=== PATIENT | male | born 1950 | race Caucasian/White ===

== ENCOUNTER 2017-05-05 08:38 | Observation (INO) | payer MEDICARE, MEDICAID, SELFPAY ==
[2017-05-05] VITALS (17 sets, daily range): BP systolic 113–134; BP diastolic 69–94; PULSE 62–98; RESP 15–18; TEMP 36.4–36.6; O2SAT 92–97; BMI 30.2; BMI 29.5
--- NOTE | 2017-05-05 08:49 | EKG12_ITS ---
Test Reason : CP Blood Pressure : / mmHG Vent. Rate : 075 BPM Atrial Rate : 075 BPM P-R Int : 232 ms QRS Dur : 090 ms QT Int : 374 ms P-R-T Axes : 061 -24 043 degrees QTc Int : 417 ms Sinus rhythm with 1st degree A-V block Inferior infarct , age undetermined Abnormal ECG Confirmed by YENIFER BUCK, YESI ([id number]), senior editor EVGENY ALEX ([id number]) on 05/08/2017 2:06:38 PM Referred By: MISTY Confirmed By:YESI STREET MD
--- NOTE | 2017-05-05 08:54 | ED.DCSUM_ITS ---
- ER Visit Summary Date of Service: 05/05/17 Chief Complaint: Chest pain History of Present Illness: The patient is a [address] Rao, Dr. Peterson, and Dr. Jorge Hudson. Patient had a colonoscopy yesterday. He states that since 4:00 this morning he is passed a small amount of blood and clear/white tissue. He has diffuse abdominal pain that was 10 out of 10 at worst is 7 out of 10 currently. Is worsened by nothing relieved by nothing. Patient reports that approximately 1 hour ago he had the onset of a substernal chest pain while at rest. He describes his pain as sharp. It was 10 out of 10 at worst and 410 currently. Is worsened by exertion relieved by rest. Ports she has been nauseated, but he was nauseated prior to the onset of the chest pain. However, it has made him sweaty and short of breath. Physical Examination: Vitals: Stable. Afebrile. General: Well-nourished and well-developed. Head: Normocephalic atraumatic. Neck: Supple, no lymphadenopathy. No JVD. Nontender. Cardiovascular: Regular rate and rhythm. No murmurs. Respiratory: No respiratory distress. Clear to auscultation bilaterally. Abdominal: Soft, mild diffuse tenderness to palpation that is worst in the epigastric region, nondistended, normal bowel sounds. No guarding, rebound, or peritoneal signs. Back: Nontender. Extremities: Nontender, no edema. Skin: Normal color, no rash. Neurologic: Alert and oriented ?3. Cranial nerves II through XII are intact. Normal strength and sensation. Psych: Normal affect. Test Results: EKG is sinus with a first-degree AV block rate of 75 and nonspecific changes. He does have inferior Q waves. However, this is unchanged from December 2016. Repeat EKG is unchanged. CBC is marked for white count of 11.97 neutrophils 73. Hemoglobin is 14.5. Chem-7 is more for chloride 108, glucose 109. INR is 1.1. Troponin is less than 0.02. Three- view of the abdomen shows no free air. Moderate fecal material and nonspecific bowel gas pattern. Emergency Department Course and Treatment: The place. He was given morphine and Zofran IV. Initially aspirin was held due to the colonoscopy and concern for potential bleeding from this. Patient is resting comfortably. He denies any chest pain at this time. Treatment Plan: After discussion with Dr. Peterson the patient is given a dose of aspirin. He requires admission for further evaluation for his chest pain. Disposition: Admitted in improved condition. Impression: 1. Chest pain. 2. 1 day status post colonoscopy. 3. DEMETRIO score of 3. This note was generated with [employer]ango [employer] dictation software. It may contain incorrect words, spelling, and punctuation that were not noted in review of the chart prior to signing ED Disposition - Plan for ED Patient: Chief Complaint: Chest Pain Referrals: Momo High MD [Primary Care Provider] -
[2017-05-05 08:57] LABS: Absolute Lymphocyte Count 2.25 X10^3/ul (0.83-4.51); Absolute Neutrophil Count 8.6 X10^3/uL (2.0-7.7); Basophil# 0.01 X10^3/uL; Basophil% 0.1 % (0-1); Eosinophil# 0.03 X10^3/uL; Eosinophils% 0.3 % (0-5); Hematocrit 43.6 % (40-54); Hemoglobin 14.5 g/dl (13.0-16.5); Lymphocyte # 2.25 X10^3/ul (4.0); Mean Corp Hgb Conc 33.3 g/gl (32-36); Mean Corpuscular Hgb 28.8 pg (27.0-32.0); Mean Corpuscular Volume 86.7 fL (80-94); Mean Platelet Vol. 9.3 fl (6.2-12.0); Monocyte# 0.91 X10^3/uL; Monocyte% 7.7 % (0-10); Neutrophil # 8.64 X10^3/uL (2.7-7.7); Neutrophil % 72.7 % (47-70); POSITIVE COUNT NO; POSITIVE DIFFERENTIAL NO; POSITIVE MORPHOLOGY NO; Platelet Count 219 K/mm3 (150-450); RBC Distribution Width CV 13.3 % (11.6-14.6); RBC Distribution Width SD 42.3 fl (35.1-43.9); Red Blood Count 5.03 M/mm3 (4.6-6.2); White Blood Count 11.9 K/mm3 (4.4-11.0)
[2017-05-05] MEDS: 0.9% Normal Saline 1,000 ML 1000 ML IV (08:57)
[2017-05-05] MEDS: Ondansetron 4 MG/2 ML Vial IV (08:57)
[2017-05-05 09:04] LABS: International Normalized Ratio 1.1
[2017-05-05 09:15] LABS: Anion Gap 7 (5-15); BUN 13 mg/dL (7-18); BUN/Creat Ratio 12.3 RATIO (10-20); Calcium,Total 8.5 mg/dL (8.5-10.1); Chloride 108 mmol/L (98-107); Creatinine, Serum 1.06 mg/dL (0.70-1.30); EST Glomerular Filtration Rate 74 mL/min (>60); Est Glom Filt Rate - Afr Amer 90 mL/min (>60); Estimated Creatinine Clearance 71.74 ml/min; Glucose 109 mg/dL (74-106); Potassium 3.7 mmol/L (3.5-5.1); Sodium Level 140 mmol/L (136-145)
--- NOTE | 2017-05-05 09:15 | RAD_ITS ---
STUDY: X-RAY - ABDOMEN/PELVIS REASON FOR EXAM: Male, 66 years old. Abdominal pain. Recent colonoscopy. TECHNIQUE: AP supine and upright views of the abdomen and pelvis. COMPARISON: None. FINDINGS: Normal visualized lung bases. A left-sided dual chamber pacemaker is seen. Moderate amount of fecal material is seen in the colon. There is no demonstrated free abdominal air. The visualized liver, spleen and kidneys are grossly normal in size and morphology. There are calcified phleboliths in the pelvis. Normal visualized osseous structures. RAD/Acute Abdomen Inc Chest IMPRESSION: Moderate amount of fecal material is seen in the colon. Electronically Signed: Raffaele Quiros MD at 10:04 EDT Tel [phone], Service support ,
--- NOTE | 2017-05-05 10:24 | EKG12_ITS ---
Test Reason : REPEAT CP Blood Pressure : / mmHG Vent. Rate : 068 BPM Atrial Rate : 068 BPM P-R Int : 240 ms QRS Dur : 094 ms QT Int : 416 ms P-R-T Axes : 052 -23 032 degrees QTc Int : 442 ms Sinus rhythm with 1st degree A-V block Inferior infarct , age undetermined Abnormal ECG Confirmed by YENIFER BUCK, YESI ([id number]), editor at large EVGENY ALEX ([id number]) on 05/08/2017 2:07:08 PM Referred By: MISTY Confirmed By:YESI STREET MD
[2017-05-05] MEDS: Aspirin 81 MG TAB.CHEW 324 MG PO (10:56)
[2017-05-05 12:26] LABS: Bedside Glucose 109 mg/dL (70-110)
[2017-05-05] MEDS: Bisacodyl 5 MG Tablet PO (13:59)
[2017-05-05] MEDS: Magnesium Hydroxide 30 ML UDC PO (13:59)
--- NOTE | 2017-05-05 14:01 | EKG12_ITS ---
Test Reason : ARM PAIN Blood Pressure : / mmHG Vent. Rate : 069 BPM Atrial Rate : 069 BPM P-R Int : 252 ms QRS Dur : 090 ms QT Int : 394 ms P-R-T Axes : 052 -22 032 degrees QTc Int : 422 ms Sinus rhythm with 1st degree A-V block Low voltage QRS Inferior infarct , age undetermined Abnormal ECG When compared with ECG of 05-MAY-2017 10:28, MANUAL COMPARISON REQUIRED, DATA IS UNCONFIRMED Confirmed by YENIFER BUCK, YESI ([id number]), copy editor EVGENY ALEX ([id number]) on 05/08/2017 2:50:23 PM Referred By: GARRICK Confirmed By:YESI STREET MD
--- NOTE | 2017-05-05 14:02 | NURSING ---
RN CALLED TO ROOM, STATES LOWER ABDOMEN PAIN AND LEFT ARM HURTS. BP 120/58, HR 68. CALLED FOR EKG. PATIENT STATES, GAS PAIN,
--- NOTE | 2017-05-05 14:59 | PCM.HP.STD ---
Problem List (1) Chest pain Status: Acute Qualifiers: Ischemic chest pain type: unspecified angina pectoris type (2) Status post pacemaker Status: Chronic (3) Obstructive sleep apnea Status: Chronic (4) Hyperlipidemia Status: Chronic (5) Atrial fibrillation Status: Chronic (6) Anxiety Status: Chronic History of Present Illness Date of Admission: 05/05/17 Chief Complaint: Chest pain, ongoing for a while, worse today The patient is a 66 year old M with PMHx of CAF, s/p pacemaker who has been having recrrent chest pain. He woke up today and was sitting in his recliner when he suddenly felt a sharp chest pain, that radiated to his left arm and was associated with nausea and light-headedness. He has occasional palpitations. Has not seen a counselor education professor in a while. Chest pain is not worse with exertion. Vitals in the ED were stable. Initial trop was negative. EKG shows NSR, no acute ST-Tchanges Past Medical History Past Medical History (Chronic Problems): Chronic Problems Status post pacemaker (Chronic) Obstructive sleep apnea (Chronic) Hyperlipidemia (Chronic) Atrial fibrillation (Chronic) Anxiety (Chronic) Allergies metformin Allergy (Verified 05/05/17 08:53) Unknown Penicillins Allergy (Verified 05/05/17 08:53) Swelling Androgenic Anabolic Steroid Adverse Reaction (Verified 05/05/17 12:43) Rash STATES, HAD SOME TYPE OF Z-ABBIE TAMPER AND GOT A RASH FROM IT. Home Medications: Ambulatory Orders Medication Instructions Recorded Flecainide [Tambocor] 50 mg PO BID 05/11/14 Gemfibrozil [Lopid] 600 mg PO BID 05/11/14 Metoprolol Tartrate [Lopressor 12.5 mg PO BID 05/11/14 (beta sae)] Nitroglycerin [Nitrostat] 0.4 mg SUBLINGUAL Q5M PRN 05/11/14 Pravastatin [Pravachol] 40 mg PO QHS 05/11/14 Warfarin [Coumadin] 4 mg PO DAILY 05/11/14 Venlafaxine XR [Effexor Xr] 150 mg PO DAILY 12/22/16 Albuterol Aerosols [Ventolin 2.5 mg INHALATION Q4H PRN PRN 05/05/17 Aerosols] Glimepiride [Amaryl] 2 mg PO DAILY 05/05/17 Omeprazole [Prilosec] 20 mg PO DAILY 05/05/17 Sitagliptin Phosphate [Januvia] 100 mg PO DAILY 05/05/17 Tamsulosin HCl [Flomax] 0.4 mg PO QHS 05/05/17 Surgical History: - - Knee surgery, hernia repair Psychiatric History: No pertinent psych hx Lives: Alone Smoking Status: Former smoker - *Family History Maternal History Items: No pertinent history Review of Systems Constitutional: Denies: Anorexia, Chills, Fever, Weight Change Eyes: Denies: Blurred vision, Cataracts, Drainage, Eyelid Inflammation HEENT: Denies: Difficulty Hearing, Difficulty Swallowing, Head Aches, Hearing Changes, Sinus Congestion, Sinus Drainage, Sore Throat Cardiovascular: Reports: Chest Pain, Chest Pressure, Light Headedness, Palpitations - occasional. Denies: Orthopnea, Paroxysmal Noc. Dyspnea Respiratory: Denies: Cough, Shortness of breath at rest, Sputum production Gastrointestinal: Denies: Abdominal Pain, Nausea, Vomiting Genitourinary: Denies: Dysuria Musculoskeletal: Denies: Joint Pain, Joint Tenderness Skin: Denies: Rash, Wounds Neurological: Denies: Numbness, Tingling, Focal weakness Psychiatric: Denies: Anxiety, Depression, Homicidal Ideations, Suicidal Ideations Hematologic/ Lymphatic: Denies: Easy Bruising, Easy Bleeding VTE Information - Inpt Only VTE Present on Admission: No VTE Pharm Prophylaxis ordered?: Yes Patient Problems: Active and Suspected Problems Chest pain (Acute) - Physical Exam General: Alert, Oriented x3, Cooperative HEENT: Atraumatic, PERRLA, EOMI, Normocephalic Neck: Supple, No JVD, Negative Carotid Bruits Lungs: Clear to auscultation, Normal air movement Cardiovascular: Regular rate, No murmurs Abdomen: Bowel Sounds Present, Soft, Non Tender Extremities: No edema, Capillary Refill Less than 3 Seconds Skin: No rashes, No breakdown Musculoskeletal: No Tenderness to Palpation of Joints or Extremities Neurological: Cranial nerves II-XII grossly intact Psych/Mental Status: Normal Affect, Appropriate Vital Signs Temp Pulse Resp BP Pulse Ox 97.9 F 67 16 123/73 H 96 05/05/17 12:20 05/05/17 12:31 05/05/17 12:20 05/05/17 12:20 05/05/17 12:20 Oxygen Flow Rate (L/min) 2 Oxygen Delivery Method Nasal Cannula Weight: 93.3 kg Body Mass Index (BMI) 29.5 Laboratory Tests Past 24 Hrs 05/05/17 12:25 Troponin I < 0.02 POC Glucose 05/05/17 12:21 POC Glucose 109 Assessment/Plan Active and Suspected Problems Chest pain (Acute) 66 y/o male with PMhx with PMHx of chronic atrial fibrillation, status post pacemaker comes in with complaints of chest pain ongoing for several weeks, was on the day of admission. 1. Chest pain, atypical, no acute ST-T changes on EKG, troponins negative, will admit patient to PCU, monitor vitals on telemetry, cycle troponins, aspirin 81 mg p.o. daily, nitro as needed, stress test in am 2.Chronic A. fib, now in NSR, on home warfarin, flecainide, beta-sae INR subtherapeutic, follow-up INR in a.m. 3. s/p pacemaker 4. DM, type 2, on the. Right, Marilee ISS, accucheks 5. Hyperlipidemia, on statin 6. Recent colonoscopy for polyps by Dr. Don, adina 7. DVT PPx - Lovenox SC Code Visit OBSV E&M: 70822 Initial observation care L3
[2017-05-05] MEDS: Acetaminophen 325 MG Tablet 650 MG PO (16:05)
[2017-05-05 16:11] LABS: Bedside Glucose 117 mg/dL (70-110)
[2017-05-05] MEDS: Glucerna Shake 120 ML LIQUID PO (17:38)
[2017-05-05] MEDS: Flecainide 100 MG Tablet 50 MG PO (17:39)
[2017-05-05] MEDS: LINAGLIPTIN 5 MG TABLET PO (17:39)
[2017-05-05] MEDS: Venlafaxine XR 150 MG Capsule PO (17:40)
[2017-05-05] MEDS: Pantoprazole Sodium 20 MG Tablet PO (17:40)
[2017-05-05] MEDS: Senna/Docusate Sodium 1 Tablet 2 TABLET PO (20:48)
[2017-05-05] MEDS: Pravastatin 40 MG Tablet PO (20:49)
[2017-05-05] MEDS: Metoprolol Tartrate 25 MG Tablet 12.5 MG PO (20:49)
[2017-05-05] MEDS: Docusate Sodium 100 MG Capsule 200 MG PO (20:50)
[2017-05-05] MEDS: Tamsulosin HCl 0.4 MG Capsule PO (20:50)
[2017-05-05] MEDS: Gemfibrozil 600 MG Tablet PO (20:51)
[2017-05-05 22:21] LABS: Bedside Glucose 148 mg/dL (70-110)
[2017-05-06 02:40] VITALS: BP 123/75; PULSE 60; RESP 18; TEMP 36.3; O2SAT 95
[2017-05-06 03:00] VITALS: PULSE 71
[2017-05-06 05:42] LABS: Absolute Lymphocyte Count 1.85 X10^3/ul (0.83-4.51); Absolute Neutrophil Count 3.9 X10^3/uL (2.0-7.7); Basophil# 0.02 X10^3/uL; Basophil% 0.3 % (0-1); Eosinophil# 0.06 X10^3/uL; Eosinophils% 0.9 % (0-5); Hematocrit 41.3 % (40-54); Hemoglobin 13.8 g/dl (13.0-16.5); Lymphocyte # 1.85 X10^3/ul (4.0); Lymphocyte % 28.2 % (19-41); Mean Corp Hgb Conc 33.4 g/gl (32-36); Mean Corpuscular Hgb 29.7 pg (27.0-32.0); Mean Corpuscular Volume 88.8 fL (80-94); Mean Platelet Vol. 9.2 fl (6.2-12.0); Monocyte# 0.74 X10^3/uL; Monocyte% 11.3 % (0-10); Neutrophil # 3.89 X10^3/uL (2.7-7.7); Neutrophil % 59.1 % (47-70); Platelet Count 188 K/mm3 (150-450); RBC Distribution Width CV 13.5 % (11.6-14.6); RBC Distribution Width SD 43.3 fl (35.1-43.9); Red Blood Count 4.65 M/mm3 (4.6-6.2); White Blood Count 6.6 K/mm3 (4.4-11.0)
[2017-05-06 05:48] LABS: POSITIVE COUNT NO; POSITIVE DIFFERENTIAL NO; POSITIVE MORPHOLOGY NO
--- NOTE | 2017-05-06 05:55 | EKG12_ITS ---
Test Reason : MORNING EKG Blood Pressure : / mmHG Vent. Rate : 067 BPM Atrial Rate : 067 BPM P-R Int : 264 ms QRS Dur : 094 ms QT Int : 426 ms P-R-T Axes : 053 -26 042 degrees QTc Int : 450 ms Sinus rhythm with 1st degree A-V block Inferior infarct , age undetermined Abnormal ECG When compared with ECG of 05-MAY-2017 14:06, MANUAL COMPARISON REQUIRED, DATA IS UNCONFIRMED Confirmed by YENIFER BUCK, YESI ([id number]), scientific publications editor EVGENY ALEX ([id number]) on 05/08/2017 3:08:35 PM Referred By: GARRICK Confirmed By:YESI STREET MD
[2017-05-06 06:00] LABS: International Normalized Ratio 1.1; Prothrombin Time (Protime)PT. 14.6 SECONDS (11.7-14.9)
[2017-05-06 06:01] LABS: Partial Thromboplast Time 31.9 Seconds (24.1-36.2)
[2017-05-06 06:07] LABS: Anion Gap 7 (5-15); BUN 13 mg/dL (7-18); BUN/Creat Ratio 12.6 RATIO (10-20); Calcium,Total 8.6 mg/dL (8.5-10.1); Chloride 108 mmol/L (98-107); Creatinine, Serum 1.03 mg/dL (0.70-1.30); EST Glomerular Filtration Rate 77 mL/min (>60); Est Glom Filt Rate - Afr Amer 93 mL/min (>60); Estimated Creatinine Clearance 73.83 ml/min; Glucose 121 mg/dL (74-106); Potassium 3.9 mmol/L (3.5-5.1); Sodium Level 142 mmol/L (136-145)
[2017-05-06 06:13] VITALS: BP 119/70; PULSE 67; RESP 18; TEMP 36.3; O2SAT 93
[2017-05-06] MEDS: Aspirin 81 MG TAB.CHEW PO (06:17)
[2017-05-06 06:23] VITALS: PULSE 61
[2017-05-06 06:56] LABS: Bedside Glucose 131 mg/dL (70-110)
--- NOTE | 2017-05-06 09:07 | STRESSREP ---
Stress Test Report Pharmacologic myocardial perfusion stress test. 66-year-old man with a history of chest pain. Stress protocol: Resting EKG demonstrates sinus rhythm with rate of 64 bpm normal intervals and noted resting blood pressure is 120/80 mmHg. 0.4 mg of regadenoson was infused per usual protocol followed by rapid intravenous saline flush injection. Continuous EKG monitoring was performed. The patient maintained sinus rhythm throughout the recording. At rest there were no ST or T-wave changes noted suggest abnormal flow reserve at peak infusion no ST or T-wave changes were noted suggest abnormal flow reserve. The maximum heart rate attained was 95 bpm which was 61% maximum predicted heart rate the maximum workload attained was 1 metabolic equivalent. The resting blood pressure was 120/80 with a final blood pressure 140/74. Myocardial perfusion protocol. 11.8 mCi of technetium 99m sestamibi was injected at rest. 0.4 mg regadenoson was infused per usual protocol. At peak infusion 34.2 mCi of technetium 99m sestamibi was injected. Stress images were obtained. Stress and rest images were reconstructed and compared in the short axis vertical long and horizontal long axis. Gated images were also obtained. Perfusion SPECT analysis: Review of the stress images demonstrate normal uptake of tracer noted in all areas of the myocardium. The resting images similarly demonstrate normal uptake of tracer noted in all areas of the myocardium. No areas of reversibility noted suggest ischemia. Gated SPECT analysis: The gated ejection fraction is noted to be 77%. Conclusion: Normal pharmacologic myocardial perfusion stress test. Preserved left ventricular ejection fraction.
[2017-05-06] MEDS: Glimepiride 2 MG Tablet PO (09:25)
[2017-05-06] MEDS: Bisacodyl 5 MG Tablet PO (09:25)
[2017-05-06 09:26] VITALS: BP 127/69; PULSE 67; RESP 16; TEMP 36.5; O2SAT 96
[2017-05-06] MEDS: Magnesium Hydroxide 30 ML UDC PO (09:26)
[2017-05-06] MEDS: Pantoprazole Sodium 20 MG Tablet PO (09:26)
[2017-05-06] MEDS: Gemfibrozil 600 MG Tablet PO (09:26)
[2017-05-06] MEDS: Docusate Sodium 100 MG Capsule 200 MG PO (09:26)
[2017-05-06] MEDS: Metoprolol Tartrate 25 MG Tablet 12.5 MG PO (09:26)
[2017-05-06] MEDS: LINAGLIPTIN 5 MG TABLET PO (09:26)
[2017-05-06] MEDS: Flecainide 100 MG Tablet 50 MG PO (09:26)
[2017-05-06] MEDS: Senna/Docusate Sodium 1 Tablet 2 TABLET PO (09:27)
[2017-05-06] MEDS: Venlafaxine XR 150 MG Capsule PO (09:46)
--- NOTE | 2017-05-06 09:58 | DCINST_ITS ---
- Discharge Diagnoses Current Active Problems: Current Active and Chronic Problems Chest pain (Acute) Reason(s) for Visit for Discharge Instructions: Chest pain You will use the following diet at home:: Calorie/Carbohydrate Controlled ( specify 1200, 1400, etc), Cardiac Your food should be the consistency of: Regular Your liquids should be the consistency of: Regular/Thin Discharge Activity: Return to Normal Activity Allergies/Adverse Reactions: Allergies metformin Allergy (Verified 05/05/17 08:53) Unknown Penicillins Allergy (Verified 05/05/17 08:53) Swelling Androgenic Anabolic Steroid Adverse Reaction (Verified 05/05/17 12:43) Rash STATES, HAD SOME TYPE OF Z-ABBIE TAMPER AND GOT A RASH FROM IT. Medications to take at Discharge Flecainide [Tambocor] 50 mg PO BID 05/11/14 Gemfibrozil [Lopid] 600 mg PO BID 05/11/14 Metoprolol Tartrate [Lopressor (beta sae)] 12.5 mg PO BID 05/11/14 Nitroglycerin [Nitrostat] 0.4 mg SUBLINGUAL Q5M PRN 05/11/14 Pravastatin [Pravachol] 40 mg PO QHS 05/11/14 Warfarin [Coumadin] 4 mg PO DAILY 05/11/14 Venlafaxine XR [Effexor Xr] 150 mg PO DAILY 12/22/16 Albuterol Aerosols [Ventolin Aerosols] 2.5 mg INHALATION Q4H PRN PRN 05/05/17 Glimepiride [Amaryl] 2 mg PO DAILY 05/05/17 Omeprazole [Prilosec] 20 mg PO DAILY 05/05/17 Sitagliptin Phosphate [Januvia] 100 mg PO DAILY 05/05/17 Tamsulosin HCl [Flomax] 0.4 mg PO QHS 05/05/17 Aspirin [Aspirin, Baby] 81 mg PO DAILY@0800 tab.chew 05/06/17 Primary Care Physician: Momo High MD [Primary Care Provider] - Please follow up with your Primary Care Physician in: within 2 weeks When: Follow-up with your radiology transporter in 2-4 weeks Proposed Discharge Date: 05/06/17
--- NOTE | 2017-05-06 09:59 | PCM.DC.SUM ---
Discharge Date and Diagnosis Date of Admission: 05/05/17 Date of Discharge: 05/06/17 - Primary Discharge Diagnosis Active and Suspected Problems Chest pain (Acute) - Secondary Discharge Diagnosis Chronic Problems Status post pacemaker (Chronic) Obstructive sleep apnea (Chronic) Hyperlipidemia (Chronic) Atrial fibrillation (Chronic) Anxiety (Chronic) Hospital Course and Treatment Imaging Results: 05/06/17 05:55 Nuclear Stress Test - Chemical [NM] AM (NON MEDS) Operations: None Procedures: None Summary of Care Provided: 66 y/o male with PMHx with of chronic atrial fibrillation, status post pacemaker comes in with complaints of chest pain ongoing for several weeks, was worse on the day of admission. 1. Chest pain, atypical, no acute ST-T changes on EKG, troponins negative, admitted to PCU monitored overnight with no acute events, he had a stress test in the morning which was negative. 2.Chronic A. fib, now in NSR, on home warfarin, flecainide, beta-sae INR subtherapeutic, will up with INR in the outpatient 3. s/p pacemaker 4. DM, type 2, stable blood sugar, continued on Januvia with Accu-Cheks and insulin sliding scale. 5. Hyperlipidemia, on statin 6. Recent colonoscopy for polyps by Dr. Don, stable Discharge Diet: Low fat/ Low Cholesterol, 2000 mg Sodium Diet Discharge Activity: Return to Normal Activity Home Medications: Medications to take at Discharge Flecainide [Tambocor] 50 mg PO BID 05/11/14 Gemfibrozil [Lopid] 600 mg PO BID 05/11/14 Metoprolol Tartrate [Lopressor (beta sae)] 12.5 mg PO BID 05/11/14 Nitroglycerin [Nitrostat] 0.4 mg SUBLINGUAL Q5M PRN 05/11/14 Pravastatin [Pravachol] 40 mg PO QHS 05/11/14 Warfarin [Coumadin] 4 mg PO DAILY 05/11/14 Venlafaxine XR [Effexor Xr] 150 mg PO DAILY 12/22/16 Albuterol Aerosols [Ventolin Aerosols] 2.5 mg INHALATION Q4H PRN PRN 05/05/17 Glimepiride [Amaryl] 2 mg PO DAILY 05/05/17 Omeprazole [Prilosec] 20 mg PO DAILY 05/05/17 Sitagliptin Phosphate [Januvia] 100 mg PO DAILY 05/05/17 Tamsulosin HCl [Flomax] 0.4 mg PO QHS 05/05/17 Aspirin [Aspirin, Baby] 81 mg PO DAILY@0800 tab.chew 05/06/17 Primary Care Physician: Momo High MD [Primary Care Provider] - Please follow up with your Primary Care Physician in: within 2 weeks When: Follow-up with your customer advocate in 2-4 weeks Disposition: Home Minutes spent on discharge:: 25 Patient Condition:: Stable Medical Necessity - Tobacco Use Smoking Status: Former smoker Meaningful Use Info Meaningful Use Diagnoses (Choose all that apply): None applicable Code Visit OBSV E&M: 85729 Observation care discharge
== END 2017-05-06 09:58 | disposition home or self-care (01) ==
LOC: ED 09:22 → PCU 11:03
PROVIDERS: Admitting Provider Internal Medicine; Emergency Provider Emergency Medicine; Family Provider Family Medicine; PCP Family Medicine; Visit Provider Internal Medicine
DX: R07.89 Other chest pain (principal); R06.02 Shortness of breath; I44.0 Atrioventricular block, first degree; G47.33 Obstructive sleep apnea (adult) (pediatric); E78.5 Hyperlipidemia, unspecified; I48.2 Chronic atrial fibrillation; F41.9 Anxiety disorder, unspecified; E11.9 Type 2 diabetes mellitus without complications; Z95.0 Presence of cardiac pacemaker; Z79.899 Other long term (current) drug therapy; Z79.01 Long term (current) use of anticoagulants; Z87.891 Personal history of nicotine dependence
CPT/HCPCS: 36415; 74022; 78452; 80048; 82962; 83735; 84484; 85025; 85610; 85730; 93005; 93017; 96361; 96374; 96375; 97802; 99218; 99285; A9500; J7030; A4216; G0378; J2405; J2785

== ENCOUNTER → 2017-12-10 10:14 | Outpatient (CLI) | payer MEDICARE, SELFPAY ==
[2017-12-10 11:11] LABS: AST(SGOT) 22 U/L (15-37); Alanine Aminotransfer ALT/SGPT 49 U/L (16-61); Albumin, Serum 3.8 g/dL (3.2-5.0); Alkaline Phosphatase 116 U/L (45-117); Bilirubin, Direct 0.07 mg/dL (0.00-0.30); Cholesterol 173 mg/dL (200); Globulin 3.9 g/dL (2.2-4.2); High Density Lipoprotein 29 mg/dL; Protein, Total 7.7 g/dL (6.4-8.2); Triglycerides 313 mg/dL; Very Low Density Lipoprotein 63 mg/dL (5-40)
== END ==
PROVIDERS: Family Provider Family Medicine; PCP Family Medicine; Referring Provider Internal Medicine Cardiovascular Disease; Visit Provider Internal Medicine Cardiovascular Disease
DX: I25.10 Atherosclerotic heart disease of native coronary artery without angina pectoris (principal); I25.2 Old myocardial infarction
CPT/HCPCS: 36415; 80061; 80076

== ENCOUNTER → 2017-12-15 09:57 | Outpatient (CLI) | payer MEDICARE, MEDICAID, SELFPAY ==
--- NOTE | 2017-12-15 10:01 | STEWCON_ITS ---
Reason For Study: Chest Pain Stress Results Protocol: Modified Saeid Stress Echo Maximum Predicted HR: 154 bpm Target HR: 131 bpm % Maximum Predicted HR: 105 % DurationHeart Rate Stage (mm:ss) (bpm) BP Comment BASELINE 83 102/70DILUTED DEFINITY USED- 4 ML, PO AT REST 93-95% MODBRUCE PROTOCOL- STAGE 1 3:00 150 118/72SOB, KNEE PAIN MODBRUCE PROTOCOL- STAGE 2 0:30 162 / SOB, LEG FATIGUE; PO DID NOT BIOANALYST, NO CP RECOVERY 100 124/80PO 97% Stress Duration: 3:30 mm:ss Maximum Stress HR: 162 bpm Baseline Echocardiogram Findings The estimated ejection fraction is 65 %. Stress Echo Wall motion Data Resting WM Intermediate WM Stress WM Resting Wall Motion Wall Motion Stress No regional wall motion No regional wall motion abnormalities noted. abnormalities noted. EKG Data The baseline ECG displays normal sinus rhythm. The stress ECG displays normal sinus rhythm. The stress ECG displays normal ST segments. Interpretation Summary The study was technically difficult. Contrast injection was performed. The estimated ejection fraction is 65 %. Normal, adequate, modified Saeid treadmill echocardiogram. Negative for ischemia by EKG and echocardiographic criteria. No anginal symptoms noted. No arrhythmias noted. Test terminated due to dyspnea and leg/knee pain. Final LVEF of 75%. Decreased sensitivity due to poor echo windows requiring Definity agent enhancement. No complications. Ordering Physician: Thang^Magan^^^ Referring Physician: Magan Desir Performed By: Lauren Marrero RDCS
[2017-12-15 10:16] LABS: Prothrombin Time Fingerstick 24.3 SEC (11.9-14.4)
== END ==
PROVIDERS: Family Provider Family Medicine; PCP Family Medicine; Referring Provider Internal Medicine Cardiovascular Disease; Visit Provider Internal Medicine Cardiovascular Disease
DX: I48.0 Paroxysmal atrial fibrillation (principal); R07.9 Chest pain, unspecified; Z79.01 Long term (current) use of anticoagulants
CPT/HCPCS: 36416; 85610; 93017; 93350; Q9957; A4216; C8928

== ENCOUNTER → 2017-12-30 07:41 | Outpatient (CLI) | payer MEDICARE, MEDICAID, SELFPAY ==
--- NOTE | 2017-12-30 08:39 | ECHOCS_ITS ---
Reason For Study: chest pain Procedure This was a 2D Doppler, Color Flow transthoracic echocardiogram. The study was technically difficult. Contrast injection was performed. Exam performed in department. Left Ventricle Normal size and thickness. The estimated ejection fraction is 65 %. No regional wall motion abnormalities noted. Right Ventricle Normal size and thickness. ICD or pacer leads identified within the right ventricle. Normal systolic function. Atria The left atrium is mildly enlarged. Normal right atrium. Normal atrial septum. Mitral Valve The mitral valve is structurally normal. No prolapse or stenosis seen. Trivial mitral valve insufficiency. Tricuspid Valve Normal tricuspid valve. Mild (1+) tricuspid valve insufficiency. Right ventricular systolic pressure estimated to be 27 mmHg. Aortic Valve Trisinus/trileaflet aortic valve. Pulmonic Valve Normal pulmonic valve. Great Vessels Normal aortic root. Normal arch. Normal inferior vena cava. Inferior vena cava collapse with sniff. Pericardium/Pleural No pericardial effusion. Medication 22 gauge I.V. with prn adaptor inserted into right arm. Diluted definity 5.0ml given slow IV push to enhance endocardial definition. MMode/2D Measurements & Calculations LVIDd: 4.4 cm IVSd: 1.2 cm Ao root diam: 3.4 cm LVIDs: 2.9 cm LVPWd: 1.2 cm RVDd: 3.3 cm FS: 34.3 % LAV(MOD-bp): 66.2 ml LA A4 area: 21.9 cm2 LA dimension(2D): 4.0 cm LAV(MOD-bp) Indexed: 30.1 ml/m2 LAV(MOD-sp2): 63.3 ml LAV(MOD-sp4): 67.7 ml RA A4 area: 15.9 cm2 Doppler Measurements & Calculations MV E max lj: 79.7 cm/sec Lat Peak E' Lj: 10.5 cm/sec Med Peak E' Lj: 7.5 cm/sec MV A max lj: 55.9 cm/sec E/E' lat: 7.6 E/E' med: 10.6 MV E/A: 1.4 Ao V2 max: 99.2 cm/sec LV V1 max: 93.2 cm/sec PA V2 max: 63.0 cm/sec Ao max P.9 mmHg LV V1 max P.5 mmHg TR max lj: 239.5 cm/sec TR max P.0 mmHg Interpretation Summary The estimated ejection fraction is 65 %. The left atrium is mildly enlarged. Trivial mitral valve insufficiency. Mild (1+) tricuspid valve insufficiency. Right ventricular systolic pressure estimated to be 27 mmHg. The study was technically difficult. There is no comparison study available. Contrast injection was performed. Ordering Physician: Magan Desir Referring Physician: Magan Desir Performed By: Franchesca Ansari, DOMITILA, RVT
--- NOTE | 2017-12-31 06:46 | PFTCOMP ---
COMPLETE PULMONARY FUNCTION TEST INTERPRETATION Brief HPI: Patient is a 67 year old male, currently under the care of Dr. Desir, who presents to [facility] for complete pulmonary function tests secondary to diagnosis of MANNY. Respiratory therapist reports good effort and reproducible results. Interpretation: Forced expiration spirometry shows a mild large airways obstructive ventilatory defect with an FEV1 of 75% predicted. There is no significant bronchodilator response by strict ATS criteria. Spirograms are of good quality and plateau slowly, indicating slowly emptying areas of the lungs. The respiratory flow volume loop shows decreased expiratory flow rates at all lung volumes consistent with airway obstruction. Lung volumes by body plethysmography show a normal total lung capacity at 6.88 L, 98% predicted. All other lung volumes are within normal limits. Diffusion capacity by carbon monoxide is normal at 81% predicted. The airway resistance is normal. No previous pulmonary function tests were available for review. Impression: Irreversible mild large airways obstructive ventilatory defect with preserved diffusion capacity, consistent with a diagnosis of chronic bronchitis.
== END ==
PROVIDERS: Family Provider Family Medicine; PCP Family Medicine; Referring Provider Internal Medicine Cardiovascular Disease; Visit Provider Internal Medicine Cardiovascular Disease
DX: I25.10 Atherosclerotic heart disease of native coronary artery without angina pectoris (principal); R07.9 Chest pain, unspecified; G47.33 Obstructive sleep apnea (adult) (pediatric); I10 Essential (primary) hypertension; I48.0 Paroxysmal atrial fibrillation
CPT/HCPCS: 93306; 94060; 94726; 94729; Q9957; A4216; C8929

== ENCOUNTER → 2018-01-13 13:19 | Outpatient (CLI) | payer MEDICARE, MEDICAID, SELFPAY ==
[2018-01-13 13:49] LABS: International Normalized Ratio 1.7; Prothrombin Time (Protime)PT. 20.3 SECONDS (11.7-14.9)
--- OUTSIDE RECORDS SUMMARY | 2018-03-10 22:46 | XMS RPT_ITS ---
:1950 Author Organization [facility] Support Name Relationship Address Phone BIA DELCID Unavailable [address] + [place] [address] RHETT, AWILDA Unavailable [address] + [place] [address] R Unavailable Unavailable Unavailable BIA DELCID Unavailable [address] + [place] [address] RHETT, AWILDA Unavailable [address] + [address] [place] [address] R Unavailable Unavailable Unavailable BIA DELCID Unavailable [address] + [place] [address] RHETT, AWILDA Unavailable [address] + [address] [place] [address] R Unavailable Unavailable Unavailable BIA DELCID Unavailable [address] + [place] [address] RHETT, AWILDA Unavailable [address] + [address] [place] [address] R Unavailable Unavailable Unavailable BIA DELCID Unavailable [address] + [place] [address] RHETT, AWILDA Unavailable [address] + [address] [place] [address] R Unavailable Unavailable Unavailable BIA DELCID Unavailable [address] + [place] [address] RHETT, AWILDA Unavailable [address] + [address] [place] [address] R Unavailable Unavailable Unavailable BIA DELCID Unavailable [address] + [place] [address] RHETT, AWILDA Unavailable [address] + [address] [place] [address] R Unavailable Unavailable Unavailable BIA DELCID Unavailable [address] + [place] [address] RHETT, AWILDA Unavailable [address] + [address] [place] [address] R Unavailable Unavailable Unavailable BIA DELCID Unavailable [address] + [place] [address] RHETT, AWILDA Unavailable [address] + [place] [address] R Unavailable Unavailable Unavailable BIA DELCID Unavailable [address] + [place] [address] RHETT, AWILDA Unavailable [address] + [place] [address] R Unavailable Unavailable Unavailable BIA DELCID Unavailable [address] + [place] [address] RHETT, AWILDA Unavailable [address] + [place] [address] R Unavailable Unavailable Unavailable BIA DELCID Unavailable [address] + [place] [address] RHETT, AWILDA Unavailable [address] + [place] [address] R Unavailable Unavailable Unavailable BIA HUDSON Unavailable Unavailable + BIA HUDSON Unavailable Unavailable + BIA HUDSON Unavailable Unavailable + BIA DELCID Unavailable [address] + [place] [address] RHETT, AWILDA Unavailable [address] + [place] [address] R Unavailable Unavailable Unavailable RY DELCIDY Unavailable [address] + [place] [address] RHETT, AWILDA Unavailable [address] + [place] [address] R Unavailable Unavailable Unavailable FINNLEY, BIA Unavailable [address] + [place] [address] RHETT, AWILDA Unavailable [address] + [place] [address] R Unavailable Unavailable Unavailable FINNLEY, BIA Unavailable [address] + [place] [address] RHETT, AWILDA Unavailable [address] + [place] [address] R Unavailable Unavailable Unavailable FINNLEY, BIA Unavailable [address] + [place] [address] RHETT, AWILDA Unavailable [address] + [place] [address] R Unavailable Unavailable Unavailable Care Team Providers Name Role Phone [facility], Marika Primary Care Unavailable Paintsil, Warrington Admitting Unavailable Paintsil, Warrington Attending Unavailable Paintsil, Warrington Admitting Unavailable Paintsil, Warrington Attending Unavailable [facility], Marika Primary Care Unavailable Paintsil, Warrington Consulting Unavailable [facility] Primary [facility] Unavailable Magan Desir Attending Unavailable Magan Desir Referring Unavailable Paintsil, Warrington Admitting Unavailable Paintsil, Warrington Attending Unavailable [facility] Primary [facility] Unavailable Paintsil, Warrington Consulting Unavailable Nadege, Hammond Attending Unavailable Paintsil, Warrington Referring Unavailable Nadege, Meng Attending Unavailable Paintsil, Warrington Referring Unavailable Niko Prasad Attending Unavailable Magan Desir Attending Unavailable Elder[place]ck, Marika Referring Unavailable Magan Desir Attending Unavailable Magan Desir Referring Unavailable [facility], Marika Primary Care Unavailable Mayra Medina Attending Unavailable Magan Desir Attending Unavailable Magan Desir Referring Unavailable [facility], Marika Primary Care Unavailable Sharlene Ayala Attending Unavailable [facility], Marika Referring Unavailable Magan Desir Attending Unavailable Magan Desir Referring Unavailable [facility], Marika Primary Care Unavailable Magan Desir Attending Unavailable Magna Desir Referring Unavailable Saeid Rose Attending Unavailable Magan Desir Referring Unavailable Magan Desir Attending Unavailable Magan Desir Referring Unavailable [facility], Marika Primary Care Unavailable Magan Desir Attending Unavailable Magan Desir Referring Unavailable ANILA JALLOH, DR. HAIRSTON Primary Care Unavailable JOANNA JALLOH MD. SINDY Bailey Consulting Unavailable JOANNA JALLOH MD. SINDY Bailey Admitting Unavailable JOANNA JALLOH MD. SINDY Bailey Attending Unavailable ELDERBROCK, MARIKA D Referring Unavailable ELDERBROCK, MARIKA D Referring Unavailable ELDERBROCK, MARIKA D Referring Unavailable ELDERBROCK, MARIKA D Referring Unavailable ELDERBROCK, MARIKA D Referring Unavailable ELDERBROCK, MARIKA D Attending Unavailable ELDERBROCK, MARIKA D Referring Unavailable DO LANDERS (CREDENTIALING ASSISTANT) Attending Unavailable ELDERBROCK, MARIKA D Referring Unavailable MANE, ROSE MARIE T Referring Unavailable CONCHITA KRAUSE (PA) Attending Unavailable ELDERBROCK, MARIKA Johnson Referring Unavailable JODY BARONE (CAMPAIGN SPECIALIST) Referring Unavailable SAIDAVALENTIN (CAMPAIGN SPECIALIST) Attending Unavailable ELDERBROCK, MARIKA D Referring Unavailable FUNES, SOPHIA Referring Unavailable FUNES, SOPHIA Referring Unavailable ELDERBROCK, MARIKA D Attending Unavailable ELDERBROCK, MARIKA D Referring Unavailable FUNES, SOPHIA Referring Unavailable ELDERBROCK, MARIKA D Referring Unavailable ELDERBROCK, MARIKA D Attending Unavailable ELDERBROCK, MARIKA D Referring Unavailable ELDERBROCK, MARIKA D Referring Unavailable ELDERBROCK, MARIKA D Referring Unavailable ELDERBROCK, MARIKA D Attending Unavailable ELDERBROCK, MARIKA D Referring Unavailable ELDERBROCK, MARIKA D Referring Unavailable ELDERBROCK, MARIKA D Referring Unavailable ELDERBROCK, MARIKA D Referring Unavailable ELDERBROCK, MARIKA D Referring Unavailable CARRIE, JORGE E Referring Unavailable SAIDAVALENTIN (CAMPAIGN SPECIALIST) Attending Unavailable ELDERBROCK, MARIKA D Referring Unavailable CARRIE, JORGE Attending Unavailable CARRIE, JORGE Referring Unavailable Elder[facility], Marika D Primary Care Unavailable CARRIE, JORGE Attending Unavailable Elder[place], Marika D Primary Care Unavailable CARRIE, JORGE Referring Unavailable CARRIE, JORGE Attending Unavailable CARRIE, JORGE Referring Unavailable Elder[place]ck, Marika D Primary Care Unavailable MANE, ROSE MARIE T Admitting Unavailable MANE, ROSE MARIE T Attending Unavailable CARRIE, JORGE E Attending Unavailable CARRIE, JORGE E Referring Unavailable PROBLEMS PROBLEMS DATE TYPE CONDITION / CODE ATTENDING STATUS SOURCE Unknown G47.33 - Obstructive Saeid Rose Active [facility] sleep apnea (adult) Community (pediatric) / Hospital G47.33(ICD-10) Repository Unknown I48.0 - Paroxysmal Magan Desir Active [facility] [facility] atrial fibrillation / Community I48.0(ICD-10) Hospital Repository Unknown 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 Active [facility] Atherosclerotic heart [facility] coronary artery Repository without angina pectoris / I25.10(ICD-10) Unknown I10 - Essential Magan Desir Active [place] [facility] (primary) hypertension Community / I10(ICD-10) Hospital Repository Unknown R07.9 - Chest pain, Magan Desir Active [facility] unspecified / Community R07.9(ICD-10) Hospital Repository Active Encounter for NA Active [facility] therapeutic drug level Clinic Main monitoring / [place] Z51.81(ICD-10) Repository Active detention (current) NA Active [facility] use of anticoagulants Clinic Main / Z79.01(ICD-10) [place] Repository Unknown 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 Active [facility] infarction / Community I25.2(ICD-10) Hospital Repository Unknown E78.5 - Magan Desir Active [facility] Hyperlipidemia, Community unspecified / Hospital E78.5(ICD-10) Repository Unknown I49.5 - Sick sinus Magan Desir Active [facility] syndrome / Community I49.5(ICD-10) Hospital Repository Active Hyperlipidemia, NA Active [facility] unspecified / Clinic Main E78.5(ICD-10) [place] Repository Active Atherosclerotic heart NA Active [facility] disease of [facility] Main coronary artery [place] without angina Repository pectoris / I25.10(ICD-10) Active Unknown / UNK(Unknown) NA Active [facility] Clinic Main [place] Repository Active Unspecified injury of NA Active [facility] left ankle, initial Clinic Main encounter / [place] S99.912A(ICD-10) Repository Active Persistent atrial CARRIE, Active [facility] fibrillation / JORGE E Clinic Other I48.1(ICD-10) [place] Repository Admitting Unknown / UNK(Unknown) CARRIE, Active [facility] diagnosis [facility] Repository Unknown R07.89 - Other chest NadegePiyush huntril Active [facility] [facility] pain / R07.89(ICD-10) [facility] Repository Unknown R06.02 - Shortness of Nadege, Meng Active [facility] [facility] breath / Community R06.02(ICD-10) Hospital Repository Unknown R94.31 - Abnormal Nadege, Hammond Active [facility] 8 electrocardiogram Community [ECG] [EKG] / Hospital R94.31(ICD-10) Repository Active Encounter for MANE, Active [facility] screening for ROSE MARIE T Clinic Other malignant neoplasm of [place] colon / Z12.11(ICD-10) Repository Active Type 2 diabetes NA Active [facility] mellitus without Clinic Main complications / [place] E11.9(ICD-10) Repository Active Other buttermilk drier operator NA Active [facility] (current) drug therapy Clinic Main / Z79.899(ICD-10) [place] Repository PROCEDURES PROCEDURES No Procedure Records FoundRESULTS RESULTS PROTHROMBIN TIME W/INR Collected: 01/27/2018 Status: F Source: [facility] 1:12 PM [facility] REPOSITORY TYPE CODE TESTS RESULT OUT OF RANGE REFERENCE UNITS LAB L300.4150 11.7-14.9 SECONDS High PROTIME 20.5 LAB L300.4200 Normal INR 1.8 Performed By: #### L300.3900 #### [facility] [address] [place], [place], [id number] PROTHROMBIN TIME W/INR Collected: 01/13/2018 Status: F Source: [facility] 1:23 PM [facility] REPOSITORY Order Comment: Comments: STANDING ORDER Comments: STANDING ORDER TYPE CODE TESTS RESULT OUT OF RANGE REFERENCE UNITS LAB L300.4150 11.7-14.9 SECONDS High PROTIME 20.3 LAB L300.4200 Normal INR 1.7 Performed By: #### L300.3900 #### [facility] [address] [place], [place], [address] PULMONARY FUNCTION Observed: 01/01/2018 Status: F Source: [facility] REPORT COMP 5:46 AM [facility] REPOSITORY [facility] Pulmonary Services/Neurology [address] [place] [address] MR#: [id number] Acct: [id number] Name: VINEET DELANEY Sr. Rep #: [id number] : 1950 67 From: Saeid Rose MD Referring Dr: Magan Desir MD Status: REG CLI Ordering Dr: Date: Location: [facility] Sex: M C COMPLETE PULMONARY FUNCTION TEST INTERPRETATION Brief HPI: Patient is a 67 year old male, currently under the care of Dr. Desir, who presents to [facility] for complete pulmonary function tests secondary to diagnosis of MANNY. Respiratory therapist reports good effort and reproducible results. Interpretation: Forced expiration spirometry shows a mild large airways obstructive ventilatory defect with an FEV1 of 75% predicted. There is no significant bronchodilator response by strict ATS criteria. Spirograms are of good quality and plateau slowly, indicating slowly emptying areas of the lungs. The respiratory flow volume loop shows decreased expiratory flow rates at all lung volumes consistent with airway obstruction. Lung volumes by body plethysmography show a normal total lung capacity at 6.88 L, 98% predicted. All other lung volumes are within normal limits. Diffusion capacity by carbon monoxide is normal at 81% predicted. The airway resistance is normal. No previous pulmonary function tests were available for review. Impression: Irreversible mild large airways obstructive ventilatory defect with preserved diffusion capacity, consistent with a diagnosis of chronic bronchitis. 01/01/18 0546 <Electronically signed by Saeid Rose MD> Date Saeid Rose MD CC: Saeid Rose MD; Magan Desir MD; Marika High MD Date Dictated: 12/31/17645 Date Transcribed: 12/31/17645 Machine Bander And Cellophaner: MINESH Signed ECHO, COMPLETE W/ Observed: 12/30/2017 Status: F Source: [place] CONTRAST 4:13 PM [facility] REPOSITORY [facility] Cardiovascular Services [address] [place] [address] Echo Complete W/ Contrast 12/30/17 0847 MR#: [id number] Acct: [id number] Name: VINEET DELANEY Sr. Rep #: [id number] : 1950 67 From: Magan Desir MD Attending Dr: Magan Desir MD Status: REG CLI Ordering Dr: Magan Desir MD Date: 12/30/17 Location: [facility] Sex: M C Admitted: Reason For Study: chest pain Procedure This was a 2D Doppler, Color Flow transthoracic echocardiogram. The study was technically difficult. Contrast injection was performed. Exam performed in department. Left Ventricle Normal size and thickness. The estimated ejection fraction is 65 %. No regional wall motion abnormalities noted. Right Ventricle Normal size and thickness. ICD or pacer leads identified within the right ventricle. Normal systolic function. Atria The left atrium is mildly enlarged. Normal right atrium. Normal atrial septum. Mitral Valve The mitral valve is structurally normal. No prolapse or stenosis seen. Trivial mitral valve insufficiency. Tricuspid Valve Normal tricuspid valve. Mild (1+) tricuspid valve insufficiency. Right ventricular systolic pressure estimated to be 27 mmHg. Aortic Valve Trisinus/trileaflet aortic valve. Pulmonic Valve Normal pulmonic valve. Great Vessels Normal aortic root. Normal arch. Normal inferior vena cava. Inferior vena cava collapse with sniff. Pericardium/Pleural No pericardial effusion. Medication 22 gauge I.V. with prn adaptor inserted into right arm. Diluted definity 5.0ml given slow IV push to enhance endocardial definition. MMode/2D Measurements AND Calculations LVIDd: 4.4 cm IVSd: 1.2 cm Ao root diam: 3.4 cm LVIDs: 2.9 cm LVPWd: 1.2 cm RVDd: 3.3 cm FS: 34.3 % LAV(MOD-bp): 66.2 ml LA A4 area: 21.9 cm2 LA dimension(2D): 4.0 cm LAV(MOD-bp) Indexed: 30.1 ml/m2 LAV(MOD-sp2): 63.3 ml LAV(MOD-sp4): 67.7 ml RA A4 area: 15.9 cm2 Doppler Measurements AND Calculations MV E max vinay: 79.7 cm/sec Lat Peak E' Vinay: 10.5 cm/sec Med Peak E' Vinay: 7.5 cm/sec MV A max vinay: 55.9 cm/sec E/E' lat: 7.6 E/E' med: 10.6 MV E/A: 1.4 Ao V2 max: 99.2 cm/sec LV V1 max: 93.2 cm/sec PA V2 max: 63.0 cm/sec Ao max P.9 mmHg LV V1 max P.5 mmHg TR max vinay: 239.5 cm/sec TR max P.0 mmHg Interpretation Summary The estimated ejection fraction is 65 %. The left atrium is mildly enlarged. Trivial mitral valve insufficiency. Mild (1+) tricuspid valve insufficiency. Right ventricular systolic pressure estimated to be 27 mmHg. The study was technically difficult. There is no comparison study available. Contrast injection was performed. Ordering Physician: Magan Desir Referring Physician: Magan Desir Performed By: Franchesca Ansari, RDCS, RVT 12/30/171612 Date Magan Desir MD CC: Magan Desir MD; Marika High MD Date Dictated: 12/30/17 0847 Date Transcribed: 12/30/171612 Machine Bander And Cellophaner: Signed PROGRESS Observed: 12/30/2017 Status: COMPLETED Source: [place] 12:52 PM [facility] REPOSITORY HNO ID: [id number] Author: Valentin (Container Washer Machine) Saida Service: (none) Author Type: Nurse Practitioner Type: Progress Notes Filed: 12/30/2017 1:20 PM Note Text: Chief Complaint Patient presents with: F/U 3 Month: cough, head congestion x 1 week - question about Gabapentin , not helping with pain in feet HPI Vineet Delaney is a 67 year old male who presents here today for Above Complaints. DM: Reports overall feeling well. Glimepiride was decreased in the past due to trembling symptoms. States that since decreasing to 1/2 tablet of 2 mg glimepiride, he continues to have this sensation. Medication side effects: No. Home sugar checks: Yes, more recently having readings around 240-270. Hypoglycemic spells: No. Watching diet: Yes. Unexpected weight loss: No. Polyuria, polydipsia: No. Vision Changes: No. Foot lesions or numbness or pain: Yes. Started in July with gabapentin. States that since he started this medication, has been having sweating, agitation, nightmares, trembling, jerking at night, itching. Has not improved foot pain. HYPERLIPIDEMIA: Patient is taking medications: Yes. Patient is watching diet: Yes. Patient denies myalgias: Yes. Patient denies gi upset: Yes Tremor: States that he has had a tremor for the past 2-3 years. Effecting his ability to eat, drink coffee. Past medical history, appointments, medications, allergies reviewed. Previous Medical History PAST MEDICAL HISTORY Diagnosis Date - Allergic rhinitis, cause unspecified Allergic rhinitis - Arrhythmia - Benign neoplasm of colon - CAD (coronary artery disease) 2000 Myocardial Infarction - Dupuytren contracture - Hyperlipidemia 07/20/2017 - Mental disorder - Myocardial infarct, old - Rash and other nonspecific skin eruption Nonspec Skin Erup Nec - Seizures ([facility]) - TIA (transient ischemic attack) 2004 - Type 2 diabetes mellitus without complication, without long- term current use of insulin ([facility]) 12/25/2015 Previous Surgical History PAST SURGICAL HISTORY Procedure Laterality Date - COLONOSCOP W/ OR W/O [facility] SPEC 04/17/2011 Colonoscopy - COLONOSCOP W/ OR W/O [facility] SPEC 04/10/2014 Colonoscopy - COLONOSCOP W/ OR W/O [facility] SPEC 05/04/2017 Colonoscopy - EGD W/O OR W/BRUSH/WASH 02/24/05 EGD - H. Pylori gastritis - EGD W/O OR W/BRUSH/WASH 04/17/2011 EGD - HEART SURGERY HX 09/2012 pacemaker - PAST SURGICAL HISTORY OF 3 heart caths - normal - PAST SURGICAL HISTORY OF 2008 right knee meniscus repair - PAST SURGICAL HISTORY OF 2006 left hand - REPAIR ING HERNIA,5+Y/O,REDUCIBL 2005 Hernia repair, inguinal Family History FAMILY HISTORY Problem Relation Age of Onset - Cancer Mother skin - Diabetes Mother - Diabetes Maternal Grandfather - Cancer Brother - Diabetes Brother - Diabetes Maternal Uncle - Diabetes Maternal Uncle - Heart Sister - Heart Brother Patient Allergies ALLERGIES Allergen Reactions - Metformin Other: See Comments Sweating - Black Pepper Hives - Dust Mites Hives - Mold Spores Shortness of Breath - Aly Cheese [Other] Shortness of Breath - Penicillins Hives Current Medications Current Outpatient Prescriptions on File Prior to Visit: warfarin (COUMADIN) 4 mg tablet 2 mg Mon/Fri and 4 mg all other days or as directed metoprolol tartrate, short acting, (LOPRESSOR) 25 mg tablet Take 1 tablet by mouth twice daily. sitaGLIPtin (JANUVIA) 100 mg tablet Take 1 tablet by mouth once daily. gabapentin (NEURONTIN) 300 mg capsule Take 1 capsule by mouth daily at bedtime for 180 days. venlafaxine ER (EFFEXOR XR) 150 mg 24 hr capsule Take 1 capsule by mouth once daily. gemfibrozil (LOPID) 600 mg tablet Take 1 tablet by mouth twice daily. omeprazole (PRILOSEC) 20 mg capsule TAKE 1 CAPSULE BY MOUTH ONCE DAILY 1/2 HOUR BEFORE BREAKFAST glimepiride (AMARYL) 2 mg tablet Take 0.5 tablets by mouth daily with breakfast. flecainide (TAMBOCOR) 50 mg tablet Take 1 tablet by mouth twice daily. albuterol HFA (VENTOLIN HFA) 90 mcg/actuation inhaler Inhale 2 Puffs as instructed every 4 hours as needed for Wheezing/Shortness of Breath. tamsulosin ER (FLOMAX) 0.4 mg cp24 Take 1 capsule by mouth daily at bedtime. blood sugar diagnostic (BLOOD GLUCOSE TEST) test strip Test blood sugar(s) 1 times daily. Dx: Type 2 DM - Controlled E11.9 Insulin: No pravastatin (PRAVACHOL) 40 mg tablet Take 1 tablet by mouth daily at bedtime. Lancets lancets Test blood sugar(s) 1 times daily. Dx: Type 2 DM - Controlled E11.9 Insulin: No nitroglycerin sublingual (NITROSTAT) 0.4 mg SL tablet dissolve 1 tablet under the tongue if needed for chest pain (IF NO RELIEF CALL 911) Blood-Glucose Meter monitoring kit Glucose Meter of Choice - Kit - Dx: Type 2 DM - Controlled E11.9. Check blood sugar once daily as needed. No current facility-administered medications on file prior to visit. Social History Social History Marital status: Spouse name: Awilda Years of education: Number of children: 4 Occupational History Occupation Employer Comment Retired [employer]* short distance Social History Main Topics Smoking status: Former Smoker Packs/day: 0.80 Years: 45.00 Types: Cigarettes Quit date: 06/16/2012 Smokeless tobacco: Never Used Alcohol use: No Drug use: No Sexual activity: Yes Partners with: Female control/protection: Surgical Comment: -bps REVIEW OF SYSTEMS: as above ? Reviewed relevant PMHx, PSHx, Social Hx, current medications and allergies. EXAM: BP 118/70 Pulse 74 Temp 36.4 ?C (97.5 ?F) (Tympanic) Wt 95.7 kg (211 lb) SpO2 97% BMI 30.28 kg/m? General Appearance: Well appearing, alert, in no acute distress, well-hydrated, well nourished.. Skin: Positives: Mole(s) - abnormal: head, neck and arms.also has many closed comedones on the back of his bilateral ears. Head: Normocephalic, no masses, lesions, tenderness or abnormalities. Eyes: Anicteric sclera. Pupils are equally round and reactive to light. Extraocular movements are intact. . Ears: External ears normal, canals clear. Nose/Sinuses: Nares normal, septum midline, mucosa normal, no drainage or sinus tenderness. Oropharynx: Lips, mucosa, and tongue normal, teeth and gums normal, oropharynx normal. Neck: Supple, no adenopathy; thyroid symmetric, normal size, no bruits. Lungs: lungs clear to auscultation. No wheezing, rhonchi, rales. Heart: RRR without murmur, gallop, or rubs. No ectopy. Extremities: No deformities, edema Neuro: Awake, alert and oriented x 3, Cranial nerves II-XII grossly intact, Reflexes symmetrical, Normal gait and positive findings: intention tremor Health Maintenance List BP CONTROLLED (<130/80) due on 12/06/1969 LUNG CANCER SCREENING due on 12/06/2006 DILATED RETINAL EXAM due on 01/20/2018 STATIN MED ADHERENCE due on 01/16/2018 DIABETES MED ADHERENCE due on 01/16/2018 PNEUMOVAX AGE 65 AND OVER WITH 5YR LOOKBACK(1) due on 04/02/2018 URINE ALBUMIN:CREATININE RATIO due on 04/09/2018 DIABETIC FOOT EXAM due on 05/08/2018 HBA1C due on 06/22/2018 ANNUAL PCP TEAM CHRONIC DISEASE VISIT due on 09/22/2018 LDL CHOLESTEROL due on 12/23/2018 COLORECTAL CANCER SCREENING,SEE MODIFIER due on 05/04/2020 DTAP,TDAP,TD(2 - Td) due on 03/11/2022 PROSTATE CANCER SCREENING DISCUSSION Completed ADULT PREVNAR-13 Completed INFLUENZA Completed HEPATITIS C SCREENING Completed Data reviewed Component Latest Ref Rng AND Units 12/23/2017 Protein, Total 6.3 - 8.0 g/dL 7.1 Albumin 3.9 - 4.9 g/dL 4.6 Calcium 8.5 - 10.2 mg/dL 9.5 Bilirubin, Total 0.2 - 1.3 mg/dL 0.4 Alkaline Phosphatase 38 - 113 U/L 96 AST 14 - 40 U/L 29 Glucose 74 - 99 mg/dL 165 (H) BUN 9 - 24 mg/dL 17 Creatinine 0.73 - 1.22 mg/dL 1.22 Sodium 136 - 144 mmol/L 139 Potassium 3.7 - 5.1 mmol/L 4.6 Chloride 97 - 105 mmol/L 103 CO2 22 - 30 mmol/L 23 Anion Gap 9 - 18 mmol/L 13 ALT 10 - 54 U/L 37 eGFR- >60 eGFR-All Other Races . 59 Cholesterol, Total <200 mg/dL 178 Triglyceride <150 mg/dL 286 (H) HDL Cholesterol >39 mg/dL 29 (L) LDL Cholesterol <100 mg/dL 92 Non HDL Cholesterol <130 mg/dL 149 (H) Fasting Time hrs 12 VLDL Cholesterol <30 mg/dL 57 (H) TC:HDL Ratio <5.10 6.14 (H) LDL:HDL Ratio <2.54 3.17 (H) PT Sec 9.7 - 13.0 sec 18.2 (H) PT INR 0.9 - 1.3 1.8 (H) Hemoglobin A1C 4.3 - 5.6 % 7.7 (H) Estimated Average Glucose mg/dL 174 CK 51 - 298 U/L 86 ASSESSMENT/PLAN: 1. Type 2 diabetes mellitus with diabetic neuropathy, without long-term current use of insulin (HCC) - ICD9: 250.60, 357.2, ICD10: E11.40 (primary diagnosis) Controlled. worsening control - Increase glimepiride (Amaryl) - Blood glucose monitoring on a once a day schedule - PREGABALIN 75 MG CAPSULE PDMP website checked and validated. All prescriptions have been APPROPRIATELY filled. No suspicious activity was identified. 12/30/2017 by Valentin Cintron APRN.CAMPAIGN SPECIALIST - HGB A1C - COMP METABOLIC PANEL - ALBUMIN/CREAT RATIO RND UR 2. Tremor - ICD9: 781.0, ICD10: R25.1 - Has benign tremor - CONSULT TO NEUROLOGY 3. Hyperlipidemia, unspecified hyperlipidemia type - ICD9: 272.4, ICD10: E78.5 - good control - Continue current medication. - Encouraged following a low fat, low cholesterol diet. - Discussed the benefits of regular aerobic exercise and weight loss. 4. Multiple nevi - ICD9: 216.9, ICD10: D22.9 - Has multiple nevi, mainly on his upper back. - CONSULT TO DERMATOLOGY 5. Viral URI - ICD9: 465.9, ICD10: J06.9 - Discussed viral etiology and rationale for treatment. - Symptomatic treatment with prn analgesia - Supportive care with fluids and rest follow-up in 3 months with labs prior. Valentin Cintron APRN.CNP CNOV Observed: 12/30/2017 Status: COMPLETED Source: [place] 12:40 PM [facility] REPOSITORY Office Visit ([facility]) VINEET DELANEY ([id number]) 1950 M Date Time Provider Department 12/30/17 12:40 PM VALENTIN CINTRON (GERRI) [facility] During your visit today, we recorded the following information about you: Temperature Pulse Blood pressure Weight 97.5 degrees 74/minute 118/70 95.7 kg Valentin Cintron APRN.CNP 12/30/2017 1:20 PM Signed Chief Complaint Patient presents with: F/U 3 Month: cough, head congestion x 1 week - question about Gabapentin , not helping with pain in feet HPI Vineet Delaney is a 67 year old male who presents here today for Above Complaints. DM: Reports overall feeling well. Glimepiride was decreased in the past due to trembling symptoms. States that since decreasing to 1/2 tablet of 2 mg glimepiride, he continues to have this sensation. Medication side effects: No. Home sugar checks: Yes, more recently having readings around 240-270. Hypoglycemic spells: No. Watching diet: Yes. Unexpected weight loss: No. Polyuria, polydipsia: No. Vision Changes: No. Foot lesions or numbness or pain: Yes. Started in July with gabapentin. States that since he started this medication, has been having sweating, agitation, nightmares, trembling, jerking at night, itching. Has not improved foot pain. HYPERLIPIDEMIA: Patient is taking medications: Yes. Patient is watching diet: Yes. Patient denies myalgias: Yes. Patient denies gi upset: Yes Tremor: States that he has had a tremor for the past 2-3 years. Effecting his ability to eat, drink coffee. Past medical history, appointments, medications, allergies reviewed. Previous Medical History PAST MEDICAL HISTORY Diagnosis Date - Allergic rhinitis, cause unspecified Allergic rhinitis - Arrhythmia - Benign neoplasm of colon - CAD (coronary artery disease) 2000 Myocardial Infarction - Dupuytren contracture - Hyperlipidemia 07/20/2017 - Mental disorder - Myocardial infarct, old - Rash and other nonspecific skin eruption Nonspec Skin Erup Nec - Seizures ([facility]) - TIA (transient ischemic attack) 2004 - Type 2 diabetes mellitus without complication, without long- term current use of insulin ([facility]) 12/25/2015 Previous Surgical History PAST SURGICAL HISTORY Procedure Laterality Date - COLONOSCOP W/ OR W/O [facility] SPEC 04/17/2011 Colonoscopy - COLONOSCOP W/ OR W/O [facility] SPEC 04/10/2014 Colonoscopy - COLONOSCOP W/ OR W/O [facility] SPEC 05/04/2017 Colonoscopy - EGD W/O OR W/BRUSH/WASH 02/24/05 EGD - H. Pylori gastritis - EGD W/O OR W/BRUSH/WASH 04/17/2011 EGD - HEART SURGERY HX 09/2012 pacemaker - PAST SURGICAL HISTORY OF 3 heart caths - normal - PAST SURGICAL HISTORY OF 2008 right knee meniscus repair - PAST SURGICAL HISTORY OF 2006 left hand - REPAIR ING HERNIA,5+Y/O,REDUCIBL 2005 Hernia repair, inguinal Family History FAMILY HISTORY Problem Relation Age of Onset - Cancer Mother skin - Diabetes Mother - Diabetes Maternal Grandfather - Cancer Brother - Diabetes Brother - Diabetes Maternal Uncle - Diabetes Maternal Uncle - Heart Sister - Heart Brother Patient Allergies ALLERGIES Allergen Reactions - Metformin Other: See Comments Sweating - Black Pepper Hives - Dust Mites Hives - Mold Spores Shortness of Breath - Aly Cheese [Other] Shortness of Breath - Penicillins Hives Current Medications Current Outpatient Prescriptions on File Prior to Visit: warfarin (COUMADIN) 4 mg tablet 2 mg Mon/Fri and 4 mg all other days or as directed metoprolol tartrate, short acting, (LOPRESSOR) 25 mg tablet Take 1 tablet by mouth twice daily. sitaGLIPtin (JANUVIA) 100 mg tablet Take 1 tablet by mouth once daily. gabapentin (NEURONTIN) 300 mg capsule Take 1 capsule by mouth daily at bedtime for 180 days. venlafaxine ER (EFFEXOR XR) 150 mg 24 hr capsule Take 1 capsule by mouth once daily. gemfibrozil (LOPID) 600 mg tablet Take 1 tablet by mouth twice daily. omeprazole (PRILOSEC) 20 mg capsule TAKE 1 CAPSULE BY MOUTH ONCE DAILY 1/2 HOUR BEFORE BREAKFAST glimepiride (AMARYL) 2 mg tablet Take 0.5 tablets by mouth daily with breakfast. flecainide (TAMBOCOR) 50 mg tablet Take 1 tablet by mouth twice daily. albuterol HFA (VENTOLIN HFA) 90 mcg/actuation inhaler Inhale 2 Puffs as instructed every 4 hours as needed for Wheezing/Shortness of Breath. tamsulosin ER (FLOMAX) 0.4 mg cp24 Take 1 capsule by mouth daily at bedtime. blood sugar diagnostic (BLOOD GLUCOSE TEST) test strip Test blood sugar(s) 1 times daily. Dx: Type 2 DM - Controlled E11.9 Insulin: No pravastatin (PRAVACHOL) 40 mg tablet Take 1 tablet by mouth daily at bedtime. Lancets lancets Test blood sugar(s) 1 times daily. Dx: Type 2 DM - Controlled E11.9 Insulin: No nitroglycerin sublingual (NITROSTAT) 0.4 mg SL tablet dissolve 1 tablet under the tongue if needed for chest pain (IF NO RELIEF CALL 911) Blood-Glucose Meter monitoring kit Glucose Meter of Choice - Kit - Dx: Type 2 DM - Controlled E11.9. Check blood sugar once daily as needed. No current facility-administered medications on file prior to visit. Social History Social History Marital status: Spouse name: Awilda Years of education: Number of children: 4 Occupational History Occupation Employer Comment Retired [employer]* short distance Social History Main Topics Smoking status: Former Smoker Packs/day: 0.80 Years: 45.00 Types: Cigarettes Quit date: 06/16/2012 Smokeless tobacco: Never Used Alcohol use: No Drug use: No Sexual activity: Yes Partners with: Female control/protection: Surgical Comment: -bps REVIEW OF SYSTEMS: as above ? Reviewed relevant PMHx, PSHx, Social Hx, current medications and allergies. EXAM: BP 118/70 Pulse 74 Temp 36.4 ?C (97.5 ?F) (Tympanic) Wt 95.7 kg (211 lb) SpO2 97% BMI 30.28 kg/m? General Appearance: Well appearing, alert, in no acute distress, well-hydrated, well nourished.. Skin: Positives: Mole(s) - abnormal: head, neck and arms.also has many closed comedones on the back of his bilateral ears. Head: Normocephalic, no masses, lesions, tenderness or abnormalities. Eyes: Anicteric sclera. Pupils are equally round and reactive to light. Extraocular movements are intact. . Ears: External ears normal, canals clear. Nose/Sinuses: Nares normal, septum midline, mucosa normal, no drainage or sinus tenderness. Oropharynx: Lips, mucosa, and tongue normal, teeth and gums normal, oropharynx normal. Neck: Supple, no adenopathy; thyroid symmetric, normal size, no bruits. Lungs: lungs clear to auscultation. No wheezing, rhonchi, rales. Heart: RRR without murmur, gallop, or rubs. No ectopy. Extremities: No deformities, edema Neuro: Awake, alert and oriented x 3, Cranial nerves II-XII grossly intact, Reflexes symmetrical, Normal gait and positive findings: intention tremor Health Maintenance List BP CONTROLLED (<130/80) due on 12/06/1969 LUNG CANCER SCREENING due on 12/06/2006 DILATED RETINAL EXAM due on 01/20/2018 STATIN MED ADHERENCE due on 01/16/2018 DIABETES MED ADHERENCE due on 01/16/2018 PNEUMOVAX AGE 65 AND OVER WITH 5YR LOOKBACK(1) due on 04/02/2018 URINE ALBUMIN:CREATININE RATIO due on 04/09/2018 DIABETIC FOOT EXAM due on 05/08/2018 HBA1C due on 06/22/2018 ANNUAL PCP TEAM CHRONIC DISEASE VISIT due on 09/22/2018 LDL CHOLESTEROL due on 12/23/2018 COLORECTAL CANCER SCREENING,SEE MODIFIER due on 05/04/2020 DTAP,TDAP,TD(2 - Td) due on 03/11/2022 PROSTATE CANCER SCREENING DISCUSSION Completed ADULT PREVNAR-13 Completed INFLUENZA Completed HEPATITIS C SCREENING Completed Data reviewed Component Latest Ref Rng AND Units 12/23/2017 Protein, Total 6.3 - 8.0 g/dL 7.1 Albumin 3.9 - 4.9 g/dL 4.6 Calcium 8.5 - 10.2 mg/dL 9.5 Bilirubin, Total 0.2 - 1.3 mg/dL 0.4 Alkaline Phosphatase 38 - 113 U/L 96 AST 14 - 40 U/L 29 Glucose 74 - 99 mg/dL 165 (H) BUN 9 - 24 mg/dL 17 Creatinine 0.73 - 1.22 mg/dL 1.22 Sodium 136 - 144 mmol/L 139 Potassium 3.7 - 5.1 mmol/L 4.6 Chloride 97 - 105 mmol/L 103 CO2 22 - 30 mmol/L 23 Anion Gap 9 - 18 mmol/L 13 ALT 10 - 54 U/L 37 eGFR- >60 eGFR-All Other Races . 59 Cholesterol, Total <200 mg/dL 178 Triglyceride <150 mg/dL 286 (H) HDL Cholesterol >39 mg/dL 29 (L) LDL Cholesterol <100 mg/dL 92 Non HDL Cholesterol <130 mg/dL 149 (H) Fasting Time hrs 12 VLDL Cholesterol <30 mg/dL 57 (H) TC:HDL Ratio <5.10 6.14 (H) LDL:HDL Ratio <2.54 3.17 (H) PT Sec 9.7 - 13.0 sec 18.2 (H) PT INR 0.9 - 1.3 1.8 (H) Hemoglobin A1C 4.3 - 5.6 % 7.7 (H) Estimated Average Glucose mg/dL 174 CK 51 - 298 U/L 86 ASSESSMENT/PLAN: 1. Type 2 diabetes mellitus with diabetic neuropathy, without long-term current use of insulin (HCC) - ICD9: 250.60, 357.2, ICD10: E11.40 (primary diagnosis) Controlled. worsening control - Increase glimepiride (Amaryl) - Blood glucose monitoring on a once a day schedule - PREGABALIN 75 MG CAPSULE PDMP website checked and validated. All prescriptions have been APPROPRIATELY filled. No suspicious activity was identified. 12/30/2017 by Valentin Cintron APRN.CAMPAIGN SPECIALIST - HGB A1C - COMP METABOLIC PANEL - ALBUMIN/CREAT RATIO RND UR 2. Tremor - ICD9: 781.0, ICD10: R25.1 - Has benign tremor - CONSULT TO NEUROLOGY 3. Hyperlipidemia, unspecified hyperlipidemia type - ICD9: 272.4, ICD10: E78.5 - good control - Continue current medication. - Encouraged following a low fat, low cholesterol diet. - Discussed the benefits of regular aerobic exercise and weight loss. 4. Multiple nevi - ICD9: 216.9, ICD10: D22.9 - Has multiple nevi, mainly on his upper back. - CONSULT TO DERMATOLOGY 5. Viral URI - ICD9: 465.9, ICD10: J06.9 - Discussed viral etiology and rationale for treatment. - Symptomatic treatment with prn analgesia - Supportive care with fluids and rest follow-up in 3 months with labs prior. Valentin Cintron APRN.CAMPAIGN SPECIALIST Referring Provider: MARIKA HIGH [[id number]] Allergies As of Date: 12/30/2017 Noted Allergy Reaction METFORMIN 12/25/2015 14 - Other: See Comments Comments: Sweating BLACK PEPPER 11/17/2005 4 - Hives DUST MITES 11/17/2005 4 - Hives MOLD SPORES 11/17/2005 12 - Shortness of Breath aly cheese [Other] 11/17/2005 12 - Shortness of Breath PENICILLINS 11/17/2005 4 - Hives Date Reviewed: 12/30/2017 Reviewed by: Umu Finn Front Maker - Fully Assessed Reason for Visit: F/U 3 Month [443] Cmt: cough, head congestion x 1 week - question about Gabapentin , not helping with pain in feet Reason For Visit History Recorded Primary Visit Diagnosis:Type 2 diabetes mellitus with diabetic neuropathy, without long-term current use of insulin (HCC) [E11.40] Other Visit Diagnoses:Tremor [R25.1] Hyperlipidemia, unspecified hyperlipidemia type [E78.5] Multiple nevi [D22.9] Viral URI [J06.9] Order(s):LDL CHOLESTEROL DIR [SQLDLDCT] Order #: [id number] glimepiride (AMARYL) 2 mg tabletTake 1 tablet by mouth daily with breakfast.Disp: 30 tabletRfl: 11 CONSULT TO NEUROLOGY [7921] Order #: [id number]: 1 pregabalin (LYRICA) 75 mg capsuleTake 1 capsule by mouth twice daily for 30 days.Disp: 60 capsuleRfl: 0 HGB A1C [OJOYO2T] Order #: [id number] FUTURE COMP METABOLIC PANEL [SQCMP] Order #: [id number] FUTURE ALBUMIN/CREAT RATIO RND UR [SQUACR] Order #: [id number] FUTURE CONSULT TO DERMATOLOGY [7543] Order #: [id number]: 1 Prescriptions as of 12/30/2017 Sig: GLIMEPIRIDE 2 MG TABLET Take 1 tablet by mouth daily * WARFARIN 4 MG TABLET 2 mg Mon/Fri and 4 mg all oth* METOPROLOL TARTRATE 25 MG TAB* Take 1 tablet by mouth twice * SITAGLIPTIN 100 MG TABLET Take 1 tablet by mouth once d* VENLAFAXINE ER 150 MG CAPSULE* Take 1 capsule by mouth once * GEMFIBROZIL 600 MG TABLET Take 1 tablet by mouth twice * OMEPRAZOLE 20 MG CAPSULE,YANNA* TAKE 1 CAPSULE BY MOUTH ONCE* FLECAINIDE 50 MG TABLET Take 1 tablet by mouth twice * ALBUTEROL SULFATE HFA 90 MCG/* Inhale 2 Puffs as instructed * TAMSULOSIN 0.4 MG CAPSULE Take 1 capsule by mouth daily* BLOOD SUGAR DIAGNOSTIC STRIPS Test blood sugar(s) 1 times d* PRAVASTATIN 40 MG TABLET Take 1 tablet by mouth daily * LANCETS Test blood sugar(s) 1 times d* NITROGLYCERIN 0.4 MG SUBLINGU* dissolve 1 tablet under the t* BLOOD-GLUCOSE METER KIT Glucose Meter of Choice - Kit* PREGABALIN 75 MG CAPSULE Take 1 capsule by mouth twice* Problem List As Of Date 12/30/2017 Noted Resolved Inguinal hernia without mention of obstruction *INVALID FOR*03/27/2016 First degree AV block [I44.0] INVALID FOR* Priority: D More... More... History of PR (myocardial infarction) [I25.2] INVALID FOR* Tobacco use disorder [F17.200] INVALID FOR*03/27/2016 Priority: E More... SUMMARY [V999.95] INVALID FOR*05/01/2017 Priority: A More... Chest pain [R07.9] INVALID FOR* Priority: B More... Claudication [I73.9] INVALID FOR* Priority: D More... Dupuytren's contracture of right hand [M72.0] INVALID FOR*05/01/2017 MANNY (obstructive sleep apnea) [G47.33] INVALID FOR* Rhinitis [J31.0] INVALID FOR*05/01/2017 Cardiac pacemaker in situ [Z95.0] INVALID FOR* More... Atrial fibrillation [I48.91] INVALID FOR* Anxiety [F41.9] INVALID FOR* Personal history of colonic polyps [Z86.010] INVALID FOR*04/10/2014 Diverticulosis of colon (without mention of hem*INVALID FOR*04/10/2014 Gastroesophageal reflux disease without esophag*INVALID FOR* Type 2 diabetes mellitus without complication, *INVALID FOR* Chronic left shoulder pain [M25.512, G89.29] INVALID FOR* Screening for colon cancer [Z12.11] INVALID FOR* More... CAD (coronary artery disease) [I25.10] INVALID FOR* More... Hyperlipidemia [E78.5] INVALID FOR* Prescriptions ordered this encounter Disp Refills Start End GLIMEPIRIDE 2 MG TABLET 30 t* 11 12/30/2017 Class: Med Update Route: ORAL Sig: Take 1 tablet by mouth daily with breakfast. PREGABALIN 75 MG CAPSULE 60 c* 0 12/30/2017 01/29/2018 Class: Print RX Route: ORAL Sig: Take 1 capsule by mouth twice daily for 30 days. Medications Discontinued During This Encounter glimepiride (AMARYL) 2 mg tablet 30 t* 11 07/20/2017 12/30/2017 Class: Med Update Route: ORAL Sig: Take 0.5 tablets by mouth daily with breakfast. Disc: Adjust Sig - Block E-Cancel gabapentin (NEURONTIN) 300 mg capsule 30 c* 3 11/28/2017 12/30/2017 Route: ORAL Sig: Take 1 capsule by mouth daily at bedtime for 180 days. Disc: Reason for discontinue is not on file. Encounter Status:Closed by VALENTIN CINTRON CNP on 12/30/17 QUINTEN Observed: 12/30/2017 Status: COMPLETED Source: [place] 12:00 AM [facility] VINE[facility] ([id number]) 1950 M Date Time Provider Department 12/30/17 MARIKA HIGH [facility] During your visit today, we recorded the following information about you: Vesna Garcia LPN 12/30/2017 2:33 PM Signed PRIOR AUTHORIZATION Medication for Prior Authorization: Lyrica Other formulary meds available : NO Insurance Company: [employer] Medicare Part D Insurance Company phone number: [phone] Patient insurance ID number: [id number] Vesna High MD 12/31/2017 4:15 PM Signed OK for PA. MD Yashira Trotter LPN 01/01/2018 1:26 PM Signed PA from completed and enroute to PCP desk. EJ Guo LPN 01/04/2018 1:32 PM Signed PA faxed, will await response. Please keep encounter open until final decision has been received and documented from insurance company. EJ Guo LPN 01/04/2018 5:26 PM Signed PA form completed was for [employer] ([employer] is no longer using [employer] for their rx coverage per Covermymeds). However the fax to [employer] will not go through. The back of the insurance card was not scanned in, so I do not have a number to contact pt's insurance customer service. Will call pt tomorrow to get the phone number off the back of the insurance card. EJ Guo LPN 01/05/2018 12:25 PM Signed Pt.s calls back and gives this number from back of card: Member services: [phone]. Corrina eLvine LPN 01/05/2018 2:04 PM Signed Spoke with the precert dept and was advised to fax to a different number ([phone]). Form faxed. Will await response. EJ Guo APRN.CNP 01/06/2018 9:36 AM Signed Noted. BELA Katz LPN 01/13/2018 1:07 PM Signed x Allergies As of Date: 12/30/2017 Noted Allergy Reaction METFORMIN 12/25/2015 14 - Other: See Comments Comments: Sweating BLACK PEPPER 11/17/2005 4 - Hives DUST MITES 11/17/2005 4 - Hives MOLD SPORES 11/17/2005 12 - Shortness of Breath aly cheese [Other] 11/17/2005 12 - Shortness of Breath PENICILLINS 11/17/2005 4 - Hives Date Reviewed: 12/30/2017 Reviewed by: Umu Finn Front Maker - Fully Assessed Reason for Visit: Insurance Authorization [[id number]] Prescriptions as of 12/30/2017 Sig: GLIMEPIRIDE 2 MG TABLET Take 1 tablet by mouth daily * PREGABALIN 75 MG CAPSULE Take 1 capsule by mouth twice* WARFARIN 4 MG TABLET 2 mg Mon/Fri and 4 mg all oth* METOPROLOL TARTRATE 25 MG TAB* Take 1 tablet by mouth twice * SITAGLIPTIN 100 MG TABLET Take 1 tablet by mouth once d* VENLAFAXINE ER 150 MG CAPSULE* Take 1 capsule by mouth once * GEMFIBROZIL 600 MG TABLET Take 1 tablet by mouth twice * OMEPRAZOLE 20 MG CAPSULE,YANNA* TAKE 1 CAPSULE BY MOUTH ONCE* FLECAINIDE 50 MG TABLET Take 1 tablet by mouth twice * ALBUTEROL SULFATE HFA 90 MCG/* Inhale 2 Puffs as instructed * TAMSULOSIN 0.4 MG CAPSULE Take 1 capsule by mouth daily* BLOOD SUGAR DIAGNOSTIC STRIPS Test blood sugar(s) 1 times d* LANCETS Test blood sugar(s) 1 times d* X PRAVASTATIN 40 MG TABLET Take 1 tablet by mouth daily * NITROGLYCERIN 0.4 MG SUBLINGU* dissolve 1 tablet under the t* BLOOD-GLUCOSE METER KIT Glucose Meter of Choice - Kit* Problem List As Of Date 12/30/2017 Noted Resolved Inguinal hernia without mention of obstruction *INVALID FOR*03/27/2016 First degree AV block [I44.0] INVALID FOR* Priority: D More... More... History of PR (myocardial infarction) [I25.2] INVALID FOR* Tobacco use disorder [F17.200] INVALID FOR*03/27/2016 Priority: E More... SUMMARY [V999.95] INVALID FOR*05/01/2017 Priority: A More... Chest pain [R07.9] INVALID FOR* Priority: B More... Claudication [I73.9] INVALID FOR* Priority: D More... Dupuytren's contracture of right hand [M72.0] INVALID FOR*05/01/2017 MANNY (obstructive sleep apnea) [G47.33] INVALID FOR* Rhinitis [J31.0] INVALID FOR*05/01/2017 Cardiac pacemaker in situ [Z95.0] INVALID FOR* More... Atrial fibrillation [I48.91] INVALID FOR* Anxiety [F41.9] INVALID FOR* Personal history of colonic polyps [Z86.010] INVALID FOR*04/10/2014 Diverticulosis of colon (without mention of hem*INVALID FOR*04/10/2014 Gastroesophageal reflux disease without esophag*INVALID FOR* Type 2 diabetes mellitus without complication, *INVALID FOR* Chronic left shoulder pain [M25.512, G89.29] INVALID FOR* Screening for colon cancer [Z12.11] INVALID FOR* More... CAD (coronary artery disease) [I25.10] INVALID FOR* More... Hyperlipidemia [E78.5] INVALID FOR* Encounter Status:Closed by JELENA RICH CNP on 01/06/18 COMP METABOLIC PANEL Collected: 12/23/2017 Status: F Source: [place] 10:10 AM [facility] RE[facility] TYPE CODE TESTS RESULT OUT OF REFERENCE UNITS RANGE LAB TP 6.3-8.0 g/dL Protein, Total 7.1 LAB ALB 3.9-4.9 g/dL Albumin 4.6 LAB CA 8.5-10.2 mg/dL Calcium, Total 9.5 LAB TBIL 0.2-1.3 mg/dL Bilirubin, Total 0.4 LAB ALKP 38-113 U/L Alkaline Phosphatase 96 LAB AST 14-40 U/L AST 29 LAB GLU 74-99 mg/dL Glucose High 165 Result Comment: The [place] Diabetes Association (ADA) provides guidance for cutoff values for fasting glucose and random glucose. The ADA defines fasting as no caloric intake for at least 8 hours. Fas ting plasma glucose results between 100 to 125 mg/dL indicate increased risk for diabetes (prediabetes). Fasting plasma glucose results greater than or equal to 126 mg/dL meet the criteria for diagnosis of diabetes. In the absence of unequivocal hyperglycemia, results should be confirmed by repeat testing. In a patient with classic symptoms of hyperglycemia or hyperglycemic crisis, random plasma glucose results greater than or equal to 200 mg/dL meet the criteria for diagnosis of diabetes. Reference: Standards of Medical Care in Diabetes 2016, [place] [employer] Association. Diabetes Care. 2016.39(Suppl 1). LAB BUN 9-24 mg/dL BUN 17 LAB CRET 0.73-1.22 mg/dL Creatinine 1.22 LAB NA 136-144 mmol/L Sodium 139 LAB K 3.7-5.1 mmol/L Potassium 4.6 LAB CL 97-105 mmol/L Chloride 103 LAB CO2 22-30 mmol/L CO2 23 LAB AGAP 9-18 mmol/L Anion Gap 13 LAB ALT 10-54 U/L ALT 37 LAB GFRAA eGFR- Amer. >60 LAB GFRNAA . eGFR-All Other Races 59 Result Comment: eGFR (Estimated GFR) Units of measure: mL/min/1.73 meters squared eGFR is derived from the reexpressed MDRD Study equation using the following parameters: serum creatinine, age, gender and race. The creatinine assay has been calibrated to be traceable to IDMS. An eGFR <60 mL/min/1.73m2 for >3 months is consistent with chronic kidney disease. Refer to KDOQI guidelines for clinical interpretation. In patients with unstable renal function, e.g. those with acute kidney injury, the eGFR may not accurately reflect actual GFR. Performed By: #### CMP, LIPB, PT, HBA1C #### [facility] [address] [place], [place] [address] LIPID PANEL, BASIC Collected: 12/23/2017 Status: F Source: [place] 10:10 AM [facility] REPOSITORY TYPE CODE TESTS RESULT OUT OF REFERENCE UNITS RANGE LAB CHOL <200 mg/dL Cholesterol 178 Result Comment: <200 mg/dL, Desirable 200-239 mg/dL, Borderline high >239 mg/dL, High LAB TRIGLY <150 mg/dL Triglyceride High 286 Result Comment: <150 mg/dL, Normal 150-199 mg/dL, Borderline high 200-499 mg/dL, High >499 mg/dL, Very high LAB HDL >39 mg/dL HDL-Cholesterol Low 29 Result Comment: 40-59 mg/dL, Acceptable >59 mg/dL, High: Negative risk factor for coronary heart disease <40 mg/dL, Low: Positive risk factor for coronary heart disease LAB LDL <100 mg/dL LDL-Cholesterol 92 Result Comment: <100 mg/dL, Optimal 100-129 mg/dL, Near optimal/above optimal 130-159 mg/dL, Borderline high 160-189 mg/dL, High >189 mg/dL, Very high Secondary prevention optimal LDL Cholesterol levels are recommended to be < 70 mg/dL LAB NONHDL <130 mg/dL Non HDL High Cholesterol 149 Result Comment: <130 mg/dL, Optimal 130-159 mg/dL, Near optimal/above optimal 160-189 mg/dL, Borderline high 190-219 mg/dL, High >219 mg/dL, Very high Secondary prevention optimal non HDL Cholesterol levels are recommended to be < 100 mg/dL LAB FT hrs Fasting Time 12 LAB VLDL <30 mg/dL High VLDL Cholesterol 57 LAB TCHDL <5.10 High TC:HDL Ratio 6.14 LAB LDLHDL <2.54 High LDL:HDL Ratio 3.17 Result Comment: Reference: 1. National Cholesterol Education Program ATP III Guideline At-A-Glance Quick Desk Reference: National Heart, Lung, and Blood Reading. National Institutes of Health. 2001: NIH Publication No. 01-3305. 2. An International Atherosclerosis Society position paper: global recommendations for the management of dyslipidemia: executive summary, Atherosclerosis. 2014: 232(2):410-413. Performed By: #### CMP, LIPB, PT, HBA1C #### [facility] [address] [place], [place] [id number] PROTIME Collected: 12/23/2017 Status: F Source: [place] 10:10 AM [facility] REPOSITORY TYPE CODE TESTS RESULT OUT OF RANGE REFERENCE UNITS LAB PSEC 9.7-13.0 sec High PT Sec 18.2 LAB INR 0.9-1.3 High PT INR 1.8 Result Comment: Vitamin K Antagonist (VKA) Therapeutic Range: INR 2 to 3 (Target INR of 2.5) Note: For patients treated with VKA drugs, such as warfarin, the [place] [employer] 2012 Guideline recommends a therapeutic INR range of 2 to 3 (target INR of 2.5). This recommendation includes high-risk patients with antiphospholipid syndrome with previous arterial or venous thromboembolism, current-generation mechanical or bioprosthetic aortic heart valve replacement. Note: Patients with mechanical aortic valve replacement and additional risk factors for thromboembolic events (atrial fibrillation, previous thromboembolism, LV dysfunction, hypercoagulable conditions) or an older generation mechanical AVR (i.e., ball in-Cage) or any mechanical MVR should have a INR therapeutic range of 2.5 to 3.5 (target INR of 3). Jane GH, et al. Chest 2012, 141:7S-47S Ray RA, et al. [facility] 2017, 70: 252-289 Performed By: #### CMP, LIPB, PT, HBA1C #### [facility] [address] [place], [place] [address] HEMOGLOBIN A1C Collected: 12/23/2017 Status: F Source: [place] 10:10 AM [facility] REPOSITORY TYPE CODE TESTS RESULT OUT OF REFERENCE UNITS RANGE LAB HGBA1C 4.3-5.6 % High Hemoglobin A1c 7.7 LAB HBA0 mg/dL Est. Average Glucose 174 Result Comment: eAG: (Estimated average glucose) is a calculated value from HgbA1c and is labor representative of the average blood glucose level in the last 2-3 month period. Performed By: #### CMP, LIPB, PT, HBA1C #### [facility] [address] [place], [place] [address] CK Collected: 12/23/2017 Status: F Source: [facility] 10:[address] [facility] REPOSITORY TYPE CODE TESTS RESULT OUT OF RANGE REFERENCE UNITS LAB CK 51-298 U/L CK 86 Performed By: #### CK #### [facility] [address] [place], [place] [address] PACEMAKER CHECK Observed: 12/21/2017 Status: F Source: [place] 8:23 AM [facility] REPOSITORY [facility] [address] [place] [address] Pacemaker Check Date of Service: 12/18/17 1456 MR#: [id number] Acct: [id number] Name: VINEET DELANEY Sr. Rep #: [id number] : 1950 From: Sharlene Ayala Age/Sex: 67/M [place] [facility] [place] Signed Billing Codes PM Device Codes: PM Dev Prog Eval, Dual 12/18/17 1457 <Electronically signed by Sharlene Ayala > Date Sharlene Ayala 12/21/17 0823<Electronically signed by Magan Desir MD> Cosigner Signature: Date (if applicable) Magan Desir MD CC: STRESS TEST ECHO W/ Observed: 12/16/2017 Status: F Source: [place] CONTR[place] 4:09 PM [facility] REPOSITORY [facility] Cardiovascular Services [facility] [place] [address] Stress Test Echo W/Contrast MR#: [id number] Acct: [id number] Name: VINEET DELANEY Sr. Rep #: [id number] : 1950 67 From: Magan Desir MD Primary Care: Anila BUCK,Marika Status: REG CLI Ordering Dr: Magan Desir MD Sex: M C Reason For Study: Chest Pain Stress Results Protocol: Modified Saeid Stress Echo Maximum Predicted HR: 154 bpm Target HR: 131 bpm % Maximum Predicted HR: 105 % DurationHeart Rate Stage (mm:ss) (bpm) BP Comment BASELINE 83 102/70DILUTED DEFINITY USED- 4 ML, PO AT REST 93-95% MODBRUCE PROTOCOL- STAGE 1 3:00 150 118/72SOB, KNEE PAIN MODBRUCE PROTOCOL- STAGE 2 0:30 162 / SOB, LEG FATIGUE; PO DID NOT [facility], NO CP RECOVERY 100 124/80PO 97% Stress Duration: 3:30 mm:ss Maximum Stress HR: 162 bpm Baseline Echocardiogram Findings The estimated ejection fraction is 65 %. Stress Echo Wall motion Data Resting WM Intermediate WM Stress WM Resting Wall Motion Wall Motion Stress No regional wall motion No regional wall motion abnormalities noted. abnormalities noted. EKG Data The baseline ECG displays normal sinus rhythm. The stress ECG displays normal sinus rhythm. The stress ECG displays normal ST segments. Interpretation Summary The study was technically difficult. Contrast injection was performed. The estimated ejection fraction is 65 %. Normal, adequate, modified Saeid treadmill echocardiogram. Negative for ischemia by EKG and echocardiographic criteria. No anginal symptoms noted. No arrhythmias noted. Test terminated due to dyspnea and leg/knee pain. Final LVEF of 75%. Decreased sensitivity due to poor echo windows requiring Definity agent enhancement. No complications. Ordering Physician: Thang Referring Physician: Magan Desir Performed By: Lauren Marrero RDCS 12/16/17 1557 Date Magan Desir MD CC: Magan Desir MD; Marika High MD Date Dictated: 12/15/17 1059 Date Transcribed: 12/16/17 5058 Machine Bander And Cellophaner: Signed PROTIME W/INR Collected: 12/15/2017 Status: F Source: [place] 10:08 AM [facility] REPOSITORY TYPE CODE TESTS RESULT OUT OF REFERENCE UNITS RANGE LAB L9200.1001 11.9-14.4 SEC High PROTIME ISTAT 24.3 Result Comment: Reference Range 11.9 - 14.4 LAB L9200.2000 Normal INR ISTAT 2.10 Result Comment: Critical Value > 3.5 Performed By: #### L9200.0000 #### [facility] Point of Care [address] [place], [place] [address] LIVER PROFILE Collected: 12/10/2017 Status: F Source: [place] 10:24 AM [facility] REPOSITORY TYPE CODE TESTS RESULT OUT OF RANGE REFERENCE UNITS LAB L501.1500 6.4-8.2 g/dL Normal T PROT 7.7 LAB L501.1800 3.2-5.0 g/dL Normal ALB 3.8 LAB L501.1950 2.2-4.2 g/dL Normal GLOB 3.9 LAB L501.4100 15-37 U/L Normal AST 22 LAB L501.4305 45-117 U/L Normal ALK P 116 LAB L501.4405 16-61 U/L Normal ALT 49 LAB L501.4600 0.20-1.00 mg/dL Normal T BILI 0.40 LAB L501.4700 0.00-0.30 mg/dL Normal D BILI 0.07 Performed By: #### L500.3400, L500.4100 #### [facility] [address] [place], [place], [id number] LIPID PROFILE Collected: 12/10/2017 Status: F Source: [place] 10:24 AM [facility] REPOSITORY TYPE CODE TESTS RESULT OUT OF RANGE REFERENCE UNITS LAB L501.4900 200 mg/dL Normal CHOL 173 Result Comment: <200 mg/dL Desirable 200-240 mg/dL Borderline >240 mg/dL High Risk LAB L501.5000 mg/dL High TRIG 313 Result Comment: The drugs N-Acetylcysteine and Metamizole may falsely depress this assay. Serum Triglycerides Reference Interval Normal <150 mg/dL Borderline high 150 - 199 mg/dL High 200 - 499 mg/dL Very High > or = 500 mg/dL LAB L501.6400 mg/dL Low HDL 29 Result Comment: The drugs N-Acetylcysteine and Metamizole may falsely depress this assay. Reference Range HDL <40 mg/dL Low HDL Cholesterol HDL >or= 60 mg/dL High HDL Cholesterol LAB L501.6500 0-130 mg/dL Normal LDL 81 LAB L501.6600 5-40 mg/dL High VLDL 63 Performed By: #### L500.3400, L500.4100 #### [facility] [address] [place], [place], [address] CARDIOLOGY VISIT Observed: 12/08/2017 Status: F Source: [place] REPORT 2:59 PM [facility] REPOSITORY [facility] [address] [place] [address] OFFICE VISIT Date of Service: 12/08/17 MR#: [id number] Acct: [id number] Name: VINEET DELANEY . Rep #: [id number] : 1950 Provider: Magan Desir MD Age/Sex: 67/M [place] [facility] [place] Status: Signed HPI HPI Chief Complaint: CP THIS AM/Switching from [place] Details: VINEET DELANEY, is a 67 M with a history of diabetes, hypertension, sick sinus syndrome status post pacemaker, hyperlipidemia, obstructive sleep apnea currently on CPAP, coronary artery disease with history of myocardial infarction in 2000. Patient had a repeat catheterization at the [facility] on 04/08/2011 which reportedly showed normal coronary arteries as confirmed by the report in his chart. There is some question as to whether he really had a previous myocardial infarction in 2000. In addition the patient has a greater than [id number] smoking history and quit about 5 years ago. His is with him who has COPD. He is a former patient of Dr. Cronin, and is here for self- referral. Patient has had stable chest pain which has been intermittently responsive to nitrates and has had multiple stress test in the past. His most recent one was a non-walking pharmacologic nuclear stress test on 05/06/17 which was negative for inducible ischemia with an EF of 77%. His most recent echo was 02/19/16 showed an EF of 55%. The patient's main complaint today is atypical and typical exertional chest pain with associated dyspnea on exertion and shortness of breath. He reports that he is taking and tolerating his medicines well. He also complains of increasing fatigue. In our office today's blood pressure is 150/76, pulse is 60 and regular. His physical exam demonstrates distant breath sounds bilaterally, regular rate and rhythm, normal S1/S2, no S3 or S4. He has no murmurs. He has no edema. His lipids are pending. His most recent EKG dated 12/08/17 showed paced atrial rhythm with old inferior and possibly posterior wall myocardial infarction. Intake Vital Signs12/08/17 Height 6 ft 1 in 12/08/17 Weight: 210 lb 12/08/17 Body Mass Index (BMI) 27.7 12/08/17 Blood Pressure 150/76 H Intake Visit Reasons: SWITCHING FROM CARRIE Allergies metformin Allergy (Verified 12/08/17 14:24) Unknown Penicillins Allergy (Verified 12/08/17 14:24) Swelling Androgenic Anabolic Steroid Adverse Reaction (Verified 12/08/17 14:24) Rash Medications Gemfibrozil [Lopid] 600 mg PO BID 05/11/14 [History Confirmed 12/08/17] Nitroglycerin [Nitrostat] 0.4 mg SUBLINGUAL Q5M PRN 05/11/14 [History Confirmed 12/08/17] Pravastatin [Pravachol] 40 mg PO QHS 05/11/14 [History Confirmed 12/08/17] Warfarin [Coumadin] 4 mg PO DAILY 05/11/14 [History Confirmed 12/08/17] Omeprazole [Prilosec] 20 mg PO DAILY 05/05/17 [History Confirmed 12/08/17] Sitagliptin Phosphate [Januvia] 100 mg PO DAILY 05/05/17 [History Confirmed 12/08/17] Tamsulosin HCl [Flomax] 0.4 mg PO QHS 05/05/17 [History Confirmed 12/08/17] albuterol sulfate HFA 90 mcg/actuation aerosol inhaler 2 puff INHALATION Q4H PRN g 12/07/17 [History Confirmed 12/08/17] flecainide 50 mg tablet 50 mg PO Q12H 12/07/17 [History Confirmed 12/08/17] gabapentin 300 mg capsule 300 mg PO QHS cap 12/07/17 [History Confirmed 12/08/17] glimepiride 2 mg tablet 1 mg PO DAILY tab 12/07/17 [History Confirmed 12/08/17] metoprolol tartrate 25 mg tablet 25 mg PO BID tab 12/07/17 [History Confirmed 12/08/17] duloxetine 30 mg capsule,delayed release 60 mg PO DAILY cap 12/08/17 [History Confirmed 12/08/17] [facility] Medical History Atherosclerotic heart disease of jackson coronary artery without angina pectoris (Chronic) Type 2 diabetes mellitus (Chronic) History of myocardial infarction (Acute 2000) Sick sinus syndrome (Acute) Essential hypertension (Chronic) Paroxysmal atrial fibrillation (Acute) Hyperlipemia (Chronic) MANNY (obstructive sleep apnea) (Chronic) Presence of cardiac pacemaker (Chronic) Chest pain (Acute) Anxiety (Acute) Seizures (Acute) TIA (transient ischemic attack) (Acute) Anxiety (Inactive) Atrial fibrillation (Inactive) Hyperlipidemia (Inactive) Obstructive sleep apnea (Inactive) Status post pacemaker (Inactive) Surgical History History of cardiac catheterization (Resolved 04/08/11) History of hand surgery (Resolved) History of inguinal hernia repair (Resolved) History of lateral meniscus repair of right knee (Resolved) Family History Mother Cancer Diabetes Brother Cancer Diabetes Sister Heart disease Brother Heart disease Social History Smoking Status: Former smoker alcohol intake: never substance use type: does not use ROS Const Const: Positive for fatigue (increased); negative for weight gain, weight loss, excessive sweating, weakness or frequent falls Eyes Eyes: Negative for change in vision, transient loss of vision or blurry vision ENT ENT: Positive for balance problems (occasional unsteadiness with ambulation); negative for dizziness Cardio Chest Pain: Yes Character: sharp Onset: at rest, exercise Location: mid sternal Duration: minutes Relieving: rest, other (takes nitro) Palpitations: Yes (occasional) feels like its: fast Edema: Bilateral (pedals and ankles) Muscle aches with walking: None Resp Respiratory: Positive for SOB with activity (increased ), SOB at rest (increased) and wheezing GI GI: Negative vomiting or vomiting blood/hematemesis : Negative for hematuria Musc Musc: Positive for balance problems (occasional unsteadiness with ambulation); negative for muscle aches/ myalgia, muscle weakness or joint pain Skin Skin: Negative non-healing lesions or rash Neuro Neuro: Positive for seizures (HX); negative for weakness, blurry vision, lightheadedness, frequent falls, orthostatic symptoms or dizziness Rashad Hematologic/Lymphatic: Negative for easy bleeding Endo Endo: Positive for fatigue (increased); negative for excessive sweating Psych Psych: Negative for anxiety or depression Allergy Allergy/Immunology: Negative for hives, Negative for rash Cardiology Exam Const Appearance: cooperative, healthy appearing and no acute distress Nutritional Appearance: well nourished Orientation: alert, oriented x3 and oriented to person Head Head: normal to inspection, atraumatic and normocephalic Nose: external nose normal Face and Sinus: face symmetric Mouth: oral mucosae normal Eyes General: appearance normal, both eyes and all related structures Eyelids: eyelids normal Conjunctivae: conjunctivae normal Pupils: PERRL and normal by confrontation EOM: EOM intact bilaterally Neck Neck: normal visual inspection and full ROM Carotids: normal carotid upstroke Chest Chest inspection: normal inspection of the chest Auscultation: Bilateral: Clear to Auscultation Cardio Palpation: normal PMI Rate: regular rate Rhythm: regular rhythm Heart sounds: S1 normal and S2 normal GI GI: normal to inspection, no hepatosplenomegaly and bowel sounds present Neuro General: alert, oriented x3, awake, CN's II-XI intact bilaterally and moves all extremities Skin Skin: no rashes or lesions noted Extremities Pulses: Normal: Right Femoral Pulse, Left Femoral Pulse, Right Dorsalis Pedis Pulse, Left Dorsalis Pedis Pulse, Right Posterior Tibial Pulse, Left Posterior Tibial Pulse, Right Radial Pulse, Left Radial Pulse Lower Extremity Edema: None: Bilateral Psych Psychological: normal affect Assessment AND Plan 1. Chest pain R07.9 Plan 1. Chest pain: Patient has a history of chest pain which appears to be both typical and atypical in nature, but does have associated dyspnea on exertion and shortness of breath which may be an anginal equivalent. It is been more than 6 years since his last catheterization. Although his non-walking nuclear stress test in April 2017 was negative for inducible ischemia, the patient continues to have progressively worsening symptoms. Recommend the patient undergo a modified Saeid treadmill echocardiogram to determine if he has hypertensive blood pressure response to exercise, poor exercise capacity for age, or any evidence of exercise-induced ischemia. If this is grossly abnormal patient may require diagnostic coronary angiogram. In addition I recommend he undergo a repeat 2D echo with Doppler it is been 1 year since his last one specifically looking at his LV function as well as his pulmonary pressures. Orders Orders: 2. Hyperlipemia E78.5 Plan 2. Hyperlipidemia: Given the patient's diabetes and risk factors he requires aggressive LDL reduction. He is currently on Pravachol. Recommend obtaining a fasting lipid profile. His LDL should be less than 70. Orders Orders: 3. Atherosclerotic heart disease of jackson coronary artery without angina pectoris I25.10 Plan 3. Coronary artery disease: There is some confusion as to whether the patient actually had a myocardial infarction in 2000 as his coronary arteries in 2011 were normal per the report from the [facility]. It is possible the patient may have had progressive coronary disease since 2011. If his stress test is abnormal he will require diagnostic coronary angiogram. Orders Orders: 4. Sick sinus syndrome I49.5 Plan 4. Sick sinus syndrome: The patient is status post pacemaker implant in 2012. He will have an interrogation today and to his office. Patient also has a history of paroxysmal atrial fibrillation but appears to be in paced atrial rhythm at this time. Recommend he continue his flecainide and warfarin therapy. 5. Return office in 6 months. This note was generated using a voice recognition system and there may be incorrect words, spelling or punctuation that were not noted when reviewing the office note prior to saving. Plan Detail Other Orders Orders: Follow Up +6M (Thang) Coding Level of Care Code Off vis,new,level 4 Diagnoses Chest pain R07.9 Ischemic chest pain type: unspecified angina pectoris type Hyperlipemia E78.5 Atherosclerotic heart disease of jackson coronary artery without angina pectoris I25.10 Sick sinus syndrome I49.5 Coding Level of Care Code Off vis,new,level 4 Diagnoses Chest pain R07.9 Ischemic chest pain type: unspecified angina pectoris type Hyperlipemia E78.5 Atherosclerotic heart disease of jackson coronary artery without angina pectoris I25.10 Sick sinus syndrome I49.5 12/08/17 1459 <Electronically signed by Magan Desir MD> Date Magan Desir MD Cosigner Signature: Date (if applicable) CC: 12 LEAD EKG PERFORMED Observed: 12/08/2017 Status: F Source: [place] [facility] [place] 2:21 PM [facility] REPOSITORY [place] [id number] [place] [address] 12 Lead EKG performed by LEO 12/08/17 1420 MR#: [id number] Acct: [id number] Name: VINEET DELANEY Sr. Rep #: [id number] : 1950 67 From: Magan Desir MD Attending Dr: Magan Desir MD Status: DEP AMB Ordering Dr: Magan Desir MD Date: 12/08/17 Location: [facility] Sex: M C Admitted: BMS/12 Lead EKG performed by [facility] [place] ECG Report Interpretation Sinus Rhythm -First degree A-V block [place] = 306-Old inferior infarct. -Anterolateral ST-elevation -repolarization variant. ABNORMAL Electronically signed on 01/29/2018 at 15:41 by Magan Desir Software Version [id number] 01/29/18 1546 Date Magan Desir MD CC: Marika High MD Date Dictated: 12/08/17 1420 Date Transcribed: 12/08/171419 Machine Bander And Cellophaner: Signed PROGRESS Observed: 12/01/2017 Status: COMPLETED Source: [place] 2:27 PM [facility] REPOSITORY HNO ID: [id number] Author: Analisa Garcia Ma Service: (none) Author Type: (none) Type: Progress Notes Filed: 12/01/2017 2:28 PM Note Text: Detailed message left on pt machine. Tracker and med list updated. Analisa Garcia Ma PROGRESS Observed: 12/01/2017 Status: COMPLETED Source: [place] 11:12 AM [facility] REPOSITORY HNO ID: [id number] Author: Marika High Service: (none) Author Type: Physician Type: Progress Notes Filed: 12/01/2017 2:28 PM Note Text: Go to 2 mg on Mon-Wed-Thu, 4 mg all other days Recheck in 2 weeks as planned Marika High MD PROGRESS Observed: 12/01/2017 Status: COMPLETED Source: [place] 10:56 AM [facility] REPOSITORY HNO ID: [id number] Author: Niko Latham RN Service: (none) Author Type: (none) Type: Progress Notes Filed: 12/01/2017 10:58 AM Note Text: patient had inr completed at [facility] patients inr is 1.5 (patients inr range is 2.0-3.0) patient is currently taking 2mg alternating with 4mg patients last dose change was on 06/11/17 due to a high level of 4.0 (dose at that time was 4mg daily) patient has had no changes in medication and no missed doses and has had a change in diet as patient ate mustard greens that past 3 days which he usually does not do Advised patient that they would be contacted regarding medication dose and when to follow up after information is reviewed by provider. After provider review please contact the patient with information and schedule follow up appointment with coumadin clinic. FYI - patient has been scheduled for a 2 week follow up inr on 12/15/17 CNCO Observed: 11/04/2017 Status: COMPLETED Source: [place] 12:00 AM [facility] REPOSITORY Letter Text Vineet Delaney [address] [place] [id number] 11/04/2017 [facility] #: [id number] Dear , Due to a change in the provider's schedule it has been necessary to reschedule your Appointment. Your original appointment was scheduled for 12/29 at 10:40 AM with Marika High MD. Your new appointment is now scheduled on 12/30 at 12:40 PM with Maia Cintron CNP. If this new appointment is not convenient for you, please contact our office at [phone]. Thank you for choosing the [facility] as your Healthcare Provider . Sincerely, Family Medicine Appointment Office PROGRESS Observed: 11/03/2017 Status: COMPLETED Source: [place] 12:40 PM [facility] REPOSITORY HNO ID: [id number] Author: Chandler Kim Service: (none) Author Type: Physician Type: Progress Notes Filed: 11/03/2017 12:40 PM Note Text: This note was created using NoteWriter. Subjective Vineet Delaney is a 66 year old male. Review of Systems Objective There were no vitals taken for this visit. Physical Exam Assessment and Plan agree PROGRESS Observed: 11/03/2017 Status: COMPLETED Source: [place] 11:56 AM [facility] REPOSITORY HNO ID: [id number] Author: Niko Latham RN Service: (none) Author Type: (none) Type: Progress Notes Filed: 11/03/2017 11:57 AM Note Text: patient had inr completed at [facility] patients inr is 2.0 (patients inr range is 2.0-3.0) patient is currently taking 2mg alternating with 4mg patients last dose change was on 06/11/17 due to a high level of 4.0 (dose at that time was 4mg daily) patient has had no change in medication and no missed doses and no change in diet Advised patient to continue on the same dose(s) and that they would only be contacted regarding dosage and follow up instructions after review with provider, if a change is needed. Written instructions given and patient verbalized understanding. Presently scheduled in 4 weeks (12/01/17) for follow up INR. CNCO Observed: 10/22/2017 Status: COMPLETED Source: [place] 12:00 AM [facility] [place] REPOSITORY Letter Text Marika High MD [address] [place], [place] [address] 10/22/2017 Vineet Delaney [facility]# [id number] [address] [place] [address] TO WHOM IT MAY CONCERN: This is to certify that MrJordan Delaney is not able to use an automobile seatbelt due to his medical condition. Sincerely yours, Marika High MD PROGRESS Observed: 10/06/2017 Status: COMPLETED Source: [place] 3:17 PM [facility] REPOSITORY HNO ID: [id number] Author: Marika High Service: (none) Author Type: Physician Type: Progress Notes Filed: 10/06/2017 5:16 PM Note Text: I agree with the advice given; stay same and recheck in 4 weeks Marika High MD PROGRESS Observed: 10/06/2017 Status: COMPLETED Source: [place] 2:56 PM [facility] REPOSITORY HNO ID: [id number] Author: Niko Latham RN Service: (none) Author Type: (none) Type: Progress Notes Filed: 10/06/2017 2:57 PM Note Text: patient had inr completed at [facility] patients inr is 2.7 (patients inr range is 2.0-3.0) patient is currently taking 2mg alternating with 4mg patients last dose change was on 06/11/17 due to a high level of 4.0 (dose at that time was 4mg daily) patient has had no changes in medication and no missed doses and no change in diet Advised patient to continue on the same dose(s) and that they would only be contacted regarding dosage and follow up instructions after review with provider, if a change is needed. Written instructions given and patient verbalized understanding. Presently scheduled in 4 weeks (11/03/17) for follow up INR. PROGRESS Observed: 09/22/2017 Status: COMPLETED Source: [place] 4:31 PM [facility] REPOSITORY HNO ID: [id number] Author: Marika High Service: (none) Author Type: Physician Type: Progress Notes Filed: 09/22/2017 4:43 PM Note Text: Discussed at appt; stay on same dose an recheck in 2 weeks Marika High MD CNOV Observed: 09/22/2017 Status: COMPLETED Source: [place] 4:20 PM [facility] REPOSITORY Office Visit (FAMPWS) VINEET DELANEY ([id number]) 1950 M Date Time Provider Department 09/22/17 4:20 PM MARIKA HIGH [facility] During your visit today, we recorded the following information about you: Temperature Pulse Respiration Blood pressure 97.9 degrees 68/minute 10/minute 112/80 Weight 94.3 kg Marika High MD 09/22/2017 4:31 PM Signed Chief Complaint Patient presents with: F/U 1 month HPI Vineet Rabia Delaney is a 66 year old male who presents here today for 1 month follow up. Anxiety: pt states he is unsure if cymbalta is helping, he is taking 30 mg daily. He was changed from effexor last time. He has been feeling nervous/anxious and irritable. [place] while out fishing; became irritable at home. Chest: pt state he has been having pain on his left upper chest, states he can only feel the pain when he raises his arm. Pacemaker: pt has been having issues with transmitting his pacemaker activity to main campus. He will continue to contact Cardiology for this. Lump: pt's has noticed pt has a lump under his left arm, pt is unsure of how long this has been there; denies any pain or issues with it. DM: check sugars daily; denies hypoglycemia. On januvia and amaryl. INR: 3.1 earlier today, has been alternating between 2 mg and 4 mg. Past medical history, appointments, medications, allergies reviewed. Previous Medical History PAST MEDICAL HISTORY Diagnosis Date - Allergic rhinitis, cause unspecified Allergic rhinitis - Arrhythmia - Benign neoplasm of colon - CAD (coronary artery disease) 2000 Myocardial Infarction - Dupuytren contracture - Hyperlipidemia 07/20/2017 - Mental disorder - Myocardial infarct, old - Rash and other nonspecific skin eruption Nonspec Skin Erup Nec - Seizures (HCC) - TIA (transient ischemic attack) 2004 - Type 2 diabetes mellitus without complication, without long- term current use of insulin ([facility]) 12/25/2015 Previous Surgical History PAST SURGICAL HISTORY Procedure Laterality Date - COLONOSCOP W/ OR W/O [facility] SPEC 04/17/2011 Colonoscopy - COLONOSCOP W/ OR W/O [facility] SPEC 04/10/2014 Colonoscopy - COLONOSCOP W/ OR W/O [facility] SPEC 05/04/2017 Colonoscopy - EGD W/O OR W/BRUSH/WASH 02/24/05 EGD - H. Pylori gastritis - EGD W/O OR W/BRUSH/WASH 04/17/2011 EGD - HEART SURGERY HX 09/2012 pacemaker - PAST SURGICAL HISTORY OF 3 heart caths - normal - PAST SURGICAL HISTORY OF 2008 right knee meniscus repair - PAST SURGICAL HISTORY OF 2006 left hand - REPAIR ING HERNIA,5+Y/O,REDUCIBL 2005 Hernia repair, inguinal Family History FAMILY HISTORY Problem Relation Age of Onset - Cancer Mother skin - Diabetes Mother - Diabetes Maternal Grandfather - Cancer Brother - Diabetes Brother - Diabetes Maternal Uncle - Diabetes Maternal Uncle - Heart Sister - Heart Brother Patient Allergies ALLERGIES Allergen Reactions - Metformin Other: See Comments Sweating - Black Pepper Hives - Dust Mites Hives - Mold Spores Shortness of Breath - Aly Cheese [Other] Shortness of Breath - Penicillins Hives Current Medications Current Outpatient Prescriptions on File Prior to Visit: DULoxetine (CYMBALTA) 30 mg capsule Take 1 capsule by mouth once daily. gemfibrozil (LOPID) 600 mg tablet Take 1 tablet by mouth twice daily. warfarin (COUMADIN) 4 mg tablet Alternate 2 mg and 4 mg daily or as directed omeprazole (PRILOSEC) 20 mg capsule TAKE 1 CAPSULE BY MOUTH ONCE DAILY 1/2 HOUR BEFORE BREAKFAST glimepiride (AMARYL) 2 mg tablet Take 0.5 tablets by mouth daily with breakfast. metoprolol tartrate, short acting, (LOPRESSOR) 25 mg tablet Take 1 tablet by mouth twice daily. flecainide (TAMBOCOR) 50 mg tablet Take 1 tablet by mouth twice daily. gabapentin (NEURONTIN) 300 mg capsule Take 1 capsule by mouth daily at bedtime for 180 days. albuterol HFA (VENTOLIN HFA) 90 mcg/actuation inhaler Inhale 2 Puffs as instructed every 4 hours as needed for Wheezing/Shortness of Breath. tamsulosin ER (FLOMAX) 0.4 mg cp24 Take 1 capsule by mouth daily at bedtime. blood sugar diagnostic (BLOOD GLUCOSE TEST) test strip Test blood sugar(s) 1 times daily. Dx: Type 2 DM - Controlled E11.9 Insulin: No sitaGLIPtin (JANUVIA) 100 mg tablet Take 1 tablet by mouth once daily. pravastatin (PRAVACHOL) 40 mg tablet Take 1 tablet by mouth daily at bedtime. nitroglycerin sublingual (NITROSTAT) 0.4 mg SL tablet dissolve 1 tablet under the tongue if needed for chest pain (IF NO RELIEF CALL 911) Lancets lancets Test blood sugar(s) 1 times daily. Dx: Type 2 DM - Controlled E11.9 Insulin: No Blood-Glucose Meter monitoring kit Glucose Meter of Choice - Kit - Dx: Type 2 DM - Controlled E11.9. Check blood sugar once daily as needed. No current facility-administered medications on file prior to visit. Social History Social History Marital status: Spouse name: Awilda Years of education: Number of children: 4 Occupational History Occupation Employer Comment Retired [employer]* short distance Social History Main Topics Smoking status: Former Smoker Packs/day: 0.80 Years: 45.00 Types: Cigarettes Quit date: 06/16/2012 Smokeless tobacco: Never Used Alcohol use: No Drug use: No Sexual activity: Yes Partners with: Female control/protection: Surgical Comment: -bps EXAM: BP 112/80 Pulse 68 Temp 36.6 ?C (97.9 ?F) (Left Tympanic) Resp 10 Wt 94.3 kg (208 lb) BMI 29.84 kg/m? General Appearance: Well appearing, alert, in no acute distress, well-hydrated, well nourished.. Lungs: Lungs clear to auscultation. No wheezing, rhonchi, rales. Heart: RRR without murmur, gallop, or rubs. No ectopy. Health Maintenance List BLOOD PRESSURE CONTROLLED due on 12/06/1969 INFLUENZA(1) due on 10/17/2017 STATIN MED ADHERENCE due on 10/17/2017 DIABETES MED ADHERENCE due on 10/17/2017 DILATED RETINAL EXAM due on 01/20/2018 HBA1C due on 03/18/2018 PNEUMOVAX AGE 65 AND OVER WITH 5YR LOOKBACK(1) due on 04/02/2018 URINE ALBUMIN:CREATININE RATIO due on 04/09/2018 DIABETIC FOOT EXAM due on 05/08/2018 ANNUAL PCP TEAM CHRONIC DISEASE VISIT due on 08/18/2018 LDL CHOLESTEROL due on 09/15/2018 COLORECTAL CANCER SCREENING,SEE MODIFIER due on 05/04/2020 DTAP,TDAP,TD(2 - Td) due on 03/11/2022 PROSTATE CANCER SCREENING DISCUSSION Completed ADULT PREVNAR-13 Completed HEPATITIS C SCREENING Completed Data reviewed INR results: 3.1 Anticoagulation Visit on 09/22/2017 Component Date Value - INR (POCT) 09/22/2017 3.1* - Internal Quality Check 09/22/2017 Acceptable Appointment on 09/15/2017 Component Date Value - Cholesterol, Total 09/15/2017 162 - Triglyceride 09/15/2017 268* - HDL Cholesterol 09/15/2017 29* - LDL Cholesterol 09/15/2017 79 - Non HDL Cholesterol 09/15/2017 133* - Fasting Time 09/15/2017 12 - VLDL Cholesterol 09/15/2017 54* - TC:HDL Ratio 09/15/2017 5.59* - LDL:HDL Ratio 09/15/2017 2.72* - Protein, Total 09/15/2017 6.7 - Albumin 09/15/2017 4.3 - Calcium 09/15/2017 9.1 - Bilirubin, Total 09/15/2017 0.2 - Alkaline Phosphatase 09/15/2017 109* - AST 09/15/2017 23 - Glucose 09/15/2017 129* - BUN 09/15/2017 16 - Creatinine 09/15/2017 1.12 - Sodium 09/15/2017 143 - Potassium 09/15/2017 4.3 - Chloride 09/15/2017 106* - CO2 09/15/2017 23 - Anion Gap 09/15/2017 14 - ALT 09/15/2017 26 - eGFR- 09/15/2017 >60 - eGFR-All Other Races 09/15/2017 >60 - Hemoglobin A1C 09/15/2017 6.8* - Estimated Average Glucose 09/15/2017 148 ASSESSMENT/PLAN: 1. Type 2 diabetes mellitus without complication, without long-term current use of insulin (HCC) - ICD9: 250.00, ICD10: E11.9 (primary diagnosis) Controlled. - Continue current medications - HGB A1C - COMP METABOLIC PANEL - LIPID PANEL BASIC 2. Anxiety - ICD9: 300.00, ICD10: F41.9 Increase cymbalta to 60 mg daily - DULOXETINE 60 MG CAPSULE,DELAYED RELEASE 3. Atrial fibrillation, unspecified type (HCC) - ICD9: 427.31, ICD10: I48.91 Continue current medications. 4. Coronary artery disease involving jackson heart, angina presence unspecified, unspecified vessel or lesion type - ICD9: 414.01, ICD10: I25.10 Continue current medications. Follow with Cardiology Follow up in 3 months Marika High MD The documentation for this note was completed by Anabela Kramer Ma acting as scribe for Marika High MD. September 22, 2017 4:14 PM. Referring Provider: MARIKA HIGH [[id number]] Allergies As of Date: 09/22/2017 Noted Allergy Reaction METFORMIN 12/25/2015 14 - Other: See Comments Comments: Sweating BLACK PEPPER 11/17/2005 4 - Hives DUST MITES 11/17/2005 4 - Hives MOLD SPORES 11/17/2005 12 - Shortness of Breath aly cheese [Other] 11/17/2005 12 - Shortness of Breath PENICILLINS 11/17/2005 4 - Hives Date Reviewed: 09/22/2017 Reviewed by: Aanbela Kramer Ma - Fully Assessed Reason for Visit: F/U 1 month [1175] Primary Visit Diagnosis:Type 2 diabetes mellitus without complication, without long-term current use of insulin (HCC) [E11.9] Other Visit Diagnoses:Anxiety [F41.9] Atrial fibrillation, unspecified type (HCC) [I48.91] Coronary artery disease involving jackson heart, angina presence unspecified, unspecified vessel or lesion type [I25.10] Order(s):DULoxetine (CYMBALTA) 60 mg capsuleTake 1 capsule by mouth once daily.Disp: 30 capsuleRfl: 5 HGB A1C [ODKAO8S] Order #: [id number] FUTURE COMP METABOLIC PANEL [SQCMP] Order #: [id number] FUTURE LIPID PANEL BASIC [SQLIPB] Order #: [id number] FUTURE Prescriptions as of 09/22/2017 Sig: GEMFIBROZIL 600 MG TABLET Take 1 tablet by mouth twice * WARFARIN 4 MG TABLET Alternate 2 mg and 4 mg daily* OMEPRAZOLE 20 MG CAPSULE,YANNA* TAKE 1 CAPSULE BY MOUTH ONCE* GLIMEPIRIDE 2 MG TABLET Take 0.5 tablets by mouth yahaira* METOPROLOL TARTRATE 25 MG TAB* Take 1 tablet by mouth twice * FLECAINIDE 50 MG TABLET Take 1 tablet by mouth twice * GABAPENTIN 300 MG CAPSULE Take 1 capsule by mouth daily* ALBUTEROL SULFATE HFA 90 MCG/* Inhale 2 Puffs as instructed * TAMSULOSIN 0.4 MG CAPSULE Take 1 capsule by mouth daily* BLOOD SUGAR DIAGNOSTIC STRIPS Test blood sugar(s) 1 times d* SITAGLIPTIN 100 MG TABLET Take 1 tablet by mouth once d* PRAVASTATIN 40 MG TABLET Take 1 tablet by mouth daily * NITROGLYCERIN 0.4 MG SUBLINGU* dissolve 1 tablet under the t* DULOXETINE 60 MG CAPSULE,YANNA* Take 1 capsule by mouth once * LANCETS Test blood sugar(s) 1 times d* BLOOD-GLUCOSE METER KIT Glucose Meter of Choice - Kit* Problem List As Of Date 09/22/2017 Noted Resolved Inguinal hernia without mention of obstruction *INVALID FOR*03/27/2016 First degree AV block [I44.0] INVALID FOR* Priority: D More... More... History of PR (myocardial infarction) [I25.2] INVALID FOR* Tobacco use disorder [F17.200] INVALID FOR*03/27/2016 Priority: E More... SUMMARY [V999.95] INVALID FOR*05/01/2017 Priority: A More... Chest pain [R07.9] INVALID FOR* Priority: B More... Claudication [I73.9] INVALID FOR* Priority: D More... Dupuytren's contracture of right hand [M72.0] INVALID FOR*05/01/2017 MANNY (obstructive sleep apnea) [G47.33] INVALID FOR* Rhinitis [J31.0] INVALID FOR*05/01/2017 Cardiac pacemaker in situ [Z95.0] INVALID FOR* More... Atrial fibrillation [I48.91] INVALID FOR* Anxiety [F41.9] INVALID FOR* Personal history of colonic polyps [Z86.010] INVALID FOR*04/10/2014 Diverticulosis of colon (without mention of hem*INVALID FOR*04/10/2014 Gastroesophageal reflux disease without esophag*INVALID FOR* Type 2 diabetes mellitus without complication, *INVALID FOR* Chronic left shoulder pain [M25.512, G89.29] INVALID FOR* Screening for colon cancer [Z12.11] INVALID FOR* More... CAD (coronary artery disease) [I25.10] INVALID FOR* More... Hyperlipidemia [E78.5] INVALID FOR* Prescriptions ordered this encounter Disp Refills Start End DULOXETINE 60 MG CAPSULE,DELAYED REL* 30 c* 5 09/22/2017 Route: ORAL Sig: Take 1 capsule by mouth once daily. Medications Discontinued During This Encounter DULoxetine (CYMBALTA) 30 mg capsule 90 c* 3 08/18/2017 09/22/2017 Route: ORAL Sig: Take 1 capsule by mouth once daily. Disc: Reason for discontinue is not on file. Disposition: Return in about 3 months (around 12/23/2017). Follow-up and Disposition History Recorded Encounter Status:Closed by MARIKA HIGH MD on 09/22/17 PROGRESS Observed: 09/22/2017 Status: COMPLETED Source: [place] 4:14 PM [facility] REPOSITORY HNO ID: [id number] Author: Marika High Service: (none) Author Type: Physician Type: Progress Notes Filed: 09/22/2017 4:31 PM Note Text: Chief Complaint Patient presents with: F/U 1 month HPI Vineet Delaney is a 66 year old male who presents here today for 1 month follow up. Anxiety: pt states he is unsure if cymbalta is helping, he is taking 30 mg daily. He was changed from effexor last time. He has been feeling nervous/anxious and irritable. [place] while out fishing; became irritable at home. Chest: pt state he has been having pain on his left upper chest, states he can only feel the pain when he raises his arm. Pacemaker: pt has been having issues with transmitting his pacemaker activity to main campus. He will continue to contact Cardiology for this. Lump: pt's has noticed pt has a lump under his left arm, pt is unsure of how long this has been there; denies any pain or issues with it. DM: check sugars daily; denies hypoglycemia. On januvia and amaryl. INR: 3.1 earlier today, has been alternating between 2 mg and 4 mg. Past medical history, appointments, medications, allergies reviewed. Previous Medical History PAST MEDICAL HISTORY Diagnosis Date - Allergic rhinitis, cause unspecified Allergic rhinitis - Arrhythmia - Benign neoplasm of colon - CAD (coronary artery disease) 2000 Myocardial Infarction - Dupuytren contracture - Hyperlipidemia 07/20/2017 - Mental disorder - Myocardial infarct, old - Rash and other nonspecific skin eruption Nonspec Skin Erup Nec - Seizures ([facility]) - TIA (transient ischemic attack) 2004 - Type 2 diabetes mellitus without complication, without long- term current use of insulin ([facility]) 12/25/2015 Previous Surgical History PAST SURGICAL HISTORY Procedure Laterality Date - COLONOSCOP W/ OR W/O [facility] SPEC 04/17/2011 Colonoscopy - COLONOSCOP W/ OR W/O [facility] SPEC 04/10/2014 Colonoscopy - COLONOSCOP W/ OR W/O [facility] SPEC 05/04/2017 Colonoscopy - EGD W/O OR W/BRUSH/WASH 02/24/05 EGD - H. Pylori gastritis - EGD W/O OR W/BRUSH/WASH 04/17/2011 EGD - HEART SURGERY HX 09/2012 pacemaker - PAST SURGICAL HISTORY OF 3 heart caths - normal - PAST SURGICAL HISTORY OF 2008 right knee meniscus repair - PAST SURGICAL HISTORY OF 2006 left hand - REPAIR ING HERNIA,5+Y/O,REDUCIBL 2005 Hernia repair, inguinal Family History FAMILY HISTORY Problem Relation Age of Onset - Cancer Mother skin - Diabetes Mother - Diabetes Maternal Grandfather - Cancer Brother - Diabetes Brother - Diabetes Maternal Uncle - Diabetes Maternal Uncle - Heart Sister - Heart Brother Patient Allergies ALLERGIES Allergen Reactions - Metformin Other: See Comments Sweating - Black Pepper Hives - Dust Mites Hives - Mold Spores Shortness of Breath - Aly Cheese [Other] Shortness of Breath - Penicillins Hives Current Medications Current Outpatient Prescriptions on File Prior to Visit: DULoxetine (CYMBALTA) 30 mg capsule Take 1 capsule by mouth once daily. gemfibrozil (LOPID) 600 mg tablet Take 1 tablet by mouth twice daily. warfarin (COUMADIN) 4 mg tablet Alternate 2 mg and 4 mg daily or as directed omeprazole (PRILOSEC) 20 mg capsule TAKE 1 CAPSULE BY MOUTH ONCE DAILY 1/2 HOUR BEFORE BREAKFAST glimepiride (AMARYL) 2 mg tablet Take 0.5 tablets by mouth daily with breakfast. metoprolol tartrate, short acting, (LOPRESSOR) 25 mg tablet Take 1 tablet by mouth twice daily. flecainide (TAMBOCOR) 50 mg tablet Take 1 tablet by mouth twice daily. gabapentin (NEURONTIN) 300 mg capsule Take 1 capsule by mouth daily at bedtime for 180 days. albuterol HFA (VENTOLIN HFA) 90 mcg/actuation inhaler Inhale 2 Puffs as instructed every 4 hours as needed for Wheezing/Shortness of Breath. tamsulosin ER (FLOMAX) 0.4 mg cp24 Take 1 capsule by mouth daily at bedtime. blood sugar diagnostic (BLOOD GLUCOSE TEST) test strip Test blood sugar(s) 1 times daily. Dx: Type 2 DM - Controlled E11.9 Insulin: No sitaGLIPtin (JANUVIA) 100 mg tablet Take 1 tablet by mouth once daily. pravastatin (PRAVACHOL) 40 mg tablet Take 1 tablet by mouth daily at bedtime. nitroglycerin sublingual (NITROSTAT) 0.4 mg SL tablet dissolve 1 tablet under the tongue if needed for chest pain (IF NO RELIEF CALL 911) Lancets lancets Test blood sugar(s) 1 times daily. Dx: Type 2 DM - Controlled E11.9 Insulin: No Blood-Glucose Meter monitoring kit Glucose Meter of Choice - Kit - Dx: Type 2 DM - Controlled E11.9. Check blood sugar once daily as needed. No current facility-administered medications on file prior to visit. Social History Social History Marital status: Spouse name: Awilda Years of education: Number of children: 4 Occupational History Occupation Employer Comment Retired [employer]* short distance Social History Main Topics Smoking status: Former Smoker Packs/day: 0.80 Years: 45.00 Types: Cigarettes Quit date: 06/16/2012 Smokeless tobacco: Never Used Alcohol use: No Drug use: No Sexual activity: Yes Partners with: Female control/protection: Surgical Comment: -bps EXAM: BP 112/80 Pulse 68 Temp 36.6 ?C (97.9 ?F) (Left Tympanic) Resp 10 Wt 94.3 kg (208 lb) BMI 29.84 kg/m? General Appearance: Well appearing, alert, in no acute distress, well-hydrated, well nourished.. Lungs: Lungs clear to auscultation. No wheezing, rhonchi, rales. Heart: RRR without murmur, gallop, or rubs. No ectopy. Health Maintenance List BLOOD PRESSURE CONTROLLED due on 12/06/1969 INFLUENZA(1) due on 10/17/2017 STATIN MED ADHERENCE due on 10/17/2017 DIABETES MED ADHERENCE due on 10/17/2017 DILATED RETINAL EXAM due on 01/20/2018 HBA1C due on 03/18/2018 PNEUMOVAX AGE 65 AND OVER WITH 5YR LOOKBACK(1) due on 04/02/2018 URINE ALBUMIN:CREATININE RATIO due on 04/09/2018 DIABETIC FOOT EXAM due on 05/08/2018 ANNUAL PCP TEAM CHRONIC DISEASE VISIT due on 08/18/2018 LDL CHOLESTEROL due on 09/15/2018 COLORECTAL CANCER SCREENING,SEE MODIFIER due on 05/04/2020 DTAP,TDAP,TD(2 - Td) due on 03/11/2022 PROSTATE CANCER SCREENING DISCUSSION Completed ADULT PREVNAR-13 Completed HEPATITIS C SCREENING Completed Data reviewed INR results: 3.1 Anticoagulation Visit on 09/22/2017 Component Date Value - INR (POCT) 09/22/2017 3.1* - Internal Quality Check 09/22/2017 Acceptable Appointment on 09/15/2017 Component Date Value - Cholesterol, Total 09/15/2017 162 - Triglyceride 09/15/2017 268* - HDL Cholesterol 09/15/2017 29* - LDL Cholesterol 09/15/2017 79 - Non HDL Cholesterol 09/15/2017 133* - Fasting Time 09/15/2017 12 - VLDL Cholesterol 09/15/2017 54* - TC:HDL Ratio 09/15/2017 5.59* - LDL:HDL Ratio 09/15/2017 2.72* - Protein, Total 09/15/2017 6.7 - Albumin 09/15/2017 4.3 - Calcium 09/15/2017 9.1 - Bilirubin, Total 09/15/2017 0.2 - Alkaline Phosphatase 09/15/2017 109* - AST 09/15/2017 23 - Glucose 09/15/2017 129* - BUN 09/15/2017 16 - Creatinine 09/15/2017 1.12 - Sodium 09/15/2017 143 - Potassium 09/15/2017 4.3 - Chloride 09/15/2017 106* - CO2 09/15/2017 23 - Anion Gap 09/15/2017 14 - ALT 09/15/2017 26 - eGFR- 09/15/2017 >60 - eGFR-All Other Races 09/15/2017 >60 - Hemoglobin A1C 09/15/2017 6.8* - Estimated Average Glucose 09/15/2017 148 ASSESSMENT/PLAN: 1. Type 2 diabetes mellitus without complication, without long-term current use of insulin ([facility]) - ICD9: 250.00, ICD10: E11.9 (primary diagnosis) Controlled. - Continue current medications - HGB A1C - COMP METABOLIC PANEL - LIPID PANEL BASIC 2. Anxiety - ICD9: 300.00, ICD10: F41.9 Increase cymbalta to 60 mg daily - DULOXETINE 60 MG CAPSULE,DELAYED RELEASE 3. Atrial fibrillation, unspecified type (HCC) - ICD9: 427.31, ICD10: I48.91 Continue current medications. 4. Coronary artery disease involving jackson heart, angina presence unspecified, unspecified vessel or lesion type - ICD9: 414.01, ICD10: I25.10 Continue current medications. Follow with Cardiology Follow up in 3 months Marika High MD The documentation for this note was completed by Anabela Kramer Ma acting as scribe for Marika High MD. September 22, 2017 4:14 PM. PROGRESS Observed: 09/22/2017 Status: COMPLETED Source: [place] 9:36 AM [facility] REPOSITORY [facility] [employer] [facility] [employer] ID: [id number] Author: Niko Latham RN Service: (none) Author Type: (none) Type: Progress Notes Filed: 09/22/2017 9:38 AM Note Text: patient had inr completed at [facility] patients inr is 3.1 (patients inr range is 2.0-3.0) patient is currently taking 2mg alternating with 4mg patients last dose change was on 06/11/17 due to a high level of 4.0 (dose a that time was 4mg daily) patient has had no change in medication and no missed doses and no change in diet Patient has appt today with pcp at 420pm. Patient was advised to discuss result at appt. Patient has been scheduled for a 1 week follow up inr on 09/29/17 HEMOGLOBIN A1C Collected: 09/15/2017 Status: F Source: [place] 7:43 AM [facility] REPOSITORY TYPE CODE TESTS RESULT OUT OF REFERENCE UNITS RANGE LAB HGBA1C 4.3-5.6 % High Hemoglobin A1c 6.8 LAB HBA0 mg/dL Est. Average Glucose 148 Result Comment: eAG: (Estimated average glucose) is a calculated value from HgbA1c and is labor representative of the average blood glucose level in the last 2-3 month period. Performed By: #### HBA1C, CMP, LIPB #### [facility] [address] [place] [address] COMP METABOLIC PANEL Collected: 09/15/2017 Status: F Source: [place] 7:43 AM [facility] REPOSITORY TYPE CODE TESTS RESULT OUT OF REFERENCE UNITS RANGE LAB TP 6.3-8.0 g/dL Protein, Total 6.7 LAB ALB 3.9-4.9 g/dL Albumin 4.3 LAB CA 8.5-10.2 mg/dL Calcium, Total 9.1 LAB TBIL 0.2-1.3 mg/dL Bilirubin, Total 0.2 LAB ALKP 36-108 U/L Alkaline High Phosphatase 109 LAB AST 14-40 U/L AST 23 LAB GLU 74-99 mg/dL Glucose High 129 Result Comment: The [place] [employer] (ADA) provides guidance for cutoff values for fasting glucose and random glucose. The ADA defines fasting as no caloric intake for at least 8 hours. Fas ting plasma glucose results between 100 to 125 mg/dL indicate increased risk for diabetes (prediabetes). Fasting plasma glucose results greater than or equal to 126 mg/dL meet the criteria for diagnosis of diabetes. In the absence of unequivocal hyperglycemia, results should be confirmed by repeat testing. In a patient with classic symptoms of hyperglycemia or hyperglycemic crisis, random plasma glucose results greater than or equal to 200 mg/dL meet the criteria for diagnosis of diabetes. Reference: Standards of Medical Care in Diabetes 2016, [place] [employer]. Diabetes Care. 2016.39(Suppl 1). LAB BUN 9-24 mg/dL BUN 16 LAB CRET 0.73-1.22 mg/dL Creatinine 1.12 LAB NA 136-144 mmol/L Sodium 143 LAB K 3.7-5.1 mmol/L Potassium 4.3 LAB CL 97-105 mmol/L Chloride High 106 LAB CO2 22-30 mmol/L CO2 23 LAB AGAP 9-18 mmol/L Anion Gap 14 LAB ALT 10-54 U/L ALT 26 LAB GFRAA eGFR- Amer. >60 LAB GFRNAA . eGFR-All Other Races >60 Result Comment: eGFR (Estimated GFR) Units of measure: mL/min/1.73 meters squared eGFR is derived from the reexpressed MDRD Study equation using the following parameters: serum creatinine, age, gender and race. The creatinine assay has been calibrated to be traceable to IDMS. An eGFR <60 mL/min/1.73m2 for >3 months is consistent with chronic kidney disease. Refer to KDOQI guidelines for clinical interpretation. In patients with unstable renal function, e.g. those with acute kidney injury, the eGFR may not accurately reflect actual GFR. Performed By: #### HBA1C, CMP, LIPB #### [facility] [address] [place], [place] [address] LIPID PANEL, BASIC Collected: 09/15/2017 Status: F Source: [place] 7:43 AM [facility] REPOSITORY TYPE CODE TESTS RESULT OUT OF REFERENCE UNITS RANGE LAB CHOL <200 mg/dL Cholesterol 162 Result Comment: <200 mg/dL, Desirable 200-239 mg/dL, Borderline high >239 mg/dL, High LAB TRIGLY <150 mg/dL Triglyceride High 268 Result Comment: <150 mg/dL, Normal 150-199 mg/dL, Borderline high 200-499 mg/dL, High >499 mg/dL, Very high LAB HDL >39 mg/dL HDL-Cholesterol Low 29 Result Comment: 40-59 mg/dL, Acceptable >59 mg/dL, High: Negative risk factor for coronary heart disease <40 mg/dL, Low: Positive risk factor for coronary heart disease LAB LDL <100 mg/dL LDL-Cholesterol 79 Result Comment: <100 mg/dL, Optimal 100-129 mg/dL, Near optimal/above optimal 130-159 mg/dL, Borderline high 160-189 mg/dL, High >189 mg/dL, Very high Secondary prevention optimal LDL Cholesterol levels are recommended to be < 70 mg/dL LAB NONHDL <130 mg/dL Non HDL High Cholesterol 133 Result Comment: <130 mg/dL, Optimal 130-159 mg/dL, Near optimal/above optimal 160-189 mg/dL, Borderline high 190-219 mg/dL, High >219 mg/dL, Very high Secondary prevention optimal non HDL Cholesterol levels are recommended to be < 100 mg/dL LAB FT hrs Fasting Time 12 LAB VLDL <30 mg/dL High VLDL Cholesterol 54 LAB TCHDL <5.10 High TC:HDL Ratio 5.59 LAB LDLHDL <2.54 High LDL:HDL Ratio 2.72 Result Comment: Reference: 1. National Cholesterol Education Program ATP III Guideline At-A-Glance Quick Desk Reference: National Heart, Lung, and Blood Reading. National Institutes of Health. 2001: NIH Publication No. 01-3305. 2. An International Atherosclerosis Society position paper: global recommendations for the management of dyslipidemia: executive summary, Atherosclerosis. 2014: 232(2):410-413. Performed By: #### HBA1C, CMP, LIPB #### [facility] [address] [address] PROGRESS Observed: 08/18/2017 Status: COMPLETED Source: [place] 9:42 AM [facility] HNO ID: [id number] Author: Marika High Service: (none) Author Type: Physician Type: Progress Notes Filed: 08/18/2017 11:19 AM Note Text: I agree with the advice given; stay same and recheck in 1 month Marika High MD PROGRESS Observed: 08/18/2017 Status: COMPLETED Source: [place] 8:05 AM [facility] REPOSIT[facility] HNO ID: [id number] Author: Niko Latham RN Service: (none) Author Type: (none) Type: Progress Notes Filed: 08/18/2017 8:06 AM Note Text: patient had inr completed at [facility] patients inr is 2.1 (patients inr range is 2.0-3.0) patient is currently taking 2mg alternating with 4mg patients last dose change was on 4/26/18 due to a high level of 4.0 (dose at that time was 4mg daily) patient has had no changes in medication and no missed doses and no change in diet Advised patient to continue on the same dose(s) and that they would only be contacted regarding dosage and follow up instructions after review with provider, if a change is needed. Written instructions given and patient verbalized understanding. Presently scheduled in 1 month (09/22/17) for follow up INR. CNOV Observed: 08/18/2017 Status: COMPLETED Source: [place] 8:00 AM [facility] REPOS[facility] VINEET DELANEY ([id number]) 1950 M Date Time Provider Department 08/18/17 8:00 AM MARIKA HIGH During your visit today, we recorded the following information about you: Pulse Respiration Blood pressure Weight 64/minute 16/minute 120/80 94.7 kg Marika High MD 08/18/2017 3:30 PM Signed Transitional Care Management Progress Note The patients TCM visit was performed within the 14 days of discharge. Patient's Date of discharge: 08/08/17 Date of initial coordinator contact after discharge: 08/10/17 Discharge diagnosis: 1. Acute chest pain 2. Atrial fibrillation 3. HTN 4. Cardiac pacemaker 5. Chronic GERD Medication review completed Yes Analisa Garcia Ma Provider Documentation: In follow-up of hospitalization, Vineet Delaney is a 66 year old male with the chief complaint of acute chest pain and A-fib I have reviewed the patient?s last hospital course including diagnostic testing performed during this hospitalization, their discharge medications, and my assessment and plan with the patient and any family members present at today?s visit. Chief Complaint Patient presents with: F/U 3 Month Hospital Follow Up HPI Vineet Delaney is a 66 year old male who presents here today for Hospital Discharge Follow up.. Pt was sent to the ER by Dr. Butler on 08/07/17 due to symptoms of chest pain without relief of symptoms after using Nitro. Also had complaint of red/blurred vision in right eye. No changes were made to diet during patient's stay. Pt currently scheduled with Dr. Butler in November and Pacemaker check in October. He states he has chest pain all the time, nothing like what he had when he decided to go to the ER. The Chest pain comes and goes through the day, states it is a burning sensation, seems to be in the upper part of his chest. He has dizziness when he stands up and gets SOB with exertion. He states he only uses the Nitro about 2 times a month. Hospital wanted to do a stress test but pt states Dr. Butler stated pt did not need a stress test but that was prior to pt going into the hospital. Anxiety: has been taking Effexor 150 mg for a while, does not feel this is working well for him anymore. He states he has noticed he is more irritable, has noticed it as well. CAD: does check BP at home, reading WNL. Taking Lopressor 25 mg BID. Lipid: is taking Lopid 600 mg daily and Pravastatin 40 mg daily. Admits that he does not watch diet or get much exercise. follows with Organic Chemistry Professor, Dr. Butler. DM: checks sugars daily but does not keep track of his readings. He is taking Amaryl 2 mg and Januvia 100 mg. Does have issues with hypoglycemic episodes. Has neuropathy of feet. GERD: is taking Prilosec 20 mg daily. Has a moderate size normal seborrheic keratosis to the left side upper back. It does itch at times. Past medical history, appointments, medications, allergies reviewed. Previous Medical History PAST MEDICAL HISTORY Diagnosis Date - Allergic rhinitis, cause unspecified Allergic rhinitis - Arrhythmia - Benign neoplasm of colon - CAD (coronary artery disease) 2000 Myocardial Infarction ' - Dupuytren contracture - Hyperlipidemia 07/20/2017 - Mental disorder - Myocardial infarct, old - Rash and other nonspecific skin eruption Nonspec Skin Erup Nec - Seizures (HCC) - TIA (transient ischemic attack) 2004 - Type 2 diabetes mellitus without complication, without long- term current use of insulin (HCC) 12/25/2015 Previous Surgical History PAST SURGICAL HISTORY Procedure Laterality Date - COLONOSCOP W/ OR W/O [facility] SPEC 04/17/2011 Colonoscopy - COLONOSCOP W/ OR W/O [facility] SPEC 04/10/2014 Colonoscopy - COLONOSCOP W/ OR W/O [facility] SPEC 05/04/2017 Colonoscopy - EGD W/O OR W/BRUSH/WASH 02/24/05 EGD - H. Pylori gastritis - EGD W/O OR W/BRUSH/WASH 04/17/2011 EGD - HEART SURGERY HX 09/2012 pacemaker - PAST SURGICAL HISTORY OF 3 heart caths - normal - PAST SURGICAL HISTORY OF 2008 right knee meniscus repair - PAST SURGICAL HISTORY OF 2006 left hand - REPAIR ING HERNIA,5+Y/O,REDUCIBL 2005 Hernia repair, inguinal Family History FAMILY HISTORY Problem Relation Age of Onset - Cancer Mother skin - Diabetes Mother - Diabetes Maternal Grandfather - Cancer Brother - Diabetes Brother - Diabetes Maternal Uncle - Diabetes Maternal Uncle - Heart Sister - Heart Brother Patient Allergies ALLERGIES Allergen Reactions - Metformin Other: See Comments Sweating - Black Pepper Hives - Dust Mites Hives - Mold Spores Shortness of Breath - Aly Cheese [Other] Shortness of Breath - Penicillins Hives Current Medications Current Outpatient Prescriptions on File Prior to Visit: gemfibrozil (LOPID) 600 mg tablet Take 1 tablet by mouth twice daily. warfarin (COUMADIN) 4 mg tablet Alternate 2 mg and 4 mg daily or as directed omeprazole (PRILOSEC) 20 mg capsule TAKE 1 CAPSULE BY MOUTH ONCE DAILY 1/2 HOUR BEFORE BREAKFAST glimepiride (AMARYL) 2 mg tablet Take 0.5 tablets by mouth daily with breakfast. venlafaxine ER (EFFEXOR XR) 150 mg 24 hr capsule TAKE 1 CAPSULE BY MOUTH ONCE DAILY metoprolol tartrate, short acting, (LOPRESSOR) 25 mg tablet Take 1 tablet by mouth twice daily. flecainide (TAMBOCOR) 50 mg tablet Take 1 tablet by mouth twice daily. gabapentin (NEURONTIN) 300 mg capsule Take 1 capsule by mouth daily at bedtime for 180 days. albuterol HFA (VENTOLIN HFA) 90 mcg/actuation inhaler Inhale 2 Puffs as instructed every 4 hours as needed for Wheezing/Shortness of Breath. tamsulosin ER (FLOMAX) 0.4 mg cp24 Take 1 capsule by mouth daily at bedtime. blood sugar diagnostic (BLOOD GLUCOSE TEST) test strip Test blood sugar(s) 1 times daily. Dx: Type 2 DM - Controlled E11.9 Insulin: No sitaGLIPtin (JANUVIA) 100 mg tablet Take 1 tablet by mouth once daily. pravastatin (PRAVACHOL) 40 mg tablet Take 1 tablet by mouth daily at bedtime. Lancets lancets Test blood sugar(s) 1 times daily. Dx: Type 2 DM - Controlled E11.9 Insulin: No nitroglycerin sublingual (NITROSTAT) 0.4 mg SL tablet dissolve 1 tablet under the tongue if needed for chest pain (IF NO RELIEF CALL 911) Blood-Glucose Meter monitoring kit Glucose Meter of Choice - Kit - Dx: Type 2 DM - Controlled E11.9. Check blood sugar once daily as needed. No current facility-administered medications on file prior to visit. Social History Social History Marital status: Spouse name: Awilda Years of education: Number of children: 4 Occupational History Occupation Employer Comment Retired [employer]* short distance Social History Main Topics Smoking status: Former Smoker Packs/day: 0.80 Years: 45.00 Types: Cigarettes Quit date: 06/16/2012 Smokeless tobacco: Never Used Alcohol use: No Drug use: No Sexual activity: Yes Partners with: Female control/protection: Surgical Comment: -bps EXAM: BP 120/80 Pulse 64 Resp 16 Wt 94.7 kg (208 lb 12.8 oz) BMI 29.96 kg/m? General Appearance: Well appearing, alert, in no acute distress, well-hydrated, well nourished.. Skin: seborrheic keratosis to the left side upper back. Lungs: Lungs clear to auscultation. No wheezing, rhonchi, rales. Heart: RRR without murmur, gallop, or rubs. No ectopy. Health Maintenance List ZOSTER VACCINE (SHINGRIX)(2 of 3) due on 12/15/2013 HBA1C due on 10/06/2017 INFLUENZA(1) due on 10/17/2017 LDL due on 12/23/2017 DILATED RETINAL EXAM due on 01/20/2018 PNEUMOVAX AGE 65 AND OVER WITH 5YR LOOKBACK(1) due on 04/02/2018 URINE ALBUMIN CREATININE RATIO due on 04/09/2018 DIABETIC FOOT EXAM due on 05/08/2018 COLORECTAL CANCER SCREENING,SEE MODIFIER due on 05/04/2020 DTAP,TDAP,TD(2 - Td) due on 03/11/2022 PROSTATE CANCER SCREENING DISCUSSION Completed ADULT PREVNAR-13 Completed HEPATITIS C SCREENING Completed Data reviewed [facility] reports from 08/07/17-08/08/17 ASSESSMENT/PLAN: 1. Hospital discharge follow-up - ICD9: V67.59, ICD10: Z09 (primary diagnosis) Continue to follow with Dr. Butler PCP to contact Dr. Butler to see how he feels about a stress test 2. Other chest pain - ICD9: 786.59, ICD10: R07.89 Continue to follow with Dr. Butler PCP to contact Dr. Butler to see how he feels about a stress test; message received back from Dr Butler that he feels that with normal coronaries and a recent (05/03) normal stress test, that another stress test is not needed at this time. 3. History of PR (myocardial infarction) - ICD9: 412, ICD10: I25.2 Continue current medications. 4. Atrial fibrillation, unspecified type (HCC) - ICD9: 427.31, ICD10: I48.91 Continue current medications. 5. Anxiety - ICD9: 300.00, ICD10: F41.9 Stop Effexor Start Cymbalta 30 mg daily 6. Gastroesophageal reflux disease without esophagitis - ICD9: 530.81, ICD10: K21.9 Continue current medications. 7. Type 2 diabetes mellitus without complication, without long-term current use of insulin (HCC) - ICD9: 250.00, ICD10: E11.9 Controlled. - Continue current medications 8. Coronary artery disease involving jackson heart, angina presence unspecified, unspecified vessel or lesion type - ICD9: 414.01, ICD10: I25.10 Continue current medications. Continue with Dr. Butler 9. Hyperlipidemia, unspecified hyperlipidemia type - ICD9: 272.4, ICD10: E78.5 - to be determined upon return of lab results - Continue current medication. - Encouraged following a low fat, low cholesterol diet. - Discussed the benefits of regular aerobic exercise and weight loss. Follow up in 1 months with fasting labs prior. Marika High MD The documentation for this note was completed by Analisa Garcia Ma acting as scribe for Marika High MD. August 18, 2017 7:56 AM. Referring Provider: MARKIA HIGH [[id number]] Allergies As of Date: 08/18/2017 Noted Allergy Reaction METFORMIN 12/25/2015 14 - Other: See Comments Comments: Sweating BLACK PEPPER 11/17/2005 4 - Hives DUST MITES 11/17/2005 4 - Hives MOLD SPORES 11/17/2005 12 - Shortness of Breath aly cheese [Other] 11/17/2005 12 - Shortness of Breath PENICILLINS 11/17/2005 4 - Hives Date Reviewed: 08/18/2017 Reviewed by: Niko Latham RN - Fully Assessed Reason for Visit: F/U 3 Month [443] Hospital Follow Up [177] Primary Visit Diagnosis:Hospital discharge follow-up [Z09] Other Visit Diagnoses:Other chest pain [R07.89] History of PR (myocardial infarction) [I25.2] Atrial fibrillation, unspecified type (HCC) [I48.91] Anxiety [F41.9] Gastroesophageal reflux disease without esophagitis [K21.9] Type 2 diabetes mellitus without complication, without long-term current use of insulin (HCC) [E11.9] Coronary artery disease involving jackson heart, angina presence unspecified, unspecified vessel or lesion type [I25.10] Hyperlipidemia, unspecified hyperlipidemia type [E78.5] Order(s):DULoxetine (CYMBALTA) 30 mg capsuleTake 1 capsule by mouth once daily.Disp: 90 capsuleRfl: 3 LIPID PANEL BASIC [SQLIPB] Order #: [id number] FUTURE COMP METABOLIC PANEL [SQCMP] Order #: [id number] FUTURE HGB A1C [WLOIB4I] Order #: [id number] FUTURE INR (POC) [[id number]] Order #: [id number]. #:[id number] Prescriptions as of 08/18/2017 Sig: GEMFIBROZIL 600 MG TABLET Take 1 tablet by mouth twice * WARFARIN 4 MG TABLET Alternate 2 mg and 4 mg daily* OMEPRAZOLE 20 MG CAPSULE,YANNA* TAKE 1 CAPSULE BY MOUTH ONCE* GLIMEPIRIDE 2 MG TABLET Take 0.5 tablets by mouth yahaira* METOPROLOL TARTRATE 25 MG TAB* Take 1 tablet by mouth twice * FLECAINIDE 50 MG TABLET Take 1 tablet by mouth twice * GABAPENTIN 300 MG CAPSULE Take 1 capsule by mouth daily* TAMSULOSIN 0.4 MG CAPSULE Take 1 capsule by mouth daily* BLOOD SUGAR DIAGNOSTIC STRIPS Test blood sugar(s) 1 times d* SITAGLIPTIN 100 MG TABLET Take 1 tablet by mouth once d* PRAVASTATIN 40 MG TABLET Take 1 tablet by mouth daily * LANCETS Test blood sugar(s) 1 times d* NITROGLYCERIN 0.4 MG SUBLINGU* dissolve 1 tablet under the t* BLOOD-GLUCOSE METER KIT Glucose Meter of Choice - Kit* DULOXETINE 30 MG CAPSULE,YANNA* Take 1 capsule by mouth once * ALBUTEROL SULFATE HFA 90 MCG/* Inhale 2 Puffs as instructed * Problem List As Of Date 08/18/2017 Noted Resolved Inguinal hernia without mention of obstruction *INVALID FOR*03/27/2016 First degree AV block [I44.0] INVALID FOR* Priority: D More... More... History of PR (myocardial infarction) [I25.2] INVALID FOR* Tobacco use disorder [F17.200] INVALID FOR*03/27/2016 Priority: E More... SUMMARY [V999.95] INVALID FOR*05/01/2017 Priority: A More... Chest pain [R07.9] INVALID FOR* Priority: B More... Claudication [I73.9] INVALID FOR* Priority: D More... Dupuytren's contracture of right hand [M72.0] INVALID FOR*05/01/2017 MANNY (obstructive sleep apnea) [G47.33] INVALID FOR* Rhinitis [J31.0] INVALID FOR*05/01/2017 Cardiac pacemaker in situ [Z95.0] INVALID FOR* More... Atrial fibrillation [I48.91] INVALID FOR* Anxiety [F41.9] INVALID FOR* Personal history of colonic polyps [Z86.010] INVALID FOR*04/10/2014 Diverticulosis of colon (without mention of hem*INVALID FOR*04/10/2014 Gastroesophageal reflux disease without esophag*INVALID FOR* Type 2 diabetes mellitus without complication, *INVALID FOR* Chronic left shoulder pain [M25.512, G89.29] INVALID FOR* Screening for colon cancer [Z12.11] INVALID FOR* More... CAD (coronary artery disease) [I25.10] INVALID FOR* More... Hyperlipidemia [E78.5] INVALID FOR* Prescriptions ordered this encounter Disp Refills Start End DULOXETINE 30 MG CAPSULE,DELAYED REL* 90 c* 3 08/18/2017 Route: ORAL Sig: Take 1 capsule by mouth once daily. Medications Discontinued During This Encounter venlafaxine ER (EFFEXOR XR) 150 mg 2* 90 c* 1 05/20/2017 08/18/2017 Sig: TAKE 1 CAPSULE BY MOUTH ONCE DAILY Disc: Reason for discontinue is not on file. Disposition: Return in about 1 month (around 09/18/2017). Follow-up and Disposition History Recorded Encounter Status:Closed by MARIKA HIGH MD on 08/18/17 PROGRESS Observed: 08/18/2017 Status: COMPLETED Source: [place] 7:55 AM [facility] REPOSITORY O ID: [id number] Author: Marika High Service: (none) Author Type: Physician Type: Progress Notes Filed: 08/18/2017 3:30 PM Note Text: Transitional Care Management Progress Note The patients TCM visit was performed within the 14 days of discharge. Patient's Date of discharge: 08/08/17 Date of initial coordinator contact after discharge: 08/10/17 Discharge diagnosis: 1. Acute chest pain 2. Atrial fibrillation 3. HTN 4. Cardiac pacemaker 5. Chronic GERD Medication review completed Yes Analisa Garcia Ma Provider Documentation: In follow-up of hospitalization, Vineet Delaney is a 66 year old male with the chief complaint of acute chest pain and A-fib I have reviewed the patient?s last hospital course including diagnostic testing performed during this hospitalization, their discharge medications, and my assessment and plan with the patient and any family members present at today?s visit. Chief Complaint Patient presents with: F/U 3 Month Hospital Follow Up HPI Vineet Delaney is a 66 year old male who presents here today for Hospital Discharge Follow up.. Pt was sent to the ER by Dr. Butler on 08/07/17 due to symptoms of chest pain without relief of symptoms after using Nitro. Also had complaint of red/blurred vision in right eye. No changes were made to diet during patient's stay. Pt currently scheduled with Dr. Butler in November and Pacemaker check in October. He states he has chest pain all the time, nothing like what he had when he decided to go to the ER. The Chest pain comes and goes through the day, states it is a burning sensation, seems to be in the upper part of his chest. He has dizziness when he stands up and gets SOB with exertion. He states he only uses the Nitro about 2 times a month. Hospital wanted to do a stress test but pt states Dr. Butler stated pt did not need a stress test but that was prior to pt going into the hospital. Anxiety: has been taking Effexor 150 mg for a while, does not feel this is working well for him anymore. He states he has noticed he is more irritable, has noticed it as well. CAD: does check BP at home, reading WNL. Taking Lopressor 25 mg BID. Lipid: is taking Lopid 600 mg daily and Pravastatin 40 mg daily. Admits that he does not watch diet or get much exercise. follows with Organic Chemistry Professor, Dr. Butler. DM: checks sugars daily but does not keep track of his readings. He is taking Amaryl 2 mg and Januvia 100 mg. Does have issues with hypoglycemic episodes. Has neuropathy of feet. GERD: is taking Prilosec 20 mg daily. Has a moderate size normal seborrheic keratosis to the left side upper back. It does itch at times. Past medical history, appointments, medications, allergies reviewed. Previous Medical History PAST MEDICAL HISTORY Diagnosis Date - Allergic rhinitis, cause unspecified Allergic rhinitis - Arrhythmia - Benign neoplasm of colon - CAD (coronary artery disease) 2000 Myocardial Infarction - Dupuytren contracture - Hyperlipidemia 07/20/2017 - Mental disorder - Myocardial infarct, old - Rash and other nonspecific skin eruption Nonspec Skin Erup Nec - Seizures (HCC) - TIA (transient ischemic attack) 2004 - Type 2 diabetes mellitus without complication, without long- term current use of insulin ([facility]) 12/25/2015 Previous Surgical History PAST SURGICAL HISTORY Procedure Laterality Date - COLONOSCOP W/ OR W/O BRS SPEC 04/17/2011 Colonoscopy - COLONOSCOP W/ OR W/O BRS SPEC 04/10/2014 Colonoscopy - COLONOSCOP W/ OR W/O [facility] SPEC 05/04/2017 Colonoscopy - EGD W/O OR W/BRUSH/WASH 02/24/05 EGD - H. Pylori gastritis - EGD W/O OR W/BRUSH/WASH 04/17/2011 EGD - HEART SURGERY HX 09/2012 pacemaker - PAST SURGICAL HISTORY OF 3 heart caths - normal - PAST SURGICAL HISTORY OF 2008 right knee meniscus repair - PAST SURGICAL HISTORY OF 2006 left hand - REPAIR ING HERNIA,5+Y/O,REDUCIBL 2005 Hernia repair, inguinal Family History FAMILY HISTORY Problem Relation Age of Onset - Cancer Mother skin - Diabetes Mother - Diabetes Maternal Grandfather - Cancer Brother - Diabetes Brother - Diabetes Maternal Uncle - Diabetes Maternal Uncle - Heart Sister - Heart Brother Patient Allergies ALLERGIES Allergen Reactions - Metformin Other: See Comments Sweating - Black Pepper Hives - Dust Mites Hives - Mold Spores Shortness of Breath - Aly Cheese [Other] Shortness of Breath - Penicillins Hives Current Medications Current Outpatient Prescriptions on File Prior to Visit: gemfibrozil (LOPID) 600 mg tablet Take 1 tablet by mouth twice daily. warfarin (COUMADIN) 4 mg tablet Alternate 2 mg and 4 mg daily or as directed omeprazole (PRILOSEC) 20 mg capsule TAKE 1 CAPSULE BY MOUTH ONCE DAILY 1/2 HOUR BEFORE BREAKFAST glimepiride (AMARYL) 2 mg tablet Take 0.5 tablets by mouth daily with breakfast. venlafaxine ER (EFFEXOR XR) 150 mg 24 hr capsule TAKE 1 CAPSULE BY MOUTH ONCE DAILY metoprolol tartrate, short acting, (LOPRESSOR) 25 mg tablet Take 1 tablet by mouth twice daily. flecainide (TAMBOCOR) 50 mg tablet Take 1 tablet by mouth twice daily. gabapentin (NEURONTIN) 300 mg capsule Take 1 capsule by mouth daily at bedtime for 180 days. albuterol HFA (VENTOLIN HFA) 90 mcg/actuation inhaler Inhale 2 Puffs as instructed every 4 hours as needed for Wheezing/Shortness of Breath. tamsulosin ER (FLOMAX) 0.4 mg cp24 Take 1 capsule by mouth daily at bedtime. blood sugar diagnostic (BLOOD GLUCOSE TEST) test strip Test blood sugar(s) 1 times daily. Dx: Type 2 DM - Controlled E11.9 Insulin: No sitaGLIPtin (JANUVIA) 100 mg tablet Take 1 tablet by mouth once daily. pravastatin (PRAVACHOL) 40 mg tablet Take 1 tablet by mouth daily at bedtime. Lancets lancets Test blood sugar(s) 1 times daily. Dx: Type 2 DM - Controlled E11.9 Insulin: No nitroglycerin sublingual (NITROSTAT) 0.4 mg SL tablet dissolve 1 tablet under the tongue if needed for chest pain (IF NO RELIEF CALL 911) Blood-Glucose Meter monitoring kit Glucose Meter of Choice - Kit - Dx: Type 2 DM - Controlled E11.9. Check blood sugar once daily as needed. No current facility-administered medications on file prior to visit. Social History Social History Marital status: Spouse name: Awilda Years of education: Number of children: 4 Occupational History Occupation Employer Comment Retired [employer]* short distance Social History Main Topics Smoking status: Former Smoker Packs/day: 0.80 Years: 45.00 Types: Cigarettes Quit date: 06/16/2012 Smokeless tobacco: Never Used Alcohol use: No Drug use: No Sexual activity: Yes Partners with: Female control/protection: Surgical Comment: -bps EXAM: BP 120/80 Pulse 64 Resp 16 Wt 94.7 kg (208 lb 12.8 oz) BMI 29.96 kg/m? General Appearance: Well appearing, alert, in no acute distress, well-hydrated, well nourished.. Skin: seborrheic keratosis to the left side upper back. Lungs: Lungs clear to auscultation. No wheezing, rhonchi, rales. Heart: RRR without murmur, gallop, or rubs. No ectopy. Health Maintenance List ZOSTER VACCINE (SHINGRIX)(2 of 3) due on 12/15/2013 HBA1C due on 10/06/2017 INFLUENZA(1) due on 10/17/2017 LDL due on 12/23/2017 DILATED RETINAL EXAM due on 01/20/2018 PNEUMOVAX AGE 65 AND OVER WITH 5YR LOOKBACK(1) due on 04/02/2018 URINE ALBUMIN CREATININE RATIO due on 04/09/2018 DIABETIC FOOT EXAM due on 05/08/2018 COLORECTAL CANCER SCREENING,SEE MODIFIER due on 05/04/2020 DTAP,TDAP,TD(2 - Td) due on 03/11/2022 PROSTATE CANCER SCREENING DISCUSSION Completed ADULT PREVNAR-13 Completed HEPATITIS C SCREENING Completed Data reviewed [facility] reports from 08/07/17-08/08/17 ASSESSMENT/PLAN: 1. Hospital discharge follow-up - ICD9: V67.59, ICD10: Z09 (primary diagnosis) Continue to follow with Dr. Butler PCP to contact Dr. Butler to see how he feels about a stress test 2. Other chest pain - ICD9: 786.59, ICD10: R07.89 Continue to follow with Dr. Butler PCP to contact Dr. Butler to see how he feels about a stress test; message received back from Dr Butler that he feels that with normal coronaries and a recent (05/03) normal stress test, that another stress test is not needed at this time. 3. History of PR (myocardial infarction) - ICD9: 412, ICD10: I25.2 Continue current medications. 4. Atrial fibrillation, unspecified type (HCC) - ICD9: 427.31, ICD10: I48.91 Continue current medications. 5. Anxiety - ICD9: 300.00, ICD10: F41.9 Stop Effexor Start Cymbalta 30 mg daily 6. Gastroesophageal reflux disease without esophagitis - ICD9: 530.81, ICD10: K21.9 Continue current medications. 7. Type 2 diabetes mellitus without complication, without long-term current use of insulin (HCC) - ICD9: 250.00, ICD10: E11.9 Controlled. - Continue current medications 8. Coronary artery disease involving jackson heart, angina presence unspecified, unspecified vessel or lesion type - ICD9: 414.01, ICD10: I25.10 Continue current medications. Continue with Dr. Butler 9. Hyperlipidemia, unspecified hyperlipidemia type - ICD9: 272.4, ICD10: E78.5 - to be determined upon return of lab results - Continue current medication. - Encouraged following a low fat, low cholesterol diet. - Discussed the benefits of regular aerobic exercise and weight loss. Follow up in 1 months with fasting labs prior. Marika High MD The documentation for this note was completed by Analisa Garcia Ma acting as scribe for Marika High MD. August 18, 2017 7:56 AM. PROGRESS Observed: 08/11/2017 Status: COMPLETED Source: [place] 4:03 PM [facility] REPOSITORY O ID: [id number] Author: Karolina Lagunas Ma Service: (none) Author Type: (none) Type: Progress Notes Filed: 08/12/2017 5:00 PM Note Text: Tried calling patient again August 11, 2017 and the phone was picked up but only could hear the rustling noise of the phone, no one on the other end. This KIKA stated hello multiple time and then after 45-50 seconds the republican hung up the phone. This has been the second attempt to reach patient and has been unsuccessful. Message left on previous phone call for pt to return call and speak with Nurse. If pt returns call, please address additional questions below. Karolina Lagunas Ma PROGRESS Observed: 08/10/2017 Status: COMPLETED Source: [place] 1:24 PM [facility] REPOSITORY HNO ID: [id number] Author: Karolina Lagunas Ma Service: (none) Author Type: (none) Type: Progress Notes Filed: 08/12/2017 5:00 PM Note Text: TRANSITION CARE MANAGEMENT (TCM) INITIAL CONTACT Rn [facility] Out[facility] Provider Action/FYI: - First attempt, LM on August 10, 2017, asked pt to return call to the office. Triage, please continue questions if pt returns call. Ask if symptoms have improved, any meds held/stopped or started. Pt is to have stress test (out-patient) completed this week per d/c summary. Is patient wanting to complete this or wait til discussion with PCP or Dr. Butler? - Pt was sent to the ER by Dr. Butler on 08/07/17 due to symptoms of chest pain without relief of symptoms after using Nitro. Also had complaint of red/blurred vision in right eye. - No changes were made to diet during patient's stay. - Pt currently scheduled with Dr. Butler in November and Pacemaker check in October. Initial contact with patient post discharge August 10, 2017. Unable to reach patient, left message on notifying patient to contact office back to get an update on pt symptoms. Patient identified by name and . SUMMARY: -Pt discharged from [facility] on 08/08/17. -Admitted on 08/07/17 for: Acute chest pain, Atrial Fibrillation, Hypertension, Cardiac Pacemaker, Chronic GERD and Old Myocardial Infarct. Do you have a hospital follow up appointment with your PCP? Appointment on 08/18/17 @ 8:[address] High. Yes. Remind patient of appointment date, time, and location. If not within 14 calendar days of discharge - please reschedule accordingly. MEDICATIONS: Many patients have questions or concerns about their medications once they are home. Were you prescribed any new medications? From discharge summary all medications did match, but was given a prescription for Ventolin HFA 90 mcg 2 puffs po every 4 hrs prn. Patient has previous Rx on med list but completed back in April 2017. Were you told to hold any medications? Unknown, was unable to contact pt by phone. From discharge summary all medications match our list. Were any of your medications discontinued? Unknown as pt was unable to be contacted by phone. From discharge summary all medications match our list. Do you have any questions about getting or taking your medications? Unknown, not able to contact pt by phone. Your discharge instructions/After visit Summary (AVS) are important in guiding you through the recovery process. Is there anything I might help you understand? Unknown. Do you have all the necessary equipment and supplies at home? Unknown. Medical records from recent hospitalization: Have received some records from [facility], will request additional records. TYLOR Observed: 08/10/2017 Status: COMPLETED Source: [place] 12:00 AM [facility] REPOSITORY Patient Outreach (INTMWS) VINEET DELANEY ([id number]) 1950 M Date Time Provider Department 08/10/17 MARIKA HIGH [facility] During your visit today, we recorded the following information about you: Karolina Lagunas Kika 08/12/2017 5:00 PM Signed TRANSITION CARE MANAGEMENT (TCM) INITIAL CONTACT Rn [facility] Out[facility] Provider Action/FYI: - First attempt, LM on August 10, 2017, asked pt to return call to the office. Triage, please continue questions if pt returns call. Ask if symptoms have improved, any meds held/stopped or started. Pt is to have stress test (out-patient) completed this week per d/c summary. Is patient wanting to complete this or wait til discussion with PCP or Dr. Butler? - Pt was sent to the ER by Dr. Butler on 08/07/17 due to symptoms of chest pain without relief of symptoms after using Nitro. Also had complaint of red/blurred vision in right eye. - No changes were made to diet during patient's stay. - Pt currently scheduled with Dr. Butler in November and Pacemaker check in October. Initial contact with patient post discharge August 10, 2017. Unable to reach patient, left message on VM notifying patient to contact office back to get an update on pt symptoms. Patient identified by name and . SUMMARY: -Pt discharged from [facility] on 08/08/17. -Admitted on 08/07/17 for: Acute chest pain, Atrial Fibrillation, Hypertension, Cardiac Pacemaker, Chronic GERD and Old Myocardial Infarct. Do you have a hospital follow up appointment with your PCP? Appointment on 08/18/17 @ 8:[address] High. Yes. Remind patient of appointment date, time, and location. If not within 14 calendar days of discharge - please reschedule accordingly. MEDICATIONS: Many patients have questions or concerns about their medications once they are home. Were you prescribed any new medications? From discharge summary all medications did match, but was given a prescription for Ventolin HFA 90 mcg 2 puffs po every 4 hrs prn. Patient has previous Rx on med list but completed back in April 2017. Were you told to hold any medications? Unknown, was unable to contact pt by phone. From discharge summary all medications match our list. Were any of your medications discontinued? Unknown as pt was unable to be contacted by phone. From discharge summary all medications match our list. Do you have any questions about getting or taking your medications? Unknown, not able to contact pt by phone. Your discharge instructions/After visit Summary (AVS) are important in guiding you through the recovery process. Is there anything I might help you understand? Unknown. Do you have all the necessary equipment and supplies at home? Unknown. Medical records from recent hospitalization: Have received some records from [facility], will request additional records. Karolina Lagunas Ma 08/12/2017 5:00 PM Signed Tried calling patient again August 11, 2017 and the phone was picked up but only could hear the rustling noise of the phone, no one on the other end. This KIKA stated hello multiple time and then after 45-50 seconds the republican hung up the phone. This has been the second attempt to reach patient and has been unsuccessful. Message left on previous phone call for pt to return call and speak with Nurse. If pt returns call, please address additional questions below. Karolina Lagunas Ma Allergies As of Date: 08/10/2017 Noted Allergy Reaction METFORMIN 12/25/2015 14 - Other: See Comments Comments: Sweating BLACK PEPPER 11/17/2005 4 - Hives DUST MITES 11/17/2005 4 - Hives MOLD SPORES 11/17/2005 12 - Shortness of Breath aly cheese [Other] 11/17/2005 12 - Shortness of Breath PENICILLINS 11/17/2005 4 - Hives Date Reviewed: 07/30/2017 Reviewed by: Niko Latham RN - Fully Assessed Reason for Visit: Hospital F/U [57] Cmt: Hospital D/C [facility] on 08/08/17. TCM-14 day. Prescriptions as of 08/10/2017 Sig: GEMFIBROZIL 600 MG TABLET Take 1 tablet by mouth twice * WARFARIN 4 MG TABLET Alternate 2 mg and 4 mg daily* OMEPRAZOLE 20 MG CAPSULE,YANNA* TAKE 1 CAPSULE BY MOUTH ONCE* GLIMEPIRIDE 2 MG TABLET Take 0.5 tablets by mouth yahaira* VENLAFAXINE ER 150 MG CAPSULE* TAKE 1 CAPSULE BY MOUTH ONCE* METOPROLOL TARTRATE 25 MG TAB* Take 1 tablet by mouth twice * FLECAINIDE 50 MG TABLET Take 1 tablet by mouth twice * GABAPENTIN 300 MG CAPSULE Take 1 capsule by mouth daily* ALBUTEROL SULFATE HFA 90 MCG/* Inhale 2 Puffs as instructed * TAMSULOSIN 0.4 MG CAPSULE Take 1 capsule by mouth daily* BLOOD SUGAR DIAGNOSTIC STRIPS Test blood sugar(s) 1 times d* SITAGLIPTIN 100 MG TABLET Take 1 tablet by mouth once d* PRAVASTATIN 40 MG TABLET Take 1 tablet by mouth daily * LANCETS Test blood sugar(s) 1 times d* NITROGLYCERIN 0.4 MG SUBLINGU* dissolve 1 tablet under the t* BLOOD-GLUCOSE METER KIT Glucose Meter of Choice - Kit* Problem List As Of Date 08/10/2017 Noted Resolved Inguinal hernia without mention of obstruction *INVALID FOR*03/27/2016 First degree AV block [I44.0] INVALID FOR* Priority: D More... More... History of PR (myocardial infarction) [I25.2] INVALID FOR* Tobacco use disorder [F17.200] INVALID FOR*03/27/2016 Priority: E More... SUMMARY [V999.95] INVALID FOR*05/01/2017 Priority: A More... Chest pain [R07.9] INVALID FOR* Priority: B More... Claudication [I73.9] INVALID FOR* Priority: D More... Dupuytren's contracture of right hand [M72.0] INVALID FOR*05/01/2017 MANNY (obstructive sleep apnea) [G47.33] INVALID FOR* Rhinitis [J31.0] INVALID FOR*05/01/2017 Cardiac pacemaker in situ [Z95.0] INVALID FOR* More... Atrial fibrillation [I48.91] INVALID FOR* Anxiety [F41.9] INVALID FOR* Personal history of colonic polyps [Z86.010] INVALID FOR*04/10/2014 Diverticulosis of colon (without mention of hem*INVALID FOR*04/10/2014 Gastroesophageal reflux disease without esophag*INVALID FOR* Type 2 diabetes mellitus without complication, *INVALID FOR* Chronic left shoulder pain [M25.512, G89.29] INVALID FOR* Screening for colon cancer [Z12.11] INVALID FOR* More... CAD (coronary artery disease) [I25.10] INVALID FOR* More... Hyperlipidemia [E78.5] INVALID FOR* Encounter Status:Closed by KAROLINA LAGUNAS MA on 08/12/17 TROP Collected: 08/08/2017 Status: F Source: [facility] 9:51 AM [facility] REPOSITORY TYPE CODE TESTS RESULT OUT OF REFERENCE UNITS RANGE LAB TROP(LOINC) 0.00-0.30 ng/mL Troponin <0.30 Result Comment: Below measuring range >=0.30 Consistent with cardiac damage, increased clinical risk and possibility of myocardial infarction. Serial measurements, clinical history, appropriate symptoms and/or ECG changes may help assess possibility of PR. *Other non-acute coronary syndrome conditions such as CHF, myocarditis, pulmonary emboli, sepsis and cardiac surgery could result in myocardial damage and increased troponin levels. Performed By: #### TROP #### [place] [address] [address] PRO Collected: 08/08/2017 Status: F Source: [facility] 6:21 AM [facility] REPOSITORY Order Comment: ordered secondary to warfarin order TYPE CODE TESTS RESULT OUT OF REFERENCE UNITS RANGE LAB PT(LOINC) 9.3-14.6 seconds Protime High 22.3 LAB INR(LOINC) 0.9-1.2 ratio PT High International 2.2 Ratio Result Comment: Standard Dose 2.0 - 3.0 High Dose 2.5 - 3.5 The recommended therapeutic range for oral anticoagulant therapy is: LOW RISK: Prophylaxis of venous thrombosis INR: 2.0 - 3.0 Treatment of pulmonary embolism 2.0 - 3.0 Prevention of systemic embolism 2.0 - 3.0 HIGH RISK: Mechanical prosthetic valves 2.5 - 3.5 Performed By: #### PRO #### [address] [address] TROP Collected: 08/08/2017 Status: F Source: [facility] 2:25 AM [facility] REPOSITORY TYPE CODE TESTS RESULT OUT OF REFERENCE UNITS RANGE LAB TROP(LOINC) 0.00-0.30 ng/mL Troponin <0.30 Result Comment: Below measuring range >=0.30 Consistent with cardiac damage, increased clinical risk and possibility of myocardial infarction. Serial measurements, clinical history, appropriate symptoms and/or ECG changes may help assess possibility of PR. *Other non-acute coronary syndrome conditions such as CHF, myocarditis, pulmonary emboli, sepsis and cardiac surgery could result in myocardial damage and increased troponin levels. Performed By: #### TROP #### [address] [address] PRO Collected: 08/07/2017 Status: F Source: [facility] 4:06 PM [facility] REPOSITORY Order Comment: ordered secondary to warfarin order TYPE CODE TESTS RESULT OUT OF REFERENCE UNITS RANGE LAB PT(LOINC) 9.3-14.6 seconds Protime High 24.6 LAB INR(LOINC) 0.9-1.2 ratio PT High International 2.4 Ratio Result Comment: Standard Dose 2.0 - 3.0 High Dose 2.5 - 3.5 The recommended therapeutic range for oral anticoagulant therapy is: LOW RISK: Prophylaxis of venous thrombosis INR: 2.0 - 3.0 Treatment of pulmonary embolism 2.0 - 3.0 Prevention of systemic embolism 2.0 - 3.0 HIGH RISK: Mechanical prosthetic valves 2.5 - 3.5 Performed By: #### PRO #### [address] [address] XR CHEST 1 VIEW Observed: 08/07/2017 Status: F Source: [facility] 11:33 AM [facility] REPOSITORY ORIGINAL Portable Chest x-ray Clinical Statement: chest pain Comparison: 02/08/2016 The cardiac silhouette is mildly prominent with an overlying pacemaker, not significantly changed. No congestion, consolidation, pleural effusion, or pneumothorax is seen. IMPRESSION: No acute process. Interpreted By: Venkat Earl DO Preliminary Report By: Venkat Earl DO Electronically Signed By: Venkat Earl DO Dictated Date: 08/07/2017 11:46:06 AM Prelim Date: 08/07/2017 11:46:06 AM Sign Date: 08/07/2017 11:46:54 AM CBC Collected: 08/07/2017 Status: F Source: [facility] 11:22 AM [facility] REPOSITORY TYPE CODE TESTS RESULT OUT OF REFERENCE UNITS RANGE LAB WBC(LOINC) 4.60-10.80 10 3/mcL WBC 6.90 LAB RBCCT(LOINC 4.04-6.13 10 6/mcL ) RBC 5.23 LAB HGB(LOINC) 14.0-18.0 G/dL Hgb 15.0 LAB HCT(LOINC) 42.0-52.0 % Hct 44.3 LAB MCV(LOINC) 80.0-94.0 fL MCV 84.7 LAB MCH(LOINC) 27.0-31.2 pg MCH 28.7 LAB MCHC(LOINC) 31.8-35.4 G/dL MCHC 33.9 LAB RDW(LOINC) 11.5-14.5 % High RDW 14.6 LAB PLT(LOINC) 130-400 10 3/mcL Platelet 269 LAB MPV(LOINC) 7.4-10.4 fL MPV 7.7 Performed By: #### CBC, ADIFF, ANEU, TROP, GFR, BMP #### [id number] [place], [place] [address] .AUTO DIFF Collected: 08/07/2017 Status: F Source: [facility] 11:22 AM [facility] REPOSITORY TYPE CODE TESTS RESULT OUT OF REFERENCE UNITS RANGE LAB MANUEL(LOINC) 37.0-80.0 % Neutrophil % 54.4 LAB LYM(LOINC) 10.0-50.0 % Lymphocyte % 35.1 LAB MON(LOINC) 1.7-13.0 % Monocyte % 8.8 LAB EO(LOINC) 0.0-7.0 % Eosinophil % 1.0 LAB BAS(LOINC) 0.0-2.5 % Basophil % 0.7 LAB ABLYM(LOIN 0.77-3.85 10 3/mcL C) Lymphocyte, 2.40 Absolute LAB LISA(LOINC 0.15-1.00 10 3/mcL ) Monocyte, 0.60 Absolute LAB AEOS(LOINC 0.00-0.40 10 3/mcL ) Eosinophil, 0.10 Absolute LAB ABAS(LOINC 0.00-0.19 10 3/mcL ) Basophil, 0.00 Absolute Performed By: #### CBC, ADIFF, ANEU, TROP, GFR, BMP #### [address] [address] .NEUABS Collected: 08/07/2017 Status: F Source: [email or web address] 11:22 AM [facility] REPOSITORY TYPE CODE TESTS RESULT OUT OF REFERENCE UNITS RANGE LAB ANEU(LOINC) 2.85-6.16 10 3/mcL Neutrophil, 3.70 Absolute Performed By: #### CBC, ADIFF, ANEU, TROP, GFR, BMP #### [address] [address] TROP Collected: 08/07/2017 Status: F Source: [facility] 11:22 [facility] REPOSITORY TYPE CODE TESTS RESULT OUT OF REFERENCE UNITS RANGE LAB TROP(LOINC) 0.00-0.30 ng/mL Troponin <0.30 Result Comment: Below measuring range >=0.30 Consistent with cardiac damage, increased clinical risk and possibility of myocardial infarction. Serial measurements, clinical history, appropriate symptoms and/or ECG changes may help assess possibility of PR. *Other non-acute coronary syndrome conditions such as CHF, myocarditis, pulmonary emboli, sepsis and cardiac surgery could result in myocardial damage and increased troponin levels. Performed By: #### CBC, ADIFF, ANEU, TROP, GFR, BMP #### [address] [address] .GFR Collected: 08/07/2017 Status: F Source: [facility] 11:22 [facility] REPOSITORY TYPE CODE TESTS RESULT OUT OF REFERENCE UNITS RANGE LAB GFRAA(LOINC ml/min/1.73 ) sqm GFR 82 [place] Result Comment: GFR Population mean for , Non- Americans Ages 20-29 = 116 mL/min/1.73 sq.m. Ages 30-39 = 107 mL/min/1.73 sq.m. Ages 40-49 = 99 mL/min/1.73 sq.m. Ages 50-59 = 93 mL/min/1.73 sq.m. Ages 60-69 = 85 mL/min/1.73 sq.m. Ages 70+ = 75 mL/min/1.73 sq.m. Chronic Kidney Disease: Less than 60 mL/min/1.73 square meters End Stage Renal Disease: Less than 15 mL/min/1.73 square meters LAB GFRNO(LOINC) ml/min/1.73sqm GFR Non- >60 Result Comment: GFR Population mean for , Non- Americans Ages 20-29 = 116 mL/min/1.73 sq.m. Ages 30-39 = 107 mL/min/1.73 sq.m. Ages 40-49 = 99 mL/min/1.73 sq.m. Ages 50-59 = 93 mL/min/1.73 sq.m. Ages 60-69 = 85 mL/min/1.73 sq.m. Ages 70+ = 75 mL/min/1.73 sq.m. Chronic Kidney Disease: Less than 60 mL/min/1.73 square meters End Stage Renal Disease: Less than 15 mL/min/1.73 square meters Performed By: #### CBC, ADIFF, ANEU, TROP, GFR, BMP #### [address] [address] BMP Collected: 08/07/2017 Status: F Source: [facility] 11:22 [facility] TYPE CODE TESTS RESULT OUT OF REFERENCE UNITS RANGE LAB GLU(LOINC) 80-115 mg/dL Glucose High Level 117 LAB NA(LOINC) 136-146 mEq/L Sodium Level 140 LAB K(LOINC) 3.5-5.1 mEq/L Potassium Level 4.4 LAB CL(LOINC) 98-107 mEq/L Chloride 107 LAB CO2(LOINC) 23-31 mEq/L CO2 24 LAB EBAL(LOINC mEq/L ) Electrolyte Balance 9.0 LAB BUN(LOINC) 7.0-18.0 mg/dL BUN 12.6 LAB CRE(LOINC) 0.6-1.2 mg/dL Creatinine Lvl (s) 1.1 LAB BC(LOINC) 7-27 ratio BUN/Creatinine 11 Ratio LAB CA(LOINC) 8.4-10.2 mg/dL Calcium Lvl 9.1 Performed By: #### CBC, ADIFF, ANEU, TROP, GFR, BMP #### [id number] [place], [place] [address] PROGRESS Observed: 07/30/2017 Status: COMPLETED Source: [place] 1:25 PM [facility] REPOSITORY HNO ID: [id number] Author: Marika High Service: (none) Author Type: Physician Type: Progress Notes Filed: 07/30/2017 3:45 PM Note Text: I agree with the advice given; stay same dose and recheck in 3 weeks Marika High MD PROGRESS Observed: 07/30/2017 Status: COMPLETED Source: [place] 9:36 AM [facility] REPOSITORY HNO ID: [id number] Author: Niko Latham RN Service: (none) Author Type: (none) Type: Progress Notes Filed: 07/30/2017 9:38 AM Note Text: patient had inr completed at [facility] patients inr is 1.9 (patients inr range is 2.0-3.0) patient is currently taking 2mg alternating with 4mg patients last dose change was on 06/11/17 due to a high level of 4.0 (dose at that time was 4mg daily) patient has had no changes in medication and no missed doses and no change in diet FYI- patient did eat some broccoli last night Advised patient to continue on the same dose(s) and that they would only be contacted regarding dosage and follow up instructions after review with provider, if a change is needed. Written instructions given and patient verbalized understanding. Presently scheduled in 3 weeks (08/18/17 - pt also has appt with pcp this days) for follow up INR. PROGRESS Observed: 07/20/2017 Status: COMPLETED Source: [place] 1:20 PM [facility] REPOSITORY HNO ID: [id number] Author: Marika High Service: (none) Author Type: Physician Type: Progress Notes Filed: 07/20/2017 1:47 PM Note Text: Chief Complaint Patient presents with: F/U 3 Month: DM, HTN and Lipid HPI Vineet Delaney is a 66 year old male who presents here today for a 3 mo f/u. DM - Checks sugars daily, fasting. Unsure of what readings are due to his checking, but he knows there safe. Hypoglycemia every couple of weeks; takes a piece of candy to resolve. 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 Currently taking Januvia 100 mg 1 tab po once daily and Amaryl 2 mg 1 tab po once daily. Denies any issues with medication. HTN/CAD - Checks BP twice a week, normal. Admits to chest pain, sob or dizziness, which is normal for him. Follows with [employer] Professor Dr. Butler every 6 months. Currently taking Lopressor 25 mg 1 tab po bid. Currently on Warfarin alternating 2 mg and 4 mg. Lipids - Tries to eat healthy and admits to not exercising much, but does walk. Currently taking Pravastatin 40 mg 1 tab po once daily and Lopid 600 mg 1 tab po bid. Pain - Bilateral knee pain. Uses Gabapentin 300 mg 1 tab po once daily. Anxiety - Still gets aggravated, but improved with medication. Currently taking Effexor 150 mg 1 tab po once daily. GERD - Stable with use of Omeprazole 20 mg 1 tab po once daily . Past medical history, appointments, medications, allergies reviewed. Previous Medical History PAST MEDICAL HISTORY Diagnosis Date - Allergic rhinitis, cause unspecified Allergic rhinitis - Arrhythmia - Benign neoplasm of colon - CAD (coronary artery disease) 2000 Myocardial Infarction - Dupuytren contracture - Mental disorder - Myocardial infarct, old - Rash and other nonspecific skin eruption Nonspec Skin Erup Nec - Seizures (HCC) - TIA (transient ischemic attack) 2004 - Type 2 diabetes mellitus without complication, without long- term current use of insulin ([facility]) 12/25/2015 Previous Surgical History PAST SURGICAL HISTORY Procedure Laterality Date - COLONOSCOP W/ OR W/O [facility] SPEC 04/17/2011 Colonoscopy - COLONOSCOP W/ OR W/O [facility] SPEC 04/10/2014 Colonoscopy - COLONOSCOP W/ OR W/O [facility] SPEC 05/04/2017 Colonoscopy - EGD W/O OR W/BRUSH/WASH 02/24/05 EGD - H. Pylori gastritis - EGD W/O OR W/BRUSH/WASH 04/17/2011 EGD - HEART SURGERY HX 09/2012 pacemaker - PAST SURGICAL HISTORY OF 3 heart caths - normal - PAST SURGICAL HISTORY OF 2008 right knee meniscus repair - PAST SURGICAL HISTORY OF 2006 left hand - REPAIR ING HERNIA,5+Y/O,REDUCIBL 2006 Hernia repair, inguinal Family History FAMILY HISTORY Problem Relation Age of Onset - Cancer Mother skin - Diabetes Mother - Diabetes Maternal Grandfather - Cancer Brother - Diabetes Brother - Diabetes Maternal Uncle - Diabetes Maternal Uncle - Heart Sister - Heart Brother Patient Allergies ALLERGIES Allergen Reactions - Metformin Other: See Comments Sweating - Black Pepper Hives - Dust Mites Hives - Mold Spores Shortness of Breath - Aly Cheese [Other] Shortness of Breath - Penicillins Hives Current Medications Current Outpatient Prescriptions on File Prior to Visit: warfarin (COUMADIN) 4 mg tablet Alternate 2 mg and 4 mg daily or as directed omeprazole (PRILOSEC) 20 mg capsule TAKE 1 CAPSULE BY MOUTH ONCE DAILY 1/2 HOUR BEFORE BREAKFAST venlafaxine ER (EFFEXOR XR) 150 mg 24 hr capsule TAKE 1 CAPSULE BY MOUTH ONCE DAILY metoprolol tartrate, short acting, (LOPRESSOR) 25 mg tablet Take 1 tablet by mouth twice daily. flecainide (TAMBOCOR) 50 mg tablet Take 1 tablet by mouth twice daily. gabapentin (NEURONTIN) 300 mg capsule Take 1 capsule by mouth daily at bedtime for 180 days. albuterol HFA (VENTOLIN HFA) 90 mcg/actuation inhaler Inhale 2 Puffs as instructed every 4 hours as needed for Wheezing/Shortness of Breath. tamsulosin ER (FLOMAX) 0.4 mg cp24 Take 1 capsule by mouth daily at bedtime. blood sugar diagnostic (BLOOD GLUCOSE TEST) test strip Test blood sugar(s) 1 times daily. Dx: Type 2 DM - Controlled E11.9 Insulin: No sitaGLIPtin (JANUVIA) 100 mg tablet Take 1 tablet by mouth once daily. pravastatin (PRAVACHOL) 40 mg tablet Take 1 tablet by mouth daily at bedtime. Lancets lancets Test blood sugar(s) 1 times daily. Dx: Type 2 DM - Controlled E11.9 Insulin: No glimepiride (AMARYL) 2 mg tablet take 1 tablet by mouth once daily WITH BREAKFAST nitroglycerin sublingual (NITROSTAT) 0.4 mg SL tablet dissolve 1 tablet under the tongue if needed for chest pain (IF NO RELIEF CALL 911) gemfibrozil (LOPID) 600 mg tablet Take 1 tablet by mouth twice daily. Blood-Glucose Meter monitoring kit Glucose Meter of Choice - Kit - Dx: Type 2 DM - Controlled E11.9. Check blood sugar once daily as needed. No current facility-administered medications on file prior to visit. Social History Social History Marital status: Spouse name: Awilda Years of education: Number of children: 4 Occupational History Occupation Employer Comment Retired [employer]* short distance Social History Main Topics Smoking status: Former Smoker Packs/day: 0.80 Years: 45.00 Types: Cigarettes Quit date: 06/16/2012 Smokeless tobacco: Never Used Alcohol use: No Drug use: No Sexual activity: Yes Partners with: Female control/protection: Surgical Comment: -bps EXAM: BP 112/80 (BP Site: Right Arm, BP Position: Sitting, BP Cuff Size: Regular Adult) Pulse 72 Resp 12 Wt 93.1 kg (205 lb 3.2 oz) BMI 29.44 kg/m? General Appearance: Well appearing, alert, in no acute distress, well-hydrated, well nourished.. Lungs: Lungs clear to auscultation. No wheezing, rhonchi, rales. Heart: RRR without murmur, gallop, or rubs. No ectopy. Health Maintenance List HBA1C due on 10/06/2017 LDL due on 12/23/2017 DILATED RETINAL EXAM due on 01/20/2018 PNEUMOVAX AGE 65 AND OVER WITH 5YR LOOKBACK(1) due on 04/02/2018 URINE ALBUMIN CREATININE RATIO due on 04/09/2018 DIABETIC FOOT EXAM due on 05/08/2018 COLORECTAL CANCER SCREENING,SEE MODIFIER due on 05/04/2020 DTAP,TDAP,TD(2 - Td) due on 03/11/2022 PROSTATE CANCER SCREENING DISCUSSION Completed ADULT PREVNAR-13 Completed INFLUENZA Completed HEPATITIS C SCREENING Completed Data reviewed External labs ASSESSMENT/PLAN: 1. Type 2 diabetes mellitus without complication, without long-term current use of insulin (HCC) - ICD9: 250.00, ICD10: E11.9 (primary diagnosis) Controlled. - Decrease glimepiride (Amaryl) to 1/2 pill daily - GLIMEPIRIDE 2 MG TABLET - COMP METABOLIC PANEL - HGB A1C - LIPID PANEL BASIC 2. Atrial fibrillation, unspecified type (HCC) - ICD9: 427.31, ICD10: I48.91 - WARFARIN 4 MG TABLET 3. Anxiety - ICD9: 300.00, ICD10: F41.9 Continue current medications. 4. Gastroesophageal reflux disease without esophagitis - ICD9: 530.81, ICD10: K21.9 - OMEPRAZOLE 20 MG CAPSULE,DELAYED RELEASE 5. Coronary artery disease involving jackson heart, angina presence unspecified, unspecified vessel or lesion type - ICD9: 414.01, ICD10: I25.10 Stable; follow with Dr Butler 6. Hyperlipidemia, unspecified hyperlipidemia type - ICD9: 272.4, ICD10: E78.5 - GEMFIBROZIL 600 MG TABLET - COMP METABOLIC PANEL - LIPID PANEL BASIC Follow up in 3 months with labs prior Marika High MD The documentation for this note was completed by Karolina Lagunas Ma acting as scribe for Marika High MD. July 20, 2017 1:21 PM. CNOV Observed: 07/20/2017 Status: COMPLETED Source: [place] 1:20 PM [facility] REPOS[facility] Office Visit (FAMPWS) VINEET DELANEY ([id number]) 1950 M Date Time Provider Department 07/20/17 1:20 PM MARIKA HIGH During your visit today, we recorded the following information about you: Pulse Respiration Blood pressure Weight 72/minute 12/minute 112/80 93.1 kg Marika High MD 07/20/2017 1:47 PM Signed Chief Complaint Patient presents with: F/U 3 Month: DM, HTN and Lipid HPI Vineetflorida Delaney is a 66 year old male who presents here today for a 3 mo f/u. DM - Checks sugars daily, fasting. Unsure of what readings are due to his checking, but he knows there safe. Hypoglycemia every couple of weeks; takes a piece of candy to resolve. 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 Currently taking Januvia 100 mg 1 tab po once daily and Amaryl 2 mg 1 tab po once daily. Denies any issues with medication. HTN/CAD - Checks BP twice a week, normal. Admits to chest pain, sob or dizziness, which is normal for him. Follows with Organic Chemistry Professor Dr. Butler every 6 months. Currently taking Lopressor 25 mg 1 tab po bid. Currently on Warfarin alternating 2 mg and 4 mg. Lipids - Tries to eat healthy and admits to not exercising much, but does walk. Currently taking Pravastatin 40 mg 1 tab po once daily and Lopid 600 mg 1 tab po bid. Pain - Bilateral knee pain. Uses Gabapentin 300 mg 1 tab po once daily. Anxiety - Still gets aggravated, but improved with medication. Currently taking Effexor 150 mg 1 tab po once daily. GERD - Stable with use of Omeprazole 20 mg 1 tab po once daily . Past medical history, appointments, medications, allergies reviewed. Previous Medical History PAST MEDICAL HISTORY Diagnosis Date - Allergic rhinitis, cause unspecified Allergic rhinitis - Arrhythmia - Benign neoplasm of colon - CAD (coronary artery disease) 2000 Myocardial Infarction - Dupuytren contracture - Mental disorder - Myocardial infarct, old - Rash and other nonspecific skin eruption Nonspec Skin Erup Nec - Seizures ([facility]) - TIA (transient ischemic attack) 2004 - Type 2 diabetes mellitus without complication, without long- term current use of insulin ([facility]) 12/25/2015 Previous Surgical History PAST SURGICAL HISTORY Procedure Laterality Date - COLONOSCOP W/ OR W/O [facility] SPEC 04/17/2011 Colonoscopy - COLONOSCOP W/ OR W/O [facility] SPEC 04/10/2014 Colonoscopy - COLONOSCOP W/ OR W/O [facility] SPEC 05/04/2017 Colonoscopy - EGD W/O OR W/BRUSH/WASH 02/24/05 EGD - H. Pylori gastritis - EGD W/O OR W/BRUSH/WASH 04/17/2011 EGD - HEART SURGERY HX 09/2012 pacemaker - PAST SURGICAL HISTORY OF 3 heart caths - normal - PAST SURGICAL HISTORY OF 2008 right knee meniscus repair - PAST SURGICAL HISTORY OF 2006 left hand - REPAIR ING HERNIA,5+Y/O,REDUCIBL 2005 Hernia repair, inguinal Family History FAMILY HISTORY Problem Relation Age of Onset - Cancer Mother skin - Diabetes Mother - Diabetes Maternal Grandfather - Cancer Brother - Diabetes Brother - Diabetes Maternal Uncle - Diabetes Maternal Uncle - Heart Sister - Heart Brother Patient Allergies ALLERGIES Allergen Reactions - Metformin Other: See Comments Sweating - Black Pepper Hives - Dust Mites Hives - Mold Spores Shortness of Breath - Aly Cheese [Other] Shortness of Breath - Penicillins Hives Current Medications Current Outpatient Prescriptions on File Prior to Visit: warfarin (COUMADIN) 4 mg tablet Alternate 2 mg and 4 mg daily or as directed omeprazole (PRILOSEC) 20 mg capsule TAKE 1 CAPSULE BY MOUTH ONCE DAILY 1/2 HOUR BEFORE BREAKFAST venlafaxine ER (EFFEXOR XR) 150 mg 24 hr capsule TAKE 1 CAPSULE BY MOUTH ONCE DAILY metoprolol tartrate, short acting, (LOPRESSOR) 25 mg tablet Take 1 tablet by mouth twice daily. flecainide (TAMBOCOR) 50 mg tablet Take 1 tablet by mouth twice daily. gabapentin (NEURONTIN) 300 mg capsule Take 1 capsule by mouth daily at bedtime for 180 days. albuterol HFA (VENTOLIN HFA) 90 mcg/actuation inhaler Inhale 2 Puffs as instructed every 4 hours as needed for Wheezing/Shortness of Breath. tamsulosin ER (FLOMAX) 0.4 mg cp24 Take 1 capsule by mouth daily at bedtime. blood sugar diagnostic (BLOOD GLUCOSE TEST) test strip Test blood sugar(s) 1 times daily. Dx: Type 2 DM - Controlled E11.9 Insulin: No sitaGLIPtin (JANUVIA) 100 mg tablet Take 1 tablet by mouth once daily. pravastatin (PRAVACHOL) 40 mg tablet Take 1 tablet by mouth daily at bedtime. Lancets lancets Test blood sugar(s) 1 times daily. Dx: Type 2 DM - Controlled E11.9 Insulin: No glimepiride (AMARYL) 2 mg tablet take 1 tablet by mouth once daily WITH BREAKFAST nitroglycerin sublingual (NITROSTAT) 0.4 mg SL tablet dissolve 1 tablet under the tongue if needed for chest pain (IF NO RELIEF CALL 911) gemfibrozil (LOPID) 600 mg tablet Take 1 tablet by mouth twice daily. Blood-Glucose Meter monitoring kit Glucose Meter of Choice - Kit - Dx: Type 2 DM - Controlled E11.9. Check blood sugar once daily as needed. No current facility-administered medications on file prior to visit. Social History Social History Marital status: Spouse name: Awilda Years of education: Number of children: 4 Occupational History Occupation Employer Comment Retired [employer]* short distance Social History Main Topics Smoking status: Former Smoker Packs/day: 0.80 Years: 45.00 Types: Cigarettes Quit date: 06/16/2012 Smokeless tobacco: Never Used Alcohol use: No Drug use: No Sexual activity: Yes Partners with: Female control/protection: Surgical Comment: -bps EXAM: BP 112/80 (BP Site: Right Arm, BP Position: Sitting, BP Cuff Size: Regular Adult) Pulse 72 Resp 12 Wt 93.1 kg (205 lb 3.2 oz) BMI 29.44 kg/m? General Appearance: Well appearing, alert, in no acute distress, well-hydrated, well nourished.. Lungs: Lungs clear to auscultation. No wheezing, rhonchi, rales. Heart: RRR without murmur, gallop, or rubs. No ectopy. Health Maintenance List HBA1C due on 10/06/2017 LDL due on 12/23/2017 DILATED RETINAL EXAM due on 01/20/2018 PNEUMOVAX AGE 65 AND OVER WITH 5YR LOOKBACK(1) due on 04/02/2018 URINE ALBUMIN CREATININE RATIO due on 04/09/2018 DIABETIC FOOT EXAM due on 05/08/2018 COLORECTAL CANCER SCREENING,SEE MODIFIER due on 05/04/2020 DTAP,TDAP,TD(2 - Td) due on 03/11/2022 PROSTATE CANCER SCREENING DISCUSSION Completed ADULT PREVNAR-13 Completed INFLUENZA Completed HEPATITIS C SCREENING Completed Data reviewed External labs ASSESSMENT/PLAN: 1. Type 2 diabetes mellitus without complication, without long-term current use of insulin (HCC) - ICD9: 250.00, ICD10: E11.9 (primary diagnosis) Controlled. - Decrease glimepiride (Amaryl) to 1/2 pill daily - GLIMEPIRIDE 2 MG TABLET - COMP METABOLIC PANEL - HGB A1C - LIPID PANEL BASIC 2. Atrial fibrillation, unspecified type (HCC) - ICD9: 427.31, ICD10: I48.91 - WARFARIN 4 MG TABLET 3. Anxiety - ICD9: 300.00, ICD10: F41.9 Continue current medications. 4. Gastroesophageal reflux disease without esophagitis - ICD9: 530.81, ICD10: K21.9 - OMEPRAZOLE 20 MG CAPSULE,DELAYED RELEASE 5. Coronary artery disease involving jackson heart, angina presence unspecified, unspecified vessel or lesion type - ICD9: 414.01, ICD10: I25.10 Stable; follow with Dr Butler 6. Hyperlipidemia, unspecified hyperlipidemia type - ICD9: 272.4, ICD10: E78.5 - GEMFIBROZIL 600 MG TABLET - COMP METABOLIC PANEL - LIPID PANEL BASIC Follow up in 3 months with labs prior Marika High MD The documentation for this note was completed by Karolina Lagunas Ma acting as scribe for Marika High MD. July 20, 2017 1:21 PM. Marika High MD 07/20/2017 1:40 PM Signed Change Glimiperide(Amaryl) to 1/2 pill daily Referring Provider: MARIKA HIGH [[id number]] Allergies As of Date: 07/20/2017 Noted Allergy Reaction METFORMIN 12/25/2015 14 - Other: See Comments Comments: Sweating BLACK PEPPER 11/17/2005 4 - Hives DUST MITES 11/17/2005 4 - Hives MOLD SPORES 11/17/2005 12 - Shortness of Breath aly cheese [Other] 11/17/2005 12 - Shortness of Breath PENICILLINS 11/17/2005 4 - Hives Date Reviewed: 07/20/2017 Reviewed by: Karolina Lagunas Ma - Fully Assessed Reason for Visit: F/U 3 Month [443] Cmt: DM, HTN and Lipid Primary Visit Diagnosis:Type 2 diabetes mellitus without complication, without long-term current use of insulin (HCC) [E11.9] Other Visit Diagnoses:Atrial fibrillation, unspecified type (HCC) [I48.91] Anxiety [F41.9] Gastroesophageal reflux disease without esophagitis [K21.9] Coronary artery disease involving jackson heart, angina presence unspecified, unspecified vessel or lesion type [I25.10] Hyperlipidemia, unspecified hyperlipidemia type [E78.5] Order(s):gemfibrozil (LOPID) 600 mg tabletTake 1 tablet by mouth twice daily.Disp: 180 tabletRfl: 3 warfarin (COUMADIN) 4 mg tabletAlternate 2 mg and 4 mg daily or as directedDisp: 30 tabletRfl: 11 omeprazole (PRILOSEC) 20 mg capsuleTAKE 1 CAPSULE BY MOUTH ONCE DAILY 1/2 HOUR BEFORE BREAKFASTDisp: 90 capsuleRfl: 2 glimepiride (AMARYL) 2 mg tabletTake 0.5 tablets by mouth daily with breakfast.Disp: 30 tabletRfl: 11 COMP METABOLIC PANEL [SQCMP] Order #: [id number] FUTURE HGB A1C [BPULV0E] Order #: [id number] FUTURE LIPID PANEL BASIC [SQLIPB] Order #: [id number] FUTURE Prescriptions as of 07/20/2017 Sig: GEMFIBROZIL 600 MG TABLET Take 1 tablet by mouth twice * WARFARIN 4 MG TABLET Alternate 2 mg and 4 mg daily* OMEPRAZOLE 20 MG CAPSULE,YANNA* TAKE 1 CAPSULE BY MOUTH ONCE* GLIMEPIRIDE 2 MG TABLET Take 0.5 tablets by mouth yahaira* VENLAFAXINE ER 150 MG CAPSULE* TAKE 1 CAPSULE BY MOUTH ONCE* METOPROLOL TARTRATE 25 MG TAB* Take 1 tablet by mouth twice * FLECAINIDE 50 MG TABLET Take 1 tablet by mouth twice * GABAPENTIN 300 MG CAPSULE Take 1 capsule by mouth daily* ALBUTEROL SULFATE HFA 90 MCG/* Inhale 2 Puffs as instructed * TAMSULOSIN 0.4 MG CAPSULE Take 1 capsule by mouth daily* BLOOD SUGAR DIAGNOSTIC STRIPS Test blood sugar(s) 1 times d* SITAGLIPTIN 100 MG TABLET Take 1 tablet by mouth once d* PRAVASTATIN 40 MG TABLET Take 1 tablet by mouth daily * LANCETS Test blood sugar(s) 1 times d* NITROGLYCERIN 0.4 MG SUBLINGU* dissolve 1 tablet under the t* BLOOD-GLUCOSE METER KIT Glucose Meter of Choice - Kit* Problem List As Of Date 07/20/2017 Noted Resolved Inguinal hernia without mention of obstruction *INVALID FOR*03/27/2016 First degree AV block [I44.0] INVALID FOR* Priority: D More... More... History of PR (myocardial infarction) [I25.2] INVALID FOR* Tobacco use disorder [F17.200] INVALID FOR*03/27/2016 Priority: E More... SUMMARY [V999.95] INVALID FOR*05/01/2017 Priority: A More... Chest pain [R07.9] INVALID FOR* Priority: B More... Claudication [I73.9] INVALID FOR* Priority: D More... Dupuytren's contracture of right hand [M72.0] INVALID FOR*05/01/2017 MANNY (obstructive sleep apnea) [G47.33] INVALID FOR* Rhinitis [J31.0] INVALID FOR*05/01/2017 Cardiac pacemaker in situ [Z95.0] INVALID FOR* More... Atrial fibrillation [I48.91] INVALID FOR* Anxiety [F41.9] INVALID FOR* Personal history of colonic polyps [Z86.010] INVALID FOR*04/10/2014 Diverticulosis of colon (without mention of hem*INVALID FOR*04/10/2014 Gastroesophageal reflux disease without esophag*INVALID FOR* Type 2 diabetes mellitus without complication, *INVALID FOR* Chronic left shoulder pain [M25.512, G89.29] INVALID FOR* Screening for colon cancer [Z12.11] INVALID FOR* More... CAD (coronary artery disease) [I25.10] INVALID FOR* More... Hyperlipidemia [E78.5] INVALID FOR* Other instructions from your clinician: Change Glimiperide(Amaryl) to 1/2 pill daily Prescriptions ordered this encounter Disp Refills Start End GEMFIBROZIL 600 MG TABLET 180 * 3 07/20/2017 Route: ORAL Sig: Take 1 tablet by mouth twice daily. WARFARIN 4 MG TABLET 30 t* 11 07/20/2017 Sig: Alternate 2 mg and 4 mg daily or as directed OMEPRAZOLE 20 MG CAPSULE,DELAYED REL* 90 c* 2 07/20/2017 Sig: TAKE 1 CAPSULE BY MOUTH ONCE DAILY 1/2 HOUR BEFORE BREAKFAST GLIMEPIRIDE 2 MG TABLET 30 t* 11 07/20/2017 Class: Med Update Route: ORAL Sig: Take 0.5 tablets by mouth daily with breakfast. Medications Discontinued During This Encounter gemfibrozil (LOPID) 600 mg tablet 180 * 3 07/02/2016 07/20/2017 Route: ORAL Sig: Take 1 tablet by mouth twice daily. Disc: Reason for discontinue is not on file. warfarin (COUMADIN) 4 mg tablet 06/11/2017 07/20/2017 Class: Med Update Sig: Alternate 2 mg and 4 mg daily or as directed Disc: Reason for discontinue is not on file. Cosign accepted by MARIKA HIGH MD[[id number]] on 06/11/2017 10:34 AM omeprazole (PRILOSEC) 20 mg capsule 90 c* 2 05/20/2017 07/20/2017 Sig: TAKE 1 CAPSULE BY MOUTH ONCE DAILY 1/2 HOUR BEFORE BREAKFAST Disc: Reason for discontinue is not on file. glimepiride (AMARYL) 2 mg tablet 30 t* 11 12/09/2016 07/20/2017 Sig: take 1 tablet by mouth once daily WITH BREAKFAST Disc: Reason for discontinue is not on file. Disposition: Return in about 3 months (around 10/20/2017). Follow-up and Disposition History Recorded Encounter Status:Closed by MARIKA HIGH MD on 07/20/17 PROGRESS Observed: 07/02/2017 Status: COMPLETED Source: [place] 9:19 AM [facility] HNO ID: [id number] Author: Marika High Service: (none) Author Type: Physician Type: Progress Notes Filed: 07/02/2017 10:55 AM Note Text: I agree with the advice given; stay same and recheck in 4 weeks Marika High MD PROGRESS Observed: 07/02/2017 Status: COMPLETED Source: [place] 8:58 AM [facility] HNO ID: [id number] Author: Ronna Carrizales RN Service: (none) Author Type: (none) Type: Progress Notes Filed: 07/02/2017 8:59 AM Note Text: Patient had INR completed at [facility] Patient's INR is 2.4 Patient is currently taking alternate 2 mg and 4 mg daily. Patient's last dose change was 06/11/17 due to high INR at 4.0 Patient has had no medication and no change in diet. Advised patient to continue on same dose and they would only be contacted with different instructions after provider review. Written instructions were given to patient and patient verbalized understanding. Presently, patient has been scheduled for 07/30/17 for INR follow up. PROGRESS Observed: 06/18/2017 Status: COMPLETED Source: [place] 10:10 AM [facility] HNO ID: [id number] Author: Marika High Service: (none) Author Type: Physician Type: Progress Notes Filed: 06/18/2017 12:14 PM Note Text: I agree with the advice given; stay on alternate 2 mg and 4 mg daily Recheck in 4 weeks as planned Marika High MD PROGRESS Observed: 06/18/2017 Status: COMPLETED Source: [place] 9:00 AM [facility] HNO ID: [id number] Author: Ronna Carrizales RN Service: (none) Author Type: (none) Type: Progress Notes Filed: 06/18/2017 9:02 AM Note Text: Patient had INR completed at [facility] Patient's INR is 2.0 Patient is currently taking alternate 2 mg and 4 mg daily Patient's last dose change was 06/11/17 due to high INR at 4.0 Patient has had no medication and no change in diet. Advised patient to continue on same dose and they would only be contacted with different instructions after provider review. Written instructions were given to patient and patient verbalized understanding. Presently, patient has been scheduled for 07/02/17 for INR follow up. PROGRESS Observed: 06/11/2017 Status: COMPLETED Source: [place] 10:33 AM [facility] HNO ID: [id number] Author: Analisa Garcia Ma Service: (none) Author Type: (none) Type: Progress Notes Filed: 06/11/2017 10:33 AM Note Text: Pt notified and voiced understanding. Tracker and med list updated. Analisa Garcia Ma PROGRESS Observed: 06/11/2017 Status: COMPLETED Source: [place] 10:23 AM [facility] HNO ID: [id number] Author: Marika High Service: (none) Author Type: Physician Type: Progress Notes Filed: 06/11/2017 10:33 AM Note Text: Hold for 2 days, then go to alternating 2 mg and 4 mg Recheck in 1 week as planned Marika High MD PROGRESS Observed: 06/11/2017 Status: COMPLETED Source: [place] 9:15 AM [facility] HNO ID: [id number] Author: Zoe Andrade RN Service: (none) Author Type: (none) Type: Progress Notes Filed: 06/11/2017 10:33 AM Note Text: INR 4.0-results reviewed with patient. Current Coumadin dose is 4 mg daily (reports poor diet last few days, not eating much with increased stress of 's hospitalization). with last dose change on 04/01/17 and previous dose of 2 mg- 4 mg-4 mg cycle. Last INR on 05/14/17 was 2.6. Has 4 mg tablets. Advised patient would be contacted regarding dosage and followup instructions after review by provider. Patient scheduled for INR In one week and bleeding precautions reviewed. Written instructions given and patient verbalized understanding. Zoe Andrade RN CNOV Observed: 05/22/2017 Status: COMPLETED Source: [place] 2:20 PM [facility] Office Visit (FAMPWS) VINEET DELANEY ([id number]) 1950 M Date Time Provider Department 05/22/17 2:20 PM VALENTIN CINTRON ([facility]) [facility] During your visit today, we recorded the following information about you: Temperature Pulse Blood pressure 96.6 degrees 84/minute 131/86 Valentin Cintron APRN.CNP 05/22/2017 2:18 PM Signed Vineet Delaney is a 66 year old male who presents in follow up of HTN and was last seen on today in urgent care for a sprained ankle. had called in earlier today with concerns that blood pressure was elevated at 152/94. He went to the urgent care an hour ago and his blood pressure was 118/86. At this time, his blood pressure is 131/86. HTN: Mr. Delaney indicates that he is feeling well and denies any symptoms referable to elevated blood pressure. Specifically denies headache, chest pain, palpitations, dyspnea and peripheral edema. Patient denies any side effects of his medication(s) and is compliant with their regimen. He does check BP's away from this office with average BP's in the 130-150s. range. Vineet gets sporadic irregular exercise. He watches his diet for sodium, low fat and low cholesterol some of the time. Last 3 Encounter BP Readings: Date: BP: 05/22/2017 131/86 05/22/2017 118/86 05/15/2017 132/90 05/08/2017 122/84 Past Medical, Surgical, Family and Social Histories reviewed and updated today in the History tab of [facility]. Current Medications and allergies reviewed. PAST MEDICAL HISTORY Diagnosis Date - Allergic rhinitis, cause unspecified Allergic rhinitis - Arrhythmia - Benign neoplasm of colon - CAD (coronary artery disease) 2000 Myocardial Infarction ' - Dupuytren contracture - Mental disorder - Myocardial infarct, old - Rash and other nonspecific skin eruption Nonspec Skin Erup Nec - Seizures (HCC) - TIA (transient ischemic attack) 2004 - Type 2 diabetes mellitus without complication, without long- term current use of insulin ([facility]) 12/25/2015 PAST SURGICAL HISTORY Procedure Laterality Date - COLONOSCOP W/ OR W/O BRSH SPEC 04/17/2011 Colonoscopy - COLONOSCOP W/ OR W/O BRSH SPEC 04/10/2014 Colonoscopy - COLONOSCOP W/ OR W/O BRSH SPEC 05/04/2017 Colonoscopy - EGD W/O OR W/BRUSH/WASH 02/24/05 EGD - H. Pylori gastritis - EGD W/O OR W/BRUSH/WASH 04/17/2011 EGD - HEART SURGERY HX 09/2012 pacemaker - PAST SURGICAL HISTORY OF 3 heart caths - normal - PAST SURGICAL HISTORY OF 2008 right knee meniscus repair - PAST SURGICAL HISTORY OF 2006 left hand - REPAIR ING HERNIA,5+Y/O,REDUCIBL 2005 Hernia repair, inguinal ACTIVE PROBLEM LIST First Degree Av Block History of PR (Myocardial Infarction) Chest Pain Claudication ([facility]) Manny (Obstructive Sleep Apnea) Cardiac Pacemaker in Situ Atrial Fibrillation ([facility]) Anxiety Gastroesophageal Reflux Disease Without Esophagitis Type 2 Diabetes Mellitus Without Complication, Without Long- Term Current Use of Insulin ([facility]) Chronic Left Shoulder Pain Screening for Colon Cancer Cad (Coronary Artery Disease) ALLERGIES: Metformin; Black Pepper; Dust Mites; Mold Spores; Penicillins; Aly Cheese [Other] Current Outpatient Prescriptions: omeprazole (PRILOSEC) 20 mg capsule TAKE 1 CAPSULE BY MOUTH ONCE DAILY 1/2 HOUR BEFORE BREAKFAST venlafaxine ER (EFFEXOR XR) 150 mg 24 hr capsule TAKE 1 CAPSULE BY MOUTH ONCE DAILY metoprolol tartrate, short acting, (LOPRESSOR) 25 mg tablet Take 1 tablet by mouth twice daily. flecainide (TAMBOCOR) 50 mg tablet Take 1 tablet by mouth twice daily. gabapentin (NEURONTIN) 300 mg capsule Take 1 capsule by mouth daily at bedtime for 180 days. albuterol HFA (VENTOLIN HFA) 90 mcg/actuation inhaler Inhale 2 Puffs as instructed every 4 hours as needed for Wheezing/Shortness of Breath. tamsulosin ER (FLOMAX) 0.4 mg cp24 Take 1 capsule by mouth daily at bedtime. warfarin (COUMADIN) 4 mg tablet Taking 2 mg on Thursday, 4 mg all other days or as directed blood sugar diagnostic (BLOOD GLUCOSE TEST) test strip Test blood sugar(s) 1 times daily. Dx: Type 2 DM - Controlled E11.9 Insulin: No sitaGLIPtin (JANUVIA) 100 mg tablet Take 1 tablet by mouth once daily. pravastatin (PRAVACHOL) 40 mg tablet Take 1 tablet by mouth daily at bedtime. Lancets lancets Test blood sugar(s) 1 times daily. Dx: Type 2 DM - Controlled E11.9 Insulin: No glimepiride (AMARYL) 2 mg tablet take 1 tablet by mouth once daily WITH BREAKFAST nitroglycerin sublingual (NITROSTAT) 0.4 mg SL tablet dissolve 1 tablet under the tongue if needed for chest pain (IF NO RELIEF CALL 911) gemfibrozil (LOPID) 600 mg tablet Take 1 tablet by mouth twice daily. Blood-Glucose Meter monitoring kit Glucose Meter of Choice - Kit - Dx: Type 2 DM - Controlled E11.9. Check blood sugar once daily as needed. No current facility-administered medications for this visit. FAMILY HISTORY Problem Relation Age of Onset - Cancer Mother skin - Diabetes Mother - Diabetes Maternal Grandfather - Cancer Brother - Diabetes Brother - Diabetes Maternal Uncle - Diabetes Maternal Uncle - Heart Sister - Heart Brother Social History Marital status: Spouse name: Awilda Years of education: Number of children: 4 Occupational History Occupation Employer Comment Retired [employer]* short distance Social History Main Topics Smoking status: Former Smoker Packs/day: 0.80 Years: 45.00 Types: Cigarettes Quit date: 06/16/2012 Smokeless status: Never Used Alcohol use: No Drug use: No Sexual activity: Yes Partners with: Female control/protection: Surgical Comment: -bps PHYSICAL EXAM: BP 131/86 Pulse 84 Temp (!) 35.9 ?C (96.6 ?F) (Tympanic) General appearance: Alert, cooperative, pleasant, in no acute distress Head: Normocephalic, atraumatic Eyes: normal, conjunctiva/corneas normal, PERRL Heart: normal, regular rate and rhythm, without murmur Lungs: clear to auscultation, without rales or wheeze, good air exchange Abdomen:soft, nondistended, nontender, no hepatosplenomegaly or masses Ext: no edema in LE bilaterally, good distal pulses ASSESSMENT/PLAN: 1. Elevated blood pressure reading without diagnosis of hypertension - ICD9: 796.2, ICD10: R03.0 - Blood pressure is normal today. Suspect that blood pressure cuff at home is not calibrated. Would suggest brining in blood pressure cuff at next visit for validation. - Encouraged dietary sodium restriction/DASH diet - Recommended regular aerobic exercise. - Recommend home blood pressure monitoring, to bring results in on next visit - Goal of BP ANDlt;130/80 - Continue metoprolol for CAD, history of PR. Follow up as needed. Valentin Cintron APRN.CAMPAIGN SPECIALIST Referring Provider: SELF [200] Allergies As of Date: 05/22/2017 Noted Allergy Reaction METFORMIN 12/25/2015 14 - Other: See Comments Comments: Sweating BLACK PEPPER 11/17/2005 4 - Hives DUST MITES 11/17/2005 4 - Hives MOLD SPORES 11/17/2005 12 - Shortness of Breath PENICILLINS 11/17/2005 4 - Hives aly cheese [Other] 11/17/2005 12 - Shortness of Breath Date Reviewed: 05/22/2017 Reviewed by: Umu Finn Front Maker - Fully Assessed Reason for Visit: Blood Pressure [15] Primary Visit Diagnosis:Elevated blood pressure reading without diagnosis of hypertension [R03.0] Prescriptions as of 05/22/2017 Sig: OMEPRAZOLE 20 MG CAPSULE,YANNA* TAKE 1 CAPSULE BY MOUTH ONCE* VENLAFAXINE ER 150 MG CAPSULE* TAKE 1 CAPSULE BY MOUTH ONCE* METOPROLOL TARTRATE 25 MG TAB* Take 1 tablet by mouth twice * FLECAINIDE 50 MG TABLET Take 1 tablet by mouth twice * GABAPENTIN 300 MG CAPSULE Take 1 capsule by mouth daily* ALBUTEROL SULFATE HFA 90 MCG/* Inhale 2 Puffs as instructed * TAMSULOSIN 0.4 MG CAPSULE Take 1 capsule by mouth daily* WARFARIN 4 MG TABLET Taking 2 mg on Thursday, 4 mg a* BLOOD SUGAR DIAGNOSTIC STRIPS Test blood sugar(s) 1 times d* SITAGLIPTIN 100 MG TABLET Take 1 tablet by mouth once d* PRAVASTATIN 40 MG TABLET Take 1 tablet by mouth daily * LANCETS Test blood sugar(s) 1 times d* GLIMEPIRIDE 2 MG TABLET take 1 tablet by mouth once d* NITROGLYCERIN 0.4 MG SUBLINGU* dissolve 1 tablet under the t* GEMFIBROZIL 600 MG TABLET Take 1 tablet by mouth twice * BLOOD-GLUCOSE METER KIT Glucose Meter of Choice - Kit* Problem List As Of Date 05/22/2017 Noted Resolved Inguinal hernia without mention of obstruction *INVALID FOR*03/27/2016 First degree AV block [I44.0] INVALID FOR* Priority: D More... More... History of PR (myocardial infarction) [I25.2] INVALID FOR* Tobacco use disorder [F17.200] INVALID FOR*03/27/2016 Priority: E More... SUMMARY [V999.95] INVALID FOR*05/01/2017 Priority: A More... Chest pain [R07.9] INVALID FOR* Priority: B More... Claudication [I73.9] INVALID FOR* Priority: D More... Dupuytren's contracture of right hand [M72.0] INVALID FOR*05/01/2017 MANNY (obstructive sleep apnea) [G47.33] INVALID FOR* Rhinitis [J31.0] INVALID FOR*05/01/2017 Cardiac pacemaker in situ [Z95.0] INVALID FOR* More... Atrial fibrillation [I48.91] INVALID FOR* Anxiety [F41.9] INVALID FOR* Personal history of colonic polyps [Z86.010] INVALID FOR*04/10/2014 Diverticulosis of colon (without mention of hem*INVALID FOR*04/10/2014 Gastroesophageal reflux disease without esophag*INVALID FOR* Type 2 diabetes mellitus without complication, *INVALID FOR* Chronic left shoulder pain [M25.512, G89.29] INVALID FOR* Screening for colon cancer [Z12.11] INVALID FOR* More... CAD (coronary artery disease) [I25.10] INVALID FOR* More... Disposition: Return if symptoms worsen or fail to improve. Follow-up and Disposition History Recorded Encounter Status:Closed by VALENTIN CINTRON CNP on 05/22/17 PROGRESS Observed: 05/22/2017 Status: COMPLETED Source: [place] 2:00 PM [facility] REPOSITORY HNO ID: [id number] Author: Valentin Cintron Service: (none) Author Type: Nurse Practitioner Type: Progress Notes Filed: 05/22/2017 2:18 PM Note Text: Vineet Delaney is a 66 year old male who presents in follow up of HTN and was last seen on today in urgent care for a sprained ankle. had called in earlier today with concerns that blood pressure was elevated at 152/94. He went to the urgent care an hour ago and his blood pressure was 118/86. At this time, his blood pressure is 131/86. HTN: Mr. Delaney indicates that he is feeling well and denies any symptoms referable to elevated blood pressure. Specifically denies headache, chest pain, palpitations, dyspnea and peripheral edema. Patient denies any side effects of his medication(s) and is compliant with their regimen. He does check BP's away from this office with average BP's in the 130-150s. range. Vineet gets sporadic irregular exercise. He watches his diet for sodium, low fat and low cholesterol some of the time. Last 3 Encounter BP Readings: Date: BP: 05/22/2017 131/86 05/22/2017 118/86 05/15/2017 132/90 05/08/2017 122/84 Past Medical, Surgical, Family and Social Histories reviewed and updated today in the History tab of [facility]. Current Medications and allergies reviewed. PAST MEDICAL HISTORY Diagnosis Date - Allergic rhinitis, cause unspecified Allergic rhinitis - Arrhythmia - Benign neoplasm of colon - CAD (coronary artery disease) 2000 Myocardial Infarction ' - Dupuytren contracture - Mental disorder - Myocardial infarct, old - Rash and other nonspecific skin eruption Nonspec Skin Erup Nec - Seizures (HCC) - TIA (transient ischemic attack) 2004 - Type 2 diabetes mellitus without complication, without long- term current use of insulin ([facility]) 12/25/2015 PAST SURGICAL HISTORY Procedure Laterality Date - COLONOSCOP W/ OR W/O [facility] SPEC 04/17/2011 Colonoscopy - COLONOSCOP W/ OR W/O [facility] SPEC 04/10/2014 Colonoscopy - COLONOSCOP W/ OR W/O [facility] SPEC 05/04/2017 Colonoscopy - EGD W/O OR W/BRUSH/WASH 02/24/05 EGD - H. Pylori gastritis - EGD W/O OR W/BRUSH/WASH 04/17/2011 EGD - HEART SURGERY HX 09/2012 pacemaker - PAST SURGICAL HISTORY OF 3 heart caths - normal - PAST SURGICAL HISTORY OF 2008 right knee meniscus repair - PAST SURGICAL HISTORY OF 2007 left hand - REPAIR ING HERNIA,5+Y/O,REDUCIBL 2006 Hernia repair, inguinal ACTIVE PROBLEM LIST First Degree Av Block History of PR (Myocardial Infarction) Chest Pain Claudication (Hcc) Manny (Obstructive Sleep Apnea) Cardiac Pacemaker in Situ Atrial Fibrillation (Hcc) Anxiety Gastroesophageal Reflux Disease Without Esophagitis Type 2 Diabetes Mellitus Without Complication, Without Long- Term Current Use of Insulin (Hcc) Chronic Left Shoulder Pain Screening for Colon Cancer Cad (Coronary Artery Disease) ALLERGIES: Metformin; Black Pepper; Dust Mites; Mold Spores; Penicillins; Aly Cheese [Other] Current Outpatient Prescriptions: omeprazole (PRILOSEC) 20 mg capsule TAKE 1 CAPSULE BY MOUTH ONCE DAILY 1/2 HOUR BEFORE BREAKFAST venlafaxine ER (EFFEXOR XR) 150 mg 24 hr capsule TAKE 1 CAPSULE BY MOUTH ONCE DAILY metoprolol tartrate, short acting, (LOPRESSOR) 25 mg tablet Take 1 tablet by mouth twice daily. flecainide (TAMBOCOR) 50 mg tablet Take 1 tablet by mouth twice daily. gabapentin (NEURONTIN) 300 mg capsule Take 1 capsule by mouth daily at bedtime for 180 days. albuterol HFA (VENTOLIN HFA) 90 mcg/actuation inhaler Inhale 2 Puffs as instructed every 4 hours as needed for Wheezing/Shortness of Breath. tamsulosin ER (FLOMAX) 0.4 mg cp24 Take 1 capsule by mouth daily at bedtime. warfarin (COUMADIN) 4 mg tablet Taking 2 mg on Thursday, 4 mg all other days or as directed blood sugar diagnostic (BLOOD GLUCOSE TEST) test strip Test blood sugar(s) 1 times daily. Dx: Type 2 DM - Controlled E11.9 Insulin: No sitaGLIPtin (JANUVIA) 100 mg tablet Take 1 tablet by mouth once daily. pravastatin (PRAVACHOL) 40 mg tablet Take 1 tablet by mouth daily at bedtime. Lancets lancets Test blood sugar(s) 1 times daily. Dx: Type 2 DM - Controlled E11.9 Insulin: No glimepiride (AMARYL) 2 mg tablet take 1 tablet by mouth once daily WITH BREAKFAST nitroglycerin sublingual (NITROSTAT) 0.4 mg SL tablet dissolve 1 tablet under the tongue if needed for chest pain (IF NO RELIEF CALL 911) gemfibrozil (LOPID) 600 mg tablet Take 1 tablet by mouth twice daily. Blood-Glucose Meter monitoring kit Glucose Meter of Choice - Kit - Dx: Type 2 DM - Controlled E11.9. Check blood sugar once daily as needed. No current facility-administered medications for this visit. FAMILY HISTORY Problem Relation Age of Onset - Cancer Mother skin - Diabetes Mother - Diabetes Maternal Grandfather - Cancer Brother - Diabetes Brother - Diabetes Maternal Uncle - Diabetes Maternal Uncle - Heart Sister - Heart Brother Social History Marital status: Spouse name: Awilda Years of education: Number of children: 4 Occupational History Occupation Employer Comment Retired [employer]* short distance Social History Main Topics Smoking status: Former Smoker Packs/day: 0.80 Years: 45.00 Types: Cigarettes Quit date: 06/16/2012 Smokeless status: Never Used Alcohol use: No Drug use: No Sexual activity: Yes Partners with: Female control/protection: Surgical Comment: -bps PHYSICAL EXAM: BP 131/86 Pulse 84 Temp (!) 35.9 ?C (96.6 ?F) (Tympanic) General appearance: Alert, cooperative, pleasant, in no acute distress Head: Normocephalic, atraumatic Eyes: normal, conjunctiva/corneas normal, PERRL Heart: normal, regular rate and rhythm, without murmur Lungs: clear to auscultation, without rales or wheeze, good air exchange Abdomen:soft, nondistended, nontender, no hepatosplenomegaly or masses Ext: no edema in LE bilaterally, good distal pulses ASSESSMENT/PLAN: 1. Elevated blood pressure reading without diagnosis of hypertension - ICD9: 796.2, ICD10: R03.0 - Blood pressure is normal today. Suspect that blood pressure cuff at home is not calibrated. Would suggest brining in blood pressure cuff at next visit for validation. - Encouraged dietary sodium restriction/DASH diet - Recommended regular aerobic exercise. - Recommend home blood pressure monitoring, to bring results in on next visit - Goal of BP <130/80 - Continue metoprolol for CAD, history of PR. Follow up as needed. Valentin Cintron APRN.CAMPAIGN SPECIALIST XR ANKLE 3V AP/LAT/OBL Observed: 05/22/2017 Status: F Source: [facility] 1:14 PM [facility] REPOS[facility] * * *Final Report* * * DATE OF EXAM: May 22 2017 1:14PM WOX [id number] - XR ANKLE 3V AP/LAT/OBL LT / PROCEDURE REASON: Unspecified injury of left ankle, initial encounter * * * * Physician Interpretation * * * * Left ankle HISTORY: 66 years old Clinical information: Unspecified injury of left ankle, initial encounter Fell down stairs x 4 days ago. Medial left ankle pain. TECHNIQUE: Images: XR ANKLE 3V AP/LAT/OBL LT Comparison: None. RESULT: Findings: No fracture or dislocation is evident. Ankle mortise maintained. There is a calcaneal enthesophyte at the origin of the plantar fascia. IMPRESSION: No acute finding. Machine Bander And Cellophaner: PSCB Transcribe Date/Time: May 22 2017 1:17P Dictated by : MARIKA MCCARTHY MD This examination was interpreted and the report reviewed and electronically signed by: MARIKA MCCARTHY MD on May 22 2017 1:18PM EST [id number] PROGRESS Observed: 05/22/2017 Status: COMPLETED Source: [place] 1:07 PM [facility] REPOSITORY HNO ID: [id number] Author: Khalida Cummings (Rt) Service: (none) Author Type: Accreditation Manager Type: Progress Notes Filed: 05/22/2017 1:13 PM Note Text: Radiology Service Progress Note PATIENT NAME: Vineet Delaney DATE OF SERVICE: May 22, 2017 TIME: 1:07 PM PATIENT IDENTITY VERIFICATION COMPLETED USING TWO (2) METHODS: Patient confirmed name verbally and Date of . PATIENT GENDER DATA: Male PATIENT RELEVANT IMPLANT DATA REVIEWED: Not Applicable RADIOLOGY DEPARTMENT: General X-ray: Exam(s) Completed: Lower Extremity X-Ray(s): Ankle, Left and Wt. Bearing: PERIPHERAL IV DATA: Not applicable SIGNED BY: RT Zoila May 22, 2017 1:07 PM PROGRESS Observed: 05/22/2017 Status: COMPLETED Source: [place] 1:01 PM [facility] REPOSITORY HNO ID: [id number] Author: Jody Barone Service: (none) Author Type: Nurse Practitioner Type: Progress Notes Filed: 05/22/2017 1:27 PM Note Text: Subjective HPI Vineet Delaney is a 66 year old male who presents with left ankle pain, he fell down some steps at home and twisted it 5 days ago. He rates the pain a 4/10 unless he touches it. Then it is an 8/10. He has not taken any medication for the pain. Review of Systems Constitutional: Negative. Negative for fever. Musculoskeletal: Positive for falls and joint pain. Skin: Negative. Negative for rash. BP 118/86 Pulse 76 Temp 36.3 ?C (97.4 ?F) (Tympanic) Resp 16 Wt 93.9 kg (207 lb) BMI 29.7 kg/m2 PAST MEDICAL HISTORY Diagnosis Date - Allergic rhinitis, cause unspecified Allergic rhinitis - Arrhythmia - Benign neoplasm of colon - CAD (coronary artery disease) 2000 Myocardial Infarction ' - Dupuytren contracture - Mental disorder - Myocardial infarct, old - Rash and other nonspecific skin eruption Nonspec Skin Erup Nec - Seizures ([facility]) - TIA (transient ischemic attack) 2004 - Type 2 diabetes mellitus without complication, without long- term current use of insulin ([facility]) 12/25/2015 PAST SURGICAL HISTORY Procedure Laterality Date - COLONOSCOP W/ OR W/O [facility] SPEC 04/17/2011 Colonoscopy - COLONOSCOP W/ OR W/O [facility] SPEC 04/10/2014 Colonoscopy - COLONOSCOP W/ OR W/O [facility] SPEC 05/04/2017 Colonoscopy - EGD W/O OR W/BRUSH/WASH 02/24/05 EGD - H. Pylori gastritis - EGD W/O OR W/BRUSH/WASH 04/17/2011 EGD - HEART SURGERY HX 09/2012 pacemaker - PAST SURGICAL HISTORY OF 3 heart caths - normal - PAST SURGICAL HISTORY OF 2008 right knee meniscus repair - PAST SURGICAL HISTORY OF 2006 left hand - REPAIR ING HERNIA,5+Y/O,REDUCIBL 2005 Hernia repair, inguinal ALLERGIES Metformin; Black Pepper; Dust Mites; Mold Spores; Penicillins; Aly Cheese [Other] MEDICATIONS omeprazole (PRILOSEC) 20 mg capsule TAKE 1 CAPSULE BY MOUTH ONCE DAILY 1/2 HOUR BEFORE BREAKFAST venlafaxine ER (EFFEXOR XR) 150 mg 24 hr capsule TAKE 1 CAPSULE BY MOUTH ONCE DAILY metoprolol tartrate, short acting, (LOPRESSOR) 25 mg tablet Take 1 tablet by mouth twice daily. flecainide (TAMBOCOR) 50 mg tablet Take 1 tablet by mouth twice daily. gabapentin (NEURONTIN) 300 mg capsule Take 1 capsule by mouth daily at bedtime for 180 days. albuterol HFA (VENTOLIN HFA) 90 mcg/actuation inhaler Inhale 2 Puffs as instructed every 4 hours as needed for Wheezing/Shortness of Breath. tamsulosin ER (FLOMAX) 0.4 mg cp24 Take 1 capsule by mouth daily at bedtime. warfarin (COUMADIN) 4 mg tablet Taking 2 mg on Thursday, 4 mg all other days or as directed blood sugar diagnostic (BLOOD GLUCOSE TEST) test strip Test blood sugar(s) 1 times daily. Dx: Type 2 DM - Controlled E11.9 Insulin: No sitaGLIPtin (JANUVIA) 100 mg tablet Take 1 tablet by mouth once daily. pravastatin (PRAVACHOL) 40 mg tablet Take 1 tablet by mouth daily at bedtime. Lancets lancets Test blood sugar(s) 1 times daily. Dx: Type 2 DM - Controlled E11.9 Insulin: No glimepiride (AMARYL) 2 mg tablet take 1 tablet by mouth once daily WITH BREAKFAST nitroglycerin sublingual (NITROSTAT) 0.4 mg SL tablet dissolve 1 tablet under the tongue if needed for chest pain (IF NO RELIEF CALL 911) gemfibrozil (LOPID) 600 mg tablet Take 1 tablet by mouth twice daily. Blood-Glucose Meter monitoring kit Glucose Meter of Choice - Kit - Dx: Type 2 DM - Controlled E11.9. Check blood sugar once daily as needed. FAMILY HISTORY Problem Relation Age of Onset - Cancer Mother skin - Diabetes Mother - Diabetes Maternal Grandfather - Cancer Brother - Diabetes Brother - Diabetes Maternal Uncle - Diabetes Maternal Uncle - Heart Sister - Heart Brother Social History Substance Use Topics - Smoking status: Former Smoker Packs/day: 0.80 Years: 45.00 Types: Cigarettes Quit date: 06/16/2012 - Smokeless tobacco: Never Used - Alcohol use No Objective Physical Exam Constitutional: He is well-developed, well-nourished, and in no distress. Musculoskeletal: Left ankle: He exhibits decreased range of motion, swelling and ecchymosis. He exhibits no deformity and normal pulse. Tenderness. Medial malleolus tenderness found. Achilles tendon normal. Feet: Neurological: He is alert. Skin: Skin is warm and dry. No erythema. Nursing note and vitals reviewed. ASSESSMENT/PLAN: 1. Left ankle injury, initial encounter - ICD9: 959.7, ICD10: S99.912A - XR ANKLE GENERAL 3V AP/LAT/OBL LT. My reading: negative. Radiologist IMPRESSION: No acute finding. Dictated by : MARIKA MCCARTHY MD - suspect sprain - RICE therapy - Dwain wrap applied. - Follow-up with your PCP in 3-5 days if symptoms have not improved or sooner if symptoms worsen - Discussed red flags and need for immediate medical evaluation if any occur. - Discussed supportive care treatment with fluids, rest and analgesia. - Discussed expected course of illness Jody Barone APRN.CNP CNOV Observed: 05/22/2017 Status: COMPLETED Source: [place] 12:45 PM [facility] REPOSITORY Office Visit (WSTR) VINEET DELANEY ([id number]) 1950 Date Time Provider Department 05/22/17 12:45 PM JODY BARONE (CAMPAIGN SPECIALIST) [facility] During your visit today, we recorded the following information about you: Temperature Pulse Respiration Blood pressure 97.4 degrees 76/minute 16/minute 118/86 Weight 93.9 kg Jody Barone APRN.CNP 05/22/2017 1:27 PM Signed Subjective HPI Vineet Rabia Delaney is a 66 year old male who presents with left ankle pain, he fell down some steps at home and twisted it 5 days ago. He rates the pain a 4/10 unless he touches it. Then it is an 8/10. He has not taken any medication for the pain. Review of Systems Constitutional: Negative. Negative for fever. Musculoskeletal: Positive for falls and joint pain. Skin: Negative. Negative for rash. BP 118/86 Pulse 76 Temp 36.3 ?C (97.4 ?F) (Tympanic) Resp 16 Wt 93.9 kg (207 lb) BMI 29.7 kg/m2 PAST MEDICAL HISTORY Diagnosis Date - Allergic rhinitis, cause unspecified Allergic rhinitis - Arrhythmia - Benign neoplasm of colon - CAD (coronary artery disease) 2000 Myocardial Infarction - Dupuytren contracture - Mental disorder - Myocardial infarct, old - Rash and other nonspecific skin eruption Nonspec Skin Erup Nec - Seizures (HCC) - TIA (transient ischemic attack) 2004 - Type 2 diabetes mellitus without complication, without long- term current use of insulin ([facility]) 12/25/2015 PAST SURGICAL HISTORY Procedure Laterality Date - COLONOSCOP W/ OR W/O [facility] SPEC 04/17/2011 Colonoscopy - COLONOSCOP W/ OR W/O [facility] SPEC 04/10/2014 Colonoscopy - COLONOSCOP W/ OR W/O [facility] SPEC 05/04/2017 Colonoscopy - EGD W/O OR W/BRUSH/WASH 02/24/05 EGD - H. Pylori gastritis - EGD W/O OR W/BRUSH/WASH 04/17/2011 EGD - HEART SURGERY HX 09/2012 pacemaker - PAST SURGICAL HISTORY OF 3 heart caths - normal - PAST SURGICAL HISTORY OF 2008 right knee meniscus repair - PAST SURGICAL HISTORY OF 2006 left hand - REPAIR ING HERNIA,5+Y/O,REDUCIBL 2005 Hernia repair, inguinal ALLERGIES Metformin; Black Pepper; Dust Mites; Mold Spores; Penicillins; Aly Cheese [Other] MEDICATIONS omeprazole (PRILOSEC) 20 mg capsule TAKE 1 CAPSULE BY MOUTH ONCE DAILY 1/2 HOUR BEFORE BREAKFAST venlafaxine ER (EFFEXOR XR) 150 mg 24 hr capsule TAKE 1 CAPSULE BY MOUTH ONCE DAILY metoprolol tartrate, short acting, (LOPRESSOR) 25 mg tablet Take 1 tablet by mouth twice daily. flecainide (TAMBOCOR) 50 mg tablet Take 1 tablet by mouth twice daily. gabapentin (NEURONTIN) 300 mg capsule Take 1 capsule by mouth daily at bedtime for 180 days. albuterol HFA (VENTOLIN HFA) 90 mcg/actuation inhaler Inhale 2 Puffs as instructed every 4 hours as needed for Wheezing/Shortness of Breath. tamsulosin ER (FLOMAX) 0.4 mg cp24 Take 1 capsule by mouth daily at bedtime. warfarin (COUMADIN) 4 mg tablet Taking 2 mg on Thursday, 4 mg all other days or as directed blood sugar diagnostic (BLOOD GLUCOSE TEST) test strip Test blood sugar(s) 1 times daily. Dx: Type 2 DM - Controlled E11.9 Insulin: No sitaGLIPtin (JANUVIA) 100 mg tablet Take 1 tablet by mouth once daily. pravastatin (PRAVACHOL) 40 mg tablet Take 1 tablet by mouth daily at bedtime. Lancets lancets Test blood sugar(s) 1 times daily. Dx: Type 2 DM - Controlled E11.9 Insulin: No glimepiride (AMARYL) 2 mg tablet take 1 tablet by mouth once daily WITH BREAKFAST nitroglycerin sublingual (NITROSTAT) 0.4 mg SL tablet dissolve 1 tablet under the tongue if needed for chest pain (IF NO RELIEF CALL 911) gemfibrozil (LOPID) 600 mg tablet Take 1 tablet by mouth twice daily. Blood-Glucose Meter monitoring kit Glucose Meter of Choice - Kit - Dx: Type 2 DM - Controlled E11.9. Check blood sugar once daily as needed. FAMILY HISTORY Problem Relation Age of Onset - Cancer Mother skin - Diabetes Mother - Diabetes Maternal Grandfather - Cancer Brother - Diabetes Brother - Diabetes Maternal Uncle - Diabetes Maternal Uncle - Heart Sister - Heart Brother Social History Substance Use Topics - Smoking status: Former Smoker Packs/day: 0.80 Years: 45.00 Types: Cigarettes Quit date: 06/16/2012 - Smokeless tobacco: Never Used - Alcohol use No Objective Physical Exam Constitutional: He is well-developed, well-nourished, and in no distress. Musculoskeletal: Left ankle: He exhibits decreased range of motion, swelling and ecchymosis. He exhibits no deformity and normal pulse. Tenderness. Medial malleolus tenderness found. Achilles tendon normal. Feet: Neurological: He is alert. Skin: Skin is warm and dry. No erythema. Nursing note and vitals reviewed. ASSESSMENT/PLAN: 1. Left ankle injury, initial encounter - ICD9: 959.7, ICD10: S99.912A - XR ANKLE GENERAL 3V AP/LAT/OBL LT. My reading: negative. Radiologist IMPRESSION: No acute finding. Dictated by : MARIKA MCCARTHY MD - suspect sprain - RICE therapy - Dwain wrap applied. - Follow-up with your PCP in 3-5 days if symptoms have not improved or sooner if symptoms worsen - Discussed red flags and need for immediate medical evaluation if any occur. - Discussed supportive care treatment with fluids, rest and analgesia. - Discussed expected course of illness BELA Simon APRN.CNP 05/22/2017 1:23 PM Signed Sprains of the Ankle, Knee and Wrist What is a sprain? A sprain occurs when a ligament (a band of tissue that connects two or more bones at a joint) is stretched and/or torn. During a sprain, one or more ligaments may be injured. The severity of the sprain depends on the number of ligaments injured and the extent of the injury (whether there is a partial or complete tear). What causes a sprain? A sprain is caused by either direct or indirect trauma that knocks the joint out of position and overstretches, sometimes rupturing the supporting ligaments. Examples of trauma include rolling of the ankle, a fall or a blow to the body. Where do sprains occur? Sprains occur in both the upper and lower parts of the body. However, the three most common sprain sites are the ankle, knee and wrist. ? Ankle sprain? typically occurs when the foot turns inward as a person runs, turns or lands on the ankle after a jump. ? Knee sprain? typically occurs after a blow to the knee or a fall. Sudden twisting of the knee may result in a sprain. ? Wrist sprain ?typically occurs when one falls and lands on an outstretched hand. Who is at risk for sprains? Both professional and amateur athletes? as well as the general public?can sustain this type of injury. However, those who have a history of sprains, are overweight and are in poor physical condition have increased risk. What are the signs and symptoms of sprains? Signs and symptoms may vary due to severity of injury. They may include: ? Pain ? Swelling ? Inflammation ? Bruising ? Instability ? Loss of the ability to move and use the joint When should I see a health care provider for a sprain? ? You have severe pain and cannot put weight on the injured joint. ? The injured area looks crooked, has lumps and bumps (other than swelling) that you do not see on the uninjured joint. ? You cannot move the injured joint. ? There is numbness in any part of the injured area. ? Redness or red streaks spread out from the injury. ? You injure an area that has been injured before. ? You have pain, swelling or redness over a bony part of your foot. ? You are in doubt about the seriousness of the injury and/or how to care for it. How are sprains treated? Health care providers advise patients to follow the rest, ice, compress and elevation (RICE) method for the first 24 to 48 hours after the injury. ? Rest?Reduce regular exercises and activities of daily living. Your health care provider may advise you to not put weight on the injured area for 48 hours. You may need to use crutches. ? Ice?Apply an ice pack to injured area for 20 minutes, four to eight times a day. You can use a cold pack, ice bag or plastic bag filled with ice wrapped in a towel. To avoid mendez bite and cold injury, do not apply the ice for longer than 20 minutes at a time. ? Compression?Compression of the injured area my help reduce swelling. Elastic wraps, specialized boots, air casts and splints may be used as compression bandages. Ask your health care provider which would be the most appropriate to use. Also ask how tightly to apply the bandage safely. ? Elevation?In order to help decrease swelling, keep the injured area elevated on a pillow above the level of your heart. How can I help prevent sprains? To help reduce the risk of sprains: ? Avoid exercising or playing sports when tired or in pain. ? Maintain a healthy weight and well- balanced diet to keep muscles strong. ? Wear shoes that fit properly. ? Practice safety measures to prevent falls. ? Do stretching exercises daily. ? Warm up and stretch before doing any physical activity. References ? National Reading of Arthritis and Musculoskeletal and Skin Diseases. Questions and Answers about Sprains and Strains Accessed 06/21/2013. ? [employer] [employer]. Sprains and Strains: What's the Difference? Accessed 06/21/2013. ? Copyright 9622-5352 The [facility]. All rights reserved. This information is provided by the [facility] and is not intended to replace the medical advice of your doctor or health care provider. Please consult your health care provider for advice about a specific medical condition. For additional health information, please contact the Center for Consumer Health Information at the [facility] or toll-free extension [phone]. If you prefer, you may visit [email or web address] or [email or web address]. This document was last reviewed on: 2013 index#64724 Referring Provider: SELF [200] Allergies As of Date: 05/22/2017 Noted Allergy Reaction METFORMIN 12/25/2015 14 - Other: See Comments Comments: Sweating BLACK PEPPER 11/17/2005 4 - Hives DUST MITES 11/17/2005 4 - Hives MOLD SPORES 11/17/2005 12 - Shortness of Breath PENICILLINS 11/17/2005 4 - Hives aly cheese [Other] 11/17/2005 12 - Shortness of Breath Date Reviewed: 05/22/2017 Reviewed by: Jody Barone - Fully Assessed Reason for Visit: Foot Trauma [766] Cmt: Left foot pain x 5 days, from a fall Primary Visit Diagnosis:Left ankle injury, initial encounter [S99.912A] Order(s):XR ANKLE GENERAL 3V AP/LAT/OBL LT [[id number]] Order #: [id number] FUTURE Prescriptions as of 05/22/2017 Sig: OMEPRAZOLE 20 MG CAPSULE,YANNA* TAKE 1 CAPSULE BY MOUTH ONCE* VENLAFAXINE ER 150 MG CAPSULE* TAKE 1 CAPSULE BY MOUTH ONCE* METOPROLOL TARTRATE 25 MG TAB* Take 1 tablet by mouth twice * FLECAINIDE 50 MG TABLET Take 1 tablet by mouth twice * GABAPENTIN 300 MG CAPSULE Take 1 capsule by mouth daily* ALBUTEROL SULFATE HFA 90 MCG/* Inhale 2 Puffs as instructed * TAMSULOSIN 0.4 MG CAPSULE Take 1 capsule by mouth daily* WARFARIN 4 MG TABLET Taking 2 mg on Thursday, 4 mg a* BLOOD SUGAR DIAGNOSTIC STRIPS Test blood sugar(s) 1 times d* SITAGLIPTIN 100 MG TABLET Take 1 tablet by mouth once d* PRAVASTATIN 40 MG TABLET Take 1 tablet by mouth daily * LANCETS Test blood sugar(s) 1 times d* GLIMEPIRIDE 2 MG TABLET take 1 tablet by mouth once d* NITROGLYCERIN 0.4 MG SUBLINGU* dissolve 1 tablet under the t* GEMFIBROZIL 600 MG TABLET Take 1 tablet by mouth twice * BLOOD-GLUCOSE METER KIT Glucose Meter of Choice - Kit* Problem List As Of Date 05/22/2017 Noted Resolved Inguinal hernia without mention of obstruction *INVALID FOR*03/27/2016 First degree AV block [I44.0] INVALID FOR* Priority: D More... More... History of PR (myocardial infarction) [I25.2] INVALID FOR* Tobacco use disorder [F17.200] INVALID FOR*03/27/2016 Priority: E More... SUMMARY [V999.95] INVALID FOR*05/01/2017 Priority: A More... Chest pain [R07.9] INVALID FOR* Priority: B More... Claudication [I73.9] INVALID FOR* Priority: D More... Dupuytren's contracture of right hand [M72.0] INVALID FOR*05/01/2017 MANNY (obstructive sleep apnea) [G47.33] INVALID FOR* Rhinitis [J31.0] INVALID FOR*05/01/2017 Cardiac pacemaker in situ [Z95.0] INVALID FOR* More... Atrial fibrillation [I48.91] INVALID FOR* Anxiety [F41.9] INVALID FOR* Personal history of colonic polyps [Z86.010] INVALID FOR*04/10/2014 Diverticulosis of colon (without mention of hem*INVALID FOR*04/10/2014 Gastroesophageal reflux disease without esophag*INVALID FOR* Type 2 diabetes mellitus without complication, *INVALID FOR* Chronic left shoulder pain [M25.512, G89.29] INVALID FOR* Screening for colon cancer [Z12.11] INVALID FOR* More... CAD (coronary artery disease) [I25.10] INVALID FOR* More... Other instructions from your clinician: Sprains of the Ankle, Knee and Wrist What is a sprain? A sprain occurs when a ligament (a band of tissue that connects two or more bones at a joint) is stretched and/or torn. During a sprain, one or more ligaments may be injured. The severity of the sprain depends on the number of ligaments injured and the extent of the injury (whether there is a partial or complete tear). What causes a sprain? A sprain is caused by either direct or indirect trauma that knocks the joint out of position and overstretches, sometimes rupturing the supporting ligaments. Examples of trauma include rolling of the ankle, a fall or a blow to the body. Where do sprains occur? Sprains occur in both the upper and lower parts of the body. However, the three most common sprain sites are the ankle, knee and wrist. ? Ankle sprain? typically occurs when the foot turns inward as a person runs, turns or lands on the ankle after a jump. ? Knee sprain? typically occurs after a blow to the knee or a fall. Sudden twisting of the knee may result in a sprain. ? Wrist sprain ?typically occurs when one falls and lands on an outstretched hand. Who is at risk for sprains? Both professional and amateur athletes? as well as the general public?can sustain this type of injury. However, those who have a history of sprains, are overweight and are in poor physical condition have increased risk. What are the signs and symptoms of sprains? Signs and symptoms may vary due to severity of injury. They may include: ? Pain ? Swelling ? Inflammation ? Bruising ? Instability ? Loss of the ability to move and use the joint When should I see a health care provider for a sprain? ? You have severe pain and cannot put weight on the injured joint. ? The injured area looks crooked, has lumps and bumps (other than swelling) that you do not see on the uninjured joint. ? You cannot move the injured joint. ? There is numbness in any part of the injured area. ? Redness or red streaks spread out from the injury. ? You injure an area that has been injured before. ? You have pain, swelling or redness over a bony part of your foot. ? You are in doubt about the seriousness of the injury and/or how to care for it. How are sprains treated? Health care providers advise patients to follow the rest, ice, compress and elevation (RICE) method for the first 24 to 48 hours after the injury. ? Rest?Reduce regular exercises and activities of daily living. Your health care provider may advise you to not put weight on the injured area for 48 hours. You may need to use crutches. ? Ice?Apply an ice pack to injured area for 20 minutes, four to eight times a day. You can use a cold pack, ice bag or plastic bag filled with ice wrapped in a towel. To avoid mendez bite and cold injury, do not apply the ice for longer than 20 minutes at a time. ? Compression?Compression of the injured area my help reduce swelling. Elastic wraps, specialized boots, air casts and splints may be used as compression bandages. Ask your health care provider which would be the most appropriate to use. Also ask how tightly to apply the bandage safely. ? Elevation?In order to help decrease swelling, keep the injured area elevated on a pillow above the level of your heart. How can I help prevent sprains? To help reduce the risk of sprains: ? Avoid exercising or playing sports when tired or in pain. ? Maintain a healthy weight and well- balanced diet to keep muscles strong. ? Wear shoes that fit properly. ? Practice safety measures to prevent falls. ? Do stretching exercises daily. ? Warm up and stretch before doing any physical activity. References ? National Reading of Arthritis and Musculoskeletal and Skin Diseases. Questions and Answers about Sprains and Strains Accessed 06/21/2013. ? [place] [employer]. Sprains and Strains: What's the Difference? Accessed 06/21/2013. ? Copyright 0046-8551 [facility]. All rights reserved. This information is provided by the [facility] and is not intended to replace the medical advice of your doctor or health care provider. Please consult your health care provider for advice about a specific medical condition. For additional health information, please contact the Center for [employer] Health Information at the [facility] or toll-free extension [phone]. If you prefer, you may visit [email or web address] or [email or web address]. This document was last reviewed on: 2013 index#99605 Encounter Status:Closed by JODY BARONE on 05/22/17 PROGRESS Observed: 05/15/2017 Status: COMPLETED Source: [place] 3:04 PM CLINIC OTHER CAMPUS REPOSITORY HNO ID: [id number] Author: Jorge Butler Service: (none) Author Type: Physician Type: Progress Notes Filed: 05/15/2017 3:53 PM Note Text: PERTINENT CARDIAC HISTORY Atrial fib - paroxysmal Chest pain - normal coronaries by cath HTN HL SSS - PPM Syncope versus atypical seizure MANNY - CPAP ADHERENCE TO GUIDELINES DWAIN-I or ARB for HF with prior LVEF<40 (NQF 0081) - N/A ASA or Plavix for ASHD (NQF 0067) - N/A Beta sae for ASHD with prior PR or prior LVEF<40 (NQF 0070) - N/A Beta sae for HF with prior LVEF<40 (NQF 0083) - N/A DWAIN-I or ARB for ASHD with DM or prior LVEF<40 (NQF 0066) - N/A Statin therapy for ASHD or FHL or DM - MET BMI documented and plan if >25 (NQ 0421) - lifestyle recommendation form Tobacco use screening and referral ([facility] 0028) - lifestyle recommendation form Recommendation for whole food, plant based diet - lifestyle recommendation form CLINICAL IMPRESSION/PLAN: Vineet Delaney has a stable chest pain pattern which has been intermittently nitrate responsive. He's had multiple stress tests which have shown no evidence of ischemia. It is unlikely that his chest pain was related to withdrawal of warfarin for several days. I cannot exclude the possibility that he had a small coronary thrombus, but his chest pain has been intermittently exacerbated in the face of therapeutic anticoagulation in the past. I've asked him to let me know if he is advised to interrupt his warfarin therapy in the future. He will continue his current medication. I will see him in 6 months or as needed. He'll be referred to [facility] for his clinic device check. Written and verbal health teaching given to patient, patient verbalizes understanding and agrees with treatment plan. DIAGNOSIS FOR VISIT: Atrial fibrillation Chest pain HISTORY OF PRESENT ILLNESS Vineet Delaney returns for follow-up of his atrial fibrillation and other cardiac issues. He had a recent hospitalization for increased chest pain. He underwent a stress test which showed no ischemia. He's had no further episodes and has taken no nitroglycerin since discharge. He was taken off warfarin for several days for recent colonoscopy. He wonders if this may have been the cause of his chest discomfort. Otherwise his exercise tolerance has been stable. He's had minimal edema. He denies syncope, TIAs, amaurosis. He's had rare palpitations. ALLERGIES: ALLERGIES Allergen Reactions - Metformin Other: See Comments Sweating - Black Pepper Hives - Dust Mites Hives - Mold Spores Shortness of Breath - Penicillins Hives - Aly Cheese [Other] Shortness of Breath CURRENT OUTPATIENT MEDICATIONS: warfarin (COUMADIN) 4 mg tablet Taking 2 mg on Thursday, 4 mg all other days or as directed metoprolol tartrate, short acting, (LOPRESSOR) 25 mg tablet Take half a pill twice a day flecainide (TAMBOCOR) 100 mg tablet Take 0.5 tablets by mouth twice daily. pravastatin (PRAVACHOL) 40 mg tablet Take 1 tablet by mouth daily at bedtime. venlafaxine XR (EFFEXOR XR) 150 mg 24 hr capsule Take 1 capsule by mouth once daily. nitroglycerin sublingual (NITROSTAT) 0.4 mg SL tablet dissolve 1 tablet under the tongue if needed for chest pain (IF NO RELIEF CALL 911) gabapentin (NEURONTIN) 300 mg capsule Take 1 capsule by mouth daily at bedtime for 180 days. albuterol HFA (VENTOLIN HFA) 90 mcg/actuation inhaler Inhale 2 Puffs as instructed every 4 hours as needed for Wheezing/Shortness of Breath. tamsulosin ER (FLOMAX) 0.4 mg cp24 Take 1 capsule by mouth daily at bedtime. blood sugar diagnostic (BLOOD GLUCOSE TEST) test strip Test blood sugar(s) 1 times daily. Dx: Type 2 DM - Controlled E11.9 Insulin: No sitaGLIPtin (JANUVIA) 100 mg tablet Take 1 tablet by mouth once daily. omeprazole (PRILOSEC) 20 mg capsule take 1 capsule by mouth once daily 1/2 HOUR BEFORE BREAKFAST Lancets lancets Test blood sugar(s) 1 times daily. Dx: Type 2 DM - Controlled E11.9 Insulin: No glimepiride (AMARYL) 2 mg tablet take 1 tablet by mouth once daily WITH BREAKFAST gemfibrozil (LOPID) 600 mg tablet Take 1 tablet by mouth twice daily. Blood-Glucose Meter monitoring kit Glucose Meter of Choice - Kit - Dx: Type 2 DM - Controlled E11.9. Check blood sugar once daily as needed. PHYSICAL EXAMINATION: VITAL SIGNS: BP 132/90 Pulse 86 Ht 5' 10 (1.78m) Wt 211 lb 8 oz (95.9kg) BMI 30.35 kg/(m2). Chest: Clear to percussion and auscultation. Trachea is midline. Air entry is equal. Cardiac: Regular rhythm. S1 and S2 are normal. PMI is nondisplaced. There is a soft systolic ejection murmur. Carotids are brisk without bruits. JVP is less than 10 cm. Abdomen: Soft and nontender. There are no pulsatile masses or bruits. No liver enlargement. Bowel sounds are active. Extremities: No edema. Pulses are intact and symmetrical. Device check shows that he is having intermittent atrial fibrillation. Recent labs were reviewed. There is no evidence of acute coronary syndrome. CBC is normal. Renal function is normal. EKG done at that time hospitalization shows no significant change. Nuclear stress test showed no ischemia. Electronically Signed: Jorge Butler MD May 15, 2017 3:04 PM CC: Marika High MD CNOV Observed: 05/15/2017 Status: COMPLETED Source: [place] 3:00 PM CLINIC OTHER CAMPUS REPOSITORY Office Visit (AGCARDWST) VINEET DELANEY ([id number]) 1950 M Date Time Provider Department 05/15/17 3:00 PM JORGE BUTLER AGCARDWST During your visit today, we recorded the following information about you: Pulse Blood pressure Weight Height 86/minute 132/90 95.9 kg 1.778 m Jorge Butler MD 05/15/2017 3:53 PM Signed PERTINENT CARDIAC HISTORY Atrial fib - paroxysmal Chest pain - normal coronaries by cath HTN HL SSS - PPM Syncope versus atypical seizure MANNY - CPAP ADHERENCE TO GUIDELINES DWAIN-I or ARB for HF with prior LVEFANDlt;40 (NQF 0081) - N/A ASA or Plavix for ASHD (NQF 0067) - N/A Beta sae for ASHD with prior PR or prior LVEFANDlt;40 (NQF 0070) - N/A Beta sae for HF with prior LVEFANDlt;40 (NQF 0083) - N/A DWAIN-I or ARB for ASHD with DM or prior LVEFANDlt;40 (NQF 0066) - N/A Statin therapy for ASHD or FHL or DM - MET BMI documented and plan if ANDgt;25 (NQF 0421) - lifestyle recommendation form Tobacco use screening and referral (NQF 0028) - lifestyle recommendation form Recommendation for whole food, plant based diet - lifestyle recommendation form CLINICAL IMPRESSION/PLAN: Vineet Delaney has a stable chest pain pattern which has been intermittently nitrate responsive. He's had multiple stress tests which have shown no evidence of ischemia. It is unlikely that his chest pain was related to withdrawal of warfarin for several days. I cannot exclude the possibility that he had a small coronary thrombus, but his chest pain has been intermittently exacerbated in the face of therapeutic anticoagulation in the past. I've asked him to let me know if he is advised to interrupt his warfarin therapy in the future. He will continue his current medication. I will see him in 6 months or as needed. He'll be referred to [facility] for his clinic device check. Written and verbal health teaching given to patient, patient verbalizes understanding and agrees with treatment plan. DIAGNOSIS FOR VISIT: Atrial fibrillation Chest pain HISTORY OF PRESENT ILLNESS Vineet Delaney returns for follow-up of his atrial fibrillation and other cardiac issues. He had a recent hospitalization for increased chest pain. He underwent a stress test which showed no ischemia. He's had no further episodes and has taken no nitroglycerin since discharge. He was taken off warfarin for several days for recent colonoscopy. He wonders if this may have been the cause of his chest discomfort. Otherwise his exercise tolerance has been stable. He's had minimal edema. He denies syncope, TIAs, amaurosis. He's had rare palpitations. ALLERGIES: ALLERGIES Allergen Reactions - Metformin Other: See Comments Sweating - Black Pepper Hives - Dust Mites Hives - Mold Spores Shortness of Breath - Penicillins Hives - Aly Cheese [Other] Shortness of Breath CURRENT OUTPATIENT MEDICATIONS: warfarin (COUMADIN) 4 mg tablet Taking 2 mg on Thursday, 4 mg all other days or as directed metoprolol tartrate, short acting, (LOPRESSOR) 25 mg tablet Take half a pill twice a day flecainide (TAMBOCOR) 100 mg tablet Take 0.5 tablets by mouth twice daily. pravastatin (PRAVACHOL) 40 mg tablet Take 1 tablet by mouth daily at bedtime. venlafaxine XR (EFFEXOR XR) 150 mg 24 hr capsule Take 1 capsule by mouth once daily. nitroglycerin sublingual (NITROSTAT) 0.4 mg SL tablet dissolve 1 tablet under the tongue if needed for chest pain (IF NO RELIEF CALL 911) gabapentin (NEURONTIN) 300 mg capsule Take 1 capsule by mouth daily at bedtime for 180 days. albuterol HFA (VENTOLIN HFA) 90 mcg/actuation inhaler Inhale 2 Puffs as instructed every 4 hours as needed for Wheezing/Shortness of Breath. tamsulosin ER (FLOMAX) 0.4 mg cp24 Take 1 capsule by mouth daily at bedtime. blood sugar diagnostic (BLOOD GLUCOSE TEST) test strip Test blood sugar(s) 1 times daily. Dx: Type 2 DM - Controlled E11.9 Insulin: No sitaGLIPtin (JANUVIA) 100 mg tablet Take 1 tablet by mouth once daily. omeprazole (PRILOSEC) 20 mg capsule take 1 capsule by mouth once daily 1/2 HOUR BEFORE BREAKFAST Lancets lancets Test blood sugar(s) 1 times daily. Dx: Type 2 DM - Controlled E11.9 Insulin: No glimepiride (AMARYL) 2 mg tablet take 1 tablet by mouth once daily WITH BREAKFAST gemfibrozil (LOPID) 600 mg tablet Take 1 tablet by mouth twice daily. Blood-Glucose Meter monitoring kit Glucose Meter of Choice - Kit - Dx: Type 2 DM - Controlled E11.9. Check blood sugar once daily as needed. PHYSICAL EXAMINATION: VITAL SIGNS: BP 132/90 Pulse 86 Ht 5' 10ANDquot; (1.78m) Wt 211 lb 8 oz (95.9kg) BMI 30.35 kg/(m2). Chest: Clear to percussion and auscultation. Trachea is midline. Air entry is equal. Cardiac: Regular rhythm. S1 and S2 are normal. PMI is nondisplaced. There is a soft systolic ejection murmur. Carotids are brisk without bruits. JVP is less than 10 cm. Abdomen: Soft and nontender. There are no pulsatile masses or bruits. No liver enlargement. Bowel sounds are active. Extremities: No edema. Pulses are intact and symmetrical. Device check shows that he is having intermittent atrial fibrillation. Recent labs were reviewed. There is no evidence of acute coronary syndrome. CBC is normal. Renal function is normal. EKG done at that time hospitalization shows no significant change. Nuclear stress test showed no ischemia. Electronically Signed: Jorge Butler MD May 15, 2017 3:04 PM CC: MD Jorge Trotter MD 05/15/2017 3:05 PM Signed LIFESTYLE CHANGE A healthy lifestyle is the most important component of your overall treatment plan. Please give serious thought to the following areas and commit to making retirement changes. EAT A WHOLE FOOD, PLANT BASED DIET The nutrition your body gets is more important than the medicine you take. What matters most is the overall way you eat. We encourage you to minimize the use of animal products (which include dairy and all meats except fatty fish) and use whole, unprocessed plant foods to provide your protein, vitamins and other nutrients. We have a lot of information to share with you on this topic. We also hold Shared Medical Appointments, where you can come visit with Dr. Butler in the company of other patients and spend over an hour talking about the challenges of changing the way you eat. This is not a ANDquot;dietANDquot;. It is a way of life that you will keep with you. EXERCISE REGULARLY It is not important to spend hours in the gym, lifting weights and perspiring heavily. A total of 2-3 hours per week of aerobic (causing you to be moderately short of breath) exercise is sufficient to improve your health. Talk to us before you begin a new exercise program, if you have heart disease or experience shortness of breath or chest pain. REDUCE STRESS Chronic emotional and physical stress leads to disease. Ways of reducing stress include meditation, visualization, prayer, yoga and other forms of relaxation therapy. Consistency is the dwyer. Find a technique that works for you and do it every day. CULTIVATE RELATIONSHIPS Loneliness and isolation have a major negative impact on health. Seek out others who can love, care for and nurture you. Avoid hurtful relationships. MAINTAIN IDEAL BODY WEIGHT The best way to do this is to do all the things above. Our bodies naturally find the right weight if we keep moving and feed ourselves the right food. If your BMI is greater than 25, we strongly recommend a referral to a weight management program. Please speak to us or your family physician about available programs. AVOID NICOTINE IN ALL FORMS This includes all tobacco products, whether chewed, smoked, vaped, or rubbed on the skin. Smoking cessation programs, which can make use of tobacco substitutes, medications to suppress cravings and behavior management, are available. Please contact your family physician about programs in your area. Referring Provider: JORGE BUTLER [[id number]] Allergies As of Date: 05/15/2017 Noted Allergy Reaction METFORMIN 12/25/2015 14 - Other: See Comments Comments: Sweating BLACK PEPPER 11/17/2005 4 - Hives DUST MITES 11/17/2005 4 - Hives MOLD SPORES 11/17/2005 12 - Shortness of Breath PENICILLINS 11/17/2005 4 - Hives aly cheese [Other] 11/17/2005 12 - Shortness of Breath Date Reviewed: 05/15/2017 Reviewed by: Jagdish (Rn) IGOR Faye - Fully Assessed Reason for Visit: Follow Up [171] Cmt: ED Visit Diagnosis:Persistent atrial fibrillation (HCC) [I48.1] Order(s):metoprolol tartrate, short acting, (LOPRESSOR) 25 mg tabletTake 1 tablet by mouth twice daily.Disp: Rfl: CONSULT TO DEVICE CLINIC () [[id number]] Order #: [id number]: 1 flecainide (TAMBOCOR) 50 mg tabletTake 1 tablet by mouth twice daily.Disp: 180 tabletRfl: 3 Prescriptions as of 05/15/2017 Sig: METOPROLOL TARTRATE 25 MG TAB* Take 1 tablet by mouth twice * FLECAINIDE 50 MG TABLET Take 1 tablet by mouth twice * WARFARIN 4 MG TABLET Taking 2 mg on Thursday, 4 mg a* PRAVASTATIN 40 MG TABLET Take 1 tablet by mouth daily * VENLAFAXINE ER 150 MG CAPSULE* Take 1 capsule by mouth once * NITROGLYCERIN 0.4 MG SUBLINGU* dissolve 1 tablet under the t* GABAPENTIN 300 MG CAPSULE Take 1 capsule by mouth daily* ALBUTEROL SULFATE HFA 90 MCG/* Inhale 2 Puffs as instructed * TAMSULOSIN 0.4 MG CAPSULE Take 1 capsule by mouth daily* BLOOD SUGAR DIAGNOSTIC STRIPS Test blood sugar(s) 1 times d* SITAGLIPTIN 100 MG TABLET Take 1 tablet by mouth once d* OMEPRAZOLE 20 MG CAPSULE,YANNA* take 1 capsule by mouth once * LANCETS Test blood sugar(s) 1 times d* GLIMEPIRIDE 2 MG TABLET take 1 tablet by mouth once d* GEMFIBROZIL 600 MG TABLET Take 1 tablet by mouth twice * BLOOD-GLUCOSE METER KIT Glucose Meter of Choice - Kit* Problem List As Of Date 05/15/2017 Noted Resolved Inguinal hernia without mention of obstruction *INVALID FOR*03/27/2016 First degree AV block [I44.0] INVALID FOR* Priority: D More... More... History of PR (myocardial infarction) [I25.2] INVALID FOR* Tobacco use disorder [F17.200] INVALID FOR*03/27/2016 Priority: E More... SUMMARY [V999.95] INVALID FOR*05/01/2017 Priority: A More... Chest pain [R07.9] INVALID FOR* Priority: B More... Claudication [I73.9] INVALID FOR* Priority: D More... Dupuytren's contracture of right hand [M72.0] INVALID FOR*05/01/2017 MANNY (obstructive sleep apnea) [G47.33] INVALID FOR* Rhinitis [J31.0] INVALID FOR*05/01/2017 Cardiac pacemaker in situ [Z95.0] INVALID FOR* More... Atrial fibrillation [I48.91] INVALID FOR* Anxiety [F41.9] INVALID FOR* Personal history of colonic polyps [Z86.010] INVALID FOR*04/10/2014 Diverticulosis of colon (without mention of hem*INVALID FOR*04/10/2014 Gastroesophageal reflux disease without esophag*INVALID FOR* Type 2 diabetes mellitus without complication, *INVALID FOR* Chronic left shoulder pain [M25.512, G89.29] INVALID FOR* Screening for colon cancer [Z12.11] INVALID FOR* More... CAD (coronary artery disease) [I25.10] INVALID FOR* More... Other instructions from your clinician: LIFESTYLE CHANGE A healthy lifestyle is the most important component of your overall treatment plan. 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 EAT A WHOLE FOOD, PLANT BASED DIET The nutrition your body gets is more important than the medicine you take. What matters most is the overall way you eat. We encourage you to minimize the use of animal products (which include dairy and all meats except fatty fish) and use whole, unprocessed plant foods to provide your protein, vitamins and other nutrients. We have a lot of information to share with you on this topic. We also hold Shared Medical Appointments, where you can come visit with Dr. Butler in the company of other patients and spend over an hour talking about the challenges of changing the way you eat. This is not a diet. It is a way of life that you will keep with you. EXERCISE REGULARLY It is not important to spend hours in the gym, lifting weights and perspiring heavily. A total of 2-3 hours per week of aerobic (causing you to be moderately short of breath) exercise is sufficient to improve your health. Talk to us before you begin a new exercise program, if you have heart disease or experience shortness of breath or chest pain. REDUCE STRESS Chronic emotional and physical stress leads to disease. Ways of reducing stress include meditation, visualization, prayer, yoga and other forms of relaxation therapy. Consistency is the dwyer. Find a technique that works for you and do it every day. CULTIVATE RELATIONSHIPS Loneliness and isolation have a major negative impact on health. Seek out others who can love, care for and nurture you. Avoid hurtful relationships. MAINTAIN IDEAL BODY WEIGHT The best way to do this is to do all the things above. Our bodies naturally find the right weight if we keep moving and feed ourselves the right food. If your BMI is greater than 25, we strongly recommend a referral to a weight management program. Please speak to us or your family physician about available programs. AVOID NICOTINE IN ALL FORMS This includes all tobacco products, whether chewed, smoked, vaped, or rubbed on the skin. Smoking cessation programs, which can make use of tobacco substitutes, medications to suppress cravings and behavior management, are available. Please contact your family physician about programs in your area. Prescriptions ordered this encounter Disp Refills Start End METOPROLOL TARTRATE 25 MG TABLET 05/15/2017 Class: Med Update Route: ORAL Sig: Take 1 tablet by mouth twice daily. FLECAINIDE 50 MG TABLET 180 * 3 05/15/2017 Route: ORAL Sig: Take 1 tablet by mouth twice daily. Medications Discontinued During This Encounter metoprolol tartrate, short acting, (* 01/15/2017 05/15/2017 Class: Med Update Sig: Take half a pill twice a day Disc: Reason for discontinue is not on file. flecainide (TAMBOCOR) 100 mg tablet 90 t* 3 01/07/2017 05/15/2017 Class: [facility] Route: ORAL Sig: Take 0.5 tablets by mouth twice daily. Disc: Reason for discontinue is not on file. Follow-up and Disposition History Recorded Classic SmartForms filed during this visit: Extended Vitals Encounter Status:Closed by JORGE BUTLER MD on 05/15/17 PROGRESS Observed: 05/14/2017 Status: COMPLETED Source: [place] 10:17 AM [facility] [place] REPOSITORY HNO ID: [id number] Author: Marika High Service: (none) Author Type: Physician Type: Progress Notes Filed: 05/14/2017 11:10 AM Note Text: I agree with the advice given; stay same and recheck in 4 weeks Marika High MD PROGRESS Observed: 05/14/2017 Status: COMPLETED Source: [place] 9:22 AM [facility] REPOSITORY O ID: [id number] Author: Ronna Carrizales RN Service: (none) Author Type: (none) Type: Progress Notes Filed: 05/14/2017 9:22 AM Note Text: Patient had INR completed at [facility] Patient's INR is 2.6 Patient is currently taking 4mg daily Patient's last dose change was 04/01/17 due to low INR at 1.6 Patient has had no medication and no change in diet. Advised patient to continue on same dose and they would only be contacted with different instructions after provider review. Written instructions were given to patient and patient verbalized understanding. Presently, patient has been scheduled for 06/11/17 for INR follow up. 12 LEAD ELECTROCARDIOGRAM Observed: 05/08/2017 Status: F Source: [place] 3:08 PM [facility] REPOSITORY [facility] Cardiovascular Services [address] [place] [id number] 12 Lead EKG 05/06/17 0519 MR#: [id number] Acct: [id number] Name: VINEET DELANEY . Rep #: [id number] : 1950 66 From: Meng Light MD Attending Dr: Denise Dillon MD Status: DIS TARIK Ordering Dr: Denise Dillon MD Date: 05/06/17 Location: [facility] Sex: M C Admitted: 05/05/17 Test Reason : MORNING EKG Blood Pressure : / mmHG Vent. Rate : 067 BPM Atrial Rate : 067 BPM P-R Int : 264 ms QRS Dur : 094 ms QT Int : 426 ms P-R-T Axes : 053 -26 042 degrees QTc Int : 450 ms Sinus rhythm with 1st degree A-V block Inferior infarct , age undetermined Abnormal ECG When compared with ECG of 05-MAY-2017 14:06, MANUAL COMPARISON REQUIRED, DATA IS UNCONFIRMED Confirmed by NADEGE BUCKMENG ([id number]), manager editorial EVGENY ALEX ([id number]) on 05/08/2017 3:08:35 PM Referred By: GARRICK Confirmed By:MENG LIGHT MD 05/08/17 1508 Date Meng Light MD CC: Denise Dillon MD; Marika High MD Signed 12 LEAD ELECTROCARDIOGRAM Observed: 05/08/2017 Status: F Source: [place] 2:50 PM [facility] REPOSITORY [facility] Cardiovascular Services [address] [place] [address] 12 Lead EKG 05/05/17 1406 MR#: [id number] Acct: [id number] Name: VINEET DELANEY Sr. Rep #: [id number] : 1950 66 From: Meng Light MD Attending Dr: Denise Dillon MD Status: DIS TARIK Ordering Dr: Denise Dillon MD Date: 05/05/17 Location: [facility] Sex: M C Admitted: 05/05/17 Test Reason : ARM PAIN Blood Pressure : / mmHG Vent. Rate : 069 BPM Atrial Rate : 069 BPM P-R Int : 252 ms QRS Dur : 090 ms QT Int : 394 ms P-R-T Axes : 052 -22 032 degrees QTc Int : 422 ms Sinus rhythm with 1st degree A-V block Low voltage QRS Inferior infarct , age undetermined Abnormal ECG When compared with ECG of 05-MAY-2017 10:28, MANUAL COMPARISON REQUIRED, DATA IS UNCONFIRMED Confirmed by MENG LIGHT MD ([id number]), manager editorial EVGENY ALEX ([id number]) on 05/08/2017 2:50:23 PM Referred By: GARRICK Confirmed By:MENG LIGHT MD 05/08/17 1450 Date Meng Light MD CC: Denise Dillon MD; Marika High MD Signed CNOV Observed: 05/08/2017 Status: COMPLETED Source: [place] 2:20 PM [facility] REPOSITORY Office Visit (FAMPWS) VINEET DELANEY ([id number]) 1950 M Date Time Provider Department 05/08/17 2:20 PM CONCHITA KRAUSE) FAMPWS During your visit today, we recorded the following information about you: Pulse Respiration Blood pressure Weight 72/minute 14/minute 122/84 94.3 kg ALLIE GALAVIZ 05/08/2017 3:08 PM Signed Chief Complaint Patient presents with: Hospital F/U [facility] Vineet Delaney is a 66 year old male who presents here today for Hospital follow up. Patient with hx of A fib, CAD, s/p pacemaker who developed chest pain overnight and went to ER. He has had chest pain off and on and sees cardiology. Takes nitro when needed. This happened the night after c-scope. Since d/c he has not had any chest pain. Has INR check scheduled for 05/14 C/o of foot pain b/l. Sometimes has parethesias. Last hgba1c 6.6. No other concerns today. Past medical history, appointments, medications, allergies reviewed. Previous Medical History PAST MEDICAL HISTORY Diagnosis Date - Allergic rhinitis, cause unspecified Allergic rhinitis - Arrhythmia - Benign neoplasm of colon - CAD (coronary artery disease) 2000 Myocardial Infarction ' - Dupuytren contracture - Mental disorder - Myocardial infarct, old - Rash and other nonspecific skin eruption Nonspec Skin Erup Nec - Seizures (HCC) - TIA (transient ischemic attack) 2004 - Type 2 diabetes mellitus without complication, without long- term current use of insulin (HCC) 12/25/2015 Previous Surgical History PAST SURGICAL HISTORY Procedure Laterality Date - COLONOSCOP W/ OR W/O BRSH SPEC 04/17/2011 Colonoscopy - COLONOSCOP W/ OR W/O BRSH SPEC 04/10/2014 Colonoscopy - COLONOSCOP W/ OR W/O BRSH SPEC 05/04/2017 Colonoscopy - EGD W/O OR W/BRUSH/WASH 02/24/05 EGD - H. Pylori gastritis - EGD W/O OR W/BRUSH/WASH 04/17/2011 EGD - HEART SURGERY HX 09/2012 pacemaker - PAST SURGICAL HISTORY OF 3 heart caths - normal - PAST SURGICAL HISTORY OF 2008 right knee meniscus repair - PAST SURGICAL HISTORY OF 2006 left hand - REPAIR ING HERNIA,5+Y/O,REDUCIBL 2005 Hernia repair, inguinal Family History FAMILY HISTORY Problem Relation Age of Onset - Cancer Mother skin - Diabetes Mother - Diabetes Maternal Grandfather - Cancer Brother - Diabetes Brother - Diabetes Maternal Uncle - Diabetes Maternal Uncle - Heart Sister - Heart Brother Patient Allergies ALLERGIES Allergen Reactions - Metformin Other: See Comments Sweating - Black Pepper Hives - Dust Mites Hives - Mold Spores Shortness of Breath - Penicillins Hives - Aly Cheese [Other] Shortness of Breath Current Medications Current Outpatient Prescriptions on File Prior to Visit: tamsulosin ER (FLOMAX) 0.4 mg cp24 Take 1 capsule by mouth daily at bedtime. warfarin (COUMADIN) 4 mg tablet Taking 2 mg on Thursday, 4 mg all other days or as directed metoprolol tartrate, short acting, (LOPRESSOR) 25 mg tablet Take half a pill twice a day flecainide (TAMBOCOR) 100 mg tablet Take 0.5 tablets by mouth twice daily. blood sugar diagnostic (BLOOD GLUCOSE TEST) test strip Test blood sugar(s) 1 times daily. Dx: Type 2 DM - Controlled E11.9 Insulin: No sitaGLIPtin (JANUVIA) 100 mg tablet Take 1 tablet by mouth once daily. omeprazole (PRILOSEC) 20 mg capsule take 1 capsule by mouth once daily 1/2 HOUR BEFORE BREAKFAST pravastatin (PRAVACHOL) 40 mg tablet Take 1 tablet by mouth daily at bedtime. venlafaxine XR (EFFEXOR XR) 150 mg 24 hr capsule Take 1 capsule by mouth once daily. Lancets lancets Test blood sugar(s) 1 times daily. Dx: Type 2 DM - Controlled E11.9 Insulin: No albuterol (PROVENTIL) 2.5 mg /3 mL (0.083 %) nebulizer solution Use 3 mL via nebulizer every 4 hours as needed for Wheezing/Shortness of Breath. Use over 5-15minutes. glimepiride (AMARYL) 2 mg tablet take 1 tablet by mouth once daily WITH BREAKFAST nitroglycerin sublingual (NITROSTAT) 0.4 mg SL tablet dissolve 1 tablet under the tongue if needed for chest pain (IF NO RELIEF CALL 911) gemfibrozil (LOPID) 600 mg tablet Take 1 tablet by mouth twice daily. Blood-Glucose Meter monitoring kit Glucose Meter of Choice - Kit - Dx: Type 2 DM - Controlled E11.9. Check blood sugar once daily as needed. benzonatate (TESSALON PERLE) 100 mg capsule Take 1 capsule by mouth three times daily as needed. No current facility-administered medications on file prior to visit. Social History Social History Marital status: Spouse name: Awilda Years of education: Number of children: 4 Occupational History Occupation Employer Comment Retired [employer]* short distance Social History Main Topics Smoking status: Former Smoker Packs/day: 0.80 Years: 45.00 Types: Cigarettes Quit date: 06/16/2012 Smokeless status: Never Used Alcohol use: No Drug use: No Sexual activity: Yes Partners with: Female control/protection: Surgical Comment: -bps Review of Symptoms REVIEW OF SYSTEMS GENERAL: No weight loss, malaise or fevers RESPIRATORY: Negative for worsening cough, wheezing, COPD, dyspnea or shortness of breath CARDIOVASCULAR: See HPI Negative for worsening chest pain, leg swelling, CHF or palpitations NEURO: SEE HPI EXAM: BP 122/84 Pulse 72 Resp 14 Wt 94.3 kg (208 lb) BMI 29.84 kg/m2 General Appearance: Well appearing, alert, in no acute distress, well-hydrated, well nourished.. Lungs: Lungs clear to auscultation. No wheezing, rhonchi, rales. Heart: RRR without murmur, gallop, or rubs. No ectopy. Extremities: No deformities, edema, skin discoloration, clubbing or cyanosis. Good capillary refill. . Peripheral Pulses: Normal. Neurologic: Gait normal. Reflexes normal and symmetric. Sensation grossly intact.. Feet:Shoes and socks removed, calluses noted, normal distal pulses, sensitive to 10 gm monofilament and vibratory perception normal . Health Maintenance List DIABETIC FOOT EXAM due on 07/02/2017 HBA1C due on 10/06/2017 LDL due on 12/23/2017 DILATED RETINAL EXAM due on 01/20/2018 PNEUMOVAX AGE 65 AND OVER WITH 5YR LOOKBACK(1) due on 04/02/2018 URINE ALBUMIN CREATININE RATIO due on 04/09/2018 COLORECTAL CANCER SCREENING,SEE MODIFIER due on 05/04/2020 TETANUS due on 03/11/2022 PROSTATE CANCER SCREENING DISCUSSION Completed ADULT PREVNAR-13 Completed INFLUENZA Completed HEPATITIS C SCREENING Completed ASSESSMENT/PLAN: 1. Other chest pain - ICD9: 786.59, ICD10: R07.89 (primary diagnosis) Schedule with Cardiology - CONSULT TO CARDIOLOGY 2. History of PR (myocardial infarction) - ICD9: 412, ICD10: I25.2 Stable 3. Paroxysmal atrial fibrillation (HCC) - ICD9: 427.31, ICD10: I48.0 S/p pacemaker 4. Coronary artery disease involving jackson heart, angina presence unspecified, unspecified vessel or lesion type - ICD9: 414.01, ICD10: I25.10 Schedule with Cardio for eval 5. Type 2 diabetes mellitus without complication, without long-term current use of insulin (HCC) - ICD9: 250.00, ICD10: E11.9 Controlled. - Continue current medications 6. Foot pain, bilateral - ICD9: 729.5, ICD10: M79.671, M79.672 ? Neuropathic pain. Start gabapentin to see if symptoms improve. Follow up as needed 7. SOB (shortness of breath) - ICD9: 786.05, ICD10: R06.02 Consider repeat PFT Albuterol rescue inhaler given for as needed use. Keep follow ups as scheduled.. ALLIE GALAVIZ Referring Provider: SELF [[id number]] Allergies As of Date: 05/08/2017 Noted Allergy Reaction METFORMIN 12/25/2015 14 - Other: See Comments Comments: Sweating BLACK PEPPER 11/17/2005 4 - Hives DUST MITES 11/17/2005 4 - Hives MOLD SPORES 11/17/2005 12 - Shortness of Breath PENICILLINS 11/17/2005 4 - Hives aly cheese [Other] 11/17/2005 12 - Shortness of Breath Date Reviewed: 05/08/2017 Reviewed by: Conchita (Allie) Rodrigue - Fully Assessed Reason for Visit: Hospital F/U [57] Primary Visit Diagnosis:Other chest pain [R07.89] Other Visit Diagnoses:History of PR (myocardial infarction) [I25.2] Paroxysmal atrial fibrillation (HCC) [I48.0] Coronary artery disease involving jackson heart, angina presence unspecified, unspecified vessel or lesion type [I25.10] Type 2 diabetes mellitus without complication, without long-term current use of insulin (HCC) [E11.9] Foot pain, bilateral [M79.671, M79.672] SOB (shortness of breath) [R06.02] Order(s):CONSULT TO CARDIOLOGY [8574] Order #: [id number]: 1 gabapentin (NEURONTIN) 300 mg capsuleTake 1 capsule by mouth daily at bedtime for 180 days.Disp: 30 capsuleRfl: 3 albuterol HFA (VENTOLIN HFA) 90 mcg/actuation inhalerInhale 2 Puffs as instructed every 4 hours as needed for Wheezing/Shortness of Breath.Disp: 1 InhalerRfl: 0 Prescriptions as of 05/08/2017 Sig: TAMSULOSIN 0.4 MG CAPSULE Take 1 capsule by mouth daily* WARFARIN 4 MG TABLET Taking 2 mg on Thursday, 4 mg a* METOPROLOL TARTRATE 25 MG TAB* Take half a pill twice a day FLECAINIDE 100 MG TABLET Take 0.5 tablets by mouth twi* BLOOD SUGAR DIAGNOSTIC STRIPS Test blood sugar(s) 1 times d* SITAGLIPTIN 100 MG TABLET Take 1 tablet by mouth once d* OMEPRAZOLE 20 MG CAPSULE,YANNA* take 1 capsule by mouth once * PRAVASTATIN 40 MG TABLET Take 1 tablet by mouth daily * VENLAFAXINE ER 150 MG CAPSULE* Take 1 capsule by mouth once * LANCETS Test blood sugar(s) 1 times d* GLIMEPIRIDE 2 MG TABLET take 1 tablet by mouth once d* NITROGLYCERIN 0.4 MG SUBLINGU* dissolve 1 tablet under the t* GEMFIBROZIL 600 MG TABLET Take 1 tablet by mouth twice * BLOOD-GLUCOSE METER KIT Glucose Meter of Choice - Kit* GABAPENTIN 300 MG CAPSULE Take 1 capsule by mouth daily* ALBUTEROL SULFATE HFA 90 MCG/* Inhale 2 Puffs as instructed * Problem List As Of Date 05/08/2017 Noted Resolved Inguinal hernia without mention of obstruction *INVALID FOR*03/27/2016 First degree AV block [I44.0] INVALID FOR* Priority: D More... More... History of PR (myocardial infarction) [I25.2] INVALID FOR* Tobacco use disorder [F17.200] INVALID FOR*03/27/2016 Priority: E More... SUMMARY [V999.95] INVALID FOR*05/01/2017 Priority: A More... Chest pain [R07.9] INVALID FOR* Priority: B More... Claudication [I73.9] INVALID FOR* Priority: D More... Dupuytren's contracture of right hand [M72.0] INVALID FOR*05/01/2017 MANNY (obstructive sleep apnea) [G47.33] INVALID FOR* Rhinitis [J31.0] INVALID FOR*05/01/2017 Cardiac pacemaker in situ [Z95.0] INVALID FOR* More... Atrial fibrillation [I48.91] INVALID FOR* Anxiety [F41.9] INVALID FOR* Personal history of colonic polyps [Z86.010] INVALID FOR*04/10/2014 Diverticulosis of colon (without mention of hem*INVALID FOR*04/10/2014 Gastroesophageal reflux disease without esophag*INVALID FOR* Type 2 diabetes mellitus without complication, *INVALID FOR* Chronic left shoulder pain [M25.512, G89.29] INVALID FOR* Screening for colon cancer [Z12.11] INVALID FOR* More... CAD (coronary artery disease) [I25.10] INVALID FOR* More... Prescriptions ordered this encounter Disp Refills Start End GABAPENTIN 300 MG CAPSULE 30 c* 3 05/08/2017 11/04/2017 Route: ORAL Sig: Take 1 capsule by mouth daily at bedtime for 180 days. ALBUTEROL SULFATE HFA 90 MCG/ACTUATI* 1 In* 0 05/08/2017 Route: INHALATION Sig: Inhale 2 Puffs as instructed every 4 hours as needed for Wheezing/Shortness of Breath. Medications Discontinued During This Encounter albuterol (PROVENTIL) 2.5 mg /3 mL (* 1 Pa* 0 12/13/2016 05/08/2017 Route: NEBULIZATION -UNSPEC Sig: Use 3 mL via nebulizer every 4 hours as needed for Wheezing/Shortness of Breath. Use over 5-15minutes. Disc: Reason for discontinue is not on file. benzonatate (TESSALON PERLE) 100 mg * 30 c* 0 12/13/2016 05/08/2017 Route: ORAL Sig: Take 1 capsule by mouth three times daily as needed. Disc: Reason for discontinue is not on file. Disposition: Return if symptoms worsen or fail to improve and for routine visits.. Follow-up and Disposition History Recorded Encounter Status:Closed by CONCHITA KRAUSE on 05/08/17 PROGRESS Observed: 05/08/2017 Status: COMPLETED Source: [place] 2:16 PM [facility] [place] REPOSITORY HNO ID: [id number] Author: Conchita (Allie) Rodrigue Service: (none) Author Type: Physician Valve Liner Rubber Type: Progress Notes Filed: 05/08/2017 3:08 PM Note Text: Chief Complaint Patient presents with: Hospital F/U HPI Vineet Delaney is a 66 year old male who presents here today for Hospital follow up. Patient with hx of A fib, CAD, s/p pacemaker who developed chest pain overnight and went to ER. He has had chest pain off and on and sees cardiology. Takes nitro when needed. This happened the night after c-scope. Since d/c he has not had any chest pain. Has INR check scheduled for 05/14 C/o of foot pain b/l. Sometimes has parethesias. Last hgba1c 6.6. No other concerns today. Past medical history, appointments, medications, allergies reviewed. Previous Medical History PAST MEDICAL HISTORY Diagnosis Date - Allergic rhinitis, cause unspecified Allergic rhinitis - Arrhythmia - Benign neoplasm of colon - CAD (coronary artery disease) 2000 Myocardial Infarction ' - Dupuytren contracture - Mental disorder - Myocardial infarct, old - Rash and other nonspecific skin eruption [facility] [place] [facility] - Seizures (HCC) - TIA (transient ischemic attack) 2004 - Type 2 diabetes mellitus without complication, without long- term current use of insulin ([facility]) 12/25/2015 Previous Surgical History PAST SURGICAL HISTORY Procedure Laterality Date - COLONOSCOP W/ OR W/O BRSH SPEC 04/17/2011 Colonoscopy - COLONOSCOP W/ OR W/O BRS SPEC 04/10/2014 Colonoscopy - COLONOSCOP W/ OR W/O BRS SPEC 05/04/2017 Colonoscopy - EGD W/O OR W/BRUSH/WASH 02/24/05 EGD - H. Pylori gastritis - EGD W/O OR W/BRUSH/WASH 04/17/2011 EGD - HEART SURGERY HX 09/2012 pacemaker - PAST SURGICAL HISTORY OF 3 heart caths - normal - PAST SURGICAL HISTORY OF 2008 right knee meniscus repair - PAST SURGICAL HISTORY OF 2006 left hand - REPAIR ING HERNIA,5+Y/O,REDUCIBL 2006 Hernia repair, inguinal Family History FAMILY HISTORY Problem Relation Age of Onset - Cancer Mother skin - Diabetes Mother - Diabetes Maternal Grandfather - Cancer Brother - Diabetes Brother - Diabetes Maternal Uncle - Diabetes Maternal Uncle - Heart Sister - Heart Brother Patient Allergies ALLERGIES Allergen Reactions - Metformin Other: See Comments Sweating - Black Pepper Hives - Dust Mites Hives - Mold Spores Shortness of Breath - Penicillins Hives - Aly Cheese [Other] Shortness of Breath Current Medications Current Outpatient Prescriptions on File Prior to Visit: tamsulosin ER (FLOMAX) 0.4 mg cp24 Take 1 capsule by mouth daily at bedtime. warfarin (COUMADIN) 4 mg tablet Taking 2 mg on Thursday, 4 mg all other days or as directed metoprolol tartrate, short acting, (LOPRESSOR) 25 mg tablet Take half a pill twice a day flecainide (TAMBOCOR) 100 mg tablet Take 0.5 tablets by mouth twice daily. blood sugar diagnostic (BLOOD GLUCOSE TEST) test strip Test blood sugar(s) 1 times daily. Dx: Type 2 DM - Controlled E11.9 Insulin: No sitaGLIPtin (JANUVIA) 100 mg tablet Take 1 tablet by mouth once daily. omeprazole (PRILOSEC) 20 mg capsule take 1 capsule by mouth once daily 1/2 HOUR BEFORE BREAKFAST pravastatin (PRAVACHOL) 40 mg tablet Take 1 tablet by mouth daily at bedtime. venlafaxine XR (EFFEXOR XR) 150 mg 24 hr capsule Take 1 capsule by mouth once daily. Lancets lancets Test blood sugar(s) 1 times daily. Dx: Type 2 DM - Controlled E11.9 Insulin: No albuterol (PROVENTIL) 2.5 mg /3 mL (0.083 %) nebulizer solution Use 3 mL via nebulizer every 4 hours as needed for Wheezing/Shortness of Breath. Use over 5-15minutes. glimepiride (AMARYL) 2 mg tablet take 1 tablet by mouth once daily WITH BREAKFAST nitroglycerin sublingual (NITROSTAT) 0.4 mg SL tablet dissolve 1 tablet under the tongue if needed for chest pain (IF NO RELIEF CALL 911) gemfibrozil (LOPID) 600 mg tablet Take 1 tablet by mouth twice daily. Blood-Glucose Meter monitoring kit Glucose Meter of Choice - Kit - Dx: Type 2 DM - Controlled E11.9. Check blood sugar once daily as needed. benzonatate (TESSALON PERLE) 100 mg capsule Take 1 capsule by mouth three times daily as needed. No current facility-administered medications on file prior to visit. Social History Social History Marital status: Spouse name: Awilda Years of education: Number of children: 4 Occupational History Occupation Employer Comment Retired [employer]* short distance Social History Main Topics Smoking status: Former Smoker Packs/day: 0.80 Years: 45.00 Types: Cigarettes Quit date: 06/16/2012 Smokeless status: Never Used Alcohol use: No Drug use: No Sexual activity: Yes Partners with: Female control/protection: Surgical Comment: -bps Review of Symptoms REVIEW OF SYSTEMS GENERAL: No weight loss, malaise or fevers RESPIRATORY: Negative for worsening cough, wheezing, COPD, dyspnea or shortness of breath CARDIOVASCULAR: See HPI Negative for worsening chest pain, leg swelling, CHF or palpitations NEURO: SEE HPI EXAM: BP 122/84 Pulse 72 Resp 14 Wt 94.3 kg (208 lb) BMI 29.84 kg/m2 General Appearance: Well appearing, alert, in no acute distress, well-hydrated, well nourished.. Lungs: Lungs clear to auscultation. No wheezing, rhonchi, rales. Heart: RRR without murmur, gallop, or rubs. No ectopy. Extremities: No deformities, edema, skin discoloration, clubbing or cyanosis. Good capillary refill. . Peripheral Pulses: Normal. Neurologic: Gait normal. Reflexes normal and symmetric. Sensation grossly intact.. Feet:Shoes and socks removed, calluses noted, normal distal pulses, sensitive to 10 gm monofilament and vibratory perception normal . Health Maintenance List DIABETIC FOOT EXAM due on 07/02/2017 HBA1C due on 10/06/2017 LDL due on 12/23/2017 DILATED RETINAL EXAM due on 01/20/2018 PNEUMOVAX AGE 65 AND OVER WITH 5YR LOOKBACK(1) due on 04/02/2018 URINE ALBUMIN CREATININE RATIO due on 04/09/2018 COLORECTAL CANCER SCREENING,SEE MODIFIER due on 05/04/2020 TETANUS due on 03/11/2022 PROSTATE CANCER SCREENING DISCUSSION Completed ADULT PREVNAR-13 Completed INFLUENZA Completed HEPATITIS C SCREENING Completed ASSESSMENT/PLAN: 1. Other chest pain - ICD9: 786.59, ICD10: R07.89 (primary diagnosis) Schedule with Cardiology - CONSULT TO CARDIOLOGY 2. History of PR (myocardial infarction) - ICD9: 412, ICD10: I25.2 Stable 3. Paroxysmal atrial fibrillation (HCC) - ICD9: 427.31, ICD10: I48.0 S/p pacemaker 4. Coronary artery disease involving jackson heart, angina presence unspecified, unspecified vessel or lesion type - ICD9: 414.01, ICD10: I25.10 Schedule with Cardio for eval 5. Type 2 diabetes mellitus without complication, without long-term current use of insulin (HCC) - ICD9: 250.00, ICD10: E11.9 Controlled. - Continue current medications 6. Foot pain, bilateral - ICD9: 729.5, ICD10: M79.671, M79.672 ? Neuropathic pain. Start gabapentin to see if symptoms improve. Follow up as needed 7. SOB (shortness of breath) - ICD9: 786.05, ICD10: R06.02 Consider repeat PFT Albuterol rescue inhaler given for as needed use. Keep follow ups as scheduled.. ALLIE GALAVIZ 12 LEAD ELECTROCARDIOGRAM Observed: 05/08/2017 Status: F Source: [place] 2:07 PM [facility] REPOSITORY [facility] Cardiovascular Services [address] [place] [id number] 12 Lead EKG 05/05/17 0840 MR#: [id number] Acct: [id number] Name: VINEET DELANEY . Rep #: [id number] : 1950 66 From: Meng Light MD Attending Dr: Denise Dillon MD Status: DIS TARIK Ordering Dr: Rui Squires MD Date: 05/05/17 Location: [facility] Sex: M C Admitted: 05/05/17 Test Reason : CP Blood Pressure : / mmHG Vent. Rate : 075 BPM Atrial Rate : 075 BPM P-R Int : 232 ms QRS Dur : 090 ms QT Int : 374 ms P-R-T Axes : 061 -24 043 degrees QTc Int : 417 ms Sinus rhythm with 1st degree A-V block Inferior infarct , age undetermined Abnormal ECG Confirmed by MENG LIGHT MD ([id number]), manager editorial EVGENY ALEX ([id number]) on 05/08/2017 2:06:38 PM Referred By: MISTY Confirmed By:MENG LIGHT MD 05/08/17 1406 Date Meng Light MD CC: Marika High MD; Rui Squires MD Signed 12 LEAD ELECTROCARDIOGRAM Observed: 05/08/2017 Status: F Source: [place] 2:07 PM [facility] REPOSITORY [facility] Cardiovascular Services [address] [address] 12 Lead EKG 05/05/17 1028 MR#: [id number] Acct: [id number] Name: VINEET DELANEY . Rep #: [id number] : 1950 66 From: Meng Light MD Attending Dr: Denise Dillon MD Status: DIS TARIK Ordering Dr: Rui Squires MD Date: 05/05/17 Location: [facility] Sex: M C Admitted: 05/05/17 Test Reason : REPEAT CP Blood Pressure : / mmHG Vent. Rate : 068 BPM Atrial Rate : 068 BPM P-R Int : 240 ms QRS Dur : 094 ms QT Int : 416 ms P-R-T Axes : 052 -23 032 degrees QTc Int : 442 ms Sinus rhythm with 1st degree A-V block Inferior infarct , age undetermined Abnormal ECG Confirmed by MENG LIGHT MD ([id number]), manager editorial EVGENY ALEX ([id number]) on 05/08/2017 2:07:08 PM Referred By: MISTY Confirmed By:MENG LIGHT MD 05/08/17 1400 Date Meng Light MD CC: Marika High MD; Rui Squires MD Signed DISCHARGE SUMMARY Observed: 05/07/2017 Status: F Source: [place] 5:05 PM [facility] REPOSITORY [facility] Medical Records Department [address] [place] [address] Discharge Summary 05/06/17 0959 MR#: [id number] Acct: [id number] Name: VINEET DELANEY Sr. Rep #: [id number] : 1950 66 From: Denise Dillon MD PCP: Anila BUCK,Marika Status: DIS TARIK Y Location: [place] [address] Discharge Date and Diagnosis Date of Admission: 05/05/17 Date of Discharge: 05/06/17 - Primary Discharge Diagnosis Active and Suspected Problems Chest pain (Acute) - Secondary Discharge Diagnosis Chronic Problems Status post pacemaker (Chronic) Obstructive sleep apnea (Chronic) Hyperlipidemia (Chronic) Atrial fibrillation (Chronic) Anxiety (Chronic) Hospital Course and Treatment Imaging Results: 05/06/17 05:55 Nuclear Stress Test - Chemical [NM] AM (NON MEDS) Operations: None Procedures: None Summary of Care Provided: 66 y/o male with PMHx with of chronic atrial fibrillation, status post pacemaker comes in with complaints of chest pain ongoing for several weeks, was worse on the day of admission. 1. Chest pain, atypical, no acute ST-T changes on EKG, troponins negative, admitted to PCU monitored overnight with no acute events, he had a stress test in the morning which was negative. 2.Chronic A. fib, now in NSR, on home warfarin, flecainide, beta-sae INR subtherapeutic, will up with INR in the outpatient 3. s/p pacemaker 4. DM, type 2, stable blood sugar, continued on Januvia with Accu-Cheks and insulin sliding scale. 5. Hyperlipidemia, on statin 6. Recent colonoscopy for polyps by Dr. Don, stable Discharge Diet: Low fat/ Low Cholesterol, 2000 mg Sodium Diet Discharge Activity: Return to Normal Activity Home Medications: Medications to take at Discharge Flecainide [Tambocor] 50 mg PO BID 05/11/14 Gemfibrozil [Lopid] 600 mg PO BID 05/11/14 Metoprolol Tartrate [Lopressor (beta sae)] 12.5 mg PO BID 05/11/14 Nitroglycerin [Nitrostat] 0.4 mg SUBLINGUAL Q5M PRN 05/11/14 Pravastatin [Pravachol] 40 mg PO QHS 05/11/14 Warfarin [Coumadin] 4 mg PO DAILY 05/11/14 Venlafaxine XR [Effexor Xr] 150 mg PO DAILY 12/22/16 Albuterol Aerosols [Ventolin Aerosols] 2.5 mg INHALATION Q4H PRN PRN 05/05/17 Glimepiride [Amaryl] 2 mg PO DAILY 05/05/17 Omeprazole [Prilosec] 20 mg PO DAILY 05/05/17 Sitagliptin Phosphate [Januvia] 100 mg PO DAILY 05/05/17 Tamsulosin HCl [Flomax] 0.4 mg PO QHS 05/05/17 Aspirin [Aspirin, Baby] 81 mg PO DAILY@0800 tab.chew 05/06/17 Primary Care Physician: Marika High MD [Primary Care Provider] - Please follow up with your Primary Care Physician in: within 2 weeks When: Follow-up with your screen writer in 2-4 weeks Disposition: Home Minutes spent on discharge:: 25 Patient Condition:: Stable Medical Necessity - Tobacco Use Smoking Status: Former smoker Meaningful Use Info Meaningful Use Diagnoses (Choose all that apply): None applicable Code Visit OBSV E AND M: 72041 Observation care discharge 05/07/17 1705 <Electronically signed by Denise Dillon MD> Date Denise Dillon MD Cosigner Signature (if applicable): Date CC: Denise Dillon MD; Marika High MD Signed EMERGENCY DEPARTMENT Observed: 05/06/2017 Status: F Source: [place] SUMMARY 4:01 PM [facility] REPOSITORY [facility] Medical Records Department [address] [place] [address] Emergency Department Summary 05/05/17 0850 MR#: [id number] Acct: [id number] Name: VINEET DELANEY Sr. Rep #: [id number] : 1950 66 From: Rui Squires MD PCP: Anila BUCK,Marika Status: DIS TARIK - ER Visit Summary Date of Service: 05/05/17 Chief Complaint: Chest pain History of Present Illness: The patient is a [address] Rao, Dr. Peterson, and Dr. Jorge Butler. Patient had a colonoscopy yesterday. He states that since 4:00 this morning he is passed a small amount of blood and clear/white tissue. He has diffuse abdominal pain that was 10 out of 10 at worst is 7 out of 10 currently. Is worsened by nothing relieved by nothing. Patient reports that approximately 1 hour ago he had the onset of a substernal chest pain while at rest. He describes his pain as sharp. It was 10 out of 10 at worst and 410 currently. Is worsened by exertion relieved by rest. Ports she has been nauseated, but he was nauseated prior to the onset of the chest pain. However, it has made him sweaty and short of breath. Physical Examination: Vitals: Stable. Afebrile. General: Well-nourished and well-developed. Head: Normocephalic atraumatic. Neck: Supple, no lymphadenopathy. No JVD. Nontender. Cardiovascular: Regular rate and rhythm. No murmurs. Respiratory: No respiratory distress. Clear to auscultation bilaterally. Abdominal: Soft, mild diffuse tenderness to palpation that is worst in the epigastric region, nondistended, normal bowel sounds. No guarding, rebound, or peritoneal signs. Back: Nontender. Extremities: Nontender, no edema. Skin: Normal color, no rash. Neurologic: Alert and oriented 3. Cranial nerves II through XII are intact. Normal strength and sensation. Psych: Normal affect. Test Results: EKG is sinus with a first-degree AV block rate of 75 and nonspecific changes. He does have inferior Q waves. However, this is unchanged from December 2016. Repeat EKG is unchanged. CBC is marked for white count of 11.97 neutrophils 73. Hemoglobin is 14.5. Chem-7 is more for chloride 108, glucose 109. INR is 1.1. Troponin is less than 0.02. Three-view of the abdomen shows no free air. Moderate fecal material and nonspecific bowel gas pattern. Emergency Department Course and Treatment: The place. He was given morphine and Zofran IV. Initially aspirin was held due to the colonoscopy and concern for potential bleeding from this. Patient is resting comfortably. He denies any chest pain at this time. Treatment Plan: After discussion with Dr. Peterson the patient is given a dose of aspirin. He requires admission for further evaluation for his chest pain. Disposition: Admitted in improved condition. Impression: 1. Chest pain. 2. 1 day status post colonoscopy. 3. DEMETRIO score of 3. This note was generated with Stylechiation software. It may contain incorrect words, spelling, and punctuation that were not noted in review of the chart prior to signing ED Disposition - Plan for ED Patient: Chief Complaint: Chest Pain Referrals: Marika High MD [Primary Care Provider] - What to do if you have Problems For any increased pain, shortness of breath, bleeding, nausea or vomiting, chest pain, or any unexpected problems, contact your Primary Care Provider. Call [facility] ([phone]) or report to the closest Emergency Room. Call 911 if necessary. 05/06/17 1601 <Electronically signed by Rui Squires MD> Date Rui Squires MD Cosigner Signature (If Indicated): Date CC: Marika High MD DISCHARGE INSTRUCTION Observed: 05/06/2017 Status: F Source: [place] 9:58 [facility] REPOSITORY [facility] Medical Records Department [address] [place] [address] Instructions for Home/Discharge Instructions 05/06/17 0957 MR#: [id number] Acct: [id number] Name: VINEET DELANEY . Rep #: [id number] : 1950 66 From: Denise Dillon MD PCP: Marika High MD Status: ADM TARIK - Discharge Diagnoses Current Active Problems: Current Active and Chronic Problems Chest pain (Acute) Reason(s) for Visit for Discharge Instructions: Chest pain You will use the following diet at home:: Calorie/Carbohydrate Controlled (specify 1200, 1400, etc), Cardiac Your food should be the consistency of: Regular Your liquids should be the consistency of: Regular/Thin Discharge Activity: Return to Normal Activity Allergies/Adverse Reactions: Allergies metformin Allergy (Verified 05/05/17 08:53) Unknown Penicillins Allergy (Verified 05/05/17 08:53) Swelling Androgenic Anabolic Steroid Adverse Reaction (Verified 05/05/17 12:43) Rash STATES, HAD SOME TYPE OF Z-ABBIE TAMPER AND GOT A RASH FROM IT. Medications to take at Discharge Flecainide [Tambocor] 50 mg PO BID 05/11/14 Gemfibrozil [Lopid] 600 mg PO BID 05/11/14 Metoprolol Tartrate [Lopressor (beta sae)] 12.5 mg PO BID 05/11/14 Nitroglycerin [Nitrostat] 0.4 mg SUBLINGUAL Q5M PRN 05/11/14 Pravastatin [Pravachol] 40 mg PO QHS 05/11/14 Warfarin [Coumadin] 4 mg PO DAILY 05/11/14 Venlafaxine XR [Effexor Xr] 150 mg PO DAILY 12/22/16 Albuterol Aerosols [Ventolin Aerosols] 2.5 mg INHALATION Q4H PRN PRN 05/05/17 Glimepiride [Amaryl] 2 mg PO DAILY 05/05/17 Omeprazole [Prilosec] 20 mg PO DAILY 05/05/17 Sitagliptin Phosphate [Januvia] 100 mg PO DAILY 05/05/17 Tamsulosin HCl [Flomax] 0.4 mg PO QHS 05/05/17 Aspirin [Aspirin, Baby] 81 mg PO DAILY@0800 tab.chew 05/06/17 Primary Care Physician: Marika High MD [Primary Care Provider] - Please follow up with your Primary Care Physician in: within 2 weeks When: Follow-up with your screen writer in 2-4 weeks Proposed Discharge Date: 05/06/17 05/06/17 0958 <Electronically signed by Denise Dillon MD> Date Denise Dillon MD CC: Marika High MD STRESS REPORT Observed: 05/06/2017 Status: F Source: [place] 9:10 AM [facility] REPOSITORY [facility] Cardiovascular Services [address] [place] [address] MR#: [id number] Acct: [id number] Name: VINEET DELANEY . Rep #: [id number] : 1950 66 From: Meng Light MD Primary Care: Marika High MD Status: ADM TARIK Ordering Dr: Sex: Guido C Stress Test Report Pharmacologic myocardial perfusion stress test. 66-year-old man with a history of chest pain. Stress protocol: Resting EKG demonstrates sinus rhythm with rate of 64 bpm normal intervals and noted resting blood pressure is 120/80 mmHg. 0.4 mg of regadenoson was infused per usual protocol followed by rapid intravenous saline flush injection. Continuous EKG monitoring was performed. The patient maintained sinus rhythm throughout the recording. At rest there were no ST or T-wave changes noted suggest abnormal flow reserve at peak infusion no ST or T-wave changes were noted suggest abnormal flow reserve. The maximum heart rate attained was 95 bpm which was 61% maximum predicted heart rate the maximum workload attained was 1 metabolic equivalent. The resting blood pressure was 120/80 with a final blood pressure 140/74. Myocardial perfusion protocol. 11.8 mCi of technetium 99m sestamibi was injected at rest. 0.4 mg regadenoson was infused per usual protocol. At peak infusion 34.2 mCi of technetium 99m sestamibi was injected. Stress images were obtained. Stress and rest images were reconstructed and compared in the short axis vertical long and horizontal long axis. Gated images were also obtained. Perfusion SPECT analysis: Review of the stress images demonstrate normal uptake of tracer noted in all areas of the myocardium. The resting images similarly demonstrate normal uptake of tracer noted in all areas of the myocardium. No areas of reversibility noted suggest ischemia. Gated SPECT analysis: The gated ejection fraction is noted to be 77%. Conclusion: Normal pharmacologic myocardial perfusion stress test. Preserved left ventricular ejection fraction. 05/06/17 0910 <Electronically signed by Meng Light MD> Date Meng Light MD CC: Marika High MD Date Dictated: 05/06/17906 Date Transcribed: 05/06/17906 [employer]: CO Signed HISTORY AND PHYSICAL Observed: 05/06/2017 Status: F Source: [place] EXAM 8:17 AM [facility] REPOSITORY [facility] Medical Records Department [address] [place] [address] History and Physical 05/05/17 1459 MR#: [id number] Acct: [id number] Name: VINEET DELANEY . Rep #: [id number] : 1950 66 From: Denise Dillon MD PCP: Marika High MD Status: ADM TARIK Y Location: [place] [address] Problem List (1) Chest pain Status: Acute Qualifiers: Ischemic chest pain type: unspecified angina pectoris type (2) Status post pacemaker Status: Chronic (3) Obstructive sleep apnea Status: Chronic (4) Hyperlipidemia Status: Chronic (5) Atrial fibrillation Status: Chronic (6) Anxiety Status: Chronic History of Present Illness Date of Admission: 05/05/17 Chief Complaint: Chest pain, ongoing for a while, worse today The patient is a 66 year old M with PMHx of CAF, s/p pacemaker who has been having recrrent chest pain. He woke up today and was sitting in his recliner when he suddenly felt a sharp chest pain, that radiated to his left arm and was associated with nausea and light-headedness. He has occasional palpitations. Has not seen a screen writer in a while. Chest pain is not worse with exertion. Vitals in the ED were stable. Initial trop was negative. EKG shows NSR, no acute ST-Tchanges Past Medical History Past Medical History (Chronic Problems): Chronic Problems Status post pacemaker (Chronic) Obstructive sleep apnea (Chronic) Hyperlipidemia (Chronic) Atrial fibrillation (Chronic) Anxiety (Chronic) Allergies metformin Allergy (Verified 05/05/17 08:53) Unknown Penicillins Allergy (Verified 05/05/17 08:53) Swelling Androgenic Anabolic Steroid Adverse Reaction (Verified 05/05/17 12:43) Rash STATES, HAD SOME TYPE OF Z-ABBIE TAMPER AND GOT A RASH FROM IT. Home Medications: Ambulatory Orders Medication Instructions Recorded Flecainide [Tambocor] 50 mg PO BID 05/11/14 Gemfibrozil [Lopid] 600 mg PO BID 05/11/14 Surgical History: - - Knee surgery, hernia repair Psychiatric History: No pertinent psych hx Lives: Alone Smoking Status: Former smoker - *Family History Maternal History Items: No pertinent history Review of Systems Constitutional: Denies: Anorexia, Chills, Fever, Weight Change Eyes: Denies: Blurred vision, Cataracts, Drainage, Eyelid Inflammation HEENT: Denies: Difficulty Hearing, Difficulty Swallowing, Head Aches, Hearing Changes, Sinus Congestion, Sinus Drainage, Sore Throat Cardiovascular: Reports: Chest Pain, Chest Pressure, Light Headedness, Palpitations - occasional. Denies: Orthopnea, Paroxysmal Noc. Dyspnea Respiratory: Denies: Cough, Shortness of breath at rest, Sputum production Gastrointestinal: Denies: Abdominal Pain, Nausea, Vomiting Genitourinary: Denies: Dysuria Musculoskeletal: Denies: Joint Pain, Joint Tenderness Skin: Denies: Rash, Wounds Neurological: Denies: Numbness, Tingling, Focal weakness Psychiatric: Denies: Anxiety, Depression, Homicidal Ideations, Suicidal Ideations Hematologic/ Lymphatic: Denies: Easy Bruising, Easy Bleeding VTE Information - Inpt Only VTE Present on Admission: No VTE Pharm Prophylaxis ordered?: Yes Patient Problems: Active and Suspected Problems Chest pain (Acute) - Physical Exam General: Alert, Oriented x3, Cooperative HEENT: Atraumatic, PERRLA, EOMI, Normocephalic Neck: Supple, No JVD, Negative Carotid Bruits Lungs: Clear to auscultation, Normal air movement Cardiovascular: Regular rate, No murmurs Abdomen: Bowel Sounds Present, Soft, Non Tender Extremities: No edema, Capillary Refill Less than 3 Seconds Skin: No rashes, No breakdown Musculoskeletal: No Tenderness to Palpation of Joints or Extremities Neurological: Cranial nerves II-XII grossly intact Psych/Mental Status: Normal Affect, Appropriate Vital Signs Temp Pulse Resp BP Pulse Ox 97.9 F 67 16 123/73 H 96 05/05/17 12:20 05/05/17 12:31 05/05/17 12:20 05/05/17 12:20 05/05/17 12:20 Oxygen Flow Rate (L/min) 2 Oxygen Delivery Method Nasal Cannula Weight: 93.3 kg Body Mass Index (BMI) 29.5 Laboratory Tests Past 24 Hrs Troponin I < 0.02 POC Glucose POC Glucose 109 Assessment/Plan Active and Suspected Problems Chest pain (Acute) 66 y/o male with PMhx with PMHx of chronic atrial fibrillation, status post pacemaker comes in with complaints of chest pain ongoing for several weeks, was on the day of admission. 1. Chest pain, atypical, no acute ST-T changes on EKG, troponins negative, will admit patient to PCU, monitor vitals on telemetry, cycle troponins, aspirin 81 mg p.o. daily, nitro as needed, stress test in am 2.Chronic A. fib, now in NSR, on home warfarin, flecainide, beta-sae INR subtherapeutic, follow-up INR in a.m. 3. s/p pacemaker 4. DM, type 2, on the. Right, [place] MAZA, accucheks 5. Hyperlipidemia, on statin 6. Recent colonoscopy for polyps by Dr. Don, adina 7. DVT PPx - Lovenox SC Code Visit OBSV E AND M: 16827 Initial observation care L3 05/06/17 0816 <Electronically signed by Denise Dillon MD> Date Denise Dillon MD Cosigner Signature: Date (if applicable) CC: Denise Dillon MD; Marika High MD Signed BEDSIDE GLUCOSE Collected: 05/06/2017 Status: F Source: [place] 6:16 AM [facility] REPOSITORY TYPE CODE TESTS RESULT OUT OF REFERENCE UNITS RANGE LAB L501.080 70-110 mg/dL High BEDSIDE GLU 131 Result Comment: MANAGEMENT OF PATIENT CARE PER NURSING PROTOCOL Performed By: #### L501.080 #### [facility] [address] [place], [place] [address] CBC W/DIFF, AUTOMATED Collected: 05/06/2017 Status: F Source: [place] 5:20 AM [facility] REPOSITORY TYPE CODE TESTS RESULT OUT OF RANGE REFERENCE UNITS LAB L100.1000 4.4-11.0 K/mm3 Normal WBC 6.6 LAB L100.1200 4.6-6.2 M/mm3 Normal RBC 4.65 LAB L100.1300 13.0-16.5 g/dl Normal HGB 13.8 LAB L100.1400 40-54 % Normal HCT 41.3 LAB L100.1500 80-94 fL Normal MCV 88.8 LAB L100.1600 27.0-32.0 pg Normal MCH 29.7 LAB L100.1700 32-36 g/gl Normal MCHC 33.4 LAB L100.1810 11.6-14.6 % Normal RDW CV 13.5 LAB L100.1820 35.1-43.9 fl Normal RDW SD 43.3 LAB L100.1900 150-450 K/mm3 Normal PLT 188 LAB L100.2000 6.2-12.0 fl Normal MPV 9.2 LAB L100.2100 47-70 % Normal NEUT% 59.1 LAB L100.2200 19-41 % Normal LY% 28.2 LAB L100.2300 0-10 % High MONO% 11.3 LAB L100.2400 0-5 % Normal EO% 0.9 LAB L100.2500 0-1 % Normal BASO% 0.3 LAB L100.2550 0.0-0.9 % Normal IM GRAN % 0.200 Result Comment: IG% - Immature Granulocytes (promyelocytes, myelocytes and metamyelocytes) > 1% indicates that a LEFT SHIFT is Present. LAB L100.2620 2.0-7.7 X10 3/uL Normal Absolute Neut 3.9 LAB L100.2720 0.83-4.51 X10 3/ul Normal Absolute Lymph 1.85 Performed By: #### L100.0100 #### [facility] [address] [place], [address] BASIC METABOLIC Collected: 05/06/2017 Status: F Source: [place] PROFILE (BMP) 5:20 AM [facility] REPOSITORY TYPE CODE TESTS RESULT OUT OF RANGE REFERENCE UNITS LAB L501.0100 74-106 mg/dL High GLU 121 Result Comment: Fasting Glucose result from 100 to 125 mg/dL suggests IMPAIRED HOMEOSTASIS per A.D.A. criteria. Please note revised GLUCOSE reference range effective 2017. LAB L501.1000 7-18 mg/dL Normal BUN 13 LAB L501.1100 0.70-1.30 mg/dL Normal CREAT,SERUM 1.03 Result Comment: The validity of the calculated GFR AND GFRAA in patients over 70 years has not been determined. Clinical correlation is essential. LAB L501.1110 >60 mL/min Normal EST GFR 77 Result Comment: Non- GFR Calc LAB L501.1115 >60 mL/min Normal EST GFR - AA 93 Result Comment: GFR Calc LAB L501.1255 ml/min Normal Estimated CRCL 73.83 LAB L501.1300 10-20 RATIO Normal BUN/CRE 12.6 LAB L501.2200 8.5-10 mg/dL Normal .1 CA 8.6 LAB L501.5300 136-14 mmol/L Normal 5 NA 142 LAB L501.5600 3.5-5. mmol/L Normal 1 K 3.9 LAB L501.5900 98-107 mmol/L High CL 108 LAB L501.6100 21.0-3 mmol/L Normal 2.0 CO2 27.0 LAB L501.6200 5-15 Normal GAP 7 Performed By: #### L500.2500 #### [facility] [address] [place], [place], [address] PROTHROMBIN TIME W/INR Collected: 05/06/2017 Status: F Source: [place] 5:20 AM [facility] REPOSITORY TYPE CODE TESTS RESULT OUT OF RANGE REFERENCE UNITS LAB L300.4150 11.7-14.9 SECONDS Normal PROTIME 14.6 LAB L300.4200 Normal INR 1.1 Performed By: #### L300.3900, L300.4310 #### [facility] [address] [place], [place], [address] PARTIAL THROMBOPLAST Collected: 05/06/2017 Status: F Source: [place] TIME 5:20 AM [facility] REPOSITORY TYPE CODE TESTS RESULT OUT OF RANGE REFERENCE UNITS LAB L300.4310 24.1-36.2 Seconds Normal PTT 31.9 Performed By: #### L300.3900, L300.4310 #### [facility] [address] [place], [address] TROPONIN-I Collected: 05/05/2017 Status: F Source: [place] 10:57 PM [facility] REPOSITORY Order Comment: 'TROP' Serial specimen #1, #2, #3, or #4: 4 TYPE CODE TESTS RESULT OUT OF RANGE REFERENCE UNITS LAB L501.4010 <0.06 ng/mL Normal < 0.02 TROPONIN-I Result Comment: TROPONIN-I EXPECTED VALUES <0.05 NEGATIVE 0.06 - 0.59 AT RISK OF PR > OR = 0.60 SUGGEST PR Performed By: #### L501.4010 #### [facility] [address] [place], [place], [address] BEDSIDE GLUCOSE Collected: 05/05/2017 Status: F Source: [place] 8:47 PM [facility] REPOSITORY TYPE CODE TESTS RESULT OUT OF REFERENCE UNITS RANGE LAB L501.080 70-110 mg/dL High BEDSIDE GLU 148 Result Comment: MANAGEMENT OF PATIENT CARE PER NURSING PROTOCOL Performed By: #### L501.080 #### [facility] Point [facility] [address] [place], [place] [address] TROPONIN-I Collected: 05/05/2017 Status: F Source: [place] 4:33 PM [facility] REPOSITORY Order Comment: 'TROP' Serial specimen #1, #2, #3, or #4: 3 TYPE CODE TESTS RESULT OUT OF RANGE REFERENCE UNITS LAB L501.4010 <0.06 ng/mL Normal < 0.02 TROPONIN-I Result Comment: TROPONIN-I EXPECTED VALUES <0.05 NEGATIVE 0.06 - 0.59 AT RISK OF PR > OR = 0.60 SUGGEST PR Performed By: #### L501.4010 #### [facility] [address] [place], [address] BEDSIDE GLUCOSE Collected: 05/05/2017 Status: F Source: [place] 4:03 PM [facility] REPOSITORY TYPE CODE TESTS RESULT OUT OF REFERENCE UNITS RANGE LAB L501.080 70-110 mg/dL High BEDSIDE GLU 117 Result Comment: MANAGEMENT OF PATIENT CARE PER NURSING PROTOCOL Performed By: #### L501.080 #### [facility] [address] [facility] [place] [address] TROPONIN-I Collected: 05/05/2017 Status: F Source: [place] 12:25 PM [facility] REPOSITORY Order Comment: 'TROP' Serial specimen #1, #2, #3, or #4: 2 TYPE CODE TESTS RESULT OUT OF RANGE REFERENCE UNITS LAB L501.4010 <0.06 ng/mL Normal < 0.02 TROPONIN-I Result Comment: TROPONIN-I EXPECTED VALUES <0.05 NEGATIVE 0.06 - 0.59 AT RISK OF PR > OR = 0.60 SUGGEST PR Performed By: #### L501.4010 #### [facility] [facility] [place], [place], [address] BEDSIDE GLUCOSE Collected: 05/05/2017 Status: F Source: [place] 12:21 PM [facility] REPOSITORY TYPE CODE TESTS RESULT OUT OF RANGE REFERENCE UNITS LAB L501.080 70-110 mg/dL Normal BEDSIDE GLU 109 Result Comment: MANAGEMENT OF PATIENT CARE PER NURSING PROTOCOL Performed By: #### L501.080 #### [facility] [address] [facility] [place], [place] [address] CBC W/DIFF, AUTOMATED Collected: 05/05/2017 Status: F Source: [place] 8:50 AM [facility] REPOSITORY TYPE CODE TESTS RESULT OUT OF RANGE REFERENCE UNITS LAB L100.1000 4.4-11.0 K/mm3 High WBC 11.9 LAB L100.1200 4.6-6.2 M/mm3 Normal RBC 5.03 LAB L100.1300 13.0-16.5 g/dl Normal HGB 14.5 LAB L100.1400 40-54 % Normal HCT 43.6 LAB L100.1500 80-94 fL Normal MCV 86.7 LAB L100.1600 27.0-32.0 pg Normal MCH 28.8 LAB L100.1700 32-36 g/gl Normal MCHC 33.3 LAB L100.1810 11.6-14.6 % Normal RDW CV 13.3 LAB L100.1820 35.1-43.9 fl Normal RDW SD 42.3 LAB L100.1900 150-450 K/mm3 Normal PLT 219 LAB L100.2000 6.2-12.0 fl Normal MPV 9.3 LAB L100.2100 47-70 % High NEUT% 72.7 LAB L100.2200 19-41 % Normal LY% 19.0 LAB L100.2300 0-10 % Normal MONO% 7.7 LAB L100.2400 0-5 % Normal EO% 0.3 LAB L100.2500 0-1 % Normal BASO% 0.1 LAB L100.2550 0.0-0.9 % Normal IM GRAN % 0.200 Result Comment: IG% - Immature Granulocytes (promyelocytes, myelocytes and metamyelocytes) > 1% indicates that a LEFT SHIFT is Present. LAB L100.2620 2.0-7.7 X10 3/uL High Absolute Neut 8.6 LAB L100.2720 0.83-4.51 X10 3/ul Normal Absolute Lymph 2.25 Performed By: #### L100.0100 #### [facility] [address] [place], [place], [address] PROTHROMBIN TIME W/INR Collected: 05/05/2017 Status: F Source: [place] 8:50 AM [facility] REPOSITORY TYPE CODE TESTS RESULT OUT OF RANGE REFERENCE UNITS LAB L300.4150 11.7-14.9 SECONDS Normal PROTIME 14.0 LAB L300.4200 Normal INR 1.1 Performed By: #### L300.3900 #### [facility] [address] [place], [address] BASIC METABOLIC Collected: 05/05/2017 Status: F Source: [place] PROFILE (BMP) 8:50 AM [facility] REPOSITORY Order Comment: 'TROP' Serial specimen #1, #2, #3, or #4: 1 TYPE CODE TESTS RESULT OUT OF RANGE REFERENCE UNITS LAB L501.0100 74-106 mg/dL High GLU 109 Result Comment: Fasting Glucose result from 100 to 125 mg/dL suggests IMPAIRED HOMEOSTASIS per A.D.A. criteria. Please note revised GLUCOSE reference range effective 2017. LAB L501.1000 7-18 mg/dL Normal BUN 13 LAB L501.1100 0.70-1.30 mg/dL Normal CREAT,SERUM 1.06 Result Comment: The validity of the calculated GFR AND GFRAA in patients over 70 years has not been determined. Clinical correlation is essential. LAB L501.1110 >60 mL/min Normal EST GFR 74 Result Comment: Non- GFR Calc LAB L501.1115 >60 mL/min Normal EST GFR - AA 90 Result Comment: GFR Calc LAB L501.1255 ml/min Normal Estimated CRCL 71.74 LAB L501.1300 10-20 RATIO Normal BUN/CRE 12.3 LAB L501.2200 8.5-10 mg/dL Normal .1 CA 8.5 LAB L501.5300 136-14 mmol/L Normal 5 NA 140 LAB L501.5600 3.5-5. mmol/L Normal 1 K 3.7 LAB L501.5900 98-107 mmol/L High CL 108 LAB L501.6100 21.0-3 mmol/L Normal 2.0 CO2 25.0 LAB L501.6200 5-15 Normal GAP 7 Performed By: #### L500.2500, L501.4010 #### [facility] [address] [facility] [place], [place], [address] TROPONIN-I Collected: 05/05/2017 Status: F Source: [place] 8:50 AM [facility] REPOSITORY Order Comment: 'TROP' Serial specimen #1, #2, #3, or #4: 1 TYPE CODE TESTS RESULT OUT OF RANGE REFERENCE UNITS LAB L501.4010 <0.06 ng/mL Normal < 0.02 TROPONIN-I Result Comment: TROPONIN-I EXPECTED VALUES <0.05 NEGATIVE 0.06 - 0.59 AT RISK OF PR > OR = 0.60 SUGGEST PR Performed By: #### L500.2500, L501.4010 #### [facility] [address] [place], [place], [address] ACUTE ABDOMEN INC Observed: 05/05/2017 Status: F Source: [place] CHEST 8:50 AM [facility] REPOSITORY [facility] Imaging Services [address] [place] [address] Acute Abdomen Inc Chest MR#: [id number] Acct: [id number] Name: VINEET DELANEY Rep #: [id number] : 1950 M 66 From: Raffaele Quiros MD PCP: Marika High MD Status: REG ER Study: Acute Abdomen Inc Chest Date of Exam: 05/05/17 Exam# [id number] Ordering Dr: Rui Squires MD STUDY: X-RAY - ABDOMEN/PELVIS REASON FOR EXAM: Male, 66 years old. Abdominal pain. Recent colonoscopy. TECHNIQUE: AP supine and upright views of the abdomen and pelvis. COMPARISON: None. FINDINGS: Normal visualized lung bases. A left-sided dual chamber pacemaker is seen. Moderate amount of fecal material is seen in the colon. There is no demonstrated free abdominal air. The visualized liver, spleen and kidneys are grossly normal in size and morphology. There are calcified phleboliths in the pelvis. Normal visualized osseous structures. RAD/Acute Abdomen Inc Chest IMPRESSION: Moderate amount of fecal material is seen in the colon. Electronically Signed: Raffaele Quiros MD at 10:04 EDT Tel [phone], Service support , CC: Marika High MD; Rui Squires MD [employer]: Signed MAGNESIUM Collected: 05/05/2017 Status: F Source: [place] 8:50 AM [facility] REPOSITORY Order Comment: Comments: as add on test TYPE CODE TESTS RESULT OUT OF RANGE REFERENCE UNITS LAB L501.5200 1.6-2.6 mg/dL Normal MG 2.0 Result Comment: Please note revised Magnesium reference range effective 2017. Performed By: #### L501.5200 #### [facility] [place], [address] ANES POST Observed: 05/04/2017 Status: COMPLETED Source: [place] 2:42 PM [facility] OTHER [facility] REPOSITORY HNO ID: [id number] Author: Porfirio Negron Service: Anesthesiology Author Type: Anesthesiologist Type: Anesthesia PostOp Filed: 05/04/2017 3:30 PM Note Text: POST ANESTHESIA EVALUATION NOTE SERVICE DATE: 05/04/2017 SERVICE TIME: 1430 : 1950 Vitals: 05/04/17 1116 05/04/17 1322 Temp: 36.4 ?C (97.5 ?F) 37.1 ?C (98.8 ?F) 05/04/17 1330 05/04/17 1345 05/04/17 1400 05/04/17 1430 BP: 103/59 106/61 109/68 117/65 05/04/17 1330 05/04/17 1345 05/04/17 1400 05/04/17 1430 Pulse: 61 61 (!) 59 64 05/04/17 1330 05/04/17 1345 05/04/17 1400 05/04/17 1430 Resp: 16 16 16 16 05/04/17 1330 05/04/17 1345 05/04/17 1400 05/04/17 1430 SpO2: 98% 97% 94% 96% Validated Vital Signs: YES No apparent anesthetic complications. The patient is appropriately hydrated with stable respiratory and cardiovascular status. Patient has safe and adequate airway control. The patient has appropriate pain relief and no significant post operative nausea or vomiting. The patient has achieved baseline mental status. Further assessment by Anesthesia Service: None Other Remarks: SIGNATURE: Porfirio Negron MD PATIENT NAME: Vineet Delaney DATE: May 04, 2017 TIME: 3:30 PM PAGER/CONTACT #: [phone] PT ED Observed: 05/04/2017 Status: COMPLETED Source: [place] 2:34 PM [facility] REPOSITORY HNO ID: [id number] Author: Clari (Rn) IGOR Kowalski Service: (none) Author Type: Registered Nurse Type: Patient Education Filed: 05/04/2017 2:34 PM Note Text: POST OP LEARNING RESPONSE INSTRUCTION PROVIDED TO: Patient and family member METHOD OF INSTRUCTION: Teach Back done Individual instruction Written instruction - handouts Verbal instruction PATIENT / FAMILY RESPONSE: Verbalizes understanding of: POST-OPERATIVE INSTRUCTIONS-Correct actions to take to reduce postoperative complications FOLLOW-UP PLAN: Patient instructed to call with any further issues Contact information given. SUPPLEMENTAL MATERIAL: None REFERRAL (RECOMMENDATION): None Electronically Signed By: Clari Kowalski RN In Department: [facility] ENDOSCOPY NURSING PROG Observed: 05/04/2017 Status: COMPLETED Source: [place] 2:04 PM [facility] REPOSITORY HNO ID: [id number] Author: Swati (Rn) Terell RN Service: Nursing Author Type: Registered Nurse Type: Nursing Progress Note Filed: 05/04/2017 2:04 PM Note Text: Nursing Progress Note Patient Name: Vineet Delaney Patient Location: [place] [facility] [facility] pt awake and talking, passing large amounts of flatus, denies pain or cramping, VSS. This note was completed by: Swati Figueredo RN SURGICAL PATHOLOGY Observed: 05/04/2017 Status: F Source: [place] 1:15 PM [facility] REPOSITORY Specimen originated from [facility] Specimen #: [id number] Submitting Physician: ROSE MARIE DON MD FINAL DIAGNOSIS 1. Colon, hepatic flexure polyps (x4), biopsies (A) - Fragments of tubular adenomas. 2. Colon, cecal polyp, biopsy (B) - Tubular adenoma. 3. Rectum, polyp, biopsy (C) - Colonic mucosa with marked thermal artifact, unable to further characterize. ES/lbcasey 05/06/2017 Maggie Raphael M.D. (Electronic Signature) SPECIMEN SUBMITTED A: HEPATIC FLEXURE POLYP X4 B: CECUM POLYP C: RECTAL POLYP CLINICAL DATA HISTORY OF COLON POLYPS GROSS DESCRIPTION A. Received in formalin are multiple segments of miller-brown polypoid tissue ranging in size from 1.1 x 0.7 x 0.3 cm to 0.2 x 0.2 x 0.2 cm. No stalks are noted. The lines of resection are noted. The larger specimens are sectioned and submitted in cassettes A1-A3, and the remaining specimens are not sectioned and submitted in cassette A4. B. Received in formalin is one piece of miller, soft tissue measuring 0.2 x 0.2 x 0.2 cm. Totally submitted in one cassette. C. Received in formalin are two pieces of miller, soft tissue aggregating to 0.4 x 0.2 x 0.1 cm. Totally submitted in one cassette. Gross examination performed at [facility], [address] [place] [address] MM 05/04/2017 9:44:19 PM Date of Report: 05/06/2017 Date of Procedure: 05/04/2017 Date of Receipt: 05/04/2017 Submitted by: ROSE MARIE DON MD Location: [facility] Diagnostic [place] [address]. Performed By: #### PATHS #### [place] [address] [phone] ANES PREOP Observed: 05/04/2017 Status: COMPLETED Source: [place] 12:26 PM [facility] OTHER [facility] REPOSITORY HNO ID: [id number] Author: Flaco Adler MD Service: Anesthesiology Author Type: Anesthesiologist Type: Anesthesia PreOp Filed: 05/04/2017 12:28 PM Note Text: ANESTHESIOLOGY DAY OF SURGERY NOTE SERVICE DATE: 05/04/2017 SERVICE TIME: 1225 : 1950 Procedure(s) (LRB): COLONOSCOPY (N/A) Surgeon(s): Rose Marie Don Estimated body mass index is 29.41 kg/(m2) as calculated from the following: Height as of this encounter: 177.8 cm (5' 10). Weight as of this encounter: 93 kg (205 lb). Most recent hematocrit and potassium results: Hematocrit 45 04/02/2013 Potassium, POC 4.7 04/08/2017 ANES DOS/PREOP NOTE: Vitals: 05/04/17 1116 BP: 146/86 Pulse: 86 Resp: 18 Temp: 36.4 ?C (97.5 ?F) TempSrc: Temporal Artery SpO2: 95% Weight: 93 kg (205 lb) Height: 177.8 cm (5' 10) ACTIVE PROBLEM LIST First Degree Av Block History of PR (Myocardial Infarction) Chest Pain Claudication (Hcc) Manny (Obstructive Sleep Apnea) Cardiac Pacemaker in Situ Atrial Fibrillation (Hcc) Anxiety Gastroesophageal Reflux Disease Without Esophagitis Type 2 Diabetes Mellitus Without Complication, Without Long- Term Current Use of Insulin (Hcc) Chronic Left Shoulder Pain Screening for Colon Cancer Cad (Coronary Artery Disease) PAST MEDICAL HISTORY Diagnosis Date - Allergic rhinitis, cause unspecified Allergic rhinitis - Arrhythmia - Benign neoplasm of colon - CAD (coronary artery disease) 2000 Myocardial Infarction ' - Dupuytren contracture - Mental disorder - Myocardial infarct, old - Rash and other nonspecific skin eruption Nonspec Skin Erup Nec - Seizures (HCC) - TIA (transient ischemic attack) 2004 - Type 2 diabetes mellitus without complication, without long- term current use of insulin (HCC) 12/25/2015 PAST SURGICAL HISTORY Procedure Laterality Date - COLONOSCOP W/ OR W/O [facility] SPEC 04/17/2011 Colonoscopy - COLONOSCOP W/ OR W/O [facility] SPEC 04/10/2014 Colonoscopy - EGD W/O OR W/BRUSH/WASH 02/24/05 EGD - H. Pylori gastritis - EGD W/O OR W/BRUSH/WASH 04/17/2011 EGD - HEART SURGERY HX 09/2012 pacemaker - PAST SURGICAL HISTORY OF 3 heart caths - normal - PAST SURGICAL HISTORY OF 2008 right knee meniscus repair - PAST SURGICAL HISTORY OF 2006 left hand - REPAIR ING HERNIA,5+Y/O,REDUCIBL 2005 Hernia repair, inguinal FAMILY HISTORY Problem Relation Age of Onset - Cancer Mother skin - Diabetes Mother - Diabetes Maternal Grandfather - Cancer Brother - Diabetes Brother - Diabetes Maternal Uncle - Diabetes Maternal Uncle - Heart Sister - Heart Brother Social History: Social History Substance Use Topics - Smoking status: Former Smoker Packs/day: 0.80 Years: 45.00 Types: Cigarettes Quit date: 06/16/2012 - Smokeless tobacco: Never Used - Alcohol use No No current facility-administered medications on file prior to encounter. Current Outpatient Prescriptions on File Prior to Encounter: tamsulosin ER (FLOMAX) 0.4 mg cp24 Take 1 capsule by mouth daily at bedtime. metoprolol tartrate, short acting, (LOPRESSOR) 25 mg tablet Take half a pill twice a day flecainide (TAMBOCOR) 100 mg tablet Take 0.5 tablets by mouth twice daily. sitaGLIPtin (JANUVIA) 100 mg tablet Take 1 tablet by mouth once daily. omeprazole (PRILOSEC) 20 mg capsule take 1 capsule by mouth once daily 1/2 HOUR BEFORE BREAKFAST pravastatin (PRAVACHOL) 40 mg tablet Take 1 tablet by mouth daily at bedtime. venlafaxine XR (EFFEXOR XR) 150 mg 24 hr capsule Take 1 capsule by mouth once daily. glimepiride (AMARYL) 2 mg tablet take 1 tablet by mouth once daily WITH BREAKFAST gemfibrozil (LOPID) 600 mg tablet Take 1 tablet by mouth twice daily. warfarin (COUMADIN) 4 mg tablet Taking 2 mg on Thursday, 4 mg all other days or as directed blood sugar diagnostic (BLOOD GLUCOSE TEST) test strip Test blood sugar(s) 1 times daily. Dx: Type 2 DM - Controlled E11.9 Insulin: No Lancets lancets Test blood sugar(s) 1 times daily. Dx: Type 2 DM - Controlled E11.9 Insulin: No albuterol (PROVENTIL) 2.5 mg /3 mL (0.083 %) nebulizer solution Use 3 mL via nebulizer every 4 hours as needed for Wheezing/Shortness of Breath. Use over 5-15minutes. benzonatate (TESSALON PERLE) 100 mg capsule Take 1 capsule by mouth three times daily as needed. nitroglycerin sublingual (NITROSTAT) 0.4 mg SL tablet dissolve 1 tablet under the tongue if needed for chest pain (IF NO RELIEF CALL 911) Blood-Glucose Meter monitoring kit Glucose Meter of Choice - Kit - Dx: Type 2 DM - Controlled E11.9. Check blood sugar once daily as needed. Current Facility-Administered Medications: NaCl 0.9% iv infusion 30 mL/hr INTRAVENOUS CONTINUOUS Rose Marie Don Allergies: ALLERGIES Allergen Reactions - Metformin Other: See Comments Sweating - Black Pepper Hives - Dust Mites Hives - Mold Spores Shortness of Breath - Penicillins Hives - Aly Cheese [Other] Shortness of Breath DOS EXAM: Adequate NPO status: Yes Anesthetic risks, benefits, alternatives, personnel and consent discussed: Yes Patient agrees to proceed: Yes Previous Anesthesia: No history of adverse event. Airway Assessment: MP 2; Neck ROM: Full ROM without neurologic symptoms; Airway Evaluation: No significant abnormalities Symptoms of Sleep Apnea: Snoring, Hypertension, Age over 50 (66 year old) and Male gender Dentition: Edentulous Additional Physical Exam: Lungs: Patient health status unchanged since recent history and physical. See history and physical for exam findings. Cardiac: Patient health status unchanged since recent history and physical. See history and physical for exam findings. Blood Products: Not anticipated for this procedure. Anesthetic Plan: MAC with Sedation and Standard ASA Monitors Pain Management Plan: Parenteral or Oral ASA Class: 3 Other Medical Problems: stopped coumadin 5 days ago, c/o CP once every 3-4 weeks, relieved with NTG, unrelated to activity Chronic Beta Sae medication administered within 24 hours: Yes I have interviewed and examined the patient. I have reviewed the medical record and/or the pre-anesthesia evaluation, pertinent labs, and test results. Significant changes in the patient's condition since the History and Physical, not otherwise documented in primary service progress notes: No This contains updated information obtained within 48 hours of Surgery/Procedure. SIGNATURE: Flaco Adler MD PATIENT NAME: Vineet Delaney DATE: May 04, 2017 TIME: 12:26 PM CSN: [id number] PROTIME Collected: 05/04/2017 Status: F Source: [place] 11:19 AM CLINIC OTHER CAMPUS REPOSITORY TYPE CODE TESTS RESULT OUT OF RANGE REFERENCE UNITS LAB PSEC 9.7-13.0 sec PT Sec 11.2 LAB INR 0.9-1.3 PT INR 1.1 Result Comment: Vitamin K Antagonist (VKA) Therapeutic Range: INR 2 to 3 (Target INR of 2.5) Note: For patients treated with VKA drugs, such as warfarin, the [place] [employer] 2012 Guideline recommends a therapeutic INR range of 2 to 3 (target INR of 2.5). This recommendation includes high-risk patients with antiphospholipid syndrome with previous arterial or venous thromboembolism, current-generation mechanical or bioprosthetic aortic heart valve replacement. Note: Patients with mechanical aortic valve replacement and additional risk factors for thromboembolic events (atrial fibrillation, previous thromboembolism, LV dysfunction, hypercoagulable conditions) or an older generation mechanical AVR (i.e., ball in-Cage) or any mechanical MVR should have a INR therapeutic range of 2.5 to 3.5 (target INR of 3). Jane QUIROS, et al. Chest 2012, 141:7S-47S Ray RA, et al. [facility] 2017, 70: 252-289 Performed By: #### PT #### [facility] [address] [place] [id number] PT ED Observed: 05/04/2017 Status: COMPLETED Source: [place] 11:08 AM [facility] OTHER [facility] REPOSITORY HNO ID: [id number] Author: Isauro FlowersRn) IGOR Schmidt Service: (none) Author Type: Registered Nurse Type: Patient Education Filed: 05/04/2017 11:09 AM Note Text: PRE OP LEARNING ASSESSMENT PROCEDURE/SURGERY: colonoscopy READINESS TO LEARN COGNITIVE ABILITY: Alert and oriented MOTIVATION TO LEARN: Interested FAMILY SUPPORT: High - Very involved in pt care PATIENT LEARNS BEST BY: Individual Instruction FACTORS AFFECTING LEARNING: None PHYSICAL LIMITATIONS AFFECTING LEARNING: None Electronically Signed By: Isauro Schmidt RN In Department: [facility] CAMP[facility] ENDOSCOPY NURSING PROG Observed: 05/01/2017 Status: COMPLETED Source: [place] 11:34 AM [facility] OTHER [place] REPOSITORY HNO ID: [id number] Author: Maria Teresa Trimble RN Service: (none) Author Type: Registered Nurse Type: Nursing Progress Note Filed: 05/01/2017 3:47 PM Note Text: PACC Nurse Progress Note History AND Physical: PACC Visit Date: 05/01/2017 Original HANDP Date: 05/01/2017 ED visit Date: N/A Outside HANDP Scanned Date: N/A Labs Within Last 6 Months: BMP/CMP: Date 04/08/2017 within acceptable limits for planned procedure HBA1C: Date 04/08/2017 = 6.6 known DM Imaging Within Last 12 Months: Chest X-ray Date of test: External chest x-ray results from 02/22/2016 found scanned in EPIC Cardiac Testing: EKG in last 12 Months: Yes: Date: 07/28/2016, Comment: results in EPIC ECHO Date: 02/19/2016, Comment: results in EPIC Stress Test Date: 02/09/2016 , Comment: results in EPIC Device:Pacemaker Interrogation Date: 03/10/2017, Comment: MEDTRONIC Last Menstrual Period: LMP Date: N/A Postmenopausal >1yr: N/A, S/P Hysterectomy: N/A BMI Percentile (PEDS): N/A Risk Assessment: N/A Anesthesia Review: Patient has Medtronic Pacemaker remote interrogation 03/10/2017, Last in office interrogation 09/2015. [facility]mail to [place] [facility] to check if remote check is adequate for procedure- OK for procedure per Dr. Damon Hurt Narrative: Per PACC HANDP 05/01/2017 Patient history: NIDDM on oral RX TIIA 2009 Colonic polyps with LLQ pain Abnormal gait-uses cane MANNY on CPAP Paroxysmal A fib on Coumadin (holding 5 days per Anila Rodrigues last dose 04/29/2017 SSS s/p PPM - Medtronic Pacemaker last remote check 03/10/2017 Per PACC hANDp 05/01/2017 cardiovascular exam- copied below in blue Cardiovascular: Paroxysmal A fib-taking Coumadin-to hold [address] High. Pt states last dose was 04/29, 1st degree AV block, SSS s/p pacemaker last in office interrogation 09/2015 with 6 yrs 8 mos battery life AND remote check 02/2017. h/o CP with normal cath per Dr. Butler note. Normal stress test 01/2016; ?PR; HTN-treated; HLD-treated; +lightheadedness AND palpitations, +BLE edema; No recent CP, no murmur, no syncope. Pre-op Considerations: MANNY PAF, Last dose of Coumadin 04/29/2017 per PACC HANDP Medtronic Pacemaker, last remote interrogation 03/10/2017. Remote interrogation discussed with anesthesia Dr. Damon Hurt- OK for the procedure DM Chart Check: COMPLETED Maria Teresa Trimble RN May 01, 2017 3:38 PM HISTORY PHYSICAL Observed: 05/01/2017 Status: COMPLETED Source: [place] 8:22 AM [facility] REPOSITORY HNO ID: [id number] Author: Tiffanie Churchill (Pa) Service: (none) Author Type: Physician Valve Liner Rubber Type: HANDP Filed: 05/01/2017 1:44 PM Note Text: HISTORY AND PHYSICAL EXAMINATION SERVICE DATE: 05/01/2017 SERVICE TIME: 8:22 AM PRIMARY CARE PHYSICIAN: Marika High MD REASON FOR VISIT: Vineet Delaney is a 66 year old male who is scheduled for colonoscopy at the request of Dr. Rose Marie Don for consultation. My final recommendation will be communicated back to the requesting physician by way of shared medical record or letter. The patient has the following: ACTIVE PROBLEM LIST First Degree Av Block History of PR (Myocardial Infarction) Chest Pain Claudication (Hcc) Manny (Obstructive Sleep Apnea) Cardiac Pacemaker in Situ Atrial Fibrillation (Hcc) Anxiety Gastroesophageal Reflux Disease Without Esophagitis Type 2 Diabetes Mellitus Without Complication, Without Long- Term Current Use of Insulin (Hcc) Chronic Left Shoulder Pain Screening for Colon Cancer Cad (Coronary Artery Disease) Subjective CHIEF COMPLAINT: colonic polyps HPI: Vineet Delaney is a 66 year old male that presents c/o a 1 month history of LLQ pain that has not improved with time. H/o colonic polyps with last colonoscopy 5 yrs ago. He does have occasional diarrhea. Denies hematochezia or melena. Decreased appetite with a 5 lb weight loss in past couple months. Pain is intermittent and described as aching in nature. Pain does not radiate. Aggravating factors include nothing. Alleviated by relaxation. Previous treatments include none. Scheduled for colonoscopy on 05/04. Denies recent illness, fever or chills. PAST MEDICAL HISTORY Diagnosis Date - Allergic rhinitis, cause unspecified Allergic rhinitis - Arrhythmia - Benign neoplasm of colon - CAD (coronary artery disease) 2000 Myocardial Infarction ' - Dupuytren contracture - Mental disorder - Myocardial infarct, old - Rash and other nonspecific skin eruption Nonspec Skin Erup Nec - Seizures (HCC) - TIA (transient ischemic attack) 2004 - Type 2 diabetes mellitus without complication, without long- term current use of insulin ([facility]) 12/25/2015 PAST SURGICAL HISTORY Procedure Laterality Date - COLONOSCOP W/ OR W/O BRSH SPEC 04/17/2011 Colonoscopy - COLONOSCOP W/ OR W/O BRSH SPEC 04/10/2014 Colonoscopy - EGD W/O OR W/BRUSH/WASH 02/24/05 EGD - H. Pylori gastritis - EGD W/O OR W/BRUSH/WASH 04/17/2011 EGD - HEART SURGERY HX 09/2012 pacemaker - PAST SURGICAL HISTORY OF 3 heart caths - normal - PAST SURGICAL HISTORY OF 2008 right knee meniscus repair - PAST SURGICAL HISTORY OF 2006 left hand - REPAIR ING HERNIA,5+Y/O,REDUCIBL 2005 Hernia repair, inguinal FAMILY HISTORY Problem Relation Age of Onset - Cancer Mother skin - Diabetes Mother - Diabetes Maternal Grandfather - Cancer Brother - Diabetes Brother - Diabetes Maternal Uncle - Diabetes Maternal Uncle - Heart Sister - Heart Brother SOCIAL HISTORY: Social History Marital status: Spouse name: Awilda Years of education: Number of children: 4 Occupational History Occupation Employer Comment Retired [employer]* short distance Social History Main Topics Smoking status: Former Smoker Packs/day: 0.80 Years: 45.00 Types: Cigarettes Quit date: 06/16/2012 Smokeless status: Never Used Alcohol use: No Drug use: No Sexual activity: Yes Partners with: Female control/protection: Surgical Comment: -bps MEDICATIONS: Prior to Admission medications as of 05/01/17 0822 Medication Sig Last Dose Taking tamsulosin ER (FLOMAX) 0.4 mg cp24 Take 1 capsule by mouth daily at bedtime. Yes warfarin (COUMADIN) 4 mg tablet Taking 2 mg on Thursday, 4 mg all other days or as directed Yes venlafaxine ER (EFFEXOR XR) 75 mg 24 hr capsule take 1 capsule by mouth once daily Yes metoprolol tartrate, short acting, (LOPRESSOR) 25 mg tablet Take half a pill twice a day Yes flecainide (TAMBOCOR) 100 mg tablet Take 0.5 tablets by mouth twice daily. Yes blood sugar diagnostic (BLOOD GLUCOSE TEST) test strip Test blood sugar(s) 1 times daily. Dx: Type 2 DM - Controlled E11.9 Insulin: No Yes sitaGLIPtin (JANUVIA) 100 mg tablet Take 1 tablet by mouth once daily. Yes omeprazole (PRILOSEC) 20 mg capsule take 1 capsule by mouth once daily 1/2 HOUR BEFORE BREAKFAST Yes pravastatin (PRAVACHOL) 40 mg tablet Take 1 tablet by mouth daily at bedtime. Yes venlafaxine XR (EFFEXOR XR) 150 mg 24 hr capsule Take 1 capsule by mouth once daily. Yes Lancets lancets Test blood sugar(s) 1 times daily. Dx: Type 2 DM - Controlled E11.9 Insulin: No Yes albuterol (PROVENTIL) 2.5 mg /3 mL (0.083 %) nebulizer solution Use 3 mL via nebulizer every 4 hours as needed for Wheezing/Shortness of Breath. Use over 5-15minutes. Yes benzonatate (TESSALON PERLE) 100 mg capsule Take 1 capsule by mouth three times daily as needed. Yes glimepiride (AMARYL) 2 mg tablet take 1 tablet by mouth once daily WITH BREAKFAST Yes nitroglycerin sublingual (NITROSTAT) 0.4 mg SL tablet dissolve 1 tablet under the tongue if needed for chest pain (IF NO RELIEF CALL 911) Yes gemfibrozil (LOPID) 600 mg tablet Take 1 tablet by mouth twice daily. Yes Blood-Glucose Meter monitoring kit Glucose Meter of Choice - Kit - Dx: Type 2 DM - Controlled E11.9. Check blood sugar once daily as needed. Yes No medication comments found. CURRENT ALLERGIES: ALLERGIES Allergen Reactions - Metformin Other: See Comments Sweating - Black Pepper Hives - Dust Mites Hives - Mold Spores Shortness of Breath - Penicillins Hives - Aly Cheese [Other] Shortness of Breath REVIEW OF SYSTEMS: PAIN ASSESSMENT: General: 5 lb weight loss in past couple months. Neuro: non-epileptic paroxysmal events-normal EEG 2013; TIA-2008; +impaired sensorium hands AND feet; No headaches. Respiratory: MANNY on machine; +former smoker; +HORTA with walking 1 block x 2 years. Has inhaler, but does not use AND now . No recent bronchitis or pneumonia. No asthma or COPD. Cardiovascular: Paroxysmal A fib-taking Coumadin-to hold [address] High. Pt states last dose was 04/29, 1st degree AV block, SSS s/p pacemaker last in office interrogation 09/2015 with 6 yrs 8 mos battery life AND remote check 02/2017. h/o CP with normal cath per Dr. Butler note. Normal stress test 01/2016; ?PR; HTN-treated; HLD-treated; +lightheadedness AND palpitations, +BLE edema; No recent CP, no murmur, no syncope. EKG 07/2016: Diagnosis:ELECTRONIC ATRIAL PACEMAKER WITH 1ST DEGREE AV BLOCK INFERIOR MYOCARDIAL INFARCTION , AGE UNDETERMINED ABNORMAL ECG NO SIGNIFICANT CHANGE FROM PREVIOUS ECG Ventricular Rate : 68 BPM Atrial Rate : 68 BPM P-R Interval : 272 ms QRS Duration : 94 ms Q-T Interval : 406 ms QTC Calculation(Bezet) : 431 ms P Sayre : 30 degrees R Sayre : -28 degrees T Sayre : 29 degrees ECHO 02/19/16: CONCLUSIONS: - Technically difficult exam due to body habitus. - Exam indication: Chest Pain - The left ventricle is normal in size. There is mild concentric left ventricular hypertrophy. Left ventricular systolic function is normal. EF = 55 ? 5% (visual est.) Grade I left venticular diastolic dysfunction. - The right ventricle is normal in size. Right ventricular systolic function is normal. - Mildly dilated aortic root. - No pericardial effusion. - Exam was compared with the prior echocardiographic exam performed on 03/28/2013. No significant change. GI: see HPI; remote h/o PUD. +GERD-RX; No liver disease. No ETOH use. : No history of dysuria, frequency or incontinence,, stones or chronic kidney disease Endocrine: Diabetes Mellitus on oral agent-FBS 110; HgB A1C 6.8% (03/2017); No thyroid d/o; No steroids past 30 days. Hematology: +Coumadin; No bleeding or clotting d/o. Oncology: No history of CA metastasis, chemo within 30 days, or radiotherapy within 90 days. Has not lost 10% of body wt in 6 months. No history of oncological symptoms or problems. Psych: Anxiety-RX Musculoskeletal: Negative for joint pain or swelling, back pain or muscle pain. Skin: skin cancer 35 yrs ago Objective PHYSICAL EXAM: VITALS: BP 117/70 Pulse 79 Temp 97.9 Resp 16 Ht 5' 10 (1.78m) Wt 207 lb 12.8 oz (94.3kg) SpO2 95% BMI 29.82 kg/(m2). General: Alert and oriented, No acute distress, Healthy appearance Skin: Normal color, no rash, no lesions. HEENT: EOM, pupils equal, round and reactive., No carotid bruits Cardiovascular: Normal S1 AND S2, no rubs, murmurs or gallops. No JVD. Pulse regular. Lungs: Normal breath sounds, no wheezes or crackles., No chest deformities or chest wall tenderness. Abdomen: Soft, non-tender, no rigidity., No masses or organomegaly. Extremities: No deformity, no edema or tenderness, no joint swelling or clubbing. Neurological: Normal cognition and motor skills. Abnormal gait -cane Pulses: Carotid and radial pulses normal +2. Diagnostic tests reviewed for today's visit: Lab Value Units Date High Low HB No results within date range. HCT No results within date range. WBC No results within date range. PLT No results within date range. NA 142 mmol/L 04/08/2017 144 136 K 4.7 mmol/L 04/08/2017 5.1 3.7 GLUC 132 mg/dL 04/08/2017 99 74 BUN 18 mg/dL 04/08/2017 24 9 CREAT 1.08 mg/dL 04/08/2017 1.22 0.73 PTSEC 20.6 sec 01/15/2017 13.0 9.7 INR 2.5 no uni* 04/16/2017 INR 2.1 no uni* 01/15/2017 1.3 0.9 APTT No results within date range. ALT 32 U/L 12/23/2016 54 10 AST 19 U/L 12/23/2016 40 14 TBILI 0.3 mg/dL 12/23/2016 1.3 0.2 TSH No results within date range. Lab Value Units Date High Low HCGQT No results within date range. UHCG No results within date range. HCG, BODY* No results within date range. Lab Value Units Date High Low ABORHD No results within date range. ABSCREEN No results within date range. Hemoglobin A1C (%) Date Value 04/08/2017 6.6 12/23/2016 6.5 10/08/2016 6.1 06/21/2016 7.6 03/26/2016 6.6 Most recent labs Most recent imaging Most recent EKG:see CV ROS Most recent Echo Most recent stress test Most recent PPM interrogation All in Epic Assessment ASSESSMENT Patient has the following medical conditions: Former Smoker MANNY on CPAP Paroxysmal A fib on Coumadin (holding 5 days) SSS s/p PPM (Boontytronic A2DR01) last remote check 02/2017. In office interrogation 09/2015 GERD-RX HTN-RX HLD-RX NIDDM on oral RX TIA 2008 Colonic polyps with LLQ pain Abnormal gait-uses cane METS: Walk indoors, such as around the house (1.75 METs) Do light work around the house, such as dusting or washing dishes (2.70 METs) Take care of self; that is eating, dressing, bathing, using the toilet (2.75 METs) Patient denies any chest pain or undue shortness of breath with the above physical activity. ASA Class: 3 ANESTHESIA FINDINGS: Intubation History: No history of difficult intubation Significant Anesthesia Considerations: None Airway Exam: General: Normal appearance Mallampati Score is CLASS I ULBT: edentulous Neck: Normal appearance and function, Distance from hyoid to mentum during neck extension is at least 3 finger breaths Mouth: Normal tongue size and Mouth opening greater than 2 finger breaths Dentition: Edentulous Airway History: No abnormal airway history STOP BANG Score: MANNY uses CPAP/BiPAP PLAN This patient is optimally prepared for surgery pending review of chart by anesthesia due to remote pacemaker check not stating battery life. Email sent to Dr. Hurt. CONSULTS: Anesthesia Consult review of remote pacemaker check. The Following Tests/Procedures Have Been Initiated: Labs not indicated per PACC protocol, EKG not indicated per PACC protocol Planned Anesthetic: MAC Instructions Given to Patient: Patient given verbal and written preop instructions and voices comprehension and compliance. SIGNATURE: Tiffanie Churchill PA-C PATIENT NAME: Vineet Delaney DATE: May 01, 2017 TIME: 8:22 AM PAGER/CONTACT #: [id number] Observed: 04/21/2017 Status: COMPLETED Source: [place] 12:00 AM CLINIC OTHER CAMPUS REPOSITORY Patient:Vineet Delaney MRN: <[id number]> Height:5' 10(1.778 m) Weight:207 lb 12.8 oz (94.257 kg) Outpatient Medications as of 05/04/17: tamsulosin ER (FLOMAX) 0.4 mg cp24 warfarin (COUMADIN) 4 mg tablet metoprolol tartrate, short acting, (LOPRESSOR) 25 mg tablet flecainide (TAMBOCOR) 100 mg tablet blood sugar diagnostic (BLOOD GLUCOSE TEST) test strip sitaGLIPtin (JANUVIA) 100 mg tablet omeprazole (PRILOSEC) 20 mg capsule pravastatin (PRAVACHOL) 40 mg tablet venlafaxine XR (EFFEXOR XR) 150 mg 24 hr capsule Lancets lancets albuterol (PROVENTIL) 2.5 mg /3 mL (0.083 %) nebulizer solution benzonatate (TESSALON PERLE) 100 mg capsule glimepiride (AMARYL) 2 mg tablet nitroglycerin sublingual (NITROSTAT) 0.4 mg SL tablet gemfibrozil (LOPID) 600 mg tablet Blood-Glucose Meter monitoring kit Admission/Clinic Administered Medications as of 05/04/17: NaCl 0.9% iv infusion Problem List: First degree AV block [I44.0] History of PR (myocardial infarction) [I25.2] Chest pain [R07.9] Claudication (HCC) [I73.9] MANNY (obstructive sleep apnea) [G47.33] Cardiac pacemaker in situ [Z95.0] Atrial fibrillation (HCC) [I48.91] Anxiety [F41.9] Gastroesophageal reflux disease without esophagitis [K21.9] Type 2 diabetes mellitus without complication, without long- term current use of insulin (HCC) [E11.9] Chronic left shoulder pain [M25.512, G89.29] Screening for colon cancer [Z12.11] CAD (coronary artery disease) [I25.10] Allergies: Metformin Black Pepper Dust Mites Mold Spores Penicillins aly cheese [Other] Date Verified: 05/04/17 Lab Values Lab Value Units Date High Low POTA* 4.7 mmol/L 04/08/2017 5.1 3.7 Progress Notes ([facility]): Do Landers RN MORTARMAN.CAMPAIGN SPECIALIST 04/16/2017 11:13 AM Signed The patient will be having a colonoscopy. Please contact him with OK to hold coumadin 5 days prior to procedure. Do Landers RN CAMPAIGN SPECIALIST Marika High MD 04/21/2017 11:21 AM Signed OK to hold coumadin 5 days prior to colonoscopy; resume normal dose right after the colonoscopy MD Massiel Trotter LPN 04/21/2017 11:26 AM Signed Spoke with pt gave information provided. Pt voices understanding. Progress Notes ([facility]): Belle Mendenhall MA 04/16/2017 11:01 AM Signed Pt needs to be scheduled for a Colonoscopy with Dr. Don in [place] or [place]. Pt has a pacemaker, he is on Coumadin and he is diabetic Please contact the patient to schedule Thank you. Belle Mendenhall MA 04/16/2017 1:[address] Foreman and model- Medtronic [id number] ARMENDARIZ Serial #- [id number] Implant date- 10/05/2012. Belle Berry Alex Surg Coord 04/21/2017 10:34 AM Signed Colon Allison Berry Alex Surg Coord Kerrie Alex Surg Coord 04/21/2017 10:34 AM Signed Addended by: ALEX SURG COORD, KERRIE on: 04/21/2017 10:34 AM Modules accepted: Orders Belle Mendenhall MA 04/21/2017 10:48 AM Signed Noted. Belle Mendenhall MA PROGRESS Observed: 04/16/2017 Status: COMPLETED Source: [place] 10:20 AM [facility] REPOSITORY HNO ID: [id number] Author: Marika High Service: (none) Author Type: Physician Type: Progress Notes Filed: 04/16/2017 11:27 AM Note Text: I agree with the advice given; stay on 4 mg daily; recheck in 4 weeks Discussed with pt at his appt Marika High MD CNOV Observed: 04/16/2017 Status: COMPLETED Source: [place] 10:20 AM [facility] REPOSITORY Office Visit ([facility]) VINEET DELANEY ([id number]) 1950 M Date Time Provider Department 04/16/17 10:20 AM DO LANDERS (MAHENDRA) [facility] During your visit today, we recorded the following information about you: Pulse Blood pressure Weight Height 90/minute 100/67 94 kg 1.778 m Do Landers RN CAMPAIGN SPECIALIST 04/16/2017 11:15 AM Signed Vineet Delaney a 66 year old male who is referred by Dr. High for surveillance colonoscopy. The patient denies a family history of colon cancer. The patient was seen by Dr. Wakefield for colonoscopy 04/10/14. The procedure report has been reviewed and findings as follows: Impression: ? ?- Many 5 mm polyps in the rectum and in the transverse ? colon. Resected and retrieved. ? - Diverticulosis in the sigmoid colon and in the ? descending colon. FINAL DIAGNOSIS 1. ?Transverse colon, biopsy (A) - Sessile serrated polyp. - Hyperplastic polyp. 2. ?Rectum, biopsy (B) - Hyperplastic polyp. Dr. Wakefield recommended 3 year surveillance. Presenting complaint: The patient denies change in bowel habits, rectal bleeding or abdominal pain. Having a bowel movement twice a day, sometimes loose. Taking omeprazole daily. Last EGD was 04/17/11. Impression: ?- Z-line regular. ? - Hiatus hernia. ? - Gastric mucosal abnormality characterized by mild ? antral erythema. ? - Erythematous duodenopathy. ? - Biopsies were taken with a cold forceps for ? Helicobacter pylori testing. The patient denies any upper GI complaints. REVIEW OF SYSTEMS: GENERAL: No weight loss, malaise or fevers RESPIRATORY: Positive for occasional shortness of breath. Dr. Funes aware. CARDIOVASCULAR: Pacemaker. Positive for CAD, PR, elevated cholesterol. GI: The patient states that his appetite has been good. He does get hungry. There has been no nausea, no vomiting. He denies dysphagia and denies odynophagia. There has not been indigestion or heartburn. There has not been regurgitation. Bowel habits have been regular. There has partially been diarrhea. There has not been constipation. The patient denies rectal bleeding. There has not been melena. No abdominal pain. PSYCH: Positive for anxiety: taking medications with good effect. HEMATOLOGY/LYMPHOLOGY Taking coumadin. ENDOCRINE: Positive for diabetes mellitus on oral agents NEURO: Reported history remote seizures (no medications required) and TIA. All other reviewed and negative other than HPI. PAST MEDICAL HISTORY Diagnosis Date - Allergic rhinitis, cause unspecified Allergic rhinitis - Arrhythmia - Benign neoplasm of colon - CAD (coronary artery disease) 2000 Myocardial Infarction ' - Dupuytren contracture - Mental disorder - Myocardial infarct, old - Rash and other nonspecific skin eruption Nonspec Skin Erup Nec - Seizures (HCC) - TIA (transient ischemic attack) 2004 - Type 2 diabetes mellitus without complication, without long- term current use of insulin (HCC) 12/25/2015 PAST SURGICAL HISTORY Procedure Laterality Date - COLONOSCOP W/ OR W/O BRS SPEC 04/17/2011 Colonoscopy - COLONOSCOP W/ OR W/O BRS SPEC 04/10/2014 Colonoscopy - EGD W/O OR W/BRUSH/WASH 02/24/05 EGD - H. Pylori gastritis - EGD W/O OR W/BRUSH/WASH 04/17/2011 EGD - HEART SURGERY HX 09/2012 pacemaker - PAST SURGICAL HISTORY OF 3 heart caths - normal - PAST SURGICAL HISTORY OF 2008 right knee meniscus repair - PAST SURGICAL HISTORY OF 2006 left hand - REPAIR ING HERNIA,5+Y/O,REDUCIBL 2005 Hernia repair, inguinal FAMILY HISTORY Problem Relation Age of Onset - Diabetes Maternal Grandfather - Cancer Brother - Cancer Mother skin - Diabetes Mother - Diabetes Brother - Diabetes Maternal Uncle - Diabetes Maternal Uncle - Heart Sister - Heart Brother Current Outpatient Prescriptions: tamsulosin ER (FLOMAX) 0.4 mg cp24 Take 1 capsule by mouth daily at bedtime. Disp: 30 capsule Rfl: 11 warfarin (COUMADIN) 4 mg tablet Taking 2 mg on Thursday, 4 mg all other days or as directed Disp: Rfl: venlafaxine ER (EFFEXOR XR) 75 mg 24 hr capsule take 1 capsule by mouth once daily Disp: 90 capsule Rfl: 3 metoprolol tartrate, short acting, (LOPRESSOR) 25 mg tablet Take half a pill twice a day Disp: Rfl: flecainide (TAMBOCOR) 100 mg tablet Take 0.5 tablets by mouth twice daily. Disp: 90 tablet Rfl: 3 blood sugar diagnostic (BLOOD GLUCOSE TEST) test strip Test blood sugar(s) 1 times daily. Dx: Type 2 DM - Controlled E11.9 Insulin: No Disp: 150 Strip Rfl: 3 sitaGLIPtin (JANUVIA) 100 mg tablet Take 1 tablet by mouth once daily. Disp: 90 tablet Rfl: 3 omeprazole (PRILOSEC) 20 mg capsule take 1 capsule by mouth once daily 1/2 HOUR BEFORE BREAKFAST Disp: 90 capsule Rfl: 1 pravastatin (PRAVACHOL) 40 mg tablet Take 1 tablet by mouth daily at bedtime. Disp: 90 tablet Rfl: 3 venlafaxine XR (EFFEXOR XR) 150 mg 24 hr capsule Take 1 capsule by mouth once daily. Disp: 90 capsule Rfl: 1 Lancets lancets Test blood sugar(s) 1 times daily. Dx: Type 2 DM - Controlled E11.9 Insulin: No Disp: 150 Each Rfl: 3 albuterol (PROVENTIL) 2.5 mg /3 mL (0.083 %) nebulizer solution Use 3 mL via nebulizer every 4 hours as needed for Wheezing/Shortness of Breath. Use over 5-15minutes. Disp: 1 Package Rfl: 0 benzonatate (TESSALON PERLE) 100 mg capsule Take 1 capsule by mouth three times daily as needed. Disp: 30 capsule Rfl: 0 glimepiride (AMARYL) 2 mg tablet take 1 tablet by mouth once daily WITH BREAKFAST Disp: 30 tablet Rfl: 11 nitroglycerin sublingual (NITROSTAT) 0.4 mg SL tablet dissolve 1 tablet under the tongue if needed for chest pain (IF NO RELIEF CALL 911) Disp: 25 tablet Rfl: 6 gemfibrozil (LOPID) 600 mg tablet Take 1 tablet by mouth twice daily. Disp: 180 tablet Rfl: 3 Blood-Glucose Meter monitoring kit Glucose Meter of Choice - Kit - Dx: Type 2 DM - Controlled E11.9. Check blood sugar once daily as needed. Disp: 1 Each Rfl: 0 No current facility-administered medications for this visit. SOCIAL HISTORY: Patient is . He quit smoking in 2012 and reports his alcohol use as never. PHYSICAL EXAMINATION: Blood pressure 100/67, pulse 90, height 177.8 cm (5' 10ANDquot;), weight 94 kg (207 lb 3.2 oz). General Appearance: Well appearing, alert, in no acute distress, well-hydrated, well nourished. Skin: Skin color, texture, turgor normal, no suspicious rashes or lesions. Eyes: Anicteric sclera. Oropharynx: Lips, mucosa, and tongue normal, teeth and gums normal, oropharynx normal. Lungs: Lungs clear to auscultation. No wheezing, rhonchi, rales. Heart: RRR without murmur. Abdomen: Abdomen soft, non-tender. Bowel sounds normal. No masses, organomegaly. Peripheral Pulses: Normal. Neurologic: Gait normal. Sensation grossly intact. Impression: history of polyps Plan: This patient will be scheduled for a colonoscopy using GoLytely as the prep. The preparation, as well as the procedure, has been explained in detail. The risks, benefits, anticipated outcomes and possible complications were mentioned. I explained the procedure in understandable terms and the patient was given printed material concerning the planned procedure. The patient had the opportunity to ask questions concerning the planned procedure. The patient freely consents to the planned procedure. The patient's procedure will need to be at [place] or [facility] due to his pacemaker. The manager strategic development will contact him regarding where/when. Dr. Hgih will be notified and asked to contact the patient with when to hold his coumadin for the procedure. The patient is asked to call with any questions for concerns, or should there be any change in health status between now and the scheduled procedure. I have personally interviewed and examined this patient. I have read the information the MA documented in this encounter. This visit was at least 30 minutes in length with a majority of the time spent in review of the past records with the patient, discussion and counseling. Do Landers RN CAMPAIGN SPECIALIST Do Landers RN CAMPAIGN SPECIALIST 04/16/2017 10:39 AM Addendum Please follow the provided instructions for colonoscopy. You will be using GoLytely as the laxative during the preparation. You may start the laxative as early as 1:00 in the afternoon. The manager strategic development for Dr. Don will call you to set up the procedure. This will be in [place] or [place]. Referring Provider: MARIKA HIGH [[id number]] Allergies As of Date: 04/16/2017 Noted Allergy Reaction METFORMIN 12/25/2015 14 - Other: See Comments Comments: Sweating BLACK PEPPER 11/17/2005 4 - Hives DUST MITES 11/17/2005 4 - Hives MOLD SPORES 11/17/2005 12 - Shortness of Breath PENICILLINS 11/17/2005 4 - Hives aly cheese [Other] 11/17/2005 12 - Shortness of Breath Date Reviewed: 04/16/2017 Reviewed by: Belle Mendenhall MA - Fully Assessed Reason for Visit: colonoscopy consult [Other] Primary Visit Diagnosis:History of colonic polyps [Z86.010] Other Visit Diagnoses:Diverticulosis of large intestine without hemorrhage [K57.30] Hemorrhoids, internal [K64.8] Order(s):COLONOSCOPY, SCREENING, HIGH RISK [[id number]] Order #: [id number] FUTURE peg 3350-electrolytes (COLYTE) 240-22.72-6.72 -5.84 gram solutionTake 4,000 mL by mouth one time only for 1 dose.Disp: 1 BottleRfl: 0 Prescriptions as of 04/16/2017 Sig: PEG 3350 240 GRAM-ELECTROLYTE* Take 4,000 mL by mouth one ti* TAMSULOSIN 0.4 MG CAPSULE Take 1 capsule by mouth daily* WARFARIN 4 MG TABLET Taking 2 mg on Thursday, 4 mg a* VENLAFAXINE ER 75 MG CAPSULE,* take 1 capsule by mouth once * METOPROLOL TARTRATE 25 MG TAB* Take half a pill twice a day FLECAINIDE 100 MG TABLET Take 0.5 tablets by mouth twi* BLOOD SUGAR DIAGNOSTIC STRIPS Test blood sugar(s) 1 times d* SITAGLIPTIN 100 MG TABLET Take 1 tablet by mouth once d* OMEPRAZOLE 20 MG CAPSULE,YANNA* take 1 capsule by mouth once * PRAVASTATIN 40 MG TABLET Take 1 tablet by mouth daily * VENLAFAXINE ER 150 MG CAPSULE* Take 1 capsule by mouth once * LANCETS Test blood sugar(s) 1 times d* ALBUTEROL SULFATE 2.5 MG/3 ML* Use 3 mL via nebulizer every * BENZONATATE 100 MG CAPSULE Take 1 capsule by mouth three* GLIMEPIRIDE 2 MG TABLET take 1 tablet by mouth once d* NITROGLYCERIN 0.4 MG SUBLINGU* dissolve 1 tablet under the t* GEMFIBROZIL 600 MG TABLET Take 1 tablet by mouth twice * BLOOD-GLUCOSE METER KIT Glucose Meter of Choice - Kit* Problem List As Of Date 04/16/2017 Noted Resolved Inguinal hernia without mention of obstruction *INVALID FOR*03/27/2016 First degree AV block [I44.0] INVALID FOR* Priority: D More... More... History of PR (myocardial infarction) [I25.2] INVALID FOR* Tobacco use disorder [F17.200] INVALID FOR*03/27/2016 Priority: E More... SUMMARY [V999.95] INVALID FOR* Priority: A More... Chest pain [R07.9] INVALID FOR* Priority: B More... Claudication [I73.9] INVALID FOR* Priority: D More... Dupuytren's contracture of right hand [M72.0] INVALID FOR* MANNY (obstructive sleep apnea) [G47.33] INVALID FOR* Rhinitis [J31.0] INVALID FOR* Cardiac pacemaker in situ [Z95.0] INVALID FOR* More... Atrial fibrillation [I48.91] INVALID FOR* Anxiety [F41.9] INVALID FOR* Personal history of colonic polyps [Z86.010] INVALID FOR*04/10/2014 Diverticulosis of colon (without mention of hem*INVALID FOR*04/10/2014 Gastroesophageal reflux disease without esophag*INVALID FOR* Type 2 diabetes mellitus without complication, *INVALID FOR* Chronic left shoulder pain [M25.512, G89.29] INVALID FOR* Other instructions from your clinician: Please follow the provided instructions for colonoscopy. You will be using GoLytely as the laxative during the preparation. You may start the laxative as early as 1:00 in the afternoon. The manager strategic development for Dr. Don will call you to set up the procedure. This will be in [place] or [place]. Prescriptions ordered this encounter Disp Refills Start End PEG 3350 240 GRAM-ELECTROLYTES 22.72* 1 Santos* 0 04/16/2017 04/16/2017 Route: ORAL Sig: Take 4,000 mL by mouth one time only for 1 dose. Encounter Status:Closed by DO LANDERS CNP on 04/16/17 HISTORY PHYSICAL Observed: 04/16/2017 Status: COMPLETED Source: [place] 10:11 AM [facility] REPOSITORY O ID: [id number] Author: Do (Mahendra) Leesa Service: (none) Author Type: Nurse Practitioner Type: HANDP Filed: 04/16/2017 11:15 AM Note Text: Vineet Delaney a 66 year old male who is referred by Dr. High for surveillance colonoscopy. The patient denies a family history of colon cancer. The patient was seen by Dr. Wakefield for colonoscopy 04/10/14. The procedure report has been reviewed and findings as follows: Impression: ? ?- Many 5 mm polyps in the rectum and in the transverse ? colon. Resected and retrieved. ? - Diverticulosis in the sigmoid colon and in the ? descending colon. FINAL DIAGNOSIS 1. ?Transverse colon, biopsy (A) - Sessile serrated polyp. - Hyperplastic polyp. 2. ?Rectum, biopsy (B) - Hyperplastic polyp. Dr. Wakefield recommended 3 year surveillance. Presenting complaint: The patient denies change in bowel habits, rectal bleeding or abdominal pain. Having a bowel movement twice a day, sometimes loose. Taking omeprazole daily. Last EGD was 04/17/11. Impression: ?- Z-line regular. ? - Hiatus hernia. ? - Gastric mucosal abnormality characterized by mild ? antral erythema. ? - Erythematous duodenopathy. ? - Biopsies were taken with a cold forceps for ? Helicobacter pylori testing. The patient denies any upper GI complaints. REVIEW OF SYSTEMS: GENERAL: No weight loss, malaise or fevers RESPIRATORY: Positive for occasional shortness of breath. Dr. Funes aware. CARDIOVASCULAR: Pacemaker. Positive for CAD, PR, elevated cholesterol. GI: The patient states that his appetite has been good. He does get hungry. There has been no nausea, no vomiting. He denies dysphagia and denies odynophagia. There has not been indigestion or heartburn. There has not been regurgitation. Bowel habits have been regular. There has partially been diarrhea. There has not been constipation. The patient denies rectal bleeding. There has not been melena. No abdominal pain. PSYCH: Positive for anxiety: taking medications with good effect. HEMATOLOGY/LYMPHOLOGY Taking coumadin. ENDOCRINE: Positive for diabetes mellitus on oral agents NEURO: Reported history remote seizures (no medications required) and TIA. All other reviewed and negative other than HPI. PAST MEDICAL HISTORY Diagnosis Date - Allergic rhinitis, cause unspecified Allergic rhinitis - Arrhythmia - Benign neoplasm of colon - CAD (coronary artery disease) 2000 Myocardial Infarction ' - Dupuytren contracture - Mental disorder - Myocardial infarct, old - Rash and other nonspecific skin eruption Nonspec Skin Erup Nec - Seizures (HCC) - TIA (transient ischemic attack) 2004 - Type 2 diabetes mellitus without complication, without long- term current use of insulin (HCC) 12/25/2015 PAST SURGICAL HISTORY Procedure Laterality Date - COLONOSCOP W/ OR W/O [facility] SPEC 04/17/2011 Colonoscopy - COLONOSCOP W/ OR W/O [facility] SPEC 04/10/2014 Colonoscopy - EGD W/O OR W/BRUSH/WASH 02/24/05 EGD - H. Pylori gastritis - EGD W/O OR W/BRUSH/WASH 04/17/2011 EGD - HEART SURGERY HX 09/2012 pacemaker - PAST SURGICAL HISTORY OF 3 heart caths - normal - PAST SURGICAL HISTORY OF 2008 right knee meniscus repair - PAST SURGICAL HISTORY OF 2006 left hand - REPAIR ING HERNIA,5+Y/O,REDUCIBL 2005 Hernia repair, inguinal FAMILY HISTORY Problem Relation Age of Onset - Diabetes Maternal Grandfather - Cancer Brother - Cancer Mother skin - Diabetes Mother - Diabetes Brother - Diabetes Maternal Uncle - Diabetes Maternal Uncle - Heart Sister - Heart Brother Current Outpatient Prescriptions: tamsulosin ER (FLOMAX) 0.4 mg cp24 Take 1 capsule by mouth daily at bedtime. Disp: 30 capsule Rfl: 11 warfarin (COUMADIN) 4 mg tablet Taking 2 mg on Thursday, 4 mg all other days or as directed Disp: Rfl: venlafaxine ER (EFFEXOR XR) 75 mg 24 hr capsule take 1 capsule by mouth once daily Disp: 90 capsule Rfl: 3 metoprolol tartrate, short acting, (LOPRESSOR) 25 mg tablet Take half a pill twice a day Disp: Rfl: flecainide (TAMBOCOR) 100 mg tablet Take 0.5 tablets by mouth twice daily. Disp: 90 tablet Rfl: 3 blood sugar diagnostic (BLOOD GLUCOSE TEST) test strip Test blood sugar(s) 1 times daily. Dx: Type 2 DM - Controlled E11.9 Insulin: No Disp: 150 Strip Rfl: 3 sitaGLIPtin (JANUVIA) 100 mg tablet Take 1 tablet by mouth once daily. Disp: 90 tablet Rfl: 3 omeprazole (PRILOSEC) 20 mg capsule take 1 capsule by mouth once daily 1/2 HOUR BEFORE BREAKFAST Disp: 90 capsule Rfl: 1 pravastatin (PRAVACHOL) 40 mg tablet Take 1 tablet by mouth daily at bedtime. Disp: 90 tablet Rfl: 3 venlafaxine XR (EFFEXOR XR) 150 mg 24 hr capsule Take 1 capsule by mouth once daily. Disp: 90 capsule Rfl: 1 Lancets lancets Test blood sugar(s) 1 times daily. Dx: Type 2 DM - Controlled E11.9 Insulin: No Disp: 150 Each Rfl: 3 albuterol (PROVENTIL) 2.5 mg /3 mL (0.083 %) nebulizer solution Use 3 mL via nebulizer every 4 hours as needed for Wheezing/Shortness of Breath. Use over 5-15minutes. Disp: 1 Package Rfl: 0 benzonatate (TESSALON PERLE) 100 mg capsule Take 1 capsule by mouth three times daily as needed. Disp: 30 capsule Rfl: 0 glimepiride (AMARYL) 2 mg tablet take 1 tablet by mouth once daily WITH BREAKFAST Disp: 30 tablet Rfl: 11 nitroglycerin sublingual (NITROSTAT) 0.4 mg SL tablet dissolve 1 tablet under the tongue if needed for chest pain (IF NO RELIEF CALL 911) Disp: 25 tablet Rfl: 6 gemfibrozil (LOPID) 600 mg tablet Take 1 tablet by mouth twice daily. Disp: 180 tablet Rfl: 3 Blood-Glucose Meter monitoring kit Glucose Meter of Choice - Kit - Dx: Type 2 DM - Controlled E11.9. Check blood sugar once daily as needed. Disp: 1 Each Rfl: 0 No current facility-administered medications for this visit. SOCIAL HISTORY: Patient is . He quit smoking in 2012 and reports his alcohol use as never. PHYSICAL EXAMINATION: Blood pressure 100/67, pulse 90, height 177.8 cm (5' 10), weight 94 kg (207 lb 3.2 oz). General Appearance: Well appearing, alert, in no acute distress, well-hydrated, well nourished. Skin: Skin color, texture, turgor normal, no suspicious rashes or lesions. Eyes: Anicteric sclera. Oropharynx: Lips, mucosa, and tongue normal, teeth and gums normal, oropharynx normal. Lungs: Lungs clear to auscultation. No wheezing, rhonchi, rales. Heart: RRR without murmur. Abdomen: Abdomen soft, non-tender. Bowel sounds normal. No masses, organomegaly. Peripheral Pulses: Normal. Neurologic: Gait normal. Sensation grossly intact. Impression: history of polyps Plan: This patient will be scheduled for a colonoscopy using GoLytely as the prep. The preparation, as well as the procedure, has been explained in detail. The risks, benefits, anticipated outcomes and possible complications were mentioned. I explained the procedure in understandable terms and the patient was given printed material concerning the planned procedure. The patient had the opportunity to ask questions concerning the planned procedure. The patient freely consents to the planned procedure. The patient's procedure will need to be at [place] or [facility] due to his pacemaker. The manager strategic development will contact him regarding where/when. Dr. High will be notified and asked to contact the patient with when to hold his coumadin for the procedure. The patient is asked to call with any questions for concerns, or should there be any change in health status between now and the scheduled procedure. I have personally interviewed and examined this patient. I have read the information the MA documented in this encounter. This visit was at least 30 minutes in length with a majority of the time spent in review of the past records with the patient, discussion and counseling. Do Landers RN CAMPAIGN SPECIALIST CNOV Observed: 04/16/2017 Status: COMPLETED Source: [place] 9:40 AM [facility] REPOSITORY Office Visit (FAMPWS) VINEET DELANEY Rabia ([id number]) 1950 M Date Time Provider Department 04/16/17 9:40 AM MARIKA HIGH During your visit today, we recorded the following information about you: Pulse Respiration Blood pressure Weight 68/minute 14/minute 120/70 93.8 kg Marika High MD 04/17/2017 5:31 PM Signed Chief Complaint Patient presents with: F/U 3 Month HPI Vineet [place] Rhett is a 66 year old male who presents here today for 3 month follow up. No bowel, Gi, or urinary concerns. Is taking Flomax 0.4 mg daily. Does get up once a night to urinate. DM: checking sugars once daily at home with readings around 130. No numbness or burning in feet. No hypoglycemic episodes. Is taking Amaryl 2 mg daily and Januvia 100 mg daily. HTN: does check BP at home, readings WNL. No chest pains or SOB. Has dizziness at time. Is taking Lopressor 25 mg half tablet twice daily. Pt was seeing Dr. Butler, screen writer but is going to start seeing a new provider that Dr. Butler recommended. Pt has not set up an appointment to see that screen writer yet. INR is managed by PCP. Pt is taking Coumadin. Anxiety: controlled on the Effexor 75 mg and 150 mg daily. GERD: is controled on Prilosec 20 mg daily. Hyperlipidemia: is taking Pravastatin 40 mg daily and Lopid 600 mg BID. Does try to watch diet, not able to exercise much. Bilateral foot pain off and on x 3 weeks. He states that he has sharp stabbing pains which makes it painful to walk. Denies any numbness/tingling/burning in feet. No pain at this time. Past medical history, appointments, medications, allergies reviewed. Previous Medical History PAST MEDICAL HISTORY Diagnosis Date - Allergic rhinitis, cause unspecified Allergic rhinitis - Arrhythmia - Benign neoplasm of colon - CAD (coronary artery disease) 2000 Myocardial Infarction - Dupuytren contracture - Mental disorder - Myocardial infarct, old - Rash and other nonspecific skin eruption Nonspec Skin Erup Nec - Seizures (HCC) - TIA (transient ischemic attack) 2004 - Type 2 diabetes mellitus without complication, without long- term current use of insulin ([facility]) 12/25/2015 Previous Surgical History PAST SURGICAL HISTORY Procedure Laterality Date - COLONOSCOP W/ OR W/O [facility] SPEC 04/17/2011 Colonoscopy - COLONOSCOP W/ OR W/O [facility] SPEC 04/10/2014 Colonoscopy - EGD W/O OR W/BRUSH/WASH 02/24/05 EGD - H. Pylori gastritis - EGD W/O OR W/BRUSH/WASH 04/17/2011 EGD - HEART SURGERY HX 09/2012 pacemaker - PAST SURGICAL HISTORY OF 3 heart caths - normal - PAST SURGICAL HISTORY OF 2008 right knee meniscus repair - PAST SURGICAL HISTORY OF 2006 left hand - REPAIR ING HERNIA,5+Y/O,REDUCIBL 2006 Hernia repair, inguinal Family History FAMILY HISTORY Problem Relation Age of Onset - Diabetes Maternal Grandfather - Cancer Brother - Cancer Mother skin - Diabetes Mother - Diabetes Brother - Diabetes Maternal Uncle - Diabetes Maternal Uncle - Heart Sister - Heart Brother Patient Allergies ALLERGIES Allergen Reactions - Metformin Other: See Comments Sweating - Black Pepper Hives - Dust Mites Hives - Mold Spores Shortness of Breath - Penicillins Hives - Aly Cheese [Other] Shortness of Breath Current Medications Current Outpatient Prescriptions on File Prior to Visit: tamsulosin ER (FLOMAX) 0.4 mg cp24 Take 1 capsule by mouth daily at bedtime. warfarin (COUMADIN) 4 mg tablet Taking 2 mg on Thursday, 4 mg all other days or as directed venlafaxine ER (EFFEXOR XR) 75 mg 24 hr capsule take 1 capsule by mouth once daily metoprolol tartrate, short acting, (LOPRESSOR) 25 mg tablet Take half a pill twice a day flecainide (TAMBOCOR) 100 mg tablet Take 0.5 tablets by mouth twice daily. blood sugar diagnostic (BLOOD GLUCOSE TEST) test strip Test blood sugar(s) 1 times daily. Dx: Type 2 DM - Controlled E11.9 Insulin: No sitaGLIPtin (JANUVIA) 100 mg tablet Take 1 tablet by mouth once daily. omeprazole (PRILOSEC) 20 mg capsule take 1 capsule by mouth once daily 1/2 HOUR BEFORE BREAKFAST pravastatin (PRAVACHOL) 40 mg tablet Take 1 tablet by mouth daily at bedtime. venlafaxine XR (EFFEXOR XR) 150 mg 24 hr capsule Take 1 capsule by mouth once daily. Lancets lancets Test blood sugar(s) 1 times daily. Dx: Type 2 DM - Controlled E11.9 Insulin: No albuterol (PROVENTIL) 2.5 mg /3 mL (0.083 %) nebulizer solution Use 3 mL via nebulizer every 4 hours as needed for Wheezing/Shortness of Breath. Use over 5-15minutes. benzonatate (TESSALON PERLE) 100 mg capsule Take 1 capsule by mouth three times daily as needed. glimepiride (AMARYL) 2 mg tablet take 1 tablet by mouth once daily WITH BREAKFAST nitroglycerin sublingual (NITROSTAT) 0.4 mg SL tablet dissolve 1 tablet under the tongue if needed for chest pain (IF NO RELIEF CALL 911) gemfibrozil (LOPID) 600 mg tablet Take 1 tablet by mouth twice daily. Blood-Glucose Meter monitoring kit Glucose Meter of Choice - Kit - Dx: Type 2 DM - Controlled E11.9. Check blood sugar once daily as needed. guaiFENesin (MUCINEX) 600 mg 12 hr tablet Take 2 tablets by mouth twice daily. No current facility-administered medications on file prior to visit. 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 Lungs: Lungs clear to auscultation. No wheezing, rhonchi, rales. Heart: RRR without murmur, gallop, or rubs. No ectopy. Health Maintenance List DILATED RETINAL EXAM due on 01/07/1951 COLORECTAL CANCER SCREENING,SEE MODIFIER due on 04/10/2017 DIABETIC FOOT EXAM due on 07/02/2017 HBA1C due on 10/06/2017 LDL due on 12/23/2017 PNEUMOVAX AGE 65 AND OVER WITH 5YR LOOKBACK(1) due on 04/02/2018 URINE ALBUMIN CREATININE RATIO due on 04/09/2018 TETANUS due on 03/11/2022 PROSTATE CANCER SCREENING DISCUSSION Completed ADULT PREVNAR-13 Completed INFLUENZA Completed HEPATITIS C SCREENING Completed Data reviewed Results Only on 04/08/2017 INR (POCT) Value: 2.0* Date: 04/08/2017 Internal Quality Check Value: Acceptable Date: 04/08/2017 Appointment on 04/08/2017 Hemoglobin A1C Value: 6.6(%)* Date: 04/08/2017 Estimated Average Glucose Value: 143(mg/dL) Date: 04/08/2017 Glucose Value: 132(mg/dL)* Date: 04/08/2017 BUN Value: 18(mg/dL) Date: 04/08/2017 Creatinine Value: 1.08(mg/dL) Date: 04/08/2017 Sodium Value: 142(mmol/L) Date: 04/08/2017 Potassium Value: 4.7(mmol/L) Date: 04/08/2017 Chloride Value: 106(mmol/L)* Date: 04/08/2017 CO2 Value: 22(mmol/L) Date: 04/08/2017 Anion Gap Value: 14(mmol/L) Date: 04/08/2017 Calcium Value: 9.2(mg/dL) Date: 04/08/2017 eGFR- Value: ANDgt;60 Date: 04/08/2017 eGFR-All Other Races Value: ANDgt;60(.) Date: 04/08/2017 Creatinine, Ur Random (U* Value: 173.3(mg/dL) Date: 04/09/2017 Albumin, Urine Random Value: ANDlt;12.0(mg/L) Date: 04/09/2017 Albumin/Creat Ratio Date: 04/09/2017 Value: Not calculated ASSESSMENT/PLAN: 1. Type 2 diabetes mellitus without complication, without long-term current use of insulin (HCC) - ICD9: 250.00, ICD10: E11.9 (primary diagnosis) Controlled. - Continue current medications - HGB A1C - LIPID PANEL BASIC - COMP METABOLIC PANEL 2. Screening for colon cancer - ICD9: V76.51, ICD10: Z12.11 - CONSULT TO GASTROENTEROLOGY 3. Gastroesophageal reflux disease without esophagitis - ICD9: 530.81, ICD10: K21.9 4. Anxiety - ICD9: 300.00, ICD10: F41.9 Continue current medications. 5. Persistent atrial fibrillation (HCC) - ICD9: 427.31, ICD10: I48.1 Continue current medications. Follow up in 6 months with labs prior Marika High MD Referring Provider: MARIKA HIGH [[id number]] Allergies As of Date: 04/16/2017 Noted Allergy Reaction METFORMIN 12/25/2015 14 - Other: See Comments Comments: Sweating BLACK PEPPER 11/17/2005 4 - Hives DUST MITES 11/17/2005 4 - Hives MOLD SPORES 11/17/2005 12 - Shortness of Breath PENICILLINS 11/17/2005 4 - Hives aly cheese [Other] 11/17/2005 12 - Shortness of Breath Date Reviewed: 04/16/2017 Reviewed by: Belle Mendenhall MA - Fully Assessed Reason for Visit: F/U 3 Month [443] Primary Visit Diagnosis:Type 2 diabetes mellitus without complication, without long-term current use of insulin (HCC) [E11.9] Other Visit Diagnoses:Screening for colon cancer [Z12.11] Gastroesophageal reflux disease without esophagitis [K21.9] Anxiety [F41.9] Persistent atrial fibrillation (HCC) [I48.1] Order(s):INR (POC) [[id number]] Order #: [id number]. #:[id number] CONSULT TO GASTROENTEROLOGY [9010] Order #: [id number]: 1 HGB A1C [[id number]] Order #: [id number] FUTURE LIPID PANEL BASIC [SQLIPB] Order #: [id number] FUTURE COMP METABOLIC PANEL [SQCMP] Order #: [id number] FUTURE Prescriptions as of 04/16/2017 Sig: TAMSULOSIN 0.4 MG CAPSULE Take 1 capsule by mouth daily* WARFARIN 4 MG TABLET Taking 2 mg on Thursday, 4 mg a* VENLAFAXINE ER 75 MG CAPSULE,* take 1 capsule by mouth once * METOPROLOL TARTRATE 25 MG TAB* Take half a pill twice a day FLECAINIDE 100 MG TABLET Take 0.5 tablets by mouth twi* BLOOD SUGAR DIAGNOSTIC STRIPS Test blood sugar(s) 1 times d* SITAGLIPTIN 100 MG TABLET Take 1 tablet by mouth once d* OMEPRAZOLE 20 MG CAPSULE,YANNA* take 1 capsule by mouth once * PRAVASTATIN 40 MG TABLET Take 1 tablet by mouth daily * VENLAFAXINE ER 150 MG CAPSULE* Take 1 capsule by mouth once * LANCETS Test blood sugar(s) 1 times d* ALBUTEROL SULFATE 2.5 MG/3 ML* Use 3 mL via nebulizer every * BENZONATATE 100 MG CAPSULE Take 1 capsule by mouth three* GLIMEPIRIDE 2 MG TABLET take 1 tablet by mouth once d* NITROGLYCERIN 0.4 MG SUBLINGU* dissolve 1 tablet under the t* GEMFIBROZIL 600 MG TABLET Take 1 tablet by mouth twice * BLOOD-GLUCOSE METER KIT Glucose Meter of Choice - Kit* Problem List As Of Date 04/16/2017 Noted Resolved Inguinal hernia without mention of obstruction *INVALID FOR*03/27/2016 First degree AV block [I44.0] INVALID FOR* Priority: D More... More... History of PR (myocardial infarction) [I25.2] INVALID FOR* Tobacco use disorder [F17.200] INVALID FOR*03/27/2016 Priority: E More... SUMMARY [V999.95] INVALID FOR* Priority: A More... Chest pain [R07.9] INVALID FOR* Priority: B More... Claudication [I73.9] INVALID FOR* Priority: D More... Dupuytren's contracture of right hand [M72.0] INVALID FOR* MANNY (obstructive sleep apnea) [G47.33] INVALID FOR* Rhinitis [J31.0] INVALID FOR* Cardiac pacemaker in situ [Z95.0] INVALID FOR* More... Atrial fibrillation [I48.91] INVALID FOR* Anxiety [F41.9] INVALID FOR* Personal history of colonic polyps [Z86.010] INVALID FOR*04/10/2014 Diverticulosis of colon (without mention of hem*INVALID FOR*04/10/2014 Gastroesophageal reflux disease without esophag*INVALID FOR* Type 2 diabetes mellitus without complication, *INVALID FOR* Chronic left shoulder pain [M25.512, G89.29] INVALID FOR* Medications Discontinued During This Encounter guaiFENesin (MUCINEX) 600 mg 12 hr t* 30 t* 0 12/13/2016 04/16/2017 Route: ORAL Sig: Take 2 tablets by mouth twice daily. Disc: Reason for discontinue is not on file. Disposition: Return in about 3 months (around 07/17/2017). Follow-up and Disposition History Recorded Encounter Status:Closed by MARIKA HIGH MD on 04/17/17 PROGRESS Observed: 04/16/2017 Status: COMPLETED Source: [place] 9:23 AM [facility] REPOSITORY HNO ID: [id number] Author: Zoe Andrade RN Service: (none) Author Type: (none) Type: Progress Notes Filed: 04/16/2017 11:27 AM Note Text: INR 2.5-results reviewed with patient. Current Coumadin dose is 4 mg daily with last dose change on 04/01/17. Last INR on 04/08/17 was 2.0. Patient wishes to continue on same dose of 4 mg daily and Will review with provider in office at PCP visit today. Written instructions were given to patient and patient verbalized understanding. Presently, patient has been scheduled for INR follow up on 4 weeks. Please note and agree. Zoe Andrade RN PROGRESS Observed: 04/16/2017 Status: COMPLETED Source: [place] 9:22 AM [facility] REPOSITORY O ID: [id number] Author: Marika High Service: (none) Author Type: Physician Type: Progress Notes Filed: 04/17/2017 5:31 PM Note Text: Chief Complaint Patient presents with: F/U 3 Month HPI Vineet Delaney is a 66 year old male who presents here today for 3 month follow up. No bowel, Gi, or urinary concerns. Is taking Flomax 0.4 mg daily. Does get up once a night to urinate. DM: checking sugars once daily at home with readings around 130. No numbness or burning in feet. No hypoglycemic episodes. Is taking Amaryl 2 mg daily and Januvia 100 mg daily. HTN: does check BP at home, readings WNL. No chest pains or SOB. Has dizziness at time. Is taking Lopressor 25 mg half tablet twice daily. Pt was seeing Dr. Butler, screen writer but is going to start seeing a new provider that Dr. Butler recommended. Pt has not set up an appointment to see that screen writer yet. INR is managed by PCP. Pt is taking Coumadin. Anxiety: controlled on the Effexor 75 mg and 150 mg daily. GERD: is controled on Prilosec 20 mg daily. Hyperlipidemia: is taking Pravastatin 40 mg daily and Lopid 600 mg BID. Does try to watch diet, not able to exercise much. Bilateral foot pain off and on x 3 weeks. He states that he has sharp stabbing pains which makes it painful to walk. Denies any numbness/tingling/burning in feet. No pain at this time. Past medical history, appointments, medications, allergies reviewed. Previous Medical History PAST MEDICAL HISTORY Diagnosis Date - Allergic rhinitis, cause unspecified Allergic rhinitis - Arrhythmia - Benign neoplasm of colon - CAD (coronary artery disease) 2000 Myocardial Infarction - Dupuytren contracture - Mental disorder - Myocardial infarct, old - Rash and other nonspecific skin eruption Nonspec Skin Erup Nec - Seizures (HCC) - TIA (transient ischemic attack) 2004 - Type 2 diabetes mellitus without complication, without long- term current use of insulin ([facility]) 12/25/2015 Previous Surgical History PAST SURGICAL HISTORY Procedure Laterality Date - COLONOSCOP W/ OR W/O BRSH SPEC 04/17/2011 Colonoscopy - COLONOSCOP W/ OR W/O BRSH SPEC 04/10/2014 Colonoscopy - EGD W/O OR W/BRUSH/WASH 02/24/05 EGD - H. Pylori gastritis - EGD W/O OR W/BRUSH/WASH 04/17/2011 EGD - HEART SURGERY HX 09/2012 pacemaker - PAST SURGICAL HISTORY OF 3 heart caths - normal - PAST SURGICAL HISTORY OF 2008 right knee meniscus repair - PAST SURGICAL HISTORY OF 2006 left hand - REPAIR ING HERNIA,5+Y/O,REDUCIBL 2005 Hernia repair, inguinal Family History FAMILY HISTORY Problem Relation Age of Onset - Diabetes Maternal Grandfather - Cancer Brother - Cancer Mother skin - Diabetes Mother - Diabetes Brother - Diabetes Maternal Uncle - Diabetes Maternal Uncle - Heart Sister - Heart Brother Patient Allergies ALLERGIES Allergen Reactions - Metformin Other: See Comments Sweating - Black Pepper Hives - Dust Mites Hives - Mold Spores Shortness of Breath - Penicillins Hives - Aly Cheese [Other] Shortness of Breath Current Medications Current Outpatient Prescriptions on File Prior to Visit: tamsulosin ER (FLOMAX) 0.4 mg cp24 Take 1 capsule by mouth daily at bedtime. warfarin (COUMADIN) 4 mg tablet Taking 2 mg on Thursday, 4 mg all other days or as directed venlafaxine ER (EFFEXOR XR) 75 mg 24 hr capsule take 1 capsule by mouth once daily metoprolol tartrate, short acting, (LOPRESSOR) 25 mg tablet Take half a pill twice a day flecainide (TAMBOCOR) 100 mg tablet Take 0.5 tablets by mouth twice daily. blood sugar diagnostic (BLOOD GLUCOSE TEST) test strip Test blood sugar(s) 1 times daily. Dx: Type 2 DM - Controlled E11.9 Insulin: No sitaGLIPtin (JANUVIA) 100 mg tablet Take 1 tablet by mouth once daily. omeprazole (PRILOSEC) 20 mg capsule take 1 capsule by mouth once daily 1/2 HOUR BEFORE BREAKFAST pravastatin (PRAVACHOL) 40 mg tablet Take 1 tablet by mouth daily at bedtime. venlafaxine XR (EFFEXOR XR) 150 mg 24 hr capsule Take 1 capsule by mouth once daily. Lancets lancets Test blood sugar(s) 1 times daily. Dx: Type 2 DM - Controlled E11.9 Insulin: No albuterol (PROVENTIL) 2.5 mg /3 mL (0.083 %) nebulizer solution Use 3 mL via nebulizer every 4 hours as needed for Wheezing/Shortness of Breath. Use over 5-15minutes. benzonatate (TESSALON PERLE) 100 mg capsule Take 1 capsule by mouth three times daily as needed. glimepiride (AMARYL) 2 mg tablet take 1 tablet by mouth once daily WITH BREAKFAST nitroglycerin sublingual (NITROSTAT) 0.4 mg SL tablet dissolve 1 tablet under the tongue if needed for chest pain (IF NO RELIEF CALL 911) gemfibrozil (LOPID) 600 mg tablet Take 1 tablet by mouth twice daily. Blood-Glucose Meter monitoring kit Glucose Meter of Choice - Kit - Dx: Type 2 DM - Controlled E11.9. Check blood sugar once daily as needed. guaiFENesin (MUCINEX) 600 mg 12 hr tablet Take 2 tablets by mouth twice daily. No current facility-administered medications on file prior to visit. 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 Lungs: Lungs clear to auscultation. No wheezing, rhonchi, rales. Heart: RRR without murmur, gallop, or rubs. No ectopy. Health Maintenance List DILATED RETINAL EXAM due on 01/07/1951 COLORECTAL CANCER SCREENING,SEE MODIFIER due on 04/10/2017 DIABETIC FOOT EXAM due on 07/02/2017 HBA1C due on 10/06/2017 LDL due on 12/23/2017 PNEUMOVAX AGE 65 AND OVER WITH 5YR LOOKBACK(1) due on 04/02/2018 URINE ALBUMIN CREATININE RATIO due on 04/09/2018 TETANUS due on 03/11/2022 PROSTATE CANCER SCREENING DISCUSSION Completed ADULT PREVNAR-13 Completed INFLUENZA Completed HEPATITIS C SCREENING Completed Data reviewed Results Only on 04/08/2017 INR (POCT) Value: 2.0* Date: 04/08/2017 Internal Quality Check Value: Acceptable Date: 04/08/2017 Appointment on 04/08/2017 Hemoglobin A1C Value: 6.6(%)* Date: 04/08/2017 Estimated Average Glucose Value: 143(mg/dL) Date: 04/08/2017 Glucose Value: 132(mg/dL)* Date: 04/08/2017 BUN Value: 18(mg/dL) Date: 04/08/2017 Creatinine Value: 1.08(mg/dL) Date: 04/08/2017 Sodium Value: 142(mmol/L) Date: 04/08/2017 Potassium Value: 4.7(mmol/L) Date: 04/08/2017 Chloride Value: 106(mmol/L)* Date: 04/08/2017 CO2 Value: 22(mmol/L) Date: 04/08/2017 Anion Gap Value: 14(mmol/L) Date: 04/08/2017 Calcium Value: 9.2(mg/dL) Date: 04/08/2017 eGFR- Value: >60 Date: 04/08/2017 eGFR-All Other Races Value: >60(.) Date: 04/08/2017 Creatinine, Ur Random (U* Value: 173.3(mg/dL) Date: 04/09/2017 Albumin, Urine Random Value: <12.0(mg/L) Date: 04/09/2017 Albumin/Creat Ratio Date: 04/09/2017 Value: Not calculated ASSESSMENT/PLAN: 1. Type 2 diabetes mellitus without complication, without long-term current use of insulin (HCC) - ICD9: 250.00, ICD10: E11.9 (primary diagnosis) Controlled. - Continue current medications - HGB A1C - LIPID PANEL BASIC - COMP METABOLIC PANEL 2. Screening for colon cancer - ICD9: V76.51, ICD10: Z12.11 - CONSULT TO GASTROENTEROLOGY 3. Gastroesophageal reflux disease without esophagitis - ICD9: 530.81, ICD10: K21.9 4. Anxiety - ICD9: 300.00, ICD10: F41.9 Continue current medications. 5. Persistent atrial fibrillation (HCC) - ICD9: 427.31, ICD10: I48.1 Continue current medications. Follow up in 6 months with labs prior MD QUINTEN Trotter Observed: 04/16/2017 Status: COMPLETED Source: [place] 12:00 AM [facility] REPOSITORY Telephone ([facility]) VINEET DELANEY ([id number]) 1950 Date Time Provider Department 04/16/17 DO LANDERS (CREDENTIALING ASSISTANT) [facility] During your visit today, we recorded the following information about you: Belle Mendenhall MA 04/16/2017 11:01 AM Signed Pt needs to be scheduled for a Colonoscopy with Dr. Don in [place] or [place]. Pt has a pacemaker, he is on Coumadin and he is diabetic Please contact the patient to schedule Thank you. Belle Mendenhall MA 04/16/2017 1:[address] [employer] and model- [employer] [id number] ARMENDARIZ Serial #- [id number] Implant date- 10/05/2012. Belle Alex Surg Coord 04/21/2017 10:34 AM Signed 05-04-*2017 Colon Allison Alex Surg Coord Kerrie Alex Surg Coord 04/21/2017 10:34 AM Signed Addended by: ISAI SURG KERRIE CELESTE on: 04/21/2017 10:34 AM Modules accepted: Orders Allergies As of Date: 04/16/2017 Noted Allergy Reaction METFORMIN 12/25/2015 14 - Other: See Comments Comments: Sweating BLACK PEPPER 11/17/2005 4 - Hives DUST MITES 11/17/2005 4 - Hives MOLD SPORES 11/17/2005 12 - Shortness of Breath PENICILLINS 11/17/2005 4 - Hives aly cheese [Other] 11/17/2005 12 - Shortness of Breath Date Reviewed: 04/16/2017 Reviewed by: Belle Mendenhall MA - Fully Assessed Reason for Visit: Procedure [88] Cmt: colonoscopy Order(s):SURGICAL REQUEST - ELECTIVE [[id number]] Order #: [id number]: 1 Prescriptions as of 04/16/2017 Sig: PEG 3350 240 GRAM-ELECTROLYTE* Take 4,000 mL by mouth one ti* TAMSULOSIN 0.4 MG CAPSULE Take 1 capsule by mouth daily* WARFARIN 4 MG TABLET Taking 2 mg on Thursday, 4 mg a* VENLAFAXINE ER 75 MG CAPSULE,* take 1 capsule by mouth once * METOPROLOL TARTRATE 25 MG TAB* Take half a pill twice a day FLECAINIDE 100 MG TABLET Take 0.5 tablets by mouth twi* BLOOD SUGAR DIAGNOSTIC STRIPS Test blood sugar(s) 1 times d* SITAGLIPTIN 100 MG TABLET Take 1 tablet by mouth once d* OMEPRAZOLE 20 MG CAPSULE,YANNA* take 1 capsule by mouth once * PRAVASTATIN 40 MG TABLET Take 1 tablet by mouth daily * VENLAFAXINE ER 150 MG CAPSULE* Take 1 capsule by mouth once * LANCETS Test blood sugar(s) 1 times d* ALBUTEROL SULFATE 2.5 MG/3 ML* Use 3 mL via nebulizer every * BENZONATATE 100 MG CAPSULE Take 1 capsule by mouth three* GLIMEPIRIDE 2 MG TABLET take 1 tablet by mouth once d* NITROGLYCERIN 0.4 MG SUBLINGU* dissolve 1 tablet under the t* GEMFIBROZIL 600 MG TABLET Take 1 tablet by mouth twice * BLOOD-GLUCOSE METER KIT Glucose Meter of Choice - Kit* Problem List As Of Date 04/16/2017 Noted Resolved Inguinal hernia without mention of obstruction *INVALID FOR*03/27/2016 First degree AV block [I44.0] INVALID FOR* Priority: D More... More... History of PR (myocardial infarction) [I25.2] INVALID FOR* Tobacco use disorder [F17.200] INVALID FOR*03/27/2016 Priority: E More... SUMMARY [V999.95] INVALID FOR* Priority: A More... Chest pain [R07.9] INVALID FOR* Priority: B More... Claudication [I73.9] INVALID FOR* Priority: D More... Dupuytren's contracture of right hand [M72.0] INVALID FOR* MANNY (obstructive sleep apnea) [G47.33] INVALID FOR* Rhinitis [J31.0] INVALID FOR* Cardiac pacemaker in situ [Z95.0] INVALID FOR* More... Atrial fibrillation [I48.91] INVALID FOR* Anxiety [F41.9] INVALID FOR* Personal history of colonic polyps [Z86.010] INVALID FOR*04/10/2014 Diverticulosis of colon (without mention of hem*INVALID FOR*04/10/2014 Gastroesophageal reflux disease without esophag*INVALID FOR* Type 2 diabetes mellitus without complication, *INVALID FOR* Chronic left shoulder pain [M25.512, G89.29] INVALID FOR* Encounter Status:Closed by BELLE MENDENHALL MA on 04/20/17 ALBUMIN/CREAT RATIO Collected: 04/09/2017 Status: F Source: [place] 8:18 AM [facility] REPOSITORY TYPE CODE TESTS RESULT OUT OF REFERENCE UNITS RANGE LAB UCRR 20-300 mg/dL 173.3 Creatinine,Ur ine,Ran LAB UALBR 0.0-23.0 mg/L <12.0 Albumin Urine Random LAB UALBCR 0-30 mg/g Not Albumin/Creat calculated Ratio Performed By: #### UACR #### [facility] [address] [place], [place] [id number] PROGRESS Observed: 04/08/2017 Status: COMPLETED Source: [place] 8:36 AM [facility] REPOSITORY HNO ID: [id number] Author: Juventino Perez Service: (none) Author Type: Physician Type: Progress Notes Filed: 04/08/2017 9:02 AM Note Text: Agree with below 'Juventino Perez DO PROGRESS Observed: 04/08/2017 Status: COMPLETED Source: [place] 8:33 AM [facility] REPOSITORY HNO ID: [id number] Author: Niko Latham RN Service: (none) Author Type: (none) Type: Progress Notes Filed: 04/08/2017 8:35 AM Note Text: patient had inr completed at [facility] patients inr is 2.0 (patients inr range is 2.0-3.0) patient is currently taking 4mg daily patients last dose change was on 04/01/17 due to a low level of 1.6 (dose at that time was 2mg-4mg-4mg cycle) patient has had no changes in medication except for the coumadin and no missed dose and no change in diet Advised patient to continue on the same dose(s) and that they would only be contacted regarding dosage and follow up instructions after review with provider, if a change is needed. Written instructions given and patient verbalized understanding. Presently scheduled in 1 week (04/16/17 - due to appt with pcp at that time also) for follow up INR. HEMOGLOBIN A1C Collected: 04/08/2017 Status: F Source: [place] 8:11 AM [facility] REPOSITORY TYPE CODE TESTS RESULT OUT OF REFERENCE UNITS RANGE LAB HGBA1C 4.3-5.6 % High Hemoglobin A1c 6.6 LAB HBA0 mg/dL Est. Average Glucose 143 Result Comment: eAG: (Estimated average glucose) is a calculated value from HgbA1c and is labor representative of the average blood glucose level in the last 2-3 month period. Performed By: #### HBA1C, BMP #### [facility] [address] [address] BASIC METABOLIC PANL Collected: 04/08/2017 Status: F Source: [place] 8:11 AM [facility] REPOSITORY TYPE CODE TESTS RESULT OUT OF REFERENCE UNITS RANGE LAB GLU 74-99 mg/dL High Glucose 132 Result Comment: The [place] [employer] Association (ADA) provides guidance for cutoff values for fasting glucose and random glucose. The ADA defines fasting as no caloric intake for at least 8 hours. Fas ting plasma glucose results between 100 to 125 mg/dL indicate increased risk for diabetes (prediabetes). Fasting plasma glucose results greater than or equal to 126 mg/dL meet the criteria for diagnosis of diabetes. In the absence of unequivocal hyperglycemia, results should be confirmed by repeat testing. In a patient with classic symptoms of hyperglycemia or hyperglycemic crisis, random plasma glucose results greater than or equal to 200 mg/dL meet the criteria for diagnosis of diabetes. Reference: Standards of Medical Care in Diabetes 2016, [place] [employer] Association. Diabetes Care. 2016.39(Suppl 1). LAB BUN 9-24 mg/dL BUN 18 LAB CRET 0.73-1.22 mg/dL Creatinine 1.08 LAB NA 136-144 mmol/L Sodium 142 LAB K 3.7-5.1 mmol/L Potassium 4.7 LAB CL 97-105 mmol/L Chloride High 106 LAB CO2 22-30 mmol/L CO2 22 LAB AGAP 9-18 mmol/L Anion Gap 14 LAB CA 8.5-10.2 mg/dL Calcium, Total 9.2 LAB GFRAA eGFR- Amer. >60 LAB GFRNAA . eGFR-All Other Races >60 Result Comment: eGFR (Estimated GFR) Units of measure: mL/min/1.73 meters squared eGFR is derived from the reexpressed MDRD Study equation using the following parameters: serum creatinine, age, gender and race. The creatinine assay has been calibrated to be traceable to IDMS. An eGFR <60 mL/min/1.73m2 for >3 months is consistent with chronic kidney disease. Refer to KDOQI guidelines for clinical interpretation. In patients with unstable renal function, e.g. those with acute kidney injury, the eGFR may not accurately reflect actual GFR. Performed By: #### HBA1C, BMP #### [facility] [address] [place] [id number] PROGRESS Observed: 04/01/2017 Status: COMPLETED Source: [place] 11:28 AM [facility] REPOSITORY HNO ID: [id number] Author: Analisa Garcia Ma Service: (none) Author Type: (none) Type: Progress Notes Filed: 04/01/2017 11:29 AM Note Text: Pt notified and voiced understanding. Analisa Garcia MA Tracker and med list updated. PROGRESS Observed: 04/01/2017 Status: COMPLETED Source: [place] 9:41 AM [facility] REPOSITORY HNO ID: [id number] Author: Marika High Service: (none) Author Type: Physician Type: Progress Notes Filed: 04/01/2017 11:29 AM Note Text: Go to 4 mg daily, except 2 mg on Thursday Recheck in 1 week as planned Marika High MD PROGRESS Observed: 04/01/2017 Status: COMPLETED Source: [place] 8:31 AM [facility] REPOSITORY HNO ID: [id number] Author: Niko Latham RN Service: (none) Author Type: (none) Type: Progress Notes Filed: 04/01/2017 8:32 AM Note Text: patient had inr completed at [facility] patients inr is 1.6 (patients inr range is 2.0-3.0) patient is currently taking 2mg-4mg-4mg cycle patients last dose change: unsure at this time due to formerly followed by cardio patient has had no changes in medication and no missed doses and no change in diet Advised patient that they would be contacted regarding medication dose and when to follow up after information is reviewed by provider. After provider review please contact the patient with information and schedule follow up appointment with coumadin clinic. FYI - patient has been scheduled for a 1 week follow up inr on 04/08/17 GERRITOUTREACH Observed: 03/31/2017 Status: COMPLETED Source: [place] 12:00 AM [facility] REPOSITORY Patient Outreach ([facility]) VINEET DELANEY ([id number]) 1950 M Date Time Provider Department 03/31/17 MARIKA HIGH [facility] During your visit today, we recorded the following information about you: Allergies As of Date: 03/31/2017 Noted Allergy Reaction METFORMIN 12/25/2015 14 - Other: See Comments Comments: Sweating BLACK PEPPER 11/17/2005 4 - Hives DUST MITES 11/17/2005 4 - Hives MOLD SPORES 11/17/2005 12 - Shortness of Breath PENICILLINS 11/17/2005 4 - Hives aly cheese [Other] 11/17/2005 12 - Shortness of Breath Date Reviewed: 02/27/2017 Reviewed by: Niko Latham RN - Fully Assessed Visit Diagnosis:Medication management [Z79.899] Order(s):ALBUMIN/CREAT RATIO RND UR [SQUACR] Order #: [id number] FUTURE Prescriptions as of 03/31/2017 Sig: VENLAFAXINE ER 75 MG CAPSULE,* take 1 capsule by mouth once * TAMSULOSIN 0.4 MG CAPSULE Take 1 capsule by mouth daily* X WARFARIN 4 MG TABLET Taking 2 mg, 4mg, 4mg, then r* METOPROLOL TARTRATE 25 MG TAB* Take half a pill twice a day FLECAINIDE 100 MG TABLET Take 0.5 tablets by mouth twi* BLOOD SUGAR DIAGNOSTIC STRIPS Test blood sugar(s) 1 times d* SITAGLIPTIN 100 MG TABLET Take 1 tablet by mouth once d* OMEPRAZOLE 20 MG CAPSULE,YANNA* take 1 capsule by mouth once * PRAVASTATIN 40 MG TABLET Take 1 tablet by mouth daily * VENLAFAXINE ER 150 MG CAPSULE* Take 1 capsule by mouth once * LANCETS Test blood sugar(s) 1 times d* ALBUTEROL SULFATE 2.5 MG/3 ML* Use 3 mL via nebulizer every * GUAIFENESIN ER 600 MG TABLET,* Take 2 tablets by mouth twice* BENZONATATE 100 MG CAPSULE Take 1 capsule by mouth three* GLIMEPIRIDE 2 MG TABLET take 1 tablet by mouth once d* NITROGLYCERIN 0.4 MG SUBLINGU* dissolve 1 tablet under the t* GEMFIBROZIL 600 MG TABLET Take 1 tablet by mouth twice * BLOOD-GLUCOSE METER KIT Glucose Meter of Choice - Kit* Problem List As Of Date 03/31/2017 Noted Resolved Inguinal hernia without mention of obstruction *INVALID FOR*03/27/2016 First degree AV block [I44.0] INVALID FOR* Priority: D More... More... History of PR (myocardial infarction) [I25.2] INVALID FOR* Tobacco use disorder [F17.200] INVALID FOR*03/27/2016 Priority: E More... SUMMARY [V999.95] INVALID FOR* Priority: A More... Chest pain [R07.9] INVALID FOR* Priority: B More... Claudication [I73.9] INVALID FOR* Priority: D More... Dupuytren's contracture of right hand [M72.0] INVALID FOR* MANNY (obstructive sleep apnea) [G47.33] INVALID FOR* Rhinitis [J31.0] INVALID FOR* Cardiac pacemaker in situ [Z95.0] INVALID FOR* More... Atrial fibrillation [I48.91] INVALID FOR* Anxiety [F41.9] INVALID FOR* Personal history of colonic polyps [Z86.010] INVALID FOR*04/10/2014 Diverticulosis of colon (without mention of hem*INVALID FOR*04/10/2014 Gastroesophageal reflux disease without esophag*INVALID FOR* Type 2 diabetes mellitus without complication, *INVALID FOR* Chronic left shoulder pain [M25.512, G89.29] INVALID FOR* Encounter Status:Closed by DAYRON PRODUSER on 04/05/17 OBSOLETE Observed: 03/11/2017 Status: COMPLETED Source: [place] 12:00 AM [facility] REPOSITORY Refill ([facility]) VINEET DELANEY ([id number]) 1950 M Date Time Provider Department 03/11/17 [facility]IKA HIGH [facility] During your visit today, we recorded the following information about you: Karolina Lagunas Ma 03/12/2017 10:05 AM Signed Last office visit: 01/15/17 Last refill date 12/24/16 with 90 and 1 refills OARRS report: NA Next office visit: 04/16/17 Valentin Cintron CNP, CNP 03/12/2017 10:09 AM Signed The following approved medication requests have been transmitted electronically. Signed Prescriptions Disp Refills venlafaxine ER (EFFEXOR XR) 75 mg 24 hr capsule 90 capsule 3 Sig: take 1 capsule by mouth once daily PRINCESS: No Authorizing Provider: VALENTIN CINTRON (GERRI) Valentin Cintron CNP Allergies As of Date: 03/11/2017 Noted Allergy Reaction METFORMIN 12/25/2015 14 - Other: See Comments Comments: Sweating BLACK PEPPER 11/17/2005 4 - Hives DUST MITES 11/17/2005 4 - Hives MOLD SPORES 11/17/2005 12 - Shortness of Breath PENICILLINS 11/17/2005 4 - Hives aly cheese [Other] 11/17/2005 12 - Shortness of Breath Date Reviewed: 02/27/2017 Reviewed by: Niko Latham RN - Fully Assessed Reason for Visit: Refill Request [94] Order(s):venlafaxine ER (EFFEXOR XR) 75 mg 24 hr capsuletake 1 capsule by mouth once dailyDisp: 90 capsuleRfl: 3 Prescriptions as of 03/11/2017 Sig: VENLAFAXINE ER 75 MG CAPSULE,* take 1 capsule by mouth once * TAMSULOSIN 0.4 MG CAPSULE Take 1 capsule by mouth daily* WARFARIN 4 MG TABLET Taking 2 mg, 4mg, 4mg, then r* METOPROLOL TARTRATE 25 MG TAB* Take half a pill twice a day FLECAINIDE 100 MG TABLET Take 0.5 tablets by mouth twi* BLOOD SUGAR DIAGNOSTIC STRIPS Test blood sugar(s) 1 times d* SITAGLIPTIN 100 MG TABLET Take 1 tablet by mouth once d* OMEPRAZOLE 20 MG CAPSULE,YANNA* take 1 capsule by mouth once * PRAVASTATIN 40 MG TABLET Take 1 tablet by mouth daily * VENLAFAXINE ER 150 MG CAPSULE* Take 1 capsule by mouth once * LANCETS Test blood sugar(s) 1 times d* ALBUTEROL SULFATE 2.5 MG/3 ML* Use 3 mL via nebulizer every * GUAIFENESIN ER 600 MG TABLET,* Take 2 tablets by mouth twice* BENZONATATE 100 MG CAPSULE Take 1 capsule by mouth three* GLIMEPIRIDE 2 MG TABLET take 1 tablet by mouth once d* NITROGLYCERIN 0.4 MG SUBLINGU* dissolve 1 tablet under the t* GEMFIBROZIL 600 MG TABLET Take 1 tablet by mouth twice * BLOOD-GLUCOSE METER KIT Glucose Meter of Choice - Kit* Problem List As Of Date 03/11/2017 Noted Resolved Inguinal hernia without mention of obstruction *INVALID FOR*03/27/2016 First degree AV block [I44.0] INVALID FOR* Priority: D More... More... History of PR (myocardial infarction) [I25.2] INVALID FOR* Tobacco use disorder [F17.200] INVALID FOR*03/27/2016 Priority: E More... SUMMARY [V999.95] INVALID FOR* Priority: A More... Chest pain [R07.9] INVALID FOR* Priority: B More... Claudication [I73.9] INVALID FOR* Priority: D More... Dupuytren's contracture of right hand [M72.0] INVALID FOR* MANNY (obstructive sleep apnea) [G47.33] INVALID FOR* Rhinitis [J31.0] INVALID FOR* Cardiac pacemaker in situ [Z95.0] INVALID FOR* More... Atrial fibrillation [I48.91] INVALID FOR* Anxiety [F41.9] INVALID FOR* Personal history of colonic polyps [Z86.010] INVALID FOR*04/10/2014 Diverticulosis of colon (without mention of hem*INVALID FOR*04/10/2014 Gastroesophageal reflux disease without esophag*INVALID FOR* Type 2 diabetes mellitus without complication, *INVALID FOR* Chronic left shoulder pain [M25.512, G89.29] INVALID FOR* Prescriptions ordered this encounter Disp Refills Start End VENLAFAXINE ER 75 MG CAPSULE,EXTENDE* 90 c* 3 03/12/2017 Sig: take 1 capsule by mouth once daily Encounter Status:Closed by VALENTIN CINTRON CNP on 03/12/17 PROGRESS Observed: 02/27/2017 Status: COMPLETED Source: [place] 11:25 AM [facility] REPOSITORY HNO ID: [id number] Author: Marika High Service: (none) Author Type: Physician Type: Progress Notes Filed: 02/27/2017 2:01 PM Note Text: I agree with the advice given; stay on same dose and recheck in 4 weeks Marika High MD PROGRESS Observed: 02/27/2017 Status: COMPLETED Source: [place] 9:02 AM [facility] REPOSITORY HNO ID: [id number] Author: Niko Latham RN Service: (none) Author Type: (none) Type: Progress Notes Filed: 02/27/2017 9:03 AM Note Text: patient had inr completed at [facility] patients inr is 2.0 (patients inr range is 2.0-3.0) patient is currently taking 2mg-4mg-4mg cycle patients last dose change unsure at this time due to patient was formerly followed by cardio patient has had no changes in medication and no change in diet Advised patient to continue on the same dose(s) and that they would only be contacted regarding dosage and follow up instructions after review with provider, if a change is needed. Written instructions given and patient verbalized understanding. Presently scheduled in 4 weeks (03/27/17) for follow up INR. HOSP Observed: 02/27/2017 Status: COMPLETED Source: [place] 8:30 AM [facility] REPOSITORY Anticoagulation Visit (COUMWS) RHETTVINEET ([id number]) 1950 M Date Time Provider Department 02/27/17 8:30 AM [facility] COUMWS During your visit today, we recorded the following information about you: Niko Latham RN 02/27/2017 9:03 AM Signed patient had inr completed at [facility] patients inr is 2.0 (patients inr range is 2.0-3.0) patient is currently taking 2mg-4mg-4mg cycle patients last dose change unsure at this time due to patient was formerly followed by cardio patient has had no changes in medication and no change in diet Advised patient to continue on the same dose(s) and that they would only be contacted regarding dosage and follow up instructions after review with provider, if a change is needed. Written instructions given and patient verbalized understanding. Presently scheduled in 4 weeks (03/27/17) for follow up INR. Marika High MD 02/27/2017 2:01 PM Signed I agree with the advice given; stay on same dose and recheck in 4 weeks Marika High MD Referring Provider: MARIKA HIGH [[id number]] Allergies As of Date: 02/27/2017 Noted Allergy Reaction METFORMIN 12/25/2015 14 - Other: See Comments Comments: Sweating BLACK PEPPER 11/17/2005 4 - Hives DUST MITES 11/17/2005 4 - Hives MOLD SPORES 11/17/2005 12 - Shortness of Breath PENICILLINS 11/17/2005 4 - Hives aly cheese [Other] 11/17/2005 12 - Shortness of Breath Date Reviewed: 02/27/2017 Reviewed by: Niko Latham RN - Fully Assessed Reason for Visit: Anticoagulation [8] Visit Diagnosis:Persistent atrial fibrillation (HCC) [I48.1] Order(s):INR (POC) [5303824] Order #: [id number]. #:[id number] Prescriptions as of 02/27/2017 Sig: TAMSULOSIN 0.4 MG CAPSULE Take 1 capsule by mouth daily* WARFARIN 4 MG TABLET Taking 2 mg, 4mg, 4mg, then r* METOPROLOL TARTRATE 25 MG TAB* Take half a pill twice a day FLECAINIDE 100 MG TABLET Take 0.5 tablets by mouth twi* BLOOD SUGAR DIAGNOSTIC STRIPS Test blood sugar(s) 1 times d* SITAGLIPTIN 100 MG TABLET Take 1 tablet by mouth once d* OMEPRAZOLE 20 MG CAPSULE,YANNA* take 1 capsule by mouth once * PRAVASTATIN 40 MG TABLET Take 1 tablet by mouth daily * VENLAFAXINE ER 150 MG CAPSULE* Take 1 capsule by mouth once * LANCETS Test blood sugar(s) 1 times d* ALBUTEROL SULFATE 2.5 MG/3 ML* Use 3 mL via nebulizer every * GUAIFENESIN ER 600 MG TABLET,* Take 2 tablets by mouth twice* BENZONATATE 100 MG CAPSULE Take 1 capsule by mouth three* GLIMEPIRIDE 2 MG TABLET take 1 tablet by mouth once d* NITROGLYCERIN 0.4 MG SUBLINGU* dissolve 1 tablet under the t* GEMFIBROZIL 600 MG TABLET Take 1 tablet by mouth twice * BLOOD-GLUCOSE METER KIT Glucose Meter of Choice - Kit* Problem List As Of Date 02/27/2017 Noted Resolved Inguinal hernia without mention of obstruction *INVALID FOR*03/27/2016 First degree AV block [I44.0] INVALID FOR* Priority: D More... More... History of PR (myocardial infarction) [I25.2] INVALID FOR* Tobacco use disorder [F17.200] INVALID FOR*03/27/2016 Priority: E More... SUMMARY [V999.95] INVALID FOR* Priority: A More... Chest pain [R07.9] INVALID FOR* Priority: B More... Claudication [I73.9] INVALID FOR* Priority: D More... Dupuytren's contracture of right hand [M72.0] INVALID FOR* MANNY (obstructive sleep apnea) [G47.33] INVALID FOR* Rhinitis [J31.0] INVALID FOR* Cardiac pacemaker in situ [Z95.0] INVALID FOR* More... Atrial fibrillation [I48.91] INVALID FOR* Anxiety [F41.9] INVALID FOR* Personal history of colonic polyps [Z86.010] INVALID FOR*04/10/2014 Diverticulosis of colon (without mention of hem*INVALID FOR*04/10/2014 Gastroesophageal reflux disease without esophag*INVALID FOR* Type 2 diabetes mellitus without complication, *INVALID FOR* Chronic left shoulder pain [M25.512, G89.29] INVALID FOR* Follow-up and Disposition History Recorded Encounter Status:Closed by NIKO LATHAM RN on 02/27/17 ALLERGIES ALLERGIES DATE TYPE / CODE NAME / CODE REACTION SEVERITY SOURCE Drug Penicillins/F001 Swelling Unknown [place] 8 Allergy/504751274( 563408(RXNORM) [facility] SN[facility] Hospital Repository Drug Androgenic Rash Unknown [place] 8 Allergy/100513487( Anabolic Community SNOMED [facility]) Steroid/F7889846 Hospital 09(RXNORM) Repository Drug metformin/E69487 Unknown Unknown [place] 8 Allergy/324489707( 4534(RXNORM) Community SNOMED CT) Hospital Repository DRUG METFORMIN OTHER: SEE C High López 6 INGREDI/313789539( Clinic Main SNOMED CT) [place] Repository DRUG [facility] PEPPER [facility] [place] 6 INGREDI/590758033( [facility] Main SNOMED CT) [place] Repository Environ/272257124( DUST MITES [facility] [place] [address]) Clinic Main [place] Repository Environ/378438003( MOLD SPORES SHORTNESS OF [place] [address]) Clinic Main [place] Repository Drug PENICILLINS [facility] [place] 6 Class/372079317(SN [facility] Main OMED CT) [place] Repository Miscellaneous OTHER SHORTNESS OF López 6 Allergy/724648558( [facility] Main SNOMED CT) [place] Repository NG/666563044(SNOME METFORMIN [facility] D [facility] Repository NG/384075293(SNOME BLACK PEPPER [facility] D [facility]) [facility] Repository NG/975804448(SNOME DUST MITES [facility] D [facility]) [facility] System Repository NG/276661695(SNOME MOLD SPORES [facility] D [facility]) [facility] Repository NG/847200462(SNOME PENICILLINS [facility] D [facility]) [facility] System Repository NG/199764077(SNOME OTHER [facility] D [facility]) Health System Repository ENCOUNTERS ENCOUNTERS ADMIT/DISCHARGE ACCOUNT NUMBER ADMITTING ENCOUNTER LOCATION SOURCE CLASS 01/27/2018 [id number] Ambulatory [facility] ding:LAB Repository 01/13/2018 [id number] Ambulatory [facility] ding:LAB Repository 12/31/2017 [id number] Ambulatory BMSBuilding: [facility] Repository 12/30/2017/01/01/20 [id number] Ambulatory [address] Repository 12/30/2017 [id number] Ambulatory [facility] ding:CVS Repository 12/30/2017 [id number] Ambulatory BMSBuilding: [facility] Repository 12/23/2017/12/24/19 [id number] Ambulatory [address] Repository 12/18/2017/12/19/19 [id number] Ambulatory BMSBuilding: [place] 18 [facility] Repository 12/15/2017 [id number] Ambulatory [facility] ding:CVS Repository 12/15/2017 [id number] Ambulatory BMSBuilding: [facility] Repository 12/10/2017 [id number] Ambulatory [facility] Repository 12/10/2017 [id number] Ambulatory [facility] ding:LAB Repository 12/08/2017/12/09/19 [id number] Ambulatory BMSBuilding: [place] 18 [facility] Repository 2017 [id number] Ambulatory BMSBuilding: [place] BMS.[facility] Repository 12/01/2017/12/03/19 [id number] Ambulatory [address] Repository 11/17/2017 [id number] Ambulatory [facility] MEDICAL Repository CENTERBuildi ng:CAGWS 11/03/2017/11/05/19 [id number] Ambulatory [address] Repository 10/26/2017/10/27/19 [id number] Ambulatory [address] Repository 10/06/2017/10/08/19 [id number] Ambulatory [place] 18 [facility] Main [place] Repository 09/22/2017/09/24/19 [id number] Ambulatory [address] Main [place] Repository 09/22/2017/09/24/19 [id number] Ambulatory [address] Main [place] Repository 09/15/2017/09/16/19 [id number] Ambulatory [address] Main [place] Repository 08/18/2017/08/21/19 [id number] Ambulatory [address] Main [place] Repository 08/18/2017/08/21/19 [id number] Ambulatory [address] Main [place] Repository 08/07/2017/08/09/19 [id number] JOANNA BUCK., Ambulatory BBuilding:MS Bart Ko MD. [facility]: [address]: [facility] Repository 07/30/2017/08/01/19 [id number] Ambulatory [address] Main [place] Repository 07/20/2017/07/22/19 [id number] Ambulatory [address] Main [place] Repository 07/02/2017/07/04/19 [id number] Ambulatory [address] Main [place] Repository 06/25/2017 [id number] Ambulatory [facility] MEDICAL Repository CENTERBuildi ng:CAGWS 06/18/2017/06/19/19 [id number] Ambulatory [address] Main [place] Repository 06/11/2017/06/13/19 [id number] Ambulatory [address] Main [place] Repository 05/22/2017/05/26/19 [id number] Ambulatory [address] Main [place] Repository 05/22/2017/05/23/19 [id number] Ambulatory [address] Main [place] Repository 05/22/2017/05/26/19 [id number] Ambulatory [address] Main [place] Repository 05/15/2017/05/16/19 [id number] Ambulatory [address] Other [place] Repository 05/15/2017/05/16/19 [id number] Ambulatory [address] MEDICAL Repository CENTERBuildi ng:CAGWS 05/14/2017/05/16/19 [id number] Ambulatory [address] Main [place] Repository 05/08/2017/05/12/19 [id number] Ambulatory [address] Main [place] Repository 05/06/2017/03/21/20 [id number] Ambulatory BMSBuilding: [place] 18 [facility] Repository 05/05/2017/05/07/19 [id number] [place], Ambulatory [place] 18 [facility] Hospital ding:[place] Repository : XYN074Qwd: 1 05/05/2017 [id number] [place], Ambulatory BMSBuilding: [place] BMS.[facility] Repository 05/05/2017 [id number] [place], Ambulatory BMSBuilding: [place] BMS.[facility] Repository 05/05/2017/05/07/19 [id number] Ambulatory BMSBuilding: [place] 18 [facility] Repository 05/04/2017/05/05/19 [id number] [place], Ambulatory [address] Repository 05/01/2017/05/02/19 [id number] Ambulatory [address] Repository 04/16/2017/04/22/19 [id number] Ambulatory [address] Repository 04/16/2017/04/22/19 [id number] Ambulatory [address] Repository 04/16/2017/04/21/19 [id number] Ambulatory [address] Repository 04/08/2017/04/08/19 [id number] Ambulatory [address] Repository 04/08/2017/04/24/19 [id number] Ambulatory [address] Repository 04/01/2017/04/02/19 [id number] Ambulatory [address] Repository 02/27/2017/03/02/19 [id number] Ambulatory [address] Repository PAYERS PAYERS ENCOUNTER GUARANTOR PAYER SUBSCRIBER SOURCE 01/27/2018 VINEET [place] Primary VINEET DELANEY Sr.PO Insurance:JAYDEN DELANEY Sr.: [facility] BOX MEDICARE SENIOR [id number] Number: Repository [place] [address]Xeh: [id number] Date:2951-82-95FL B[address] () [address], [place] [address]MN: 01/27/2018 Secondary VINEET F [place] Insurance:MEDICAIDPol RHETT Sr.: Community icy Number: [id number] [id number] Repository Date:2018-01-27 01/27/2018 Tertiary NOT GIVENUNK [place] Insurance:SELF PAY [facility] Number: Effective Repository Date:2018-01-27 01/13/2018 VINEET F Primary VINEET F [place] RHETT Sr[address] Insurance:ANTHEM RHETT Sr.: Community [address] MEDICARE SENIOR [id number] ADVANTAPolicy Number: Repository [id number]: 330 [id number] [phone] () Date:2983-40-37XC [address] [place] [address]QA: 01/13/2018 Secondary VINEET F [place] [facility] R[facility]TT Sr[facility] Community icy Number: [id number] [facility] [id number] Repository Date:2018-01-13 01/13/2018 Tertiary NOT GIVENUNK [place] Insurance:SELF PAY [facility] Number: Effective Repository Date:2018-01-13 12/31/2017 VINEET F Primary VINEET F [place] RHETT Sr.519 Insurance:ANTHEM RHETT Sr.: Community [place] [address] MEDICARE SENIOR [id number] ADVANTAPolicy Number: Repository [id number]: 330 [id number] [phone] () Date:1429-72-89QH [address] [place] [address] 87[address]IP: 12/31/2017 Secondary VINEET F [place] Insurance:MEDICAIDPol RHETT Sr.: Community icy Number: [id number] Hospital [id number] Repository Date:2017-12-08 12/31/2017 Tertiary NOT GIVENUNK [place] Insurance:SELF PAY [facility] Number: Effective Repository Date:2017-12-31 12/30/2017 VINEET F Primary VINEET F [place] RHETT Sr[address] Insurance:ANTHEM RHETT Sr.: Community [address] [address] MEDICARE SENIOR [id number] Number: Repository [address]Qpu: (330) [id number] [phone] (HP) Date:1689-24-09BD [address], [place] [address]VL: 12/30/2017 Secondary VINEET F [place] Insurance:MEDICAIDPol RHETT Sr.: Community icy Number: [id number] Hospital [id number] Repository Date:2017-12-08 12/30/2017 Tertiary NOT GIVENUNK [place] Insurance:SELF PAY [facility] Number: Effective Repository Date:2017-12-08 12/30/2017 VINEET F Primary VINEET F [place] RHETT Sr[address] Insurance:ANTHEM RHETT Sr.: Community [place] MEDICARE SENIOR [id number] Number: Repository [address]Pmf: (330) [id number] [phone] (HP) Date:2144-09-24GX [address], [place] [address]AD: 12/30/2017 Secondary VINEET F [place] Insurance:MEDICAIDPol RHETT Sr.: [facility] icy Number: [id number] Hospital [id number] Repository Date:2017-12-08 12/30/2017 Tertiary NOT GIVENUNK [place] Insurance:SELF PAY [facility] Number: Effective Repository Date:2017-12-30 12/18/2017 VINEET F Primary VINEET F [place] RHETT Sr[address] Insurance:ANTHEM RHETT Sr.: Community [address] MEDICARE SENIOR [id number] [address] StreetAPolicy Number: Repository [id number]: (330) [id number] [phone] (HP) Date:8106-62-59UZ [address]FEHPGRE, [place] [address]TC: 12/18/2017 Secondary NOT GIVENUNK [place] Insurance:SELF PAY [facility] Number: Effective Repository Date:2017-12-18 12/15/2017 VINEET F Primary VINEET Rabia CASTILLOAUS Sr.519 Insurance:ANTHEM RHETT Sr.: Community [address] MEDICARE SENIOR [id number] ADVANTAPoly Number: Repository [phone]: (330 [id number] [phone] () Date:7603-39-54SZ [address] [place] [address] 132[address]VQ: 12/15/2017 Secondary NOT GIVENUNK [place] Insurance:SELF PAY [facility] Number: Effective Repository Date:2017-12-08 12/15/2017 VINEET F Primary VINEET F [place] RHETT Sr[address] Insurance:ANTHEM RHETT Sr.: Community [address] [address] MEDICARE SENIOR [id number] [address] StreetAPolicy Number: Repository [id number]: (330 [id number] [phone] () Date:9041-48-15ED [address] [place] [address] 06445ZI: 12/15/2017 Secondary NOT GIVENUNK [place] Insurance:SELF PAY [facility] Number: Effective Repository Date:2017-12-15 12/10/2017 VINEET F Primary VINEET F [place] RHETT Sr[address] Insurance:ANTHEM RHETT Sr.: Community [address] MEDICARE SENIOR [id number] [address] StreetAPoly Number: Repository [id number]: (330 [id number] [phone] () Date:7796-01-82QY [address] [place] [address] [place] [address]RL: 12/10/2017 Secondary NOT GIVENUNK [place] Insurance:SELF PAY [facility] Number: Effective Repository Date:2017-12-10 12/10/2017 VINEET F Primary VINEET F [place] RHETT Sr[address] Insurance:ANTHEM RHETT Sr.: Community [address] [address] MEDICARE SENIOR [id number] ADVANTAPolicy Number: Repository [address]Ufh: 330 [id number] [phone] (HP) Date:3581-97-60OB [address] [place] [address] 157[address]MQ: 12/10/2017 Secondary NOT GIVENUNK [place] Insurance:SELF PAY [facility] Number: Effective Repository Date:2017-12-10 12/08/2017 VINEET F Primary VINEET F [place] RHETT Sr[address] Insurance:MEDICARE RHETT Sr.: [facility] PART A [facility] [id number] Number: Repository [address]Uxc: 330 [id number] [phone] () Date:2017-11-26 12/08/2017 Secondary VINEET F [place] Insurance:ANTHEM RHETT Sr.: Community MEDICARE SENIOR [id number] Hospital ADVANTAPolicy Number: Repository [id number] Date:9709-59-36FO [id number] [place] [address] 63[address]ET: 12/08/2017 Tertiary NOT GIVENUNK [place] Insurance:SELF PAY [facility] Number: Effective Repository Date:2017-12-08 2017 VINEET F Primary Insurance:[facility] VINEET F [place] RHETT Sr[address]519 MCRDUAL COMP HMO* NOT RHETT Sr.: [facility] Number: [id number] [id number] Repository [address]Vhq: (330) Date:2352-79-17DI [phone] () [place] [address]PW: 2017 Secondary NOT GIVENUNK [place] Insurance:SELF PAY [facility] Number: Effective Repository Date:2017 11/17/2017 VINEET F Primary [facility]:ANTHEM JESSICA: Health System MEDIBLUE [id number] Repository [facility] ESSENTIALPolicy [address] [place] [address] Number: 14134Gjz: 330) [id number] [phone] (HP) Date: 11/17/2017 Secondary VINEET Rabia Singh General Insurance:[facility] System MEDICAIDPolicy [id number] Repository Number: [id number] Date: 08/07/2017 VINEET F Primary [facility]ETDec[facility] Health SystemsAUSDOB: Insurance:[facility] DUALPolicy [id number] Repository [facility] LOT Number: [address] [id number] [address] [place] [address] [id number] Date:2017-06-16 45282Vqx: (330) [facility] HEALTH CENTERNET.[facility] [id number] [phone] l: (330) Name:[address]OX (HP) 767954ZLDPKMB, [place] [phone] (WP) (HP)Tel: [phone]: (WP) [phone] 08/07/2017 Secondary [facility] Insurance:MEDICAID [facility]: [facility]bergPolicy Number: [id number] Repository [id number] [facility] LOT Date:2017-07-17[place], [place] 8557-89-61Nlfw [id number]: (330) Name:HARVEY ROCAO [phone] [address]648[address]Vuzkptgi, [place] (HP)Tel: [phone]: (WP) [phone] 06/25/2017 VINEET Rabia Primary Insurance:[facility] VINEET Rabia Jeffrey General NIAUSDOB: DUAL COMPLETE HMO NIEHAUSDOB: Health System SNPPolicy Number: [id number] Repository [facility] [id number] Date: [address]Nli: () 06/25/2017 Secondary VINEET Rabia ParraJeffrey General Insurance:[facility]: [facility] [id number] Repository Number: [id number] Date: 05/15/2017 VINEET F Primary Insurance:[facility] VINEET Rabia Singh General [facility]: DUAL COMPLETE HMO [facility]: [facility]ITALPolicy Number: [id number] Repository [facility] [id number] Date: [address]Cth: () 05/15/2017 Secondary VINEET Rabia ParraJeffrey General Insurance:[facility]: [facility]ID[facility] [id number] Repository Number: [id number] Date: 05/06/2017 VINEET F Primary Insurance:[facility] VINEET Rabia [place] RHETT Sr[address] MCRDUAL COMP HMO* NOT RHETT Sr.: [facility] KLUTI KAAH [facility] Number: [id number] [id number] Repository [place] [address]Wyr: Date:5115-65-51VU [address] [place] [address] () [place] [address]MT: 05/06/2017 Secondary VINEET Rabia [place] Insurance[facility] Sr[facility] Number: [id number] Hospital [id number] Repository Date:2017-05-05 05/06/2017 Tertiary NOT GIVENUNK [place] Insurance:SELF PAY [facility] Number: Effective Repository Date:2017-05-06 05/05/2017 VINEET F Primary Insurance:[facility] VINEET Rabia StoneWillian RHETT Sr[address]519 MCRDUAL COMP HMO* NOT RHETT Sr.: [facility] KLUTI KAAH [facility] Number: [id number] [id number] Repository [place] [address]Haw: Date:5277-21-80KY [address] [place] [address], (HP) [place] [address]JK: 05/05/2017 Secondary NOT GIVENUNK [place] Insurance:SELF PAY Community [facility] Number: Effective Repository Date:2017-05-05 05/05/2017 VINEET F Primary Insurance:[facility] VINEET F [place] RHETT Sr[address]519 MCRDUAL COMP HMO* NOT [facility] Community KLUTI KAAH CONTPolicy Number: [id number] [id number] Repository [place] [address]Tzx: Date:5381-97-88ZF [address] [place] [address], () [place] [address]YM: 05/05/2017 Secondary VINEET F [place] Insurance:MEDICAIDPol [facility].: Community icy Number: [id number] Hospital [id number] Repository Date:2017-05-05 05/05/2017 Tertiary NOT GIVENUNK [place] Insurance:SELF PAY [facility] Effective Repository Date:2017-05-05 05/05/2017 VINEET F Primary Insurance:[facility] VINEET F [place] RHETT Sr.519 MCRDUAL COMP HMO* NOT [facility] Community KLUTI KAAH CONTPolicy Number: [id number], [id number] [place]ository [place] [address]Tih: Date:6810-06-64TT [address] [place] [address], () [place] [address]VT: 05/05/2017 Secondary VINEET F [place] Insurance:MEDICAIDPol [facility].: Community icy Number: [id number] [facility] [id number] Repository Date:2017-05-05 05/05/2017 Tertiary NOT GIVENUNK [place] Insurance:SELF PAY [facility] Number: Effective Repository Date:2017-05-05 05/05/2017 VINEET F Primary Insurance:[facility] VINEET F [place] [facility] Sr.519 MCRDUAL COMP HMO* NOT [facility].: [facility] KLUTI KAAH CONTPoly Number: [id number] [id number] [place]ository [place] [address]Ffr: Date:[id number], [place] [id number]: 05/05/2017 Secondary VINEET [place] Insurance:MEDICAIDPol [facility] Community icy Number: [id number] Hospital [id number] Repository Date:2017-05-05 05/05/2017 Tertiary NOT NATALIE [place] Insurance:SELF PAY [facility] Number: Effective Repository Date:2017-05-05
== END ==
PROVIDERS: Family Provider Family Medicine; PCP Family Medicine; Referring Provider Internal Medicine Cardiovascular Disease; Visit Provider Internal Medicine Cardiovascular Disease
DX: I48.0 Paroxysmal atrial fibrillation (principal); Z79.01 Long term (current) use of anticoagulants
CPT/HCPCS: 36415; 85610

== ENCOUNTER 2018-02-05 11:36 | Outpatient (RCR) | payer MEDICARE, MEDICAID, SELFPAY ==
[2018-01-27 14:23] LABS: International Normalized Ratio 1.8; Prothrombin Time (Protime)PT. 20.5 SECONDS (11.7-14.9)
[2018-02-05 12:02] LABS: International Normalized Ratio 2.3
--- OUTSIDE RECORDS SUMMARY | 2018-03-15 16:48 | XMS RPT_ITS ---
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 BLACK PEPPER 11/17/2005 4 - Hives DUST MITES 11/17/2005 4 - Hives MOLD SPORES 11/17/2005 12 - Shortness of Breath aly cheese [Other] 11/17/2005 12 - Shortness of Breath PENICILLINS 11/17/2005 4 - Hives Date Reviewed: 12/30/2017 Reviewed by: Umu Finn Maple Syrup Maker - Fully Assessed Reason for Visit: [...] [J06.9] Order(s):LDL CHOLESTEROL DIR [SQLDLDCT] Order #: [id number] glimepiride (AMARYL) 2 mg tabletTake 1 tablet by mouth daily with breakfast.Disp: 30 tabletRfl: 11 CONSULT TO NEUROLOGY [9019] Order #: [id number]: 1 pregabalin (LYRICA) 75 mg capsuleTake 1 capsule by mouth twice daily for 30 days.Disp: 60 capsuleRfl: 0 HGB A1C [JSTFS5J] Order #: [id number] FUTURE COMP METABOLIC PANEL [SQCMP] Order #: [id number] FUTURE ALBUMIN/CREAT RATIO RND UR [SQUACR] Order #: [id number] FUTURE CONSULT TO DERMATOLOGY [9006] Order #: [id number]: 1 Prescriptions as of 12/30/2017 Sig: GLIMEPIRIDE [...] FOR* Priority: D More... More... History of UT (myocardial infarction) [I25.2] INVALID FOR* Tobacco use [...] 12/30/17 QUINTEN Observed: 12/30/2017 Status: COMPLETED Source: [place] 12:00 AM [facility] RE[facility] RHETTVINEET MYERS ([id number]) 1950 M Date Time Provider Department 12/30/17 [facility]IGH [facility] During your visit today, we recorded the following information about you: Vesna Garcia LPN 12/30/2017 2:33 PM Signed PRIOR AUTHORIZATION Medication for Prior Authorization: Lyrica Other formulary meds available : NO Insurance Company: [employer] Medicare Part D Insurance Company phone number: [phone] Patient insurance ID number: [id number] Vesna High MD 12/31/2017 4:15 PM Signed [...] PM Signed PA form completed was for [place] ([place] is no longer using [employer] for their rx coverage per Covermymeds). However the fax to [place] will not go through. The back of the insurance card was not scanned in, so I do not have a number to contact pt's insurance customer service. Will call pt tomorrow to get the phone number off the back of the insurance card. EJ Guo LPN 01/05/2018 12:25 PM Signed Pt.s calls back and gives this number from back of card: Member services: [phone]. Corrina Lorenzo CANALESN Yashira Levine LPN 01/05/2018 2:04 PM Signed Spoke with the precert dept and was advised to fax to a different number ([phone]). Form faxed. Will await response. EJ Guo APRN.GERRI 01/06/2018 9:36 AM Signed Noted. Elinor Rich APRN.GERRI Pablo LPN 01/13/2018 1:07 PM Signed x Allergies [...] Date Reviewed: 12/30/2017 Reviewed by: Umu Finn Maple Syrup Maker - Fully Assessed Reason for Visit: Insurance Authorization [[id number]] Prescriptions as of 12/30/2017 Sig: GLIMEPIRIDE 2 [...] FOR* Priority: D More... More... History of UT (myocardial infarction) [I25.2] INVALID FOR* Tobacco use [...] Hyperlipidemia [E78.5] INVALID FOR* Encounter Status:Closed by ELINOR RICH CNP on 01/06/18 COMP METABOLIC PANEL Collected: 12/23/2017 Status: F Source: [place] 10:10 AM [facility] REPOSITORY TYPE CODE TESTS RESULT OUT OF REFERENCE UNITS RANGE LAB TP 6.3-8.0 g/dL Protein, Total 7.1 LAB ALB 3.9-4.9 g/dL Albumin 4.6 LAB CA 8.5-10.2 mg/dL Calcium, Total 9.5 LAB TBIL 0.2-1.3 mg/dL Bilirubin, Total 0.4 LAB ALKP 38-113 U/L Alkaline Phosphatase 96 LAB AST 14-40 U/L AST 29 LAB GLU 74-99 mg/dL Glucose High 165 Result Comment: The [place] Diabetes Association (ADA) provides guidance for cutoff [...] Standards of Medical Care in Diabetes 2016, [place] Diabetes Association. Diabetes Care. 2016.39(Suppl 1). LAB [...] By: #### CMP, LIPB, PT, HBA1C #### [facility] [address] [place], [place] [address] LIPID PANEL, BASIC Collected: 12/23/2017 Status: F Source: [place] 10:10 AM [facility] REPOSITORY TYPE CODE TESTS RESULT OUT OF [...] Desk Reference: National Heart, Lung, and Blood [place]. National Institutes of Health. 2001: NIH Publication No. 01-3305. 2. An International Atherosclerosis Society position paper: global recommendations for the management of dyslipidemia: executive summary, Atherosclerosis. 2014: 232(2):410-413. Performed By: #### CMP, LIPB, PT, HBA1C #### [facility] [address] [place], [place] [address] PROTIME Collected: 12/23/2017 Status: F Source: [place] 10:10 AM [facility] REPOSITORY TYPE CODE TESTS RESULT OUT OF RANGE REFERENCE UNITS LAB PSEC 9.7-13.0 sec High PT Sec 18.2 LAB INR 0.9-1.3 High PT INR 1.8 Result Comment: Vitamin K Antagonist (VKA) Therapeutic Range: INR 2 to 3 (Target INR of 2.5) Note: For patients treated with VKA drugs, such as warfarin, the [place] College of Chest Physicians 2012 Guideline recommends [...] Chest 2012, 141:7S-47S Ray RA, et al. [facility] 2017, 70: 252-289 Performed By: #### CMP, LIPB, PT, HBA1C #### [facility] [address] [place] [address] HEMOGLOBIN A1C Collected: 12/23/2017 Status: F Source: [place] 10:10 AM [facility] REPOSITORY TYPE CODE TESTS RESULT OUT OF REFERENCE UNITS RANGE LAB HGBA1C 4.3-5.6 % High Hemoglobin A1c 7.7 LAB HBA0 mg/dL Est. Average Glucose 174 Result Comment: eAG: (Estimated average glucose) is a calculated value from HgbA1c and is corporate sales representative of the average blood glucose level in the last 2-3 month period. Performed By: #### CMP, LIPB, PT, HBA1C #### [facility] [address] [id number] CK Collected: 12/23/2017 Status: F Source: [facility] 10:10 AM [facility] REPOSITORY TYPE CODE TESTS RESULT OUT OF RANGE REFERENCE UNITS LAB CK 51-298 U/L CK 86 Performed By: #### CK #### [facility] [address] [place], [place] [id number] PACEMAKER CHECK Observed: 12/21/2017 Status: F Source: [place] 8:23 AM [facility] REPOSITORY [facility] [address] [place] [address] Pacemaker Check Date of Service: 12/18/176 MR#: [id number] Acct: [id number] Name: VINEET DELANEY . Rep #: [id number] : 1950 From: Sharlene Aylaa Age/Sex: 67/M [place] [facility] Status: Signed Billing Codes PM Device Codes: PM Dev Prog Eval, Dual 12/18/171456 <Electronically signed by Sharlene Ayala > Date Sharlene Ayala 12/21/17822<Electronically signed by Magan Desir MD> Cosigner Signature: Date (if applicable) Magan Desir MD CC: STRESS TEST ECHO W/ Observed: 12/16/2017 Status: F Source: [place] CONTRAST 4:09 PM [facility] REPOSITORY [facility] [place] [address] Stress Test Echo W/Contrast MR#: [id number] Acct: [id number] Name: VINEET DELANEY Sr. 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, NO CP RECOVERY 100 124/80PO 97% Stress [...] Date Dictated: 12/15/17 1059 Date Transcribed: 12/16/17 0377 Religious Educator: Signed PROTIME W/INR Collected: 12/15/2017 Status: F Source: [place] 10:08 AM [facility] REPOSITORY TYPE CODE TESTS RESULT OUT OF REFERENCE UNITS RANGE LAB L9200.1001 11.9-14.4 SEC High PROTIME ISTAT 24.3 Result Comment: Reference Range 11.9 - 14.4 LAB L9200.2000 Normal INR ISTAT 2.10 Result Comment: Critical Value > 3.5 Performed By: #### L9200.0000 #### [facility] [address] [place], [place] [id number] LIVER PROFILE Collected: 12/10/2017 Status: F Source: [place] 10:24 AM [facility] REPOSITORY TYPE CODE TESTS RESULT OUT [...] 0.07 Performed By: #### L500.3400, L500.4100 #### [facility] [address] [place], [place], [id number] LIPID PROFILE Collected: 12/10/2017 Status: F Source: [place] 10:24 AM [facility] REPOSITORY TYPE CODE TESTS RESULT OUT [...] 63 Performed By: #### L500.3400, L500.4100 #### [facility] [address] [place], [address] CARDIOLOGY VISIT Observed: 12/08/2017 Status: F Source: [place] REPORT 2:59 PM [facility] REPOSITORY [facility] [address] [place] [address] OFFICE VISIT Date of Service: 12/08/17 MR#: [id number] Acct: [id number] Name: VINEET DELANEY . Rep #: [id number] : 1950 Provider: Magan Desir MD Age/Sex: 67/M Location: [facility] Status: Signed HPI HPI Chief Complaint: CP THIS AM/Switching from [place] Details: VINEET DELANEY, is a 67 M with a history of diabetes, hypertension, sick sinus syndrome status post pacemaker, hyperlipidemia, obstructive sleep apnea currently on CPAP, coronary artery disease with history of myocardial infarction in 2000. Patient had a repeat catheterization at the [facility] on 04/08/2011 which reportedly showed normal coronary arteries as confirmed by the report in his chart. There is some question as to whether he really had a previous myocardial infarction in 2000. In addition the patient has a greater than 36-rdbh-snzq smoking history and quit about 5 years [...] PO DAILY cap 12/08/17 [History Confirmed 12/08/17] [facility] Medical History Atherosclerotic heart disease of [place] coronary artery without angina pectoris (Chronic) Type [...] Orders Orders: 3. Atherosclerotic heart disease of [place] coronary artery without angina pectoris I25.10 Plan 3. Coronary artery disease: There is some confusion as to whether the patient actually had a myocardial infarction in 2000 as his coronary arteries in 2011 were normal per the report from the [facility]. It is possible the patient may have [...] type Hyperlipemia E78.5 Atherosclerotic heart disease of [place] coronary artery without angina pectoris I25.10 Sick sinus syndrome I49.5 Coding Level of Care Code Off vis,new,level 4 Diagnoses Chest pain R07.9 Ischemic chest pain type: unspecified angina pectoris type Hyperlipemia E78.5 Atherosclerotic heart disease of [place] coronary artery without angina pectoris I25.10 Sick sinus syndrome I49.5 12/08/17 1339 <Electronically signed by Magan Desir MD> Date Magan Desir MD Cosigner Signature: Date (if applicable) CC: 12 LEAD EKG PERFORMED Observed: 12/08/2017 Status: F Source: [place] BY [facility] 2:21 PM [facility] REPOSITORY [facility] [address] [place] [address] 12 Lead EKG performed by [facility] 12/08/17 1420 MR#: [id number] Acct: [id number] Name: VINEET DELANEY Sr. Rep #: [id number] : 1950 67 From: Magan Desir MD Attending Dr: Magan Desir MD Status: DEP AMB Ordering Dr: Magan Desir MD Date: 12/08/17 [place] [facility] Sex: M C Admitted: BMS/12 Lead EKG performed by [facility] ECG Report Interpretation Sinus Rhythm -First degree A-V block [place] = 306-Old inferior infarct. -Anterolateral ST-elevation -repolarization variant. ABNORMAL Electronically signed on 01/29/2018 at 15:41 by Magan Desir Software Version 8610 01/29/18 1546 Date Magan Desir MD CC: Marika High MD Date Dictated: 12/08/171419 Date Transcribed: 12/08/171419 Religious Educator: Signed PROGRESS Observed: 12/01/2017 Status: COMPLETED Source: [place] 2:27 PM [facility] REPOSITORY HNO ID: [id number] Author: Analisa Garica Ma Service: (none) Author Type: (none) Type: Progress Notes Filed: 12/01/2017 2:28 PM Note Text: Detailed message left on pt machine. Tracker and med list updated. Analisa Garcia Ma PROGRESS Observed: 12/01/2017 Status: COMPLETED Source: [place] 11:12 AM [facility] REPOSITORY HNO ID: [id number] Author: Marika High Service: (none) Author Type: Physician Type: Progress Notes Filed: 12/01/2017 2:28 PM Note Text: Go to 2 mg on Thu-Thu-Thu, 4 mg all other days Recheck in 2 weeks as planned Marika High MD PROGRESS Observed: 12/01/2017 Status: COMPLETED Source: [place] 10:56 AM [facility] REPOSITORY HNO ID: [id number] Author: Jessica Latham RN Service: (none) Author Type: (none) Type: Progress Notes Filed: 12/01/2017 10:58 AM Note Text: patient had inr completed at [facility] patients inr is 1.5 (patients inr range [...] 12/15/17 CNCO Observed: 11/04/2017 Status: COMPLETED Source: [place] 12:00 AM [facility] REPOSITORY Letter Text Vineet Delaney [address] [place] [id number] 11/04/2017 [facility] #: [id number] Dear , Due to a change in the provider's schedule it has been necessary to reschedule your Appointment. Your original appointment was scheduled for 12/29 at 10:40 AM with Marika High MD. Your new appointment is now scheduled on 12/30 at 12:40 PM with Maia Cintron CNP. If this new appointment is not convenient for you, please contact our office at [phone]. Thank you for choosing the [facility] as your Healthcare Provider . Sincerely, Family Medicine Appointment Office PROGRESS Observed: 11/03/2017 Status: COMPLETED Source: [place] 12:40 PM [facility] REPOSITORY HNO ID: [id number] Author: Chandler Kim Service: (none) Author Type: Physician Type: Progress Notes Filed: 11/03/2017 12:40 PM Note Text: This note was created using NoteWriter. Subjective Vineet Delaney is a 66 year old male. Review of Systems Objective There were no vitals taken for this visit. Physical Exam Assessment and Plan agree PROGRESS Observed: 11/03/2017 Status: COMPLETED Source: [place] 11:56 AM [facility] [place] HNO ID: [id number] Author: Jessica Latham RN Service: (none) Author Type: (none) Type: Progress Notes Filed: 11/03/2017 11:57 AM Note Text: patient had inr completed at [facility] patients inr is 2.0 (patients inr range [...] INR. CNCO Observed: 10/22/2017 Status: COMPLETED Source: [place] 12:00 AM [facility] REPOSITORY Letter Text Marika High MD [address], [place] [address] 10/22/2017 Vineet Delaney [facility]# [id number] [address] [address] TO WHOM IT MAY CONCERN: This is to certify that Mr. Vineet Delaney is not able to use an automobile seatbelt due to his medical condition. Sincerely yours, Marika High MD PROGRESS Observed: 10/06/2017 Status: COMPLETED Source: [place] 3:17 PM [facility] REPOSITORY HNO ID: [id number] Author: Marika High Service: (none) Author Type: Physician Type: Progress Notes Filed: 10/06/2017 5:16 PM Note Text: I agree with the advice given; stay same and recheck in 4 weeks Marika High MD PROGRESS Observed: 10/06/2017 Status: COMPLETED Source: [place] 2:56 PM [facility] REPOSITORY HNO ID: [id number] Author: Jessica Latham RN Service: (none) Author Type: (none) Type: Progress Notes Filed: 10/06/2017 2:57 PM Note Text: patient had inr completed at [facility] patients inr is 2.7 (patients inr range [...] INR. PROGRESS Observed: 09/22/2017 Status: COMPLETED Source: [place] 4:31 PM [facility] REPOSITORY HNO ID: [id number] Author: Marika High Service: (none) Author Type: Physician Type: Progress Notes Filed: 09/22/2017 4:43 PM Note Text: Discussed at appt; stay on same dose an recheck in 2 weeks Marika High MD CNOV Observed: 09/22/2017 Status: COMPLETED Source: [place] 4:20 PM [facility] REPOSITORY Office Visit (FAMPWS) VINEET DELANEY ([id number]) 1950 M Date Time Provider Department 09/22/17 4:20 PM MARIKA HIGH During your visit today, [...] He has been feeling nervous/anxious and irritable. Grabill good while out fishing; became irritable at [...] current medications. 4. Coronary artery disease involving [place] heart, angina presence unspecified, unspecified vessel or lesion type - ICD9: 414.01, ICD10: I25.10 Continue current medications. Follow with Cardiology Follow up in 3 months Marika High MD The documentation for this note was completed by Anabela Kramer Ma acting as scribe for Marika High MD. September 22, 2017 4:14 PM. Referring Provider: MARIKA HIGH [[id number]] Allergies As of Date: 09/22/2017 Noted Allergy Reaction METFORMIN 12/25/2015 14 - Other: See Comments Comments: Sweating BLACK PEPPER 11/17/2005 4 - Hives DUST MITES 11/17/2005 4 - Hives MOLD SPORES 11/17/2005 12 - Shortness of Breath aly cheese [Other] 11/17/2005 12 - Shortness of Breath PENICILLINS 11/17/2005 4 - Hives Date Reviewed: 09/22/2017 Reviewed by: Anabela Kramer Ma - Fully Assessed Reason for Visit: F/U 1 month [1175] Primary Visit Diagnosis:Type 2 diabetes mellitus without complication, without long-term current use of insulin ([facility]) [E11.9] Other Visit Diagnoses:Anxiety [F41.9] Atrial fibrillation, unspecified type ([facility]) [I48.91] Coronary artery disease involving [place] heart, angina presence unspecified, unspecified vessel or lesion type [I25.10] Order(s):DULoxetine (CYMBALTA) 60 mg capsuleTake 1 capsule by mouth once daily.Disp: 30 capsuleRfl: 5 HGB A1C [EQCLS6A] Order #: [id number] FUTURE COMP METABOLIC PANEL [SQCMP] Order #: [id number] FUTURE LIPID PANEL BASIC [SQLIPB] Order #: [id number] FUTURE Prescriptions as of 09/22/2017 Sig: GEMFIBROZIL [...] FOR* Priority: D More... More... History of UT (myocardial infarction) [I25.2] INVALID FOR* Tobacco use [...] 09/22/17 PROGRESS Observed: 09/22/2017 Status: COMPLETED Source: [place] 4:14 PM [facility] REPOSITORY HNO ID: [id number] Author: Marika High Service: (none) Author Type: [...] He has been feeling nervous/anxious and irritable. Grabill good while out fishing; became irritable at home. Chest: pt state he has been having pain on his left upper chest, states he can only feel the pain when he raises his arm. Pacemaker: pt has been having issues with transmitting his pacemaker activity to [facility]. He will continue to contact Cardiology for [...] 04/17/2011 Colonoscopy - COLONOSCOP W/ OR W/O [facility] SPEC 04/10/2014 Colonoscopy - COLONOSCOP W/ OR W/O [facility] SPEC 05/04/2017 Colonoscopy - EGD [...] 4 Occupational History Occupation Employer Comment Retired [employer]* short distance Social History Main [...] current medications. 4. Coronary artery disease involving [place] heart, angina presence unspecified, unspecified vessel or lesion type - ICD9: 414.01, ICD10: I25.10 Continue current medications. Follow with Cardiology Follow up in 3 months Marika High MD The documentation for this note was completed by Anabela Kramer Ma acting as scribe for Marika High MD. September 22, 2017 4:14 PM. PROGRESS Observed: 09/22/2017 Status: COMPLETED Source: [place] 9:36 AM [facility] REPOSITORY HNO ID: [id number] Author: Jessica Latham RN Service: (none) Author Type: (none) Type: Progress Notes Filed: 09/22/2017 9:38 AM Note Text: patient had inr completed at [facility] patients inr is 3.1 (patients inr range [...] HEMOGLOBIN A1C Collected: 09/15/2017 Status: F Source: [place] 7:43 [facility] REPOSITORY TYPE CODE TESTS RESULT OUT OF REFERENCE UNITS RANGE LAB HGBA1C 4.3-5.6 % High Hemoglobin A1c 6.8 LAB HBA0 mg/dL Est. Average Glucose 148 Result Comment: eAG: (Estimated average glucose) is a calculated value from HgbA1c and is corporate sales representative of the average blood glucose level in the last 2-3 month period. Performed By: #### HBA1C, CMP, LIPB #### [facility] [address] [place], [place] [address] COMP METABOLIC PANEL Collected: 09/15/2017 Status: F Source: [place] 7:43 AM [facility] REPOSITORY TYPE CODE TESTS RESULT OUT OF REFERENCE UNITS RANGE LAB TP 6.3-8.0 g/dL Protein, Total 6.7 LAB ALB 3.9-4.9 g/dL Albumin 4.3 LAB CA 8.5-10.2 mg/dL Calcium, Total 9.1 LAB TBIL 0.2-1.3 mg/dL Bilirubin, Total 0.2 LAB ALKP 36-108 U/L Alkaline High Phosphatase 109 LAB AST 14-40 U/L AST 23 LAB GLU 74-99 mg/dL Glucose High 129 Result Comment: The [place] Diabetes Association (ADA) provides guidance for cutoff [...] Standards of Medical Care in Diabetes 2016, [place] Diabetes Association. Diabetes Care. 2016.39(Suppl 1). LAB [...] Performed By: #### HBA1C, CMP, LIPB #### [facility] [address] [place], [place] [address] LIPID PANEL, BASIC Collected: 09/15/2017 Status: F Source: [place] 7:43 AM [facility] REPOSITORY TYPE CODE TESTS RESULT OUT OF [...] Desk Reference: National Heart, Lung, and Blood [place]. National Institutes of Health. 2001: NIH Publication No. 01-3305. 2. An International Atherosclerosis Society position paper: global recommendations for the management of dyslipidemia: executive summary, Atherosclerosis. 2014: 232(2):410-413. Performed By: #### HBA1C, CMP, LIPB #### [facility] [address] [place], [place] [address] PROGRESS Observed: 08/18/2017 Status: COMPLETED Source: [place] 9:42 AM [facility] REPOSITORY HNO ID: [id number] Author: Marika High Service: (none) Author Type: Physician Type: Progress Notes Filed: 08/18/2017 11:19 AM Note Text: I agree with the advice given; stay same and recheck in 1 month Marika High MD PROGRESS Observed: 08/18/2017 Status: COMPLETED Source: [place] 8:05 AM [facility] REPOSITORY HNO ID: [id number] Author: Jessica Latham RN Service: (none) Author Type: (none) Type: Progress Notes Filed: 08/18/2017 8:06 AM Note Text: patient had inr completed at [facility] patients inr is 2.1 (patients inr range [...] INR. CNOV Observed: 08/18/2017 Status: COMPLETED Source: [place] 8:00 AM [facility] REPOSITORY Office Visit (FAMPWS) VINEET DELANEY ([id number]) 1950 M Date Time Provider Department 08/18/17 8:00 AM MARIKA HIGH FAMPWS During your visit today, we recorded [...] diet or get much exercise. follows with [place] Clerk, Dr. Butler. DM: checks sugars daily but [...] eruption Nonspec Skin Erup Nec - Seizures ([facility]) - TIA (transient ischemic attack) 2004 - Type 2 diabetes mellitus without complication, without long- term current use of insulin ([facility]) 12/25/2015 Previous Surgical History PAST SURGICAL HISTORY Procedure Laterality Date - COLONOSCOP W/ OR W/O [facility] SPEC 04/17/2011 Colonoscopy - COLONOSCOP W/ OR W/O [facility] SPEC 04/10/2014 Colonoscopy - COLONOSCOP W/ OR W/O [facility] SPEC 05/04/2017 Colonoscopy - EGD [...] 4 Occupational History Occupation Employer Comment Retired [employer]* short distance Social History Main [...] Completed HEPATITIS C SCREENING Completed Data reviewed [facility] reports from 08/07/17-08/08/17 ASSESSMENT/PLAN: 1. Hospital discharge follow-up - ICD9: V67.59, ICD10: Z09 (primary diagnosis) Continue to follow with Dr. Butler PCP to contact Dr. Butler to see how he feels about a stress test 2. Other chest pain - ICD9: 786.59, ICD10: R07.89 Continue to follow with Dr. Butelr PCP to contact Dr. Butler to see how he feels about a stress test; message received back from Dr Butler that he feels that with normal coronaries and a recent (05/03) normal stress test, that another stress test is not needed at this time. 3. History of UT (myocardial infarction) - ICD9: 412, ICD10: I25.2 [...] current medications 8. Coronary artery disease involving [place]ut[place] heart, angina presence unspecified, unspecified vessel or [...] August 18, 2017 7:56 AM. Referring Provider: MARIKA HIGH [[id number]] Allergies As of Date: 08/18/2017 Noted Allergy Reaction METFORMIN 12/25/2015 14 - Other: See Comments Comments: Sweating BLACK PEPPER 11/17/2005 4 - Hives DUST MITES 11/17/2005 4 - Hives MOLD SPORES 11/17/2005 12 - Shortness of Breath aly cheese [Other] 11/17/2005 12 - Shortness of Breath PENICILLINS 11/17/2005 4 - Hives Date Reviewed: 08/18/2017 Reviewed by: Jessica Latham RN - Fully Assessed Reason for Visit: F/U 3 Month [443] Hospital Follow Up [177] Primary Visit Diagnosis:Hospital discharge follow-up [Z09] Other Visit Diagnoses:Other chest pain [R07.89] History of UT (myocardial infarction) [I25.2] Atrial fibrillation, unspecified type (HCC) [I48.91] Anxiety [F41.9] Gastroesophageal reflux disease without esophagitis [K21.9] Type 2 diabetes mellitus without complication, without long-term current use of insulin (HCC) [E11.9] Coronary artery disease involving y[place]utat heart, angina presence unspecified, unspecified vessel or lesion type [I25.10] Hyperlipidemia, unspecified hyperlipidemia type [E78.5] Order(s):DULoxetine (CYMBALTA) 30 mg capsuleTake 1 capsule by mouth once daily.Disp: 90 capsuleRfl: 3 LIPID PANEL BASIC [SQLIPB] Order #: [id number] FUTURE COMP METABOLIC PANEL [SQCMP] Order #: [id number] FUTURE HGB A1C [DMQUM2Z] Order #: [id number] FUTURE INR (POC) [[id number]] Order #: [id number]. #:[id number] Prescriptions as of 08/18/2017 Sig: GEMFIBROZIL 600 [...] FOR* Priority: D More... More... History of UT (myocardial infarction) [I25.2] INVALID FOR* Tobacco use [...] 08/18/17 PROGRESS Observed: 08/18/2017 Status: COMPLETED Source: [place] 7:55 AM [facility] REPOSITORY [facility] ID: [id number] Author: Marika High Service: (none) Author Type: [...] diet or get much exercise. follows with [place] [facility], Dr. Butler. DM: checks sugars daily but [...] Laterality Date - COLONOSCOP W/ OR W/O [facility] SPEC 04/17/2011 Colonoscopy - COLONOSCOP W/ OR W/O [facility] SPEC 04/10/2014 Colonoscopy - COLONOSCOP W/ OR W/O [facility] SPEC 05/04/2017 Colonoscopy - EGD [...] 4 Occupational History Occupation Employer Comment Retired [employer]* short distance Social History Main [...] Completed HEPATITIS C SCREENING Completed Data reviewed [facility] reports from 08/07/17-08/08/17 ASSESSMENT/PLAN: 1. Hospital discharge [...] needed at this time. 3. History of UT (myocardial infarction) - ICD9: 412, ICD10: I25.2 [...] current medications 8. Coronary artery disease involving y[place]utat heart, angina presence unspecified, unspecified vessel or [...] AM. PROGRESS Observed: 08/11/2017 Status: COMPLETED Source: [place] 4:03 PM [facility] REPOSITORY HNO ID: [id number] Author: Karolina Lagunas Ma Service: (none) Author Type: (none) Type: Progress Notes Filed: 08/12/2017 5:00 PM Note Text: Tried calling patient again August 11, 2017 and the phone was picked up but only could hear the rustling noise of the phone, no one on the other end. This MA stated hello multiple time and then after 45-50 seconds the constitution party hung up the phone. This has been the second attempt to reach patient and has been unsuccessful. Message left on previous phone call for pt to return call and speak with Nurse. If pt returns call, please address additional questions below. Karolina Lagunas Ma PROGRESS Observed: 08/10/2017 Status: COMPLETED Source: [place] 1:24 PM [facility] REPOSITORY HNO ID: [id number] Author: Karolina Lagunas Ma Service: (none) Author Type: (none) Type: Progress Notes Filed: 08/12/2017 5:00 PM Note Text: TRANSITION CARE MANAGEMENT (TCM) INITIAL CONTACT [employer] [facility] Provider Action/FYI: - First attempt, LM [...] name and . SUMMARY: -Pt discharged from [facility] on 08/08/17. -Admitted on 08/07/17 for: Acute [...] recent hospitalization: Have received some records from [facility], will request additional records. CNPTOUTREACH Observed: 08/10/2017 Status: COMPLETED Source: [place] 12:00 AM [facility] REPOSITORY Patient Outreach (INTMWS) VINEET DELANEY ([id number]) 1950 M Date Time Provider Department 08/10/17 MARIKA HIGH INTMWS During your visit today, we recorded the following information about you: Karolina Lagunas Ma 08/12/2017 5:00 PM Signed TRANSITION CARE MANAGEMENT (TCM) INITIAL CONTACT [employer] [facility] Provider Action/FYI: - First attempt, LM [...] name and . SUMMARY: -Pt discharged from [facility] on 08/08/17. -Admitted on 08/07/17 for: Acute [...] recent hospitalization: Have received some records from [facility], will request additional records. Karolina Lagunas Ma 08/12/2017 5:00 PM Signed Tried calling patient again August 11, 2017 and the phone was picked up but only could hear the rustling noise of the phone, no one on the other end. This KIKA stated hello multiple time and then after 45-50 seconds the constitution party hung up the phone. This has been [...] - Hives Date Reviewed: 07/30/2017 Reviewed by: Jessica Latham RN - Fully Assessed Reason for Visit: Hospital F/U [57] Cmt: Hospital D/C [facility] on 08/08/17. TCM-14 day. Prescriptions as of [...] FOR* Priority: D More... More... History of UT (myocardial infarction) [I25.2] INVALID FOR* Tobacco use [...] 08/12/17 TROP Collected: 08/08/2017 Status: F Source: [facility] 9:51 AM FOUNDATION REPOSITORY TYPE CODE TESTS RESULT OUT OF REFERENCE UNITS RANGE LAB TROP(LOINC) 0.00-0.30 ng/mL Troponin <0.30 Result Comment: Below measuring range >=0.30 Consistent with cardiac damage, increased clinical risk and possibility of myocardial infarction. Serial measurements, clinical history, appropriate symptoms and/or ECG changes may help assess possibility of UT. *Other non-acute coronary syndrome conditions such as CHF, myocarditis, pulmonary emboli, sepsis and cardiac surgery could result in myocardial damage and increased troponin levels. Performed By: #### TROP #### [facility] [address] [address] PRO Collected: 08/08/2017 Status: F Source: [facility] 6:21 AM [facility] REPOSITORY Order Comment: ordered secondary to warfarin [...] - 3.5 Performed By: #### PRO #### [address] [address] TROP Collected: 08/08/2017 Status: F Source: [facility] 2:25 AM [facility] REPOSITORY TYPE CODE TESTS RESULT OUT OF REFERENCE UNITS RANGE LAB TROP(LOINC) 0.00-0.30 ng/mL Troponin <0.30 Result Comment: Below measuring range >=0.30 Consistent with cardiac damage, increased clinical risk and possibility of myocardial infarction. Serial measurements, clinical history, appropriate symptoms and/or ECG changes may help assess possibility of UT. *Other non-acute coronary syndrome conditions such as CHF, myocarditis, pulmonary emboli, sepsis and cardiac surgery could result in myocardial damage and increased troponin levels. Performed By: #### TROP #### [address] [address] PRO Collected: 08/07/2017 Status: F Source: [facility] 4:06 PM [facility] REPOSITORY Order Comment: ordered secondary to warfarin [...] - 3.5 Performed By: #### PRO #### [facility] [address], [place] [address] XR CHEST 1 VIEW Observed: 08/07/2017 Status: F Source: [facility] 11:33 AM [facility] REPOSITORY ORIGINAL Portable Chest x-ray Clinical Statement: [...] AM CBC Collected: 08/07/2017 Status: F Source: [facility] 11:22 AM [facility] REPOSITORY TYPE CODE TESTS RESULT OUT [...] CBC, ADIFF, ANEU, TROP, GFR, BMP #### [address] [address] .AUTO DIFF Collected: 08/07/2017 Status: F Source: [facility] 11:22 AM [facility] REPOSITORY TYPE CODE TESTS RESULT OUT [...] CBC, ADIFF, ANEU, TROP, GFR, BMP #### [address] [address] .NEUABS Collected: 08/07/2017 Status: F Source: [facility] 11:22 AM [facility] REPOSITORY TYPE CODE TESTS RESULT OUT OF REFERENCE UNITS RANGE LAB ANEU(LOINC) 2.85-6.16 10 3/mcL Neutrophil, 3.70 Absolute Performed By: #### CBC, ADIFF, ANEU, TROP, GFR, BMP #### [address] [address] TROP Collected: 08/07/2017 Status: F Source: [facility] 11:22 AM [facility] REPOSITORY TYPE CODE TESTS RESULT OUT OF REFERENCE UNITS RANGE LAB TROP(LOINC) 0.00-0.30 ng/mL Troponin <0.30 Result Comment: Below measuring range >=0.30 Consistent with cardiac damage, increased clinical risk and possibility of myocardial infarction. Serial measurements, clinical history, appropriate symptoms and/or ECG changes may help assess possibility of UT. *Other non-acute coronary syndrome conditions such as CHF, myocarditis, pulmonary emboli, sepsis and cardiac surgery could result in myocardial damage and increased troponin levels. Performed By: #### CBC, ADIFF, ANEU, TROP, GFR, BMP #### [address] [address] .GFR Collected: 08/07/2017 Status: F Source: [facility] 11:22 AM [facility] REPOSITORY TYPE CODE TESTS RESULT OUT OF REFERENCE UNITS RANGE LAB GFRAA(LOINC ml/min/1.73 ) sqm GFR 82 [place] Result Comment: GFR Population mean for , [...] CBC, ADIFF, ANEU, TROP, GFR, BMP #### [address] [address] BMP Collected: 08/07/2017 Status: F Source: [facility] 11:22 AM [facility] REPOSITORY TYPE CODE TESTS [...] CBC, ADIFF, ANEU, TROP, GFR, BMP #### [place] [address], [place] [address] PROGRESS Observed: 07/30/2017 Status: COMPLETED Source: [place] 1:25 PM [facility] REPOSITORY HNO ID: [id number] Author: Marika High Service: (none) Author Type: Physician Type: Progress Notes Filed: 07/30/2017 3:45 PM Note Text: I agree with the advice given; stay same dose and recheck in 3 weeks Marika High MD PROGRESS Observed: 07/30/2017 Status: COMPLETED Source: [place] 9:36 AM [facility] REPOSITORY HNO ID: [id number] Author: Jessica Latham RN Service: (none) Author Type: (none) Type: Progress Notes Filed: 07/30/2017 9:38 AM Note Text: patient had inr completed at [facility] patients inr is 1.9 (patients inr range [...] INR. PROGRESS Observed: 07/20/2017 Status: COMPLETED Source: [place] 1:20 PM [facility] REPOSITORY O ID: [id number] Author: Marika High Service: (none) Author Type: [...] which is normal for him. Follows with [place] [facility] Dr. Butler every 6 months. Currently taking [...] 4 Occupational History Occupation Employer Comment Retired [employer]* short distance Social History Main Topics [...] CAPSULE,DELAYED RELEASE 5. Coronary artery disease involving y[place] heart, angina presence unspecified, unspecified vessel or [...] PM. CNOV Observed: 07/20/2017 Status: COMPLETED Source: [place] 1:20 PM [facility] REPOSITORY Office Visit (FAMPWS) VINEET DELANEY ([id number]) 1950 [place] Date Time Provider Department 07/20/17 1:20 PM [...] which is normal for him. Follows with [place] [facility] Dr. Butler every 6 months. Currently taking [...] Laterality Date - COLONOSCOP W/ OR W/O [facility] SPEC 04/17/2011 Colonoscopy - COLONOSCOP W/ OR W/O [facility] SPEC 04/10/2014 Colonoscopy - COLONOSCOP [...] 4 Occupational History Occupation Employer Comment Retired [employer]* short distance Social History Main [...] CAPSULE,DELAYED RELEASE 5. Coronary artery disease involving y[place] heart, angina presence unspecified, unspecified vessel or lesion type - ICD9: 414.01, ICD10: I25.10 Stable; follow with Dr Bulter 6. Hyperlipidemia, unspecified hyperlipidemia type - ICD9: [...] 1/2 pill daily Referring Provider: MARIKA HIGH [[id number]] Allergies As of Date: 07/20/2017 Noted Allergy [...] without esophagitis [K21.9] Coronary artery disease involving [place] heart, angina presence unspecified, unspecified vessel or [...] 11 COMP METABOLIC PANEL [SQCMP] Order #: [id number] FUTURE HGB A1C [AJJMK9F] Order #: [id number] FUTURE LIPID PANEL BASIC [SQLIPB] Order #: [id number] FUTURE Prescriptions as of 07/20/2017 Sig: GEMFIBROZIL [...] FOR* Priority: D More... More... History of UT (myocardial infarction) [I25.2] INVALID FOR* Tobacco use [...] on file. Cosign accepted by MARIKA HIGH MD[[id number]] on 06/11/2017 10:34 AM omeprazole (PRILOSEC) 20 [...] 07/20/17 PROGRESS Observed: 07/02/2017 Status: COMPLETED Source: [place] 9:19 AM [facility] REPOSITORY HNO ID: [id number] Author: Marika High Service: (none) Author Type: Physician Type: Progress Notes Filed: 07/02/2017 10:55 AM Note Text: I agree with the advice given; stay same and recheck in 4 weeks Marika High MD PROGRESS Observed: 07/02/2017 Status: COMPLETED Source: [place] 8:58 AM [facility] REPOSITORY HNO ID: [id number] Author: Ronna Carrizales RN Service: (none) Author Type: (none) Type: Progress Notes Filed: 07/02/2017 8:59 AM Note Text: Patient had INR completed at [facility] Patient's INR is 2.4 Patient is [...] up. PROGRESS Observed: 06/18/2017 Status: COMPLETED Source: [place] 10:10 AM [facility] REPOSITORY HNO ID: [id number] Author: Marika High Service: (none) Author Type: Physician Type: Progress Notes Filed: 06/18/2017 12:14 PM Note Text: I agree with the advice given; stay on alternate 2 mg and 4 mg daily Recheck in 4 weeks as planned Marika High MD PROGRESS Observed: 06/18/2017 Status: COMPLETED Source: [place] 9:00 AM [facility] REPOSITORY HNO ID: [id number] Author: Ronna Carrizales RN Service: (none) Author Type: (none) Type: Progress Notes Filed: 06/18/2017 9:02 AM Note Text: Patient had INR completed at [facility] Patient's INR is 2.0 Patient is [...] up. PROGRESS Observed: 06/11/2017 Status: COMPLETED Source: [place] 10:33 AM [facility] REPOSITORY HNO ID: [id number] Author: Analisa Garcia Ma Service: (none) Author Type: (none) Type: Progress Notes Filed: 06/11/2017 10:33 AM Note Text: Pt notified and voiced understanding. Tracker and med list updated. Analisa Garcia Ma PROGRESS Observed: 06/11/2017 Status: COMPLETED Source: [place] 10:23 AM [facility] REPOSITORY HNO ID: [id number] Author: Marika High Service: (none) Author Type: Physician Type: Progress Notes Filed: 06/11/2017 10:33 AM Note Text: Hold for 2 days, then go to alternating 2 mg and 4 mg Recheck in 1 week as planned Marika High MD PROGRESS Observed: 06/11/2017 Status: COMPLETED Source: [place] 9:15 AM [facility] REPOSITORY HNO ID: [id number] Author: Zoe Andrade RN Service: (none) Author [...] RN CNOV Observed: 05/22/2017 Status: COMPLETED Source: [place] 2:20 PM [facility] REPOSITORY Office Visit ([facility]) VINEET DELANEY ([id number]) 1950 M Date Time Provider Department 05/22/17 2:20 PM VALENTIN CINTRON ([facility]) [facility] During your visit today, we recorded the following information about you: Temperature Pulse Blood pressure 96.6 degrees 84/minute 131/86 Valentin Cintron APRN.CNP 05/22/2017 2:18 PM Signed Vineet Camarillo Rhett is a 66 year [...] his blood pressure is 131/86. HTN: Mr. Delaeny indicates that he is feeling well and [...] updated today in the History tab of [facility]. Current Medications and allergies reviewed. PAST MEDICAL [...] without long- term current use of insulin ([facility]) 12/25/2015 PAST SURGICAL HISTORY Procedure Laterality Date - COLONOSCOP W/ OR W/O [facility] SPEC 04/17/2011 Colonoscopy - COLONOSCOP W/ OR W/O [facility] SPEC 04/10/2014 Colonoscopy - COLONOSCOP W/ OR W/O [facility] SPEC 05/04/2017 Colonoscopy - EGD [...] LIST First Degree Av Block History of UT (Myocardial Infarction) Chest Pain Claudication ([facility]) Manny (Obstructive Sleep Apnea) Cardiac Pacemaker [...] 4 Occupational History Occupation Employer Comment Retired [employer]* short distance Social History Main [...] - Continue metoprolol for CAD, history of UT. Follow up as needed. Valentin Cintron APRN.WRITING MANAGER Referring Provider: SELF [[id number]] Allergies As of Date: 05/22/2017 Noted Allergy Reaction METFORMIN 12/25/2015 14 - Other: See Comments Comments: Sweating BLACK PEPPER 11/17/2005 4 - Hives DUST MITES 11/17/2005 4 - Hives MOLD SPORES 11/17/2005 12 - Shortness of Breath PENICILLINS 11/17/2005 4 - Hives aly cheese [Other] 11/17/2005 12 - Shortness of Breath Date Reviewed: 05/22/2017 Reviewed by: Umu Finn Maple Syrup Maker - Fully Assessed Reason for Visit: [...] FOR* Priority: D More... More... History of UT (myocardial infarction) [I25.2] INVALID FOR* Tobacco use [...] 05/22/17 PROGRESS Observed: 05/22/2017 Status: COMPLETED Source: [place] 2:00 PM [facility] REPOSITORY HNO ID: [id number] Author: Valentin Abreu) Saida Service: (none) Author Type: Nurse Practitioner [...] updated today in the History tab of [facility]. Current Medications and allergies reviewed. PAST MEDICAL [...] Laterality Date - COLONOSCOP W/ OR W/O [facility] SPEC 04/17/2011 Colonoscopy - COLONOSCOP W/ OR W/O [facility] SPEC 04/10/2014 Colonoscopy - COLONOSCOP W/ OR W/O [facility] SPEC 05/04/2017 Colonoscopy - EGD [...] LIST First Degree Av Block History of UT (Myocardial Infarction) Chest Pain Claudication ([facility]) Manny (Obstructive Sleep Apnea) Cardiac Pacemaker in Situ Atrial Fibrillation ([facility]) Anxiety Gastroesophageal Reflux Disease Without Esophagitis [...] - Continue metoprolol for CAD, history of UT. Follow up as needed. Valentin Cintron APRN.WRITING MANAGER XR ANKLE 3V AP/LAT/OBL Observed: 05/22/2017 Status: F Source: [facility] 1:14 PM [facility] REPOSITORY * * *Final Report* * * [...] the plantar fascia. IMPRESSION: No acute finding. Religious Educator: MATTIE Transcribe Date/Time: May 22 2017 1:17P Dictated by : MARIKA MCCARTHY MD This examination was interpreted and the report reviewed and electronically signed by: MARIKA MCCARTHY MD on May 22 2017 1:18PM EST [id number] PROGRESS Observed: 05/22/2017 Status: COMPLETED Source: [place] 1:07 PM [facility] REPOSITORY HNO ID: [id number] Author: Idalia Min (Rt) Khalida Burt Service: (none) Author Type: Topper Press Operator Type: Progress Notes Filed: 05/22/2017 1:13 PM [...] PM PROGRESS Observed: 05/22/2017 Status: COMPLETED Source: [place] 1:01 PM [facility] REPOSITORY HNO ID: [id number] Author: Jody Abreu) Lizabeth Service: (none) Author Type: Nurse Practitioner Type: [...] without long- term current use of insulin ([facility]) 12/25/2015 PAST SURGICAL HISTORY Procedure Laterality Date [...] REPAIR ING HERNIA,5+Y/O,REDUCIBL 2006 Hernia repair, inguinal ALLERGIES Metformin; Black Pepper; [...] APRN.CNP CNOV Observed: 05/22/2017 Status: COMPLETED Source: [place] 12:45 PM [facility] REPOSITORY Office Visit (W[facility]) VINEET DELANEY ([id number]) 1950 M Date Time Provider Department 05/22/17 12:45 PM JODY BARONE (WRITING MANAGER) [facility] During your visit today, we recorded the following information about you: Temperature Pulse Respiration Blood pressure 97.4 degrees 76/minute 16/minute 118/86 Weight 93.9 kg Jody Barone APRN.CNP 05/22/2017 1:27 PM Signed Subjective HPI Vineet Camarillo Rhett is a 66 [...] without long- term current use of insulin ([facility]) 12/25/2015 PAST SURGICAL HISTORY Procedure Laterality Date - COLONOSCOP W/ OR W/O [facility] SPEC 04/17/2011 Colonoscopy - COLONOSCOP W/ OR W/O [facility] SPEC 04/10/2014 Colonoscopy - COLONOSCOP W/ OR W/O [facility] SPEC 05/04/2017 Colonoscopy - EGD [...] doing any physical activity. References ? National [place] of Arth[employer] and Musculoskeletal and Skin Diseases. Questions and Answers about Sprains and Strains Accessed 06/21/2013. ? [place] [employer]. Sprains and Strains: What's the Difference? Accessed 06/21/2013. ? Copyright 4100-8260 [facility]. All rights reserved. This information is provided by the [facility] and is not intended to replace the medical advice of your doctor or health care provider. Please consult your health care provider for advice about a specific medical condition. For additional health information, please contact the Center for Consumer Health Information at the [place] or toll-free extension [phone]. If you prefer, you may visit [email or web address] or [email or web address]. This document was last reviewed on: 2013 index#17585 Referring Provider: SELF [200] Allergies As of Date: 05/22/2017 Noted Allergy Reaction METFORMIN 12/25/2015 14 - Other: See Comments Comments: Sweating BLACK PEPPER 11/17/2005 4 - Hives DUST MITES 11/17/2005 4 - Hives MOLD SPORES 11/17/2005 12 - Shortness of Breath PENICILLINS 11/17/2005 4 - Hives aly cheese [Other] 11/17/2005 12 - Shortness of Breath Date Reviewed: 05/22/2017 Reviewed by: Jody ([facility]) Lizabeth - Fully Assessed Reason for Visit: Foot Trauma [766] Cmt: Left foot pain x 5 days, from a fall Primary Visit Diagnosis:Left ankle injury, initial encounter [S99.912A] Order(s):XR ANKLE GENERAL 3V AP/LAT/OBL LT [[id number]] Order #: [id number] FUTURE Prescriptions as of 05/22/2017 Sig: OMEPRAZOLE [...] FOR* Priority: D More... More... History of UT (myocardial infarction) [I25.2] INVALID FOR* Tobacco use [...] doing any physical activity. References ? [employer] [place] of Arth[employer] and Musculoskeletal and Skin Diseases. Questions and Answers about Sprains and Strains Accessed 06/21/2013. ? [employer]. Sprains and Strains: What's the Difference? Accessed 06/21/2013. ? Copyright 3854-4250 [facility]. All rights reserved. This information is provided by the [facility] and is not intended to replace the medical advice of your doctor or health care provider. Please consult your health care provider for advice about a specific medical condition. For additional health information, please contact the Center for Consumer Health Information at the [place] or toll-free extension [phone]. If you prefer, you may visit [email or web address] or [email or web address]. This document was last reviewed on: 2013 index#63481 Encounter Status:Closed by JODY BARONE on 05/22/17 PROGRESS Observed: 05/15/2017 Status: COMPLETED Source: [place] 3:04 PM CLINIC OTHER CAMPUS REPOSITORY HNO ID: [id number] Author: Jorge Butler Service: (none) Author Type: [...] N/A Beta sae for ASHD with prior UT or prior LVEF<40 (NQF 0070) - N/A Beta sae for HF with prior LVEF<40 (NQF 0083) - N/A DWAIN-I or ARB for ASHD with DM or prior LVEF<40 (NQF 0066) - N/A Statin therapy for ASHD or FHL or DM - MET BMI documented and plan if >25 (NQF 0421) - lifestyle recommendation form Tobacco [...] or as needed. He'll be referred to [facility] for his clinic device check. Written [...] MD CNOV Observed: 05/15/2017 Status: COMPLETED Source: [place] 3:00 PM CLINIC OTHER CAMPUS REPOSITORY Office Visit (AGCARDWST) VINEET DELANEY ([id number]) 1950 M Date Time Provider Department 05/15/17 3:00 PM JORGE BUTLER AGCARDWSCarmen During your visit today, we recorded the [...] N/A Beta sae for ASHD with prior UT or prior LVEFANDlt;40 ([facility] 0070) - N/A Beta sae for HF with prior LVEFANDlt;40 ([facility] 0083) - N/A DWAIN-I or ARB for ASHD with DM or prior LVEFANDlt;40 ([facility] 0066) - N/A Statin therapy for ASHD or FHL or DM - MET BMI documented and plan if ANDgt;25 ([facility] 0421) - lifestyle recommendation form Tobacco use screening and referral ([facility] 0028) - lifestyle recommendation form Recommendation [...] or as needed. He'll be referred to [facility] for his clinic device check. Written [...] the following areas and commit to making terminal worker changes. EAT A WHOLE FOOD, PLANT BASED [...] in your area. Referring Provider: JORGE BUTLER [[id number]] Allergies As of Date: 05/15/2017 Noted Allergy Reaction METFORMIN 12/25/2015 14 - Other: See Comments Comments: Sweating BLACK PEPPER 11/17/2005 4 - Hives DUST MITES 11/17/2005 4 - Hives MOLD SPORES 11/17/2005 12 - Shortness of Breath PENICILLINS 11/17/2005 4 - Hives aly cheese [Other] 11/17/2005 12 - Shortness of Breath Date Reviewed: 05/15/2017 Reviewed by: Jagdish Aranda) IGOR Faye - Fully Assessed Reason for Visit: Follow Up [171] Cmt: ED Visit Diagnosis:Persistent atrial fibrillation (HCC) [I48.1] Order(s):metoprolol tartrate, short acting, (LOPRESSOR) 25 mg tabletTake 1 tablet by mouth twice daily.Disp: Rfl: CONSULT TO DEVICE CLINIC () [[id number]] Order #: [id number]: 1 flecainide (TAMBOCOR) 50 mg tabletTake 1 [...] FOR* Priority: D More... More... History of UT (myocardial infarction) [I25.2] INVALID FOR* Tobacco use [...] the following areas and commit to making long-term changes. EAT A WHOLE FOOD, PLANT BASED [...] forms of relaxation therapy. Consistency is the dweyr. Find a technique that works for you [...] 05/15/17 PROGRESS Observed: 05/14/2017 Status: COMPLETED Source: [place] 10:17 AM [facility] REPOSITORY HNO ID: [id number] Author: Marika High Service: (none) Author Type: Physician Type: Progress Notes Filed: 05/14/2017 11:10 AM Note Text: I agree with the advice given; stay same and recheck in 4 weeks Marika High MD PROGRESS Observed: 05/14/2017 Status: COMPLETED Source: [place] 9:22 AM [facility] REPOSITORY HNO ID: [id number] Author: Ronna Carrizales RN Service: (none) Author Type: (none) Type: Progress Notes Filed: 05/14/2017 9:22 AM Note Text: Patient had INR completed at [facility] Patient's INR is 2.6 Patient is [...] LEAD ELECTROCARDIOGRAM Observed: 05/08/2017 Status: F Source: [place] 3:08 PM [facility] REPOSITORY [facility] Cardiovascular Services [address] [place] [address] 12 Lead EKG 05/06/17 0519 MR#: [id number] Acct: [id number] Name: VINEET DELANEY Sr. Rep #: [id number] : 1950 66 From: Meng Light MD Attending Dr: Denise Dillon MD Status: DIS TARIK Ordering Dr: Denise Dillon MD Date: 05/06/17 Location: [facility] Sex: M C Admitted: 05/05/17 Test Reason [...] REQUIRED, DATA IS UNCONFIRMED Confirmed by NADEGE BUCK, MENG ([id number]), image editor EVGENY ALEX (56) on 05/08/2017 3:08:35 PM Referred By: GARRICK Confirmed By:MENG LIGHT MD 05/08/17 1508 Date Meng Light MD CC: Denise Dillon MD; Marika High MD Signed 12 LEAD ELECTROCARDIOGRAM Observed: 05/08/2017 Status: F Source: [place] 2:50 PM [facility] REPOSITORY [facility] Cardiovascular Services [address] [place] [address] 12 Lead EKG 05/05/17 1406 MR#: [id number] Acct: [id number] Name: VINEET DELANEY Sr. Rep #: [id number] : 1950 66 From: Meng Light MD Attending Dr: Denise Dillon MD Status: DIS TARIK Ordering Dr: Denise Dillon MD Date: 05/05/17 Location: U Sex: M C Admitted: 05/05/17 Test Reason [...] UNCONFIRMED Confirmed by MENG LIGHT MD ([id number]), image editor EVGENY ALEX (56) on 05/08/2017 2:50:23 PM Referred By: GARRICK Confirmed By:MENG LIGHT MD 05/08/17 1450 Date Meng Light MD CC: Denise Dillon MD; Marika High MD Signed CNOV Observed: 05/08/2017 Status: COMPLETED Source: [place] 2:20 PM [facility] REPOSITORY Office Visit (FAMPWS) RHETTVINEET MYERS ([id number]) 1950 M Date Time Provider Department 05/08/17 2:20 PM CONCHITA HUSAIN) FAMPWS During your visit today, we recorded the following information about you: Pulse Respiration Blood pressure Weight 72/minute 14/minute 122/84 94.3 kg ALLIE GALAVIZ 05/08/2017 3:08 PM Signed Chief Complaint Patient presents with: Hospital F/U [facility] Vineet Delaney is a 66 year old [...] without long- term current use of insulin ([facility]) 12/25/2015 Previous Surgical History PAST SURGICAL HISTORY Procedure Laterality Date - COLONOSCOP W/ OR W/O BRS SPEC 04/17/2011 Colonoscopy - COLONOSCOP W/ OR W/O [facility] SPEC 04/10/2014 Colonoscopy - COLONOSCOP W/ OR W/O [facility] SPEC 05/04/2017 Colonoscopy - EGD [...] -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 Community OMAHA CONTPolicy Number: [id number] [id number] Repository [place] [address]Nms: Date:5802-89-13IA [address] [place] [address], (HP) [place] [address]JZ: 05/05/2017 Secondary VINEET F [place] [facility] Sr[facility] Community icy Number: [id number] Hospital [id number] Repository Date:2017-05-05 05/05/2017 Tertiary NOT GIVENUNK [place] Insurance:SELF PAY [facility] Number: Effective Repository Date:2017-05-05 05/05/2017 VINEET F Primary Insurance:[facility] VINEET F [place] RHETT Sr.519 MCRDUAL COMP HMO* NOT RHETT Sr.: Community OMAHA CONTPolicy Number: [id number] [id number] [place]ository [place] [address]Xup: Date:5636-20-67JK [address] [place] [address], (HP) [place] [address]AS: 05/05/2017 Secondary VINEET Dor[place] Insurance:[facility]: Formerly [facility] icy Number: [id number] Hospital [id number] Repository Date:2017-05-05 05/05/2017 Tertiary NOT GIVENUNK [place] Insurance:SELF PAY [facility]ly [facility] Number: Effective Repository Date:2017-05-05
== END 2018-02-05 12:36 | disposition home or self-care (01) ==
LOC: LAB 11:36
PROVIDERS: Family Provider Family Medicine; PCP Family Medicine; Referring Provider Internal Medicine Cardiovascular Disease; Visit Provider Internal Medicine Cardiovascular Disease
DX: I48.0 Paroxysmal atrial fibrillation (principal); Z79.01 Long term (current) use of anticoagulants
CPT/HCPCS: 36415; 85610

== ENCOUNTER 2018-03-11 11:35 | Outpatient (RCR) | payer MEDICARE, MEDICAID, SELFPAY ==
[2018-02-18 13:20] LABS: Prothrombin Time (Protime)PT. 22.8 SECONDS (11.7-14.9)
[2018-03-11 13:01] LABS: International Normalized Ratio 2.2; Prothrombin Time (Protime)PT. 24.1 SECONDS (11.7-14.9)
== END 2018-03-11 12:00 | disposition home or self-care (01) ==
LOC: LAB 11:35
PROVIDERS: Family Provider Family Medicine; PCP Family Medicine; Referring Provider Internal Medicine Cardiovascular Disease; Visit Provider Internal Medicine Cardiovascular Disease
DX: I48.0 Paroxysmal atrial fibrillation (principal); Z79.01 Long term (current) use of anticoagulants
CPT/HCPCS: 36415; 85610

== ENCOUNTER 2018-03-31 10:55 | Emergency (ER) | payer MEDICARE, MEDICAID, SELFPAY ==
[2018-02-18 13:38] VITALS: BMI 28.0
[2018-03-31 10:56] VITALS: BP 126/83; PULSE 126; RESP 22; TEMP 36.4; O2SAT 94; BMI 27.9
--- NOTE | 2018-03-31 11:09 | EKG12_ITS ---
Test Reason : CP Blood Pressure : / mmHG Vent. Rate : 073 BPM Atrial Rate : 073 BPM P-R Int : 280 ms QRS Dur : 096 ms QT Int : 396 ms P-R-T Axes : 054 -23 046 degrees QTc Int : 436 ms Sinus rhythm with 1st degree A-V block Inferior infarct , age undetermined Abnormal ECG Confirmed by YENIFER BUCK, YESI ([id number]), editor book EVGENY ALEX (56) on 04/06/2018 11:32:54 AM Referred By: LISSET Confirmed By:YESI STREET MD
[2018-03-31] MEDS: Aspirin 81 MG TAB.CHEW 324 MG PO (11:50)
--- NOTE | 2018-03-31 11:55 | RAD_ITS ---
STUDY: X-RAY CHEST REASON FOR EXAM: Male, 67 years old. Chest pain TECHNIQUE: PA and lateral views of the chest. COMPARISON: 05/05/2017 FINDINGS: Left chest wall pacing device The lungs are clear and expanded. Stable calcified granuloma in the right upper lobe. There is no demonstrated pleural abnormality. There is borderline cardiomegaly. Normal mediastinum and saundra. Normal visualized pulmonary arteries. Normal visualized aortic arch and descending thoracic aorta. Normal visualized thoracic spine. Normal visualized ribs, clavicles, and shoulders. There is no demonstrated abnormality of the visualized soft tissue structures of the upper abdomen. RAD/Chest PA and Lateral IMPRESSION: No acute cardiopulmonary disease. Electronically Signed: Andres Gutierrez DO at 12:28 EST Tel , Service support ,
[2018-03-31 12:02] VITALS: BP 111/80; PULSE 69; RESP 16; O2SAT 94
[2018-03-31 12:02] LABS: Absolute Lymphocyte Count 2.21 X10^3/ul (0.83-4.51); Absolute Neutrophil Count 2.8 X10^3/uL (2.0-7.7); Basophil# 0.03 X10^3/uL; Basophil% 0.5 % (0-1); Eosinophil# 0.08 X10^3/uL; Eosinophils% 1.4 % (0-5); Hematocrit 39.3 % (40-54); Hemoglobin 12.8 g/dl (13.0-16.5); Lymphocyte # 2.21 X10^3/ul (4.0); Lymphocyte % 39.7 % (19-41); Mean Corp Hgb Conc 32.6 g/gl (32-36); Mean Corpuscular Hgb 27.4 pg (27.0-32.0); Mean Platelet Vol. 10.3 fl (6.2-12.0); Monocyte# 0.44 X10^3/uL; Monocyte% 7.9 % (0-10); Neutrophil # 2.79 X10^3/uL (2.7-7.7); Neutrophil % 50.3 % (47-70); Platelet Count 245 K/mm3 (150-450); RBC Distribution Width CV 13.7 % (11.6-14.6); RBC Distribution Width SD 41.3 fl (35.1-43.9); Red Blood Count 4.68 M/mm3 (4.6-6.2); White Blood Count 5.6 K/mm3 (4.4-11.0)
[2018-03-31 12:03] LABS: POSITIVE COUNT NO; POSITIVE DIFFERENTIAL NO; POSITIVE MORPHOLOGY NO
[2018-03-31 12:37] LABS: Anion Gap 9 (5-15); BUN 21 mg/dL (7-18); BUN/Creat Ratio 19.3 RATIO (10-20); Calcium,Total 8.4 mg/dL (8.5-10.1); Chloride 109 mmol/L (98-107); Creatinine, Serum 1.09 mg/dL (0.70-1.30); EST Glomerular Filtration Rate 72 mL/min (>60); Est Glom Filt Rate - Afr Amer 87 mL/min (>60); Estimated Creatinine Clearance 75.34 ml/min; Glucose 253 mg/dL (74-106); Potassium 4.1 mmol/L (3.5-5.1); Sodium Level 140 mmol/L (136-145)
--- NOTE | 2018-03-31 13:28 | ED.DCSUM_ITS ---
- ER Visit Summary Date of Service: 03/31/18 Chief Complaint: Chest pain History of Present Illness: The patient is a 67 M presenting for evaluation secondary to chest pain. Patient reports that since yesterday he has had continuous left-sided chest pain. He reports that this is worse with movement, going over bumps in the car, breathing, or palpation. He denies any associated nausea diaphoresis shortness of breath lightheadedness or palpitations. He denies any injuries. He denies any overlying skin rashes. Patient does have an underlying history of coronary artery disease with a pacemaker. He denies any DVT or PE risk factors. Physical Examination: Vital signs are within normal limits, patient is afebrile. General: Patient is well-nourished well-developed and in no acute distress. Head: Normocephalic, atraumatic Eyes: Pupils equal round and reactive bilaterally, extra occular motion intact bialterally ENT: Moist mucous membranes Neck: Supple, no lymphadenopathy, no JVD, no meningismus CVS: Heart regular rate and rhythm, no murmurs, rubs or gallops, radial pulses 2+ bilaterally Resp: Respirations nondistressed, lung sounds clear bilaterally, left anterior chest wall tenderness Abdomen: Soft, nontender, nondistended, no palpable masses, normal bowel sounds Back: Nontender Extremities: Nontender, atraumatic, active full range of motion, no peripheral edema Skin: warm, no rashes, no petechia Neuro: Alert and oriented x 4, CN 2-12 intact, no lateralizing neurological defecits Psyc: Normal affect Test Results: EKG shows a first-degree AV block with inferior Q waves that are old. No evidence of acute ischemia or arrhythmia. CBC chemistry and troponin not found to be remarkable. Chest x-ray shows chronic changes. Emergency Department Course and Treatment: Patient presented secondary to chest pain. This been going on for almost 24 hours. Patient's workup as noted was found to be negative. Patient's pain is reproducible with palpation. This seems very clearly musculoskeletal, I do not believe that the patient requires admission for further observation. Patient was encouraged to follow-up with primary care and cardiology Disposition: Discharge Impression: Chest wall pain This note was generated with Poly[employer] dictation software. It may contain incorrect words, spelling, and punctuation that were not noted in review of the chart pr ior to signing ED Disposition - Plan for ED Patient: Disposition: Home or Assisted Living Diagnosis: Chest wall pain Instructions: ED Chest Pain Costochondritis Referrals: Momo High MD [Primary Care Provider] - 5-7 Days
[2018-03-31 13:40] VITALS: BP 126/81; BP 128/81; PULSE 64; PULSE 65; RESP 13; RESP 14; O2SAT 95
== END 2018-03-31 14:06 | disposition home or self-care (01) ==
PROVIDERS: Emergency Provider Emergency Medicine; Family Provider Family Medicine; PCP Family Medicine
DX: R07.89 Other chest pain (principal); I44.0 Atrioventricular block, first degree; I25.10 Atherosclerotic heart disease of native coronary artery without angina pectoris; Z72.0 Tobacco use; Z79.01 Long term (current) use of anticoagulants; Z79.84 Long term (current) use of oral hypoglycemic drugs; Z79.899 Other long term (current) drug therapy; Z95.0 Presence of cardiac pacemaker
CPT/HCPCS: 71046; 80048; 84484; 85025; 93005; 99285; A4216

== ENCOUNTER 2018-04-05 14:09 | Outpatient (RCR) | payer MEDICARE, MEDICAID, SELFPAY ==
[2018-02-18 13:38] VITALS: BMI 28.0
[2018-04-05 14:42] LABS: International Normalized Ratio 1.8; Prothrombin Time (Protime)PT. 21.1 SECONDS (11.7-14.9)
== END 2018-04-15 14:32 | disposition home or self-care (01) ==
LOC: LAB 14:09
PROVIDERS: Family Provider Family Medicine; PCP Family Medicine; Referring Provider Internal Medicine Cardiovascular Disease; Visit Provider Internal Medicine Cardiovascular Disease
DX: I48.0 Paroxysmal atrial fibrillation (principal); Z79.01 Long term (current) use of anticoagulants
CPT/HCPCS: 36415; 85610

== ENCOUNTER 2018-04-21 13:40 | Outpatient (RCR) | payer MEDICARE, MEDICAID, SELFPAY ==
[2018-04-21 15:09] LABS: Prothrombin Time (Protime)PT. 22.5 SECONDS (11.7-14.9)
== END 2018-04-21 14:40 | disposition home or self-care (01) ==
LOC: LAB 13:40
PROVIDERS: Family Provider Family Medicine; PCP Family Medicine; Referring Provider Internal Medicine Cardiovascular Disease; Visit Provider Internal Medicine Cardiovascular Disease
DX: I48.0 Paroxysmal atrial fibrillation (principal); Z79.01 Long term (current) use of anticoagulants
CPT/HCPCS: 36415; 85610

== ENCOUNTER 2018-05-05 16:03 | Outpatient (RCR) | payer MEDICARE, MEDICAID, SELFPAY ==
[2018-05-05 17:44] LABS: International Normalized Ratio 1.9; Prothrombin Time (Protime)PT. 21.5 SECONDS (11.7-14.9)
== END 2018-05-05 17:03 | disposition home or self-care (01) ==
LOC: LAB 16:03
PROVIDERS: Family Provider Family Medicine; PCP Family Medicine; Referring Provider Internal Medicine Cardiovascular Disease; Visit Provider Internal Medicine Cardiovascular Disease
DX: I48.0 Paroxysmal atrial fibrillation (principal); Z79.01 Long term (current) use of anticoagulants
CPT/HCPCS: 36415; 85610

== ENCOUNTER → 2018-05-19 10:49 | Outpatient (CLI) | payer MEDICARE, MEDICAID, SELFPAY ==
[2018-05-18 13:01] VITALS: BMI 27.9
[2018-05-19 12:11] VITALS: PULSE 101; PULSE 110; PULSE 115; PULSE 116; PULSE 85; PULSE 88; O2SAT 92; O2SAT 93; O2SAT 94; O2SAT 96
--- NOTE | 2018-05-19 14:27 | PCM.PSN.6M ---
PSN 6 Minute Walk Test - 6 Minute Walk Test 6 Minute Walk Test: 6 Minute Walk Test PSN:6-Minute Walk Test Start: 05/19/18 12:10 Freq: Status: Active Protocol: RESP.6MINW Document 05/19/18 12:11 HENRIETTATOVA (Rec: 05/19/18 12:13 LATISHASUGEYTOVA [id number]) 6 Minute Walk Test Date Performed 05/19/18 Time Performed 11:00 Height 5 ft 10 in Weight: 95.708 kg Weight in Pounds 211.[address]: Saeid Rose Assistive device used: None Pre-test Oxygen Delivery Method Room Air Pulse Ox (%) 96 Pulse Rate (60-100 beats/min) 85 Dyspnea Angelika Scale (0-10) 0.5 Exertion Angelika Scale (6-20) 6 1st minute Oxygen Delivery Method Room Air Pulse Ox (%) 93 Pulse Rate (60-100 beats/min) 101 H 2nd minute Oxygen Delivery Method Room Air Pulse Ox (%) 94 Pulse Rate (60-100 beats/min) 101 H 3rd minute Oxygen Delivery Method Room Air Pulse Ox (%) 92 Pulse Rate (60-100 beats/min) 110 H 4th minute Oxygen Delivery Method Room Air Pulse Ox (%) 92 Pulse Rate (60-100 beats/min) 116 H 5th minute Oxygen Delivery Method Room Air Pulse Ox (%) 93 Pulse Rate (60-100 beats/min) 115 H 6th minute Oxygen Delivery Method Room Air Pulse Ox (%) 93 Pulse Rate (60-100 beats/min) 115 H Dyspnea Angelika Scale (0-10) 4 Exertion Angelika Scale (6-20) 12 Post-test Oxygen Delivery Method Room Air Pulse Ox (%) 96 Pulse Rate (60-100 beats/min) 88 Full Laps Walked 19 Partial Lap, Number of Tiles Walked 41 Total Distance Walked (ft) 1162 - Interpretation Interpretation: The patient was able to ambulate 1162 feet over the course of 6 minutes on room air with no assistive devices or breaks. The patient did experience some desaturation with an oxygen fifi of 92% and a peak heart rate of 116 bpm. These findings are consistent with deconditioning. - Recommendations Recommendations: Supplemental oxygen is indicated at this time
== END ==
PROVIDERS: Family Provider Family Medicine; PCP Family Medicine; Referring Provider Nurse Practitioner Acute Care; Visit Provider Nurse Practitioner Acute Care
DX: J44.9 Chronic obstructive pulmonary disease, unspecified (principal); I48.0 Paroxysmal atrial fibrillation; Z79.01 Long term (current) use of anticoagulants
CPT/HCPCS: 36415; 85610; 94618

== ENCOUNTER → 2018-05-26 19:57 | Outpatient (CLI) | payer MEDICARE, MEDICAID, SELFPAY ==
[2018-05-18 13:01] VITALS: BMI 27.9
== END ==
PROVIDERS: Family Provider Family Medicine; PCP Family Medicine; Referring Provider Nurse Practitioner Acute Care; Visit Provider Nurse Practitioner Acute Care
DX: G47.33 Obstructive sleep apnea (adult) (pediatric) (principal); J44.9 Chronic obstructive pulmonary disease, unspecified
CPT/HCPCS: 95811

== ENCOUNTER 2018-05-31 10:58 | Outpatient (RCR) | payer MEDICARE, MEDICAID, SELFPAY ==
[2018-05-18 13:01] VITALS: BMI 27.9
[2018-05-19 11:50] LABS: Prothrombin Time (Protime)PT. 22.4 SECONDS (11.7-14.9)
[2018-05-31 11:56] LABS: International Normalized Ratio 2.1; Prothrombin Time (Protime)PT. 23.3 SECONDS (11.7-14.9)
== END 2018-06-15 16:00 | disposition home or self-care (01) ==
LOC: LAB 10:58
PROVIDERS: Family Provider Family Medicine; PCP Family Medicine; Referring Provider Internal Medicine Cardiovascular Disease; Visit Provider Internal Medicine Cardiovascular Disease
DX: I48.0 Paroxysmal atrial fibrillation (principal); Z79.01 Long term (current) use of anticoagulants
CPT/HCPCS: 36415; 85610

== ENCOUNTER → 2018-10-12 16:30 | Outpatient (CLI) | payer MEDICARE, MEDICAID, SELFPAY ==
[2018-08-31 06:12] VITALS: BMI 30.7
--- NOTE | 2018-10-12 16:35 | CT_ITS ---
STUDY: LOW DOSE CT LUNG CANCER SCREENING REASON FOR EXAM: Male, 67 years old. 100 pack-year history of smoking. RADIATION DOSAGE (If Supplied By Facility): CTDIvol = ( 4.02 ) mGy, DLP = ( 153.00 ) mGycm TECHNIQUE: No contrast was administered. Low dose technique was utilized (average mAS-38 and kVp 120). 1.25 mm axial source images with a slice interval of 1.25-mm were reconstructed in lung windows. 2.5 mm axial source images with a slice interval of 2.5-mm were reconstructed in lung windows. 5.0 mm axial source images with a slice interval of 5.0-mm were reconstructed in soft tissue windows. Nodule measured using lung windows on PACS and/or independent workstation with automated measurement of minimum and maximum diameter. Nodule measurement reported as average diameter rounded to the nearest whole number. Growth is defined as an increase ins size of greater than 1.5 mm. COMPARISON: None. A left-sided dual-chamber pacemaker is seen. NODULES: 7.9 mm calcified granuloma in the posterior lateral aspect of the right upper lobe. Emphysema: Minimal increased linear markings in the medial aspect of the right middle lobe suggestive of scarring. Mild degree of increased markings at the lung bases suggestive of scarring. Endobronchial lesion: None Aorta: Unremarkable Coronary arteries: . Unremarkable. Mediastinal nodes: Small benign-appearing mediastinal lymph nodes. Other chest and abdominal findings: Mild degree of degenerative changes of the thoracic spine. CT/Low Dose CT Lung Screening IMPRESSION: Lung-RADS category 2 - Continue annual screening with LDCT in 12 months. IMPORTANT NOTES FOR USE: ACR Lung-RADS Version 1.0 Assessment Categories Release Date: June 13, 2013 Category: Coded 0-4 bases on nodule(s) with highest degree of suspicion. Negative screen is defined as categories 1 and 2; a positive screen is defined as categories 3 and 4. Category 3 and 4A nodules that are unchanged on interval CT should be coded as category 2, and individuals returned to screening in 12 months. Category 4X: Category 3 or 4 nodules with additional imaging findings that increase the suspicion of lung cancer, such as spiculation, GGN that doubles in size in 1 year, enlarged lymph notes, etc. Category Modifiers: S (significant finding unrelated to lung cancer) and C (prior history of treated lung cancer) may be added to the 0-4 Lung-RADS Electronically Signed: Raffaele Quiros, at 15:14 EDT , Service support ,
== END ==
PROVIDERS: Family Provider Internal Medicine; PCP Internal Medicine; Referring Provider Internal Medicine Critical Care Medicine; Visit Provider Internal Medicine Critical Care Medicine
DX: Z12.2 Encounter for screening for malignant neoplasm of respiratory organs (principal); J44.9 Chronic obstructive pulmonary disease, unspecified; Z87.891 Personal history of nicotine dependence
CPT/HCPCS: G0297

== ENCOUNTER → 2019-03-10 12:48 | Outpatient (CLI) | payer MEDICARE, MEDICAID, SELFPAY ==
[2018-08-31 06:12] VITALS: BMI 30.7
--- NOTE | 2019-03-11 06:58 | PFT ---
INTRODUCTION: The patient is a 68-year-old male that presents for pulmonary function studies secondary to a diagnosis of COPD. Respiratory therapy reports good patient effort. Bronchodilators were used during testing. INTERPRETATION: Forced expiration spirometry demonstrates the presence of a moderate large airways obstructive ventilatory defect. There was no significant response to aerosolized bronchodilators. Spirograms are of fair quality and do not plateau indicating slow emptying of the lungs. Body plus tomography was performed and reveals lung volumes to be within normal limits. Diffusing capacity by single breath CO is reduced to 68% of predicted. IMPRESSION: Irreversible moderate large airways obstructive ventilatory defect with preserved lung volumes and mild reduction in diffusing capacity.
== END ==
PROVIDERS: Family Provider Internal Medicine; PCP Internal Medicine; Referring Provider Internal Medicine Critical Care Medicine; Visit Provider Internal Medicine Critical Care Medicine
DX: J44.9 Chronic obstructive pulmonary disease, unspecified (principal); G47.33 Obstructive sleep apnea (adult) (pediatric)
CPT/HCPCS: 94060; 94726; 94729

== ENCOUNTER → 2019-03-14 12:35 | Outpatient (CLI) | payer MEDICARE, MEDICAID, SELFPAY ==
[2018-08-31 06:12] VITALS: BMI 30.7
[2019-03-14 12:53] VITALS: PULSE 108; PULSE 109; PULSE 110; PULSE 111; PULSE 97; PULSE 98; PULSE 99; O2SAT 92; O2SAT 93; O2SAT 94; O2SAT 95; O2SAT 97
--- NOTE | 2019-03-15 10:09 | PCM.PSN.6M ---
PSN 6 Minute Walk Test - 6 Minute Walk Test 6 Minute Walk Test: 6 Minute Walk Test PSN:6-Minute Walk Test Start: 03/14/19 12:53 Freq: Status: Active Protocol: RESP.6MINW Document 03/14/19 12:53 MUSTAPHA (Rec: 03/14/19 12:55 MUSTAPHA [id number]) 6 Minute Walk Test Date Performed 03/14/19 Time Performed 12:30 Height 5 ft 10 in Weight: 225 lb Weight in Pounds 225.[address]: Saeid Rose Assistive device used: Cane Pre-test Oxygen Delivery Method Room Air Pulse Ox (%) 95 Pulse Rate (60-100 beats/min) 97 Dyspnea Angelika Scale (0-10) 0 Exertion Angelika Scale (6-20) 6 1st minute Oxygen Delivery Method Room Air Pulse Ox (%) 92 Pulse Rate (60-100 beats/min) 99 2nd minute Oxygen Delivery Method Room Air Pulse Ox (%) 95 Pulse Rate (60-100 beats/min) 109 H 3rd minute Oxygen Delivery Method Room Air Pulse Ox (%) 93 Pulse Rate (60-100 beats/min) 110 H 4th minute Oxygen Delivery Method Room Air Pulse Ox (%) 94 Pulse Rate (60-100 beats/min) 111 H 5th minute Oxygen Delivery Method Room Air Pulse Ox (%) 95 Pulse Rate (60-100 beats/min) 109 H 6th minute Oxygen Delivery Method Room Air Pulse Ox (%) 95 Pulse Rate (60-100 beats/min) 108 H Dyspnea Angelika Scale (0-10) 3 Exertion Angelika Scale (6-20) 13 Post-test Oxygen Delivery Method Room Air Pulse Ox (%) 97 Pulse Rate (60-100 beats/min) 98 Full Laps Walked 19 Partial Lap, Number of Tiles Walked 40 Total Distance Walked (ft) 1161 - Interpretation Interpretation: The patient ambulated 1161 feet over the course of 6 minutes beginning on room air with the use of a cane. Pretesting oxygen saturation was noted to be 95% on room air. With ambulation, the fifi oxygen saturation was 92%. There was no significant exertional oxygen desaturation. - Recommendations Recommendations: There is no indication for the use of supplemental oxygen at this time.
== END ==
PROVIDERS: PCP Internal Medicine; Referring Provider Nurse Practitioner Acute Care; Visit Provider Nurse Practitioner Acute Care
DX: J44.9 Chronic obstructive pulmonary disease, unspecified (principal)
CPT/HCPCS: 94618

== ENCOUNTER → 2019-11-23 | Outpatient (CLI) | payer MEDICARE, MEDICAID, SELFPAY ==
[2019-08-02 08:16] VITALS: BMI 30.7
--- NOTE | 2019-11-23 10:46 | CT_ITS ---
STUDY: LOW DOSE CT LUNG CANCER SCREENING REASON FOR EXAM: Male, 68 years old. LUNG CANCER SCREENING. 1.5 PPD X 40 + YEARS RADIATION DOSAGE (If Supplied By Facility): CTDIvol = ( 3.40 ) mGy, DLP = ( 120.38 ) mGycm TECHNIQUE: No contrast was administered. Low dose technique was utilized (average mAS-38 and kVp 120). 1.25 mm axial source images with a slice interval of 1.25-mm were reconstructed in lung windows. 2.5 mm axial source images with a slice interval of 2.5-mm were reconstructed in lung windows. 5.0 mm axial source images with a slice interval of 5.0-mm were reconstructed in soft tissue windows. Nodule measured using lung windows on PACS and/or independent workstation with automated measurement of minimum and maximum diameter. Nodule measurement reported as average diameter rounded to the nearest whole number. Growth is defined as an increase ins size of greater than 1.5 mm. COMPARISON: 10/12/2018 NODULES: There is a granuloma in the posterior right upper lobe. Total lung nodules (excluding granulomas): 0 Emphysema: Mild scattered linear fibrotic bands without significant emphysematous changes. Endobronchial lesion: None Aorta: Normal Coronary arteries: No atherosclerosis Heart: Cardiac conduction device noted. Pulmonary artery: Unremarkable for unopacified technique Mediastinal nodes: Calcified lymph nodes but no mediastinal or hilar adenopathy. Other chest and abdominal findings: Diminished density throughout the liver compatible with hepatic steatosis. Mild degenerative changes of the thoracic spine. CT/Low Dose CT Lung Screening IMPRESSION: Lung-RADS category 1 - Continue annual screening with LDCT in 12 months. IMPORTANT NOTES FOR USE: ACR Lung-RADS Version 1.0 Assessment Categories Release Date: June 13, 2013 Category: Coded 0-4 bases on nodule(s) with highest degree of suspicion. Negative screen is defined as categories 1 and 2; a positive screen is defined as categories 3 and 4. Category 3 and 4A nodules that are unchanged on interval CT should be coded as category 2, and individuals returned to screening in 12 months. Category 4X: Category 3 or 4 nodules with additional imaging findings that increase the suspicion of lung cancer, such as spiculation, GGN that doubles in size in 1 year, enlarged lymph notes, etc. Category Modifiers: S (significant finding unrelated to lung cancer) and C (prior history of treated lung cancer) may be added to the 0-4 Lung-RADS Electronically Signed: Chacho Peterson MD (Brooks) at 13:39 EDT , Service support ,
== END | disposition home or self-care (01) ==
PROVIDERS: PCP Family Medicine; Referring Provider Internal Medicine Critical Care Medicine; Visit Provider Internal Medicine Critical Care Medicine
DX: F17.210 Nicotine dependence, cigarettes, uncomplicated (principal); J44.9 Chronic obstructive pulmonary disease, unspecified; Z12.2 Encounter for screening for malignant neoplasm of respiratory organs
CPT/HCPCS: G0297

== ENCOUNTER 2020-03-05 11:24 | Observation (INO) | payer MEDICARE, MEDICAID, SELFPAY ==
[2019-11-29 13:47] VITALS: BMI 32.6
[2020-03-05] VITALS (10 sets, daily range): BP systolic 97–118; BP diastolic 59–72; PULSE 61–84; RESP 14–22; TEMP 36.4–37.1; O2SAT 94–97; BMI 32.4; BMI 30.7
--- NOTE | 2020-03-05 11:40 | EKG12_ITS ---
Test Reason : CP Blood Pressure : / mmHG Vent. Rate : 071 BPM Atrial Rate : 071 BPM P-R Int : 304 ms QRS Dur : 092 ms QT Int : 392 ms P-R-T Axes : 044 -32 038 degrees QTc Int : 425 ms Sinus rhythm with 1st degree A-V block Left axis deviation Inferior infarct , age undetermined Abnormal ECG Confirmed by CROW BUCK, MARLIN ([id number]), editor publications EVGENY ALEX ([id number]) on 03/07/2020 7:52:30 AM Referred By: MARIA DEL CARMEN Confirmed By:MARLIN MARIA MD
--- NOTE | 2020-03-05 11:49 | ED.VIS.GEN ---
History of Present Illness Chief Complaint: Chest Pain Informant: Patient Narrative: 69-year-old male with past medical history of coronary artery disease, hypertension presents with concern for chest pain. States began approximately 1 hour ago. States it was while he was at rest began with the pharmacist. States it was retrosternal and radiating to his left shoulder. Denies any shortness of breath, nausea, vomiting, diaphoresis. Brought in by EMS who had given him nitroglycerin as well as aspirin. Patient states that the nitroglycerin did help his chest pain minimally. Past Medical History - Allergies and Home Meds Allergies/Adverse Reactions: Allergies black pepper Allergy (Verified 11/29/19 13:00) hives house dust mite Allergy (Verified 11/29/19 13:00) hives Penicillins Allergy (Verified 11/29/19 13:00) Swelling and hives sertraline Allergy (Verified 11/29/19 13:00) diarrhea metformin Adverse Reaction (Severe, Verified 11/29/19 13:00) diarrhea Androgenic Anabolic Steroid Adverse Reaction (Verified 11/29/19 13:00) Rash STATES, HAD SOME TYPE OF Z-ABBIE TAMPER AND GOT A RASH FROM IT. fluoxetine [From Prozac] Adverse Reaction (Verified 11/29/19 13:00) mental status change Prior records reviewed: Yes Past Medical History: - - HTN, CAD, DMII Surgical History: - - Knee surgery, hernia repair Lives: Spouse/ Significant Other Smoking Status: Former smoker Alcohol: None Drugs: None - Family History Maternal Family History: Family History (Last Reviewed 11/29/19 @ 13:00 by Swati Garcia) Mother Cancer Diabetes Brother Cancer Diabetes Sister Heart disease Brother Heart disease Family History: Reports: No pertinent history Review of Systems General: Denies: Chills, Fever, Sweats Eyes: Denies: Visual changes - bilaterally, Diplopia ENT: Denies: Rhinorrhea, Sore throat Cardiovascular: Reports: Chest pain. Denies: Palpitations Respiratory: Denies: Dyspnea, Cough, Dyspnea on exertion Gastrointestinal: Denies: Abdominal pain, Nausea, Vomiting, Diarrhea, Melena, Hematochezia Genitourinary: Denies: Dysuria, Hematuria, Frequency Musculoskeletal: Denies: Back pain, Extremity Pain Skin: Denies: Rash, Wounds Neurological: Denies: Headache, Weakness, Numbness Physical Exam Vital Signs/Narrative: Vital Signs Temp Pulse Resp BP Pulse Ox 03/05/20 11:25 98.0 F 72 22 H 97/67 95 Inital Vital Signs reviewed: Yes General: Well nourished, Well developed, No Acute Distress Head: Normocephalic, Atraumatic Eyes: Perrl, EOMI ENT: Moist mucous membranes, No rhinorrhea Neck: Supple, Nontender Cardiovascular: Regular rate, Regular rhythm, No murmurs Respiratory: No distress, CTA bilaterally, Chest nontender Abdomen: Soft, Nontender, Nondistended, Normal bowel sounds Back: Nontender, Normal Inspection Extremities: Nontender, No edema Skin: Normal color, No rash Neurological: Alert, Oriented x3, Cranial nerves II-XII grossly intact, Normal Strength, Normal Sensation Psychological: Normal affect, Normal Mood Diagnostic/Tx/Re-eval Chest X-Ray - ED: 1 View, Read by ED Physician, Read by Radiologist, Normal - Rhythm Strip Rhythm Strip: Sinus Rhythm Rate: 71 Ectopy: None - EKG Initial EKG Interpretation: Sinus Rhythm - Sinus rhythm at 71 bpm. First-degree AV block with a PA interval of 304 ms. TC of 425 ms. No evidence of ST elevation or depression. Left axis deviation. Unchanged from previous EKG done on 03/31/2018. - Medical Decision Making Patient appears well and nontoxic. Vital signs within normal limits. EKG shows no significant ischemia. Troponin negative. Chest x-ray interpreted by myself shows no cardiomegaly or infiltrate. Radiology concurs. Patient did receive aspirin from EMS. Given the patient's concerning story as well as history significant for coronary artery disease, sick sinus syndrome, hypertension he will be admitted for further treatment and evaluation. Patient agreeable and admitted in stable condition. Impression: 1. Chest pain 2. History of coronary artery disease ED Disposition - Plan for ED Patient: Disposition: Acute Care Hospital [facility]
[2020-03-05 11:51] LABS: Absolute Lymphocyte Count 1.86 X10^3/uL (0.83-4.51); Absolute Neutrophil Count 2.7 X10^3/uL (2.0-7.7); Basophil# 0.04 X10^3/uL; Basophil% 0.8 % (0-1); Eosinophil# 0.06 X10^3/uL; Eosinophils% 1.2 % (0-5); Hematocrit 45.7 % (40-54); Hemoglobin 14.6 g/dL (13.0-16.5); Lymphocyte # 1.86 X10^3/ul (4.0); Lymphocyte % 35.8 % (19-41); Mean Corp Hgb Conc 31.9 g/dL (32-36); Mean Corpuscular Hgb 25.3 pg (27.0-32.0); Mean Corpuscular Volume 79.2 fL (80-94); Mean Platelet Vol. 10.6 fl (6.2-12.0); Monocyte# 0.51 X10^3/uL; Monocyte% 9.8 % (0-10); NRBC Flagged by Analyzer 0 % (0-5); Neutrophil # 2.69 X10^3/uL (2.7-7.7); Neutrophil % 51.8 % (47-70); Platelet Count 229 K/mm3 (150-450); RBC Distribution Width CV 15.3 % (11.6-14.6); RBC Distribution Width SD 43.1 fl (35.1-43.9); Red Blood Count 5.77 M/mm3 (4.6-6.2); White Blood Count 5.2 K/mm3 (4.4-11.0)
--- NOTE | 2020-03-05 11:55 | RAD_ITS ---
STUDY: X-RAY CHEST REASON FOR EXAM: Male, 69 years old. MID STERNAL CP X1 HOUR. RADIATES INTO LEFT SHOULDER. -- HX [place] 2012, TECHNIQUE: Single AP portable view of the chest. COMPARISON: Comparison is made with prior study dated 03/31/2018. FINDINGS: EKG electrodes are seen. The lungs are clear and expanded. Scattered calcified granulomas. There is no demonstrated pleural abnormality. Normal size heart. A left-sided dual-chamber pacemaker is seen. Normal mediastinum and saundra. Normal visualized pulmonary arteries. Normal visualized aortic arch and descending thoracic aorta. Normal visualized thoracic spine. Normal visualized ribs, clavicles, and shoulders. There is no demonstrated abnormality of the visualized soft tissue structures of the upper abdomen. RAD/Chest 1 View (Portable) IMPRESSION: No acute abnormality seen. Electronically Signed: Raffaele Quiros MD at 12:20 EST , Service support ,
[2020-03-05 12:03] LABS: Anion Gap 8 (5-15); BUN 16 mg/dL (7-18); BUN/Creat Ratio 13.1 RATIO (10-20); Calcium,Total 8.7 mg/dL (8.5-10.1); Chloride 104 mmol/L (98-107); Creatinine, Serum 1.22 mg/dL (0.70-1.30); EST Glomerular Filtration Rate 63 mL/min (>60); Est Glom Filt Rate - Afr Amer 76 mL/min (>60); Estimated Creatinine Clearance 59.84 ml/min; Glucose 423 mg/dL (74-106); Potassium 3.9 mmol/L (3.5-5.1); Sodium Level 135 mmol/L (136-145)
--- NOTE | 2020-03-05 12:38 | HP.PCM_ITS ---
Problem List (1) Smoking greater than 40 pack years Status: Chronic Comment: quit in 2012, 46 pack years, LDCT due 11/2020 (2) Stage 1 mild COPD by GOLD classification Status: Chronic (3) longterm (current) use of anticoagulants Status: Acute (4) Atherosclerotic heart disease of [place] coronary artery without angina pectoris Status: Chronic (5) Type 2 diabetes mellitus Status: Chronic (6) History of myocardial infarction Status: Acute (7) Sick sinus syndrome Status: Chronic (8) Essential hypertension Status: Chronic (9) Paroxysmal atrial fibrillation Status: Acute (10) Hyperlipemia Status: Chronic (11) MANNY (obstructive sleep apnea) Status: Chronic (12) Presence of cardiac pacemaker Status: Chronic (13) Chest pain Status: Acute Qualifiers: Ischemic chest pain type: unspecified angina pectoris type History of Present Illness Date of Admission: 03/05/20 Chief Complaint: Left-sided chest pain The patient is a 69 year old M with history of diabetes mellitus type 2, COPD, mild coronary artery disease was sent to ER from PCP office for left-sided chest pain. Patient had chest pain in the morning while he was sitting in the PCP office. Chest pain is left-sided with radiation to left shoulder associated with mild shortness of breath. Denies any palpitation has dizziness, lighthe adedness but no syncope. Patient still has mild chest pain, deep. In ED, his blood pressure was 97/67, heart rate 72, respiratory rate 22 pulse ox 95% on room air. EKG shows sinus rhythm with first-degree block, LAD, old inferior infarct at 71 beats per 1. QTC 425 ms. Previous EKG in March 2018 was similar with inferior infarct. 2 troponins are negative. Glucose 123. Past Medical History Past Medical History (Chronic Problems): Chronic Problems (Last Reviewed 11/29/19 @ 13:00 by Swati Garcia) Smoking greater than 40 pack years (Chronic) quit in 2012, 46 pack years, LDCT due 11/2020 Stage 1 mild COPD by GOLD classification (Chronic) Atherosclerotic heart disease of [place] coronary artery without angina pectoris (Chronic) Type 2 diabetes mellitus (Chronic) Sick sinus syndrome (Chronic) Essential hypertension (Chronic) Hyperlipemia (Chronic) MANNY (obstructive sleep apnea) (Chronic) Presence of cardiac pacemaker (Chronic) Medical History: Medical History (Last Reviewed 11/29/19 @ 13:00 by Swati Garcia) Atherosclerotic heart disease of [place] coronary artery without angina pectoris (Chronic) I25.10 Type 2 diabetes mellitus (Chronic) E11.9 History of myocardial infarction (Acute) Onset Date: ~2000 I25.2 Sick sinus syndrome (Chronic) I49.5 Essential hypertension (Chronic) I10 Paroxysmal atrial fibrillation (Acute) I48.0 Hyperlipemia (Chronic) E78.5 MANNY (obstructive sleep apnea) (Chronic) G47.33 Presence of cardiac pacemaker (Chronic) Z95.0 Chest pain (Acute) R07.9 Anxiety F41.9 Seizures R56.9 TIA (transient ischemic attack) G45.9 Anxiety (Inactive) Atrial fibrillation (Inactive) Hyperlipidemia (Inactive) Obstructive sleep apnea (Inactive) Status post pacemaker (Inactive) Allergies black pepper Allergy (Verified 11/29/19 13:00) hives house dust mite Allergy (Verified 11/29/19 13:00) hives Penicillins Allergy (Verified 11/29/19 13:00) Swelling and hives sertraline Allergy (Verified 11/29/19 13:00) diarrhea metformin Adverse Reaction (Severe, Verified 11/29/19 13:00) diarrhea Androgenic Anabolic Steroid Adverse Reaction (Verified 11/29/19 13:00) Rash STATES, HAD SOME TYPE OF Z-ABBIE TAMPER AND GOT A RASH FROM IT. fluoxetine [From Prozac] Adverse Reaction (Verified 11/29/19 13:00) mental status change Home Medications: Ambulatory Orders Medication Instructions Recorded Nitroglycerin (INPATIENT USE) 0.4 mg SUBLINGUAL Q5M PRN 05/11/14 [Nitrostat] Pravastatin [Pravachol] 40 mg PO QHS 05/11/14 Warfarin [Coumadin] 4 mg PO DAILY 05/11/14 Tamsulosin HCl [Flomax] 0.4 mg PO QHS 05/05/17 metoprolol tartrate 25 mg tablet 25 mg PO BID tab 12/07/17 escitalopram oxalate 20 mg tablet 20 mg PO DAILY tab 05/31/18 glimepiride 4 mg tablet 4 mg PO QAM 05/31/18 pregabalin 100 mg capsule 300 mg PO BID 05/31/18 albuterol sulfate 90 mcg/actuation 2 puff INHALATION Q4H PRN #18 g 03/07/19 aerosol inhaler tiotropium 2.5 mcg-olodaterol 2.5 2 puff INHALATION Q24H #4 g 03/07/19 mcg/actuation mist for inhalation flecainide 50 mg tablet 50 mg PO Q12H #180 tab 05/03/19 cholecalciferol (vitamin D3) 50 50 mcg PO DAILY 08/02/19 mcg (2,000 unit) capsule fenofibrate nanocrystallized 145 145 mg PO DAILY 08/02/19 mg tablet furosemide 20 mg tablet 20 mg PO DAILY 08/02/19 icosapent ethyl 1 gram capsule 2 g PO BID 08/02/19 dulaglutide 0.75 mg/0.5 mL 0.75 mg SC QWEEK 11/29/19 subcutaneous pen injector Empagliflozin [Jardiance] 25 mg PO DAILY 03/05/20 Omeprazole [Prilosec] 20 mg PO DAILY 03/05/20 Surgical History: Surgical History (Last Reviewed 11/29/19 @ 13:00 by Swati Garcia) History of cardiac catheterization Onset Date: ~04/08/11 Z98.890 normal coronary arteries History of hand surgery Z98.890 History of inguinal hernia repair Z98.890, Z87.19 History of lateral meniscus repair of right knee Z98.890 Surgical History: - - Knee surgery, hernia repair Psychiatric History: No pertinent psych hx Lives: Spouse/ Significant Other Smoking Status: Former smoker Alcohol: None Drugs: None - *Family History Maternal Family History: Family History (Last Reviewed 11/29/19 @ 13:00 by Swati Garcia) Mother Cancer Diabetes Brother Cancer Diabetes Sister Heart disease Brother Heart disease History Items: No pertinent history Review of Systems Constitutional: Denies: Chills, Fever, Weight Change HEENT: Denies: Head Aches, Sinus Congestion, Sinus Drainage Cardiovascular: Reports: Chest Pain, Chest Pressure. Denies: Palpitations Respiratory: Reports: Shortness of Breath, Shortness of breath upon exertion. Denies: Cough, Shortness of breath at rest, Sputum production Gastrointestinal: Denies: Abdominal Pain, Nausea, Vomiting Genitourinary: Denies: Dysuria, Frequency, Hematuria Musculoskeletal: Denies: Joint Pain, Joint Tenderness Skin: Denies: Rash, Wounds Neurological: Denies: Numbness, Tingling, Focal weakness Psychiatric: Reports: Anxiety, Depression. Denies: Homicidal Ideations, Suicidal Ideations Hematologic/ Lymphatic: Denies: Easy Bruising, Easy Bleeding VTE Information - Inpt Only VTE Present on Admission: No VTE Mechan Device Prophylaxis: None VTE Pharm Prophylaxis ordered?: Yes Patient Problems: Active and Suspected Problems (Last Reviewed 11/29/19 @ 13:00 by Swati Garcia) longterm (current) use of anticoagulants (Acute) History of myocardial infarction (Acute ~2000) Paroxysmal atrial fibrillation (Acute) Chest pain (Acute) - Physical Exam Vitals/I&O's: Vital Signs Temp Pulse Resp BP Pulse Ox 98.0 F 72 22 H 97/67 95 03/05/20 11:25 03/05/20 11:25 03/05/20 11:25 03/05/20 11:25 03/05/20 11:25 Oxygen Flow Rate (L/min) 2 Oxygen Delivery Method Nasal Cannula Weight: 226 lb 3.108 oz Body Mass Index (BMI) 32.4 General: Alert, Oriented x3, Cooperative HEENT: Atraumatic, PERRLA, EOMI, Normocephalic Oral: No Gingival or Mucosal Lesions/ Ulcerations, Dry Mucosa Neck: Supple, No JVD, Negative Carotid Bruits Lungs: Clear to auscultation, No rhonchi, No wheeze, No rales, Diminished Cardiovascular: Regular rate, Regular Rhythm, Normal S1, Normal S2, No murmurs, - - Left-sided pacemaker Abdomen: Bowel Sounds Present, Soft, Non Tender, Non-Distended Extremities: No edema, Capillary Refill Less than 3 Seconds Skin: No rashes, No breakdown Musculoskeletal: No Tenderness to Palpation of Joints or Extremities, Arthritic Changes Neurological: Cranial nerves II-XII grossly intact, Deep Tendon Reflexes 2+/4 and Symmetrical, Neuro grossly intact, Motor Exam 5/5 strength throughout Psych/Mental Status: Normal Affect, Appropriate Laboratory Results 03/05/20 11:17: WBC 5.2, RBC 5.77, Hgb 14.6, Hct 45.7, MCV 79.2 L, MCH 25.3 L, MCHC 31.9 L, RDW Std Deviation 43.1, RDW Coeff of Iris 15.3 H, Plt Count 229, MPV 10.6, Immature Gran % (Auto) 0.600, Neut % (Auto) 51.8, Lymph % (Auto) 35.8, [place] % (Auto) 9.8, Eos % (Auto) 1.2, Baso % (Auto) 0.8, Absolute Neuts (auto) 2.7, Absolute Lymphs (auto) 1.86, Nucleated RBC % 0 03/05/20 11:17: Sodium 135 L, Potassium 3.9, Chloride 104, Carbon Dioxide 23.0, Anion Gap 8, BUN 16, Creatinine 1.22, Estim Creat Clear Calc 59.84, Est GFR (MDRD) Af Amer 76, Est GFR (MDRD) Non-Af 63, BUN/Creatinine Ratio 13.1, Glucose 423 H, Calcium 8.7, Troponin I < 0.015 03/05/20 11:17: PT Pending, INR Pending Assessment/Plan All Active Problems (Last Reviewed 11/29/19 @ 13:00 by Swati Garcia) [employer] (current) use of anticoagulants (Acute) History of myocardial infarction (Acute ~2000) Paroxysmal atrial fibrillation (Acute) Chest pain (Acute) This 61-year-old gentleman admitted with left-sided chest pain. 1 atypical chest pain, rule out ACS: Patient is being admitted in PCU. He had cardiac cath about 5 years ago but no PCI was done. Patient is to follow Dr. Desir. Had stress echo in November 2017 which reported no stress-induced ischemia. Patient also had 2D echo as mentioned below. 2D echo 01/05/2018 Interpretation Summary The estimated ejection fraction is 65 %. The left atrium is mildly enlarged. Trivial mitral valve insufficiency. Mild (1+) tricuspid valve insufficiency. Right ventricular systolic pressure estimated to be 27 mmHg. DEMETRIO risk score is 3 which is moderate risk. Serial troponin enzymes ordered. Pharmacological nuclear stress test ordered for tomorrow a.m. Nitro ointment 1% ordered. Patient had 324 mg aspirin given by EMS. Patient on metoprolol, baby aspirin, pravastatin, and warfarin 2. Mild coronary artery disease, sick sinus syndrome, paroxysmal A. fib status post pacemaker: INR 1.7. Patient home dose of warfarin 4 mg daily to 5 mg daily. On flecainide. 3. COPD: Patient follows Dr. Rose. On albuterol inhaler and stiletto Respimat. Changed to Advair as per our pharmacy blurry. 4. Diabetes mellitus type 2 with diabetic neuropathy: Accu-Chek before meals and at bedtime. Patient home medication glimepiride held. On empagliflozin. 5. Other comorbidities include hypertension, dyslipidemia, obstructive sleep apnea: CPAP at night. Living will/advanced directive/end of life care: Patient does have living will or advanced directive. After discussion of benefits/risks procedures involved with full code, DNR CC arrest and DNR CC, the patient opted for full code. Patient does want artificial life support including intubation, tube feed, ventilator and/chest compression, central venous catheter, vasopressor and DC shock if needed Total time spent in [id number] encounter in discussion of advanced directive 16 minutes. Inpatient E&M: 23421 Init Hosp L3 Procedures: 78009 Advncd Care Plan 30 Min
[2020-03-05 12:54] LABS: International Normalized Ratio 1.7; Prothrombin Time (Protime)PT. 19.8 SECONDS (11.7-14.9)
--- NOTE | 2020-03-05 12:56 | NURSING ---
dang maritns cp
--- NOTE | 2020-03-05 13:51 | EKG12_ITS ---
Test Reason : CP ADMIT Blood Pressure : / mmHG Vent. Rate : 065 BPM Atrial Rate : 065 BPM P-R Int : 000 ms QRS Dur : 088 ms QT Int : 424 ms P-R-T Axes : 000 -23 038 degrees QTc Int : 440 ms Atrial-paced rhythm Inferior infarct , age undetermined Abnormal ECG When compared with ECG of 05-MAR-2020 11:36, MANUAL COMPARISON REQUIRED, DATA IS UNCONFIRMED Confirmed by YENIFER BUCK, YESI ([id number]), editor school photograph ANALY FRANCOIS ([id number]) on 03/08/2020 2:33:36 PM Referred By: ANUJ Confirmed By:YESI STREET MD
[2020-03-05] MEDS: 0.9% Normal Saline 1,000 ML 100 ML IV (14:35)
[2020-03-05 14:46] LABS: Magnesium 2.1 mg/dL (1.6-2.6)
[2020-03-05] MEDS: Morphine 2 MG/ML Syringe IV (15:39)
[2020-03-05 17:56] LABS: Bedside Glucose 207 mg/dL (70-110)
[2020-03-05] MEDS: oxyCODONE 5 MG Tablet PO (18:25)
[2020-03-05] MEDS: Budesonide Respules 0.5 MG/2 ML AMPUL.NEB. INHALATION (18:58)
[2020-03-05] MEDS: Albuterol 2.5 MG/3 ML VIAL.NEB. INHALATION (18:58)
[2020-03-05] MEDS: Tamsulosin HCl 0.4 MG Capsule PO (21:27)
[2020-03-05] MEDS: Flecainide 100 MG Tablet 50 MG PO (21:27)
[2020-03-05] MEDS: Pregabalin 75 MG Capsule 300 MG PO (21:27)
[2020-03-05] MEDS: Metoprolol Tartrate 25 MG Tablet PO (21:28)
[2020-03-05] MEDS: Pravastatin 40 MG Tablet PO (21:28)
[2020-03-05] MEDS: Insulin Lispro 100 UNIT/ML INSULN.PEN SC (21:28)
[2020-03-05 21:41] LABS: Bedside Glucose 195 mg/dL (70-110)
--- NOTE | 2020-03-05 23:01 | PCS.PANDOC ---
PANDEMIC DOCUMENTATION INITIATED: Date: 03/05/20 Time: 2300
[2020-03-06] VITALS (9 sets, daily range): BP systolic 118–138; BP diastolic 61–79; PULSE 63–84; RESP 16–18; TEMP 36.6–36.9; O2SAT 94–98
[2020-03-06] MEDS: Aspirin E.C. 81 MG Tablet PO (05:14)
--- NOTE | 2020-03-06 05:55 | EKG12_ITS ---
Test Reason : AM EKG Blood Pressure : / mmHG Vent. Rate : 067 BPM Atrial Rate : 067 BPM P-R Int : 366 ms QRS Dur : 096 ms QT Int : 436 ms P-R-T Axes : 057 -29 030 degrees QTc Int : 460 ms Atrial-paced rhythm with prolonged AV conduction Inferior infarct , age undetermined Abnormal ECG Confirmed by CROW BUCK, MARLIN ([id number]), associate entertainment editor ANALY FRANCOIS ([id number]) on 03/09/2020 9:48:34 AM Referred By: DR LESLIE Confirmed By:MARLIN MARIA MD
[2020-03-06 06:15] LABS: International Normalized Ratio 1.8; Prothrombin Time (Protime)PT. 20.4 SECONDS (11.7-14.9)
[2020-03-06 06:40] LABS: Bedside Glucose 216 mg/dL (70-110)
[2020-03-06 06:54] LABS: Anion Gap 6 (5-15); BUN 16 mg/dL (7-18); BUN/Creat Ratio 14.5 RATIO (10-20); Calcium,Total 8.2 mg/dL (8.5-10.1); Chloride 104 mmol/L (98-107); Cholesterol 128 mg/dL (200); EST Glomerular Filtration Rate 71 mL/min (>60); Est Glom Filt Rate - Afr Amer 86 mL/min (>60); Estimated Creatinine Clearance 68.45 ml/min; Glucose 197 mg/dL (74-106); High Density Lipoprotein 22 mg/dL; Potassium 3.7 mmol/L (3.5-5.1); Sodium Level 137 mmol/L (136-145); Thyroid Stim Hormone (TSH) 2.87 uIU/mL (0.358-3.74); Triglycerides 381 mg/dL; Very Low Density Lipoprotein 76 mg/dL (5-40)
[2020-03-06] MEDS: Flecainide 100 MG Tablet 50 MG PO (10:49)
[2020-03-06] MEDS: Pantoprazole Sodium 20 MG Tablet PO (10:49)
[2020-03-06] MEDS: Empagliflozin 25 MG Tablet PO (10:50)
[2020-03-06] MEDS: Metoprolol Tartrate 25 MG Tablet PO (10:50)
[2020-03-06] MEDS: Escitalopram Oxalate 20 MG Tablet PO (10:50)
[2020-03-06] MEDS: Fenofibrate 145 MG Tablet PO (10:50)
[2020-03-06] MEDS: Insulin Lispro 100 UNIT/ML INSULN.PEN SC (10:51)
[2020-03-06] MEDS: Insulin Lispro 100 UNIT/ML INSULN.PEN 10 UNIT SC (10:52)
[2020-03-06] MEDS: Pregabalin 75 MG Capsule 300 MG PO (11:01)
--- NOTE | 2020-03-06 12:39 | STRESSREP_ITS ---
Stress Test Report Date: 03-06-2020 Procedure: Pharmacologic stress nuclear imaging study Indications: Chest pain Consent: Per the patient Procedure: The patient underwent pharmacologic (Regadenoson) evaluation with a peak heart rate of 108 beats per minute (71%predicted maximal heart rate) and a peak blood pressure of 130/84 mmHg. The baseline ECG demonstrated sinus rhythm. The peak pharmacologic ECG demonstrated no obvious ECG changes. There were no cardiac dysrhythmias pretest, during pharmacologic infusion, or recovery. There was no complaint of chest discomfort during pharmacologic infusion or recovery. The examination was discontinued secondary to completion of protocol. Impression: 1. Pharmacologic (Regadenoson) evaluation 2. Peak pharmacologic ECG with no obvious ECG changes. 3. There were no cardiac dysrhythmias pretest, during pharmacologic infusion, or recovery. 4. Nuclear images pending Myocardial perfusion imaging study: Technique: The patient was injected with 14.1 millicuries of technetium 99m Cardiolite and subsequently rest SPECT Cardiolite nuclear imaging was obtained in the horizontal long, vertical long, and short axis views. The patient underwent pharmacologic (Regadenoson) evaluation with a peak heart rate of 108 beats per minute (71% percent predicted maximal heart rate) and a peak blood pressure of 130/84 mmHg. The patient was injected with 45.0 millicuries of technetium 99m Cardiolite and subsequently stress SPECT Cardiolite nuclear imaging was obtained in the horizontal long, vertical long, and short axis views. A gated Cardiolite study at peak stress was obtained. Interpretation: Rest and stress SPECT Cardiolite nuclear imaging status post realignment, normalization, and attenuation correction demonstrate relative uniform tracer uptake and myocardial perfusion appearing within normal limits. There is end systolic thickening and brightening. The gated Cardiolite study demonstrates myocardial thickening and inward wall motion. The reported LVEF is 74%. Impression: 1. Rest and stress SPECT Cardiolite nuclear imaging demonstrate relative uniform tracer uptake and myocardial perfusion appearing within normal limits. 2. The gated Cardiolite study reports an LVEF of 74%. This note was generated with [employer] software. It may contain incorrect words, spelling, and punctuation that were not noted in checking the note before signing.
--- NOTE | 2020-03-06 13:21 | DCINST_ITS ---
- Discharge Diagnoses Current Active Problems: Current Active and Chronic Problems (Last Reviewed 11/29/19 @ 13:00 by Swati Garcia) Smoking greater than 40 pack years (Chronic) quit in 2013, 46 pack years, LDCT due 11/2020 Stage 1 mild COPD by GOLD classification (Chronic) senior care (current) use of anticoagulants (Acute) Atherosclerotic heart disease of [place] coronary artery without angina pectoris (Chronic) Type 2 diabetes mellitus (Chronic) History of myocardial infarction (Acute ~2000) Sick sinus syndrome (Chronic) Essential hypertension (Chronic) Paroxysmal atrial fibrillation (Acute) Hyperlipemia (Chronic) MANNY (obstructive sleep apnea) (Chronic) Presence of cardiac pacemaker (Chronic) Chest pain (Acute) You will use the following diet at home:: Cardiac Your food should be the consistency of: Regular Your liquids should be the consistency of: Regular/Thin Call your doctor if you observe: - - worsening chest pain with shortness of breath, nausea, vomiting, feeling hot and sweaty Allergies/Adverse Reactions: Allergies black pepper Allergy (Verified 11/29/19 13:00) hives house dust mite Allergy (Verified 11/29/19 13:00) hives Penicillins Allergy (Verified 11/29/19 13:00) Swelling and hives sertraline Allergy (Verified 11/29/19 13:00) diarrhea metformin Adverse Reaction (Severe, Verified 11/29/19 13:00) diarrhea Androgenic Anabolic Steroid Adverse Reaction (Verified 11/29/19 13:00) Rash STATES, HAD SOME TYPE OF Z-ABBIE TAMPER AND GOT A RASH FROM IT. fluoxetine [From Prozac] Adverse Reaction (Verified 11/29/19 13:00) mental status change Medications to take at Discharge Nitroglycerin (INPATIENT USE) [Nitrostat] 0.4 mg SUBLINGUAL Q5M PRN 05/11/14 Pravastatin [Pravachol] 40 mg PO QHS 05/11/14 Warfarin [Coumadin] 4 mg PO DAILY 05/11/14 Tamsulosin HCl [Flomax] 0.4 mg PO QHS 05/05/17 metoprolol tartrate 25 mg tablet 25 mg PO BID tab 12/07/17 escitalopram oxalate 20 mg tablet 20 mg PO DAILY tab 05/31/18 glimepiride 4 mg tablet 4 mg PO BID 05/31/18 pregabalin 100 mg capsule 300 mg PO BID 05/31/18 albuterol sulfate 90 mcg/actuation aerosol inhaler 2 puff INHALATION Q4H PRN #18 g 03/07/19 tiotropium 2.5 mcg-olodaterol 2.5 mcg/actuation mist for inhalation 2 puff INHALATION Q24H #4 g 03/07/19 flecainide 50 mg tablet 50 mg PO Q12H #180 tab 05/03/19 cholecalciferol (vitamin D3) 50 mcg (2,000 unit) capsule 50 mcg PO DAILY 08/02/19 fenofibrate nanocrystallized 145 mg tablet 145 mg PO DAILY 08/02/19 furosemide 20 mg tablet 20 mg PO DAILY 08/02/19 icosapent ethyl 1 gram capsule 2 g PO BID 08/02/19 dulaglutide 0.75 mg/0.5 mL subcutaneous pen injector 0.75 mg SC QWEEK 11/29/19 Empagliflozin [Jardiance] 25 mg PO DAILY 03/05/20 Omeprazole [Prilosec] 20 mg PO DAILY 03/05/20 Warfarin [Coumadin] 6 mg PO DAILY 03/05/20 Primary Care Physician: Marleni Camp DELIVERY ENGINEER, DELIVERY ENGINEER-C [NON-STAFF] - Within 2 Weeks Test Results: Test results from this visit will be discussed in further detail at your follow- up appointment, if applicable. Please Follow Up With: [facility] When: call for appointment at earliest convenience Proposed Discharge Date: 03/06/20
--- NOTE | 2020-03-06 13:39 | PHA.DC.MR ---
Pharmacy Service has performed discharge medication reconciliation for this patient. No new medications issued at time of discharge. Medications reviewed are from previously reported home medications. The patient's discharge medication list was reviewed for discrepancies and discrepancies were resolved. Home Medications Nitroglycerin (INPATIENT USE) [Nitrostat] 0.4 mg SUBLINGUAL Q5M PRN 05/11/14 Pravastatin [Pravachol] 40 mg PO QHS 05/11/14 Warfarin [Coumadin] 4 mg PO DAILY 05/11/14 Tamsulosin HCl [Flomax] 0.4 mg PO QHS 05/05/17 metoprolol tartrate 25 mg tablet 25 mg PO BID tab 12/07/17 escitalopram oxalate 20 mg tablet 20 mg PO DAILY tab 05/31/18 glimepiride 4 mg tablet 4 mg PO BID 05/31/18 pregabalin 100 mg capsule 300 mg PO BID 05/31/18 albuterol sulfate 90 mcg/actuation aerosol inhaler 2 puff INHALATION Q4H PRN #18 g 03/07/19 tiotropium 2.5 mcg-olodaterol 2.5 mcg/actuation mist for inhalation 2 puff INHALATION Q24H #4 g 03/07/19 flecainide 50 mg tablet 50 mg PO Q12H #180 tab 05/03/19 cholecalciferol (vitamin D3) 50 mcg (2,000 unit) capsule 50 mcg PO DAILY 08/02/19 fenofibrate nanocrystallized 145 mg tablet 145 mg PO DAILY 08/02/19 furosemide 20 mg tablet 20 mg PO DAILY 08/02/19 icosapent ethyl 1 gram capsule 2 g PO BID 08/02/19 dulaglutide 0.75 mg/0.5 mL subcutaneous pen injector 0.75 mg SC QWEEK 11/29/19 Empagliflozin [Jardiance] 25 mg PO DAILY 03/05/20 Omeprazole [Prilosec] 20 mg PO DAILY 03/05/20 Warfarin [Coumadin] 6 mg PO DAILY 03/05/20
--- NOTE | 2020-03-06 13:58 | DS.PCM_ITS ---
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) History of myocardial infarction (Acute ~2000) Paroxysmal atrial fibrillation (Acute) Chest pain (Acute) Date of Admission: 03/05/20 Date of Discharge: 03/06/20 - Primary Discharge Diagnosis Acute Problems: Active Problems (Last Reviewed 11/29/19 @ 13:00 by Swati Garcia) penitentiary (current) use of anticoagulants (Acute) History of myocardial infarction (Acute ~2000) Paroxysmal atrial fibrillation (Acute) Chest pain (Acute) - Secondary Discharge Diagnosis Chronic Problems: Chronic Problems (Last Reviewed 11/29/19 @ 13:00 by Swati Garcia) Smoking greater than 40 pack years (Chronic) quit in 2012, 46 pack years, LDCT due 11/2020 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 Is left-sided as well as right-sided rating to his back. Patient was brought to the hospital and he underwent a cardiac work-up. Cardiac work-up including EKG, troponins and his stress test. All of which were negative. Patient did have a reproducible component of his chest pain in the right upper chest. Patient was made aware of the findings of the stress test. Patient will be discharged home in stable condition. Patient had been established Dr. Desir previously and wishes to reestablish in the area. Advised him to recontact the heart [facility] offices for a follow-up appointment. 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) History of myocardial infarction (Acute ~2000) Paroxysmal atrial fibrillation (Acute) Chest pain (Acute) - Physical Exam Vitals/I&O's: Vital Signs Temp Pulse Resp BP Pulse Ox 36.6 C 84 18 118/79 98 03/06/20 11:23 03/06/20 11:23 03/06/20 11:23 03/06/20 11:23 03/06/20 11:23 Oxygen Flow Rate (L/min) 1.5 Oxygen Delivery Method Room Air Weight: 100.4 kg Body Mass Index (BMI) 30.7 Intake and Output for Last 24 Hours 03/04/20 03/05/20 03/06/20 23:59 23:59 23:59 Intake Total 1323.33 / 1323.33 306.67 / 306.67 Balance 1323.33 / 1323.33 306.67 / 306.67 General: Alert, No apparent distress HEENT: Atraumatic, Normocephalic Oral: Moist Mucosa, No Gingival or Mucosal Lesions/ Ulcerations Neck: No Nodes, Thyroid Normal Size and Texture Lungs: Clear to auscultation, Normal air movement, No rhonchi, No wheeze Cardiovascular: Regular rate, Regular Rhythm, Normal S1, Normal S2 Abdomen: Bowel Sounds Present, Soft, Non Tender, Non-Distended, No Hepato- splenomegaly Laboratory Results 03/05/20 14:06: Magnesium 2.1, Troponin I < 0.015 03/05/20 17:00: Troponin I < 0.015 03/05/20 17:51: POC Glucose 207 H 03/05/20 21:24: POC Glucose 195 H 03/06/20 05:50: Sodium 137, Potassium 3.7, Chloride 104, Carbon Dioxide 27.0, Anion Gap 6, BUN 16, Creatinine 1.10, Estim Creat Clear Calc 68.45, Est GFR (MDRD) Af Amer 86, Est GFR (MDRD) Non-Af 71, BUN/Creatinine Ratio 14.5, Glucose 197 H, Calcium 8.2 L, Triglycerides 381 H, Cholesterol 128, LDL Cholesterol 30, VLDL Cholesterol 76 H, HDL Cholesterol 22 L, TSH 2.87 03/06/20 05:50: PT 20.4 H, INR 1.8 03/06/20 06:34: POC Glucose 216 H Current Medications Acetaminophen (Acetaminophen 325 Mg Tablet) 650 mg PO Q6H PRN PRN PRN Reason: Pain Score 1-10/Temp > 100.7 F Albuterol Sulfate (Albuterol 2.5 Mg/3 Ml Vial.Neb.) 2.5 mg INHALATION Q2H PRN PRN PRN Reason: SOB/Wheezing Albuterol Sulfate (Albuterol 2.5 Mg/3 Ml Vial.Neb.) 2.5 mg INHALATION Q6HWA.RT [facility] Last Admin: 03/05/20 18:58 Dose: 2.5 mg Documented by: Aspirin (Aspirin E.C. 81 Mg Tablet) 81 mg PO DAILY@0800 [facility] Last Admin: 03/06/20 05:14 Dose: 81 mg Documented by: Budesonide (Budesonide Respules 0.5 Mg/2 Ml Ampul.Neb.) 0.5 mg INHALATION Q12H.RT [facility] Last Admin: 03/05/20 18:58 Dose: 0.5 mg Documented by: Dextrose (Dextrose 50%-Water 25 Gm/50 Ml Disp.Syrin) 0 gm IV X1 PRN; Protocol PRN Reason: Hypoglycemia Empagliflozin (Empagliflozin 25 Mg Tablet) 25 mg PO DAILY [facility] Last Admin: 03/06/20 10:50 Dose: 25 mg Documented by: Escitalopram Oxalate (Escitalopram Oxalate 20 Mg Tablet) 20 mg PO DAILY [facility] Last Admin: 03/06/20 10:50 Dose: 20 mg Documented by: Fenofibrate (Fenofibrate 145 Mg Tablet) 145 mg PO DAILYCM [facility] Last Admin: 03/06/20 10:50 Dose: 145 mg Documented by: Flecainide Acetate (Flecainide 100 Mg Tablet) 50 mg PO BID [facility] Last Admin: 03/06/20 10:49 Dose: 50 mg Documented by: Glucagon (Glucagon 1 Mg/Ml Syringe) 1 mg IM .X1 PRN PRN Reason: Hypoglycemia Insulin Glargine (Insulin Glargine 100 Units/Ml Pen) 15 units SC 0700 [facility] Last Admin: 03/06/20 12:52 Dose: 15 u Documented by: Insulin Human Lispro (Insulin Lispro 100 Unit/Ml Insuln.Pen) 0 unit SC ACHS [facility]; Protocol Last Admin: 03/06/20 10:51 Dose: 6 u Documented by: Insulin Human Lispro (Insulin Lispro 100 Unit/Ml Insuln.Pen) 10 unit SC TIDAC [facility] Last Admin: 03/06/20 10:52 Dose: 10 u Documented by: Melatonin (Melatonin 3 Mg Tablet) 3 mg PO QHS PRN PRN PRN Reason: INSOMNIA Metoprolol Tartrate (Metoprolol Tartrate 25 Mg Tablet) 25 mg PO BID [facility] Last Admin: 03/06/20 10:50 Dose: 25 mg Documented by: Morphine Sulfate (Morphine 2 Mg/Ml Syringe) 2 mg IV Q3H PRN PRN PRN Reason: Pain Score 6-10 Last Admin: 03/05/20 15:39 Dose: 2 mg Documented by: Nitroglycerin (Nitroglycerin Oint 1 Inch Packet) 1 inch TD Q6 [facility] Last Admin: 03/06/20 11:01 Dose: Not Given Documented by: Oxycodone HCl (Oxycodone 5 Mg Tablet) 5 mg PO Q4H PRN PRN PRN Reason: Pain Score 4-5 Last Admin: 03/05/20 18:25 Dose: 5 mg Documented by: Pantoprazole Sodium (Pantoprazole Sodium 20 Mg Tablet) 20 mg PO DAILY [facility] Last Admin: 03/06/20 10:49 Dose: 20 mg Documented by: Pravastatin Sodium (Pravastatin 40 Mg Tablet) 40 mg PO QHS [facility] Last Admin: 03/05/20 21:28 Dose: 40 mg Documented by: Pregabalin (Pregabalin 75 Mg Capsule) 300 mg PO BID [facility] Last Admin: 03/06/20 11:01 Dose: 300 mg Documented by: Prochlorperazine Edisylate (Prochlorperazine 10 Mg/2 Ml Vial) 5 mg IV Q4H PRN PRN PRN Reason: Breakthrough Nausea/Vomiting Senna/Docusate Sodium (Senna/Docusate Sodium 1 Tablet) 2 tablet PO BID PRN PRN PRN Reason: Constipation Sodium Chloride (0.9% Saline Lock 10 Ml Syringe) 10 - 40 ml IV UD PRN PRN Reason: SALINE FLUSH Tamsulosin HCl (Tamsulosin Hcl 0.4 Mg Capsule) 0.4 mg PO QHS [facility] Last Admin: 03/05/20 21:27 Dose: 0.4 mg Documented by: Warfarin Sodium (Warfarin 6 Mg Tablet) 6 mg PO MoTh@1700 [facility] Last Admin: 03/05/20 18:24 Dose: 6 mg Documented by: Warfarin Sodium (Warfarin 4 Mg Tablet) 4 mg PO SuTuWeFrSa@1700 [facility] Discharge Diet: Low fat/ Low Cholesterol Call your doctor if you observe: - - worsening chest pain with shortness of breath, nausea, vomiting, feeling hot and sweaty Home Medications: Medications to take at Discharge Nitroglycerin (INPATIENT USE) [Nitrostat] 0.4 mg SUBLINGUAL Q5M PRN 05/11/14 Pravastatin [Pravachol] 40 mg PO QHS 05/11/14 Warfarin [Coumadin] 4 mg PO DAILY 05/11/14 Tamsulosin HCl [Flomax] 0.4 mg PO QHS 05/05/17 metoprolol tartrate 25 mg tablet 25 mg PO BID tab 12/07/17 escitalopram oxalate 20 mg tablet 20 mg PO DAILY tab 05/31/18 glimepiride 4 mg tablet 4 mg PO BID 05/31/18 pregabalin 100 mg capsule 300 mg PO BID 05/31/18 albuterol sulfate 90 mcg/actuation aerosol inhaler 2 puff INHALATION Q4H PRN #18 g 03/07/19 tiotropium 2.5 mcg-olodaterol 2.5 mcg/actuation mist for inhalation 2 puff INHALATION Q24H #4 g 03/07/19 flecainide 50 mg tablet 50 mg PO Q12H #180 tab 05/03/19 cholecalciferol (vitamin D3) 50 mcg (2,000 unit) capsule 50 mcg PO DAILY 08/02/19 fenofibrate nanocrystallized 145 mg tablet 145 mg PO DAILY 08/02/19 furosemide 20 mg tablet 20 mg PO DAILY 08/02/19 icosapent ethyl 1 gram capsule 2 g PO BID 08/02/19 dulaglutide 0.75 mg/0.5 mL subcutaneous pen injector 0.75 mg SC QWEEK 11/29/19 Empagliflozin [Jardiance] 25 mg PO DAILY 03/05/20 Omeprazole [Prilosec] 20 mg PO DAILY 03/05/20 Warfarin [Coumadin] 6 mg PO DAILY 03/05/20 Primary Care Physician: Marleni Camp NATIONAL INSURANCE OFFICER, NATIONAL INSURANCE OFFICER-C [NON-STAFF] - Within 2 Weeks Please Follow Up With: [facility] When: call for appointment at earliest convenience Disposition: Home Patient Condition:: Good Medical Necessity - Tobacco Use Smoking Status: Former smoker Tobacco Use: Cigarettes Meaningful Use Info Meaningful Use Diagnoses (Choose all that apply): None applicable OBSV E&M: 21178 Observation care discharge
--- NOTE | 2020-03-06 14:30 | CASEMGMT ---
This RN CM to room with BURR form at this time, explanation done-pt voices understanding, and signs BURR form at this time. Original to chart and copy to pt at this time. Pt states was given MCR IP vs OBS booklet in the ED and voices no further questions/concerns/needs at this time. S[place]en RN CM
[2020-03-06 14:36] LABS: Bedside Glucose 272 mg/dL (70-110)
== END 2020-03-06 13:23 | disposition home or self-care (01) ==
LOC: ED 12:19 → PCU 12:49
PROVIDERS: Admitting Provider Internal Medicine; Emergency Provider Emergency Medicine; PCP Family Medicine
DX: R07.89 Other chest pain (principal); I25.10 Atherosclerotic heart disease of native coronary artery without angina pectoris; I10 Essential (primary) hypertension; F41.9 Anxiety disorder, unspecified; J44.9 Chronic obstructive pulmonary disease, unspecified; I25.2 Old myocardial infarction; E11.40 Type 2 diabetes mellitus with diabetic neuropathy, unspecified; E78.5 Hyperlipidemia, unspecified; I48.0 Paroxysmal atrial fibrillation; G47.33 Obstructive sleep apnea (adult) (pediatric); Z95.0 Presence of cardiac pacemaker; Z87.891 Personal history of nicotine dependence; Z79.01 Long term (current) use of anticoagulants; Z79.899 Other long term (current) drug therapy; Z79.4 Long term (current) use of insulin; Z86.73 Personal history of transient ischemic attack (TIA), and cerebral infarction without residual deficits
CPT/HCPCS: 36415; 71045; 78452; 80048; 80061; 82962; 83735; 84443; 84484; 85025; 85610; 93005; 93017; 94640; 94660; 96361; 96374; 99218; 99285; A9500; J7030; A4216; G0378; J2785

== ENCOUNTER 2021-01-07 11:47 | Emergency (ER) | payer MEDICARE, SELFPAY ==
[2021-01-07 11:48] VITALS: BP 125/81; PULSE 78; RESP 16; TEMP 37.2; O2SAT 95; BMI 31.2
--- NOTE | 2021-01-07 12:16 | RAD_ITS ---
HISTORY: cough EXAMINATION/TECHNIQUE: XR Chest 1 View: Portable upright AP chest x-ray COMPARISON: 03/05/20 FINDINGS: LINES/DEVICES: Stable transvenous pacemaker. LUNGS: No consolidation, edema or effusion. No pneumothorax. MEDIASTINUM AND CARDIOVASCULAR STRUCTURES: Cardiac silhouette not enlarged. Central airways and mediastinal contour are unremarkable. BONES AND SOFT TISSUES: No acute bony abnormalities. RAD/Chest 1 View (Portable) IMPRESSION: No radiographic evidence of acute cardiopulmonary disease. at 1301 Reported and signed by: Luis Hackett MD Electronically Signed: Luis Hackett MD at 13:00 EST Tel , Service support ,
--- NOTE | 2021-01-07 12:19 | ED.VIS.DYS ---
HPI History of Present Illness Chief Complaint: Shortness of Breath Informant: patient Narrative Narrative: 70-year-old male states that for the past 4 days he has been experiencing body aches headache runny nose cough slight dyspnea. He notes that he went to a family birthday [place] where someone apparently had Covid. He states he is not been having any fevers or chills. He is a diabetic with a history of COPD and coronary artery disease. His is also ill. [facility] Medical History (Updated 01/07/21 @ 13:[address] Magan Sotomayor, ) Anxiety Anxiety Atherosclerotic heart disease of [place] coronary artery without angina pectoris Atrial fibrillation Chest pain Essential hypertension History of myocardial infarction (~2000) Hyperlipemia Hyperlipidemia Obstructive sleep apnea MANNY (obstructive sleep apnea) Paroxysmal atrial fibrillation Presence of cardiac pacemaker Seizures Sick sinus syndrome Status post pacemaker TIA (transient ischemic attack) Type 2 diabetes mellitus Home Medications nitroglycerin 0.4 mg SUBLINGUAL Q5M PRN 05/11/14 [History Last Taken Unknown] pravastatin 40 mg PO QHS 05/11/14 [History Last Taken 05/04/17] warfarin 4 mg PO DAILY 05/11/14 [History Last Taken 05/05/17] tamsulosin 0.4 mg PO QHS 05/05/17 [History Last Taken Unknown] metoprolol tartrate 25 mg tablet 25 mg PO BID tab 12/07/17 [History Last Taken Unknown] escitalopram oxalate 20 mg tablet 20 mg PO DAILY tab 05/31/18 [History Last Taken Unknown] glimepiride 4 mg tablet 4 mg PO BID 05/31/18 [History Last Taken Unknown] pregabalin 100 mg capsule 300 mg PO BID 05/31/18 [History Last Taken Unknown] albuterol sulfate 90 mcg/actuation aerosol inhaler 2 puff INHALATION Q4H PRN #18 g 03/07/19 [Rx Last Taken Unknown] tiotropium 2.5 mcg-olodaterol 2.5 mcg/actuation mist for inhalation 2 puff INHALATION Q24H #4 g 03/07/19 [Rx Last Taken Unknown] flecainide 50 mg tablet 50 mg PO Q12H #180 tab 05/03/19 [Rx Last Taken Unknown] cholecalciferol (vitamin D3) 50 mcg (2,000 unit) capsule 50 mcg PO DAILY 06/16/20 [History Last Taken Unknown] fenofibrate nanocrystallized 145 mg tablet 145 mg PO DAILY 08/02/19 [History Last Taken Unknown] furosemide 20 mg tablet 20 mg PO DAILY 08/02/19 [History Last Taken Unknown] icosapent ethyl 1 gram capsule 2 g PO BID 08/02/19 [History Last Taken Unknown] dulaglutide 0.75 mg/0.5 mL subcutaneous pen injector 0.75 mg SC QWEEK 11/29/19 [History Last Taken Unknown] empagliflozin 25 mg PO DAILY 03/05/20 [History Last Taken Unknown] omeprazole 20 mg PO DAILY 03/05/20 [History Last Taken Unknown] warfarin 6 mg PO DAILY 03/05/20 [History Last Taken Unknown] Allergy/AdvReac Type Severity Reaction Status Date / Time black pepper Allergy hives Verified 01/07/21 11:50 house dust mite Allergy hives Verified 01/07/21 11:50 Penicillins Allergy Swelling Verified 01/07/21 11:50 and hives sertraline Allergy diarrhea Verified 01/07/21 11:50 metformin AdvReac Severe diarrhea Verified 01/07/21 11:50 Androgenic Anabolic Steroid AdvReac Rash Verified 01/07/21 11:50 fluoxetine [From Prozac] AdvReac mental Verified 01/07/21 11:50 status change Family History Mother Cancer Diabetes Brother Cancer Diabetes Sister Heart disease Brother Heart disease Surgical History History of cardiac catheterization (~04/08/11) History of hand surgery History of inguinal hernia repair History of lateral meniscus repair of right knee Social History Smoking Status: Former smoker second hand exposure: Yes alcohol intake: never substance use type: does not use ROS ROS ED Constitutional Constitutional ED: Denies chills, fever(s) or weight loss Eyes Eyes: Denies change in vision or diplopia ENT ENT ED: Reports rhinorrhea; Denies ear pain or sore throat Cardiovascular Cardiovascular: Denies chest pain, orthopnea, palpitations or racing heartbeat Respiratory/Chest Respiratory/Chest: Reports cough and dyspnea; Denies orthopnea Gastrointestinal Gastrointestinal: Denies abdominal pain, diarrhea, nausea or vomiting Genitourinary Genitourinary ED: Denies dysuria, hematuria or urinary frequency Musculoskeletal Musculoskeletal: Reports myalgias; Denies arthralgias Integumentary Denies abscess or rash Neurologic Neurologic: Reports headache(s); Denies weakness Psychiatric Psychiatric: Denies anxiety, depression, suicidal ideation or suicidal thoughts Endocrine Endocrinology: Denies polydipsia, polyphagia or polyuria Allergic/Immunologic Allergic/Immunologic ED: Denies mouth swelling, tongue swelling or urticaria EXAM Physical Exam Const Vital Signs: 01/07/21 11:48 Temperature 98.9 F Temperature Source Temporal Pulse Rate 78 Respiratory Rate 16 Blood Pressure 125/81 H Blood Pressure Mean 95 Pulse Ox 95 Oxygen Delivery Method Room Air Positive well nourished and well developed General Appearance ED: well developed HEENT Reports normocephalic, head/scalp atraumatic, TM's clear and moist mucous membranes Negative for atraumatic Tympanic Membrane ED: Yes TM's clear Eyes PERRL and EOMs intact bilaterally Neck no lymphadenopathy, supple and no JVD Resp normal respiratory effort and clear to auscultation bilaterally Cardio regular rate, regular rhythm and no murmurs GI normal to inspection, nondistended, normoactive bowel sounds and non-tender Auscultation: normoactive bowel sounds Palpation: soft Back/Spine no CVA tenderness, normal ROM and normal to inspection Extremity normal to inspection General Extremety ED: Negative for edema General Extremity: Negative for edema Neuro oriented x3 and CN's II-XII intact bilaterally Sensorium / Orientation: alert Motor Exam: strength 5/5 throughout Psych mental status grossly normal Mood & Affect: Negative for depressed or tearful Skin no rashes or lesions noted and no wounds MDM MDM MDM Narrative Medical decision making narrative: Patient's Covid test is negative. I will add on a PCR. His chest x-ray is clear. Patient is saturating 95% on room air. Think he most likely has a viral illness that he is sharing with his . At this point I would recommend supportive care. If his Covid PCR comes back positive we will refer him for monoclonal antibodies. Radiography Diagnostic Testing: Clinical Impression(s) from Imaging Studies Chest X-Ray 01/07/21 12:16 IMPRESSION: No radiographic evidence of acute cardiopulmonary disease. at 1301 Reported and signed by: Luis Hackett MD Electronically Signed: Luis Hackett MD at 13:00 EST Tel , Service support , Discharge Plan Triage Chief Complaint: Shortness of Breath ED Provider: Magan Sotomayor Dx/Rx/DC Orders Clinical Impression: Viral respiratory illness Instructions: ED Viral Syndrome (Adult) Prescriptions: No Action escitalopram oxalate 20 mg tablet 20 mg PO DAILY RF: 0 glimepiride 4 mg tablet 4 mg PO BID RF: 0 Lyrica 100 mg capsule 300 mg PO BID RF: 0 Ventolin HFA 90 mcg/actuation HFA aerosol inhaler 2 puff INHALATION Q4H PRN (Reason: shortness of breath or wheezing) Qty: 18 RF: 6 Stiolto Respimat 2.5-2.5 mcg/actuation mist 2 puff Inhalation Q24H Qty: 4 RF: 11 cholecalciferol (vitamin D3) 50 mcg (2,000 unit) capsule 50 mcg PO DAILY RF: 0 fenofibrate nanocrystallized [Tricor] 145 mg tablet 145 mg PO DAILY RF: 0 furosemide 20 mg tablet 20 mg PO DAILY RF: 0 Vascepa 1 gram capsule 2 g PO BID RF: 0 Trulicity 0.75 mg/0.5 mL pen injector 0.75 mg SC QWEEK RF: 0 pravastatin 40 MG tablet 40 mg PO QHS RF: 0 warfarin 4 MG tablet 4 mg PO DAILY RF: 0 nitroglycerin 0.4 MG tablet 0.4 mg Sublingual Q5M PRN (Reason: Chest Pain) RF: 0 metoprolol tartrate 25 mg tablet 25 mg PO BID RF: 0 tamsulosin 0.4 MG capsule 0.4 mg PO QHS RF: 0 omeprazole 20 MG capsule 20 mg PO DAILY RF: 0 empagliflozin 25 MG tablet 25 mg PO DAILY RF: 0 warfarin 6 MG tablet 6 mg PO DAILY RF: 0 flecainide 50 mg tablet 50 mg tablet 50 mg PO Q12H Qty: 180 RF: 3 Primary Care Provider: Momo High Referrals: Momo High MD [Primary Care Provider] - As Needed Activity Restrictions/Additional Instructions: If your Covid PCR returns positive, I can refer you for monoclonal antibody treatment. The coordinator will call you to answer any more questions you would have and also to finish the screening process. Disposition Disposition: Home, Self Care
[2021-01-07] MEDS: dexAMETHasone 4 MG Tablet 6 MG PO (12:44)
== END 2021-01-07 13:50 | disposition home or self-care (01) ==
PROVIDERS: Emergency Provider Emergency Medicine; PCP Family Medicine
DX: J06.9 Acute upper respiratory infection, unspecified (principal); I25.10 Atherosclerotic heart disease of native coronary artery without angina pectoris; I48.0 Paroxysmal atrial fibrillation; I10 Essential (primary) hypertension; I25.2 Old myocardial infarction; I49.5 Sick sinus syndrome; J44.9 Chronic obstructive pulmonary disease, unspecified; E11.9 Type 2 diabetes mellitus without complications; E78.5 Hyperlipidemia, unspecified; Z95.0 Presence of cardiac pacemaker; Z79.01 Long term (current) use of anticoagulants; Z79.84 Long term (current) use of oral hypoglycemic drugs; Z79.899 Other long term (current) drug therapy; Z87.891 Personal history of nicotine dependence; Z86.73 Personal history of transient ischemic attack (TIA), and cerebral infarction without residual deficits
CPT/HCPCS: 71045; 87426; 87635; 99283; U0005; U0003

== ENCOUNTER 2021-04-16 13:14 | Inpatient (IN) | payer MEDICARE, SELFPAY ==
[2021-04-16] VITALS (16 sets, daily range): BP systolic 116–142; BP diastolic 69–86; PULSE 80–97; RESP 15–21; TEMP 36.3–37.1; O2SAT 88–94; BMI 34.7; BMI 30.8
--- NOTE | 2021-04-16 13:39 | RAD_ITS ---
STUDY: X-RAY CHEST REASON FOR EXAM: Male, 70 years old. Cough TECHNIQUE: PA and lateral views of the chest. COMPARISON: Comparison is made with prior study dated 01/07/2021. FINDINGS: EKG electrodes are seen. Mild increased linear markings are seen at the lung bases suggestive of mild degree of bibasilar atelectasis and/or early infiltrate. There is no demonstrated pleural abnormality. Normal size heart. A left-sided dual-chamber pacemaker is seen. Normal mediastinum and saundra. Normal visualized pulmonary arteries. There is atherosclerotic tortuosity of the aortic arch and descending thoracic aorta. There are mild degenerative changes of the visualized thoracic spine. Normal visualized ribs, clavicles, and shoulders. There is no demonstrated abnormality of the visualized soft tissue structures of the upper abdomen. RAD/Chest PA and Lateral IMPRESSION: Mild degree of increased linear markings at the lung bases suggestive of linear atelectasis and/or early infiltrate. Electronically Signed: Raffaele Quiros MD at 14:48 EST ,
--- NOTE | 2021-04-16 13:39 | EKG12_ITS ---
Test Reason : SOB Blood Pressure : / mmHG Vent. Rate : 082 BPM Atrial Rate : 082 BPM P-R Int : 258 ms QRS Dur : 090 ms QT Int : 460 ms P-R-T Axes : 046 -28 028 degrees QTc Int : 537 ms Sinus rhythm with 1st degree A-V block Inferior infarct , age undetermined Abnormal ECG Confirmed by YENIFER BUCK, YESI ([id number]), editor department JELENA WALSH ([id number]) on 04/18/2021 1:33:06 PM Referred By: XAVI Confirmed By:YESI STREET MD
[2021-04-16] MEDS: MethylPREDNISolone 125 MG/2 ML Vial IV (14:00)
[2021-04-16] MEDS: Ipratropium/Albuterol Sulfate 3 ML AMPUL.NEB INHALATION ×3 (14:07→19:25)
[2021-04-16] MEDS: Albuterol 2.5 MG/3 ML VIAL.NEB. INHALATION (14:07)
[2021-04-16 14:17] LABS: Absolute Lymphocyte Count 1.91 X10^3/uL (0.83-4.51); Absolute Neutrophil Count 4.4 X10^3/uL (2.0-7.7); Basophil# 0.04 X10^3/uL; Basophil% 0.6 % (0-1); Eosinophil# 0.09 X10^3/uL; Eosinophils% 1.3 % (0-5); Hematocrit 50.2 % (40-54); Hemoglobin 16.7 g/dL (13.0-16.5); Lymphocyte # 1.91 X10^3/ul (0.83-4.51); Lymphocyte % 26.8 % (19-41); Mean Corp Hgb Conc 33.3 g/dL (32-36); Mean Corpuscular Hgb 28.5 pg (27.0-32.0); Mean Corpuscular Volume 85.7 fL (80-94); Mean Platelet Vol. 10.2 fl (6.2-12.0); Monocyte# 0.69 X10^3/uL; Monocyte% 9.7 % (0-10); NRBC Flagged by Analyzer 0 % (0-5); Neutrophil # 4.37 X10^3/uL (2.7-7.7); Neutrophil % 61.3 % (47-70); POSITIVE COUNT YES; RBC Distribution Width CV 14.2 % (11.6-14.6); RBC Distribution Width SD 43.9 fl (35.1-43.9); Red Blood Count 5.86 M/mm3 (4.6-6.2); White Blood Count 7.1 K/mm3 (4.4-11.0)
[2021-04-16 14:32] LABS: Anion Gap 7 (5-15); BUN 17 mg/dL (7-18); BUN/Creat Ratio 14.4 RATIO (10-20); Calcium,Total 9.3 mg/dL (8.5-10.1); Chloride 109 mmol/L (98-107); Creatinine, Serum 1.18 mg/dL (0.70-1.30); EST Glomerular Filtration Rate 65 mL/min (>60); Est Glom Filt Rate - Afr Amer 79 mL/min (>60); Estimated Creatinine Clearance 61.01 ml/min; Glucose 241 mg/dL (74-106); Sodium Level 137 mmol/L (136-145); Troponin-I HS 3 pg/mL (3.0-78.0)
[2021-04-16 14:47] LABS: Differential Indicated SCAN CRITERIA MET
[2021-04-16 14:48] LABS: Platelet Estimate ADEQUATE (ADEQ)
[2021-04-16 14:50] LABS: International Normalized Ratio 1.6; Prothrombin Time (Protime)PT. 18.2 SECONDS (11.7-14.9)
--- NOTE | 2021-04-16 15:02 | ED.VIS.DYS ---
HPI History of Present Illness Chief Complaint: Shortness of Breath Informant: patient and spouse/S.O. Narrative Narrative: Patient presents with 3 or so days of dry cough. Occasionally brings up a small amount of clear sputum. No blood. He has not had fevers. He does have some mild myalgias. He states he has been wheezing. He supposedly has Spiriva at home as well as albuterol but the albuterol just is not really helping for more than a brief period of time. He is not having chest pain. He has no leg pain or swelling. His appetite is down slightly. Patient does have history of COPD. However, he quit smoking about 9 years ago. His however continues to smoke. Walking in the room has a very strong odor. Patient uses CPAP at night but is not on oxygen. Albuterol helps his symptoms nothing really makes them worse other than activity. Patient does not have loss of taste or smell. No nasal congestion or sore throat. He has 2 Covid vaccines. [facility] Medical History (Updated 04/16/21 @ 15:[address] 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 Atrial fibrillation Chest pain Essential hypertension History of myocardial infarction (~2000) Hyperlipemia Hyperlipidemia Obstructive sleep apnea MANNY (obstructive sleep apnea) Paroxysmal atrial fibrillation Presence of cardiac pacemaker Seizures Sick sinus syndrome Status post pacemaker TIA (transient ischemic attack) Type 2 diabetes mellitus Home Medications nitroglycerin 0.4 mg SUBLINGUAL Q5M PRN 05/11/14 [History Last Taken Unknown] pravastatin 40 mg PO QHS 05/11/14 [History Last Taken 05/04/17] warfarin 4 mg PO DAILY 05/11/14 [History Last Taken 05/05/17] tamsulosin 0.4 mg PO QHS 05/05/17 [History Last Taken Unknown] metoprolol tartrate 25 mg tablet 25 mg PO BID tab 12/07/17 [History Last Taken Unknown] escitalopram oxalate 20 mg tablet 20 mg PO DAILY tab 05/31/18 [History Last Taken Unknown] pregabalin 100 mg capsule 300 mg PO BID 05/31/18 [History Last Taken Unknown] albuterol sulfate 90 mcg/actuation aerosol inhaler 2 puff INHALATION Q4H PRN #18 g 03/07/19 [Rx Last Taken Unknown] tiotropium 2.5 mcg-olodaterol 2.5 mcg/actuation mist for inhalation 2 puff INHALATION Q24H #4 g 03/07/19 [Rx Last Taken Unknown] flecainide 50 mg tablet 50 mg PO Q12H #180 tab 05/03/19 [Rx Last Taken Unknown] cholecalciferol (vitamin D3) 50 mcg (2,000 unit) capsule 50 mcg PO DAILY 08/02/19 [History Last Taken Unknown] fenofibrate nanocrystallized 145 mg tablet 145 mg PO DAILY 08/02/19 [History Last Taken Unknown] furosemide 20 mg tablet 20 mg PO DAILY 08/02/19 [History Last Taken Unknown] icosapent ethyl 1 gram capsule 2 g PO BID 08/02/19 [History Last Taken Unknown] dulaglutide 0.75 mg/0.5 mL subcutaneous pen injector 0.75 mg SC QWEEK 11/29/19 [History Last Taken Unknown] empagliflozin 25 mg PO DAILY 03/05/20 [History Last Taken Unknown] omeprazole 20 mg PO DAILY 03/05/20 [History Last Taken Unknown] warfarin 6 mg PO DAILY 03/05/20 [History Last Taken Unknown] insulin aspart U-100 5 unit SUBCUT TID 04/16/21 [History Last Taken Unknown] insulin glargine 14 unit SUBCUT DAILY 04/16/21 [History Last Taken Unknown] Allergy/AdvReac Type Severity Reaction Status Date / Time black pepper Allergy hives Verified 01/07/21 11:50 house dust mite Allergy hives Verified 01/07/21 11:50 Penicillins Allergy Swelling Verified 01/07/21 11:50 and hives sertraline Allergy diarrhea Verified 01/07/21 11:50 metformin AdvReac Severe diarrhea Verified 01/07/21 11:50 Androgenic Anabolic Steroid AdvReac Rash Verified 01/07/21 11:50 fluoxetine [From Prozac] AdvReac mental Verified 01/07/21 11:50 status change Family History Mother Cancer Diabetes Brother Cancer Diabetes Sister Heart disease Brother Heart disease Surgical History History of cardiac catheterization (~04/08/11) History of hand surgery History of inguinal hernia repair History of lateral meniscus repair of right knee Social History Smoking Status: Former smoker second hand exposure: Yes alcohol intake: never substance use type: does not use ROS ROS ED Constitutional Constitutional ED: Denies chills or fever(s) Eyes Eyes: Denies blurry vision ENT ENT ED: Denies rhinorrhea or sore throat Cardiovascular Cardiovascular: Denies chest pain or palpitations Respiratory/Chest Respiratory/Chest: Reports cough, dyspnea, dyspnea on exertion, sputum and other Details: Clear sputum only Gastrointestinal Gastrointestinal: Denies abdominal pain, nausea or vomiting Genitourinary Genitourinary ED: Denies dysuria Musculoskeletal Musculoskeletal: Reports myalgias; Denies arthralgias Integumentary Denies rash Neurologic Neurologic: Denies headache(s), paresthesias or weakness Psychiatric Psychiatric: Denies anxiety or depression Endocrine Endocrinology: Denies polyuria Hematologic/Lymphatic Hematologic/Lymphatic: Reports easy bleeding and easy bruising Allergic/Immunologic Allergic/Immunologic ED: Denies mouth swelling or urticaria EXAM Physical Exam Const Vital Signs: 04/16/21 13:15 04/16/21 13:42 04/16/21 13:50 Temperature 97.4 F L 97.4 F L Temperature Source Temporal Temporal Pulse Rate 97 97 Respiratory Rate 17 17 Respiratory Effort Short of Breath Respiratory Depth Normal Respiratory Pattern Blood Pressure 127/77 H 127/77 H Blood Pressure Mean 93 93 Pulse Ox 90 90 Oxygen Delivery Method Room Air Room Air Oxygen Flow Rate (L/min) 04/16/21 14:09 04/16/21 14:17 04/16/21 14:30 Temperature Temperature Source Pulse Rate 82 Respiratory Rate 21 H Respiratory Effort Respiratory Depth Respiratory Pattern Tachypnea Blood Pressure Blood Pressure Mean Pulse Ox 93 88 Oxygen Delivery Method Room Air Room Air Oxygen Flow Rate (L/min) 04/16/21 14:33 04/16/21 15:01 04/16/21 15:07 Temperature 97.4 F L 97.4 F L Temperature Source Temporal Temporal Pulse Rate 97 83 82 Respiratory Rate 17 15 15 Respiratory Effort Respiratory Depth Respiratory Pattern Normal Blood Pressure 127/77 H 118/75 Blood Pressure Mean 93 89 Pulse Ox 92 92 Oxygen Delivery Method Nasal Cannula Nasal Cannula Oxygen Flow Rate (L/min) 2 2 04/16/21 15:41 Temperature Temperature Source Pulse Rate Respiratory Rate Respiratory Effort Respiratory Depth Respiratory Pattern Blood Pressure Blood Pressure Mean Pulse Ox 91 Oxygen Delivery Method Nasal Cannula Oxygen Flow Rate (L/min) 2 Positive well nourished and well developed Constitutional Narrative: Patient is in no acute distress. However, he does speak in somewhat shortened sentences. His saturations are hanging around 90% on room air. This is just sitting in bed. General Appearance ED: well developed and NAD HEENT Reports moist mucous membranes atraumatic Eyes EOMs intact bilaterally Neck no lymphadenopathy and no JVD Neck Narrative: No JVD or stridor. Resp Resp Narrative: Respiratory effort is increased. He has very decreased lung sounds throughout. He does have some mild tight end expiratory wheezing. He has a few coarse sounds more on the left. Auscultation: rhonchi, wheezes and diminished lung sounds Cardio regular rate, regular rhythm and no murmurs GI non-tender Palpation: soft Back/Spine no CVA tenderness Extremity normal to inspection General Extremety ED: Negative for edema or tenderness General Extremity: Negative for edema Neuro oriented x3 Sensorium / Orientation: alert Psych mental status grossly normal Skin Lesions: no lesions Rashes: no rashes MDM MDM MDM Narrative Medical decision making narrative: Patient does not have an elevated white count. Hemoglobin is increased that might be due to chronic COPD. Electrolytes are overall unremarkable. Glucose is a bit elevated but he has a history of diabetes. INR is slightly subtherapeutic at 1.6. Troponin is negative. Chest x-ray shows some increased basilar markings that could be infiltrate or atelectasis. We took patient off oxygen. Plan was to walk him. He desatted to 88% just sitting in bed even without walking him. He had an excellent waveform. He would most certainly desaturate further. My concern is that he does not have oxygen at home. He is actually wheezing more now that we have him moving some air. I am giving him another treatment. He has gotten steroids. I will initiate some antibiotics. These are being used primarily as adjunctive therapy. However, with the x-ray being read as possible infiltrative I will send off cultures lactate first. I will call hospitalist regarding admission due to hypoxia. Lab Data Attestation: I reviewed the patient's lab results. Labs: Laboratory Results - last 24 hr 04/16/21 04/16/21 04/16/21 14:01 14:01 14:01 WBC 7.1 RBC 5.86 Hgb 16.7 H Hct 50.2 MCV 85.7 MCH 28.5 MCHC 33.3 RDW Std Deviation 43.9 RDW Coeff of Iris 14.2 Plt Count MPV 10.2 Immature Gran % (Auto) 0.300 Neut % (Auto) 61.3 Lymph % (Auto) 26.8 [place] % (Auto) 9.7 Eos % (Auto) 1.3 Baso % (Auto) 0.6 Absolute Neuts (auto) 4.4 Absolute Lymphs (auto) 1.91 Nucleated RBC % 0 Platelet Estimate ADEQUATE PT 18.2 H INR 1.6 Sodium 137 Potassium 4.0 Chloride 109 H Carbon Dioxide 21.0 Anion Gap 7 BUN 17 Creatinine 1.18 Estim Creat Clear Calc 61.01 Est GFR (MDRD) Af Amer 79 Est GFR (MDRD) Non-Af 65 BUN/Creatinine Ratio 14.4 Glucose 241 H Calcium 9.3 Troponin I High Sens 3 Radiography Diagnostic Testing: Clinical Impression(s) from Imaging Studies Chest X-Ray 04/16/21 13:39 IMPRESSION: Mild degree of increased linear markings at the lung bases suggestive of linear atelectasis and/or early infiltrate. Electronically Signed: Raffaele Quiros MD at 14:48 EST , EKG Initial EKG: Comments: EKG done work-up dyspnea read by me shows normal sinus rhythm with first-degree AV block. Overall rate of 82. No ventricular ectopy. Nonspecific diffuse changes but no sign of acute infarct or ischemia. MA interval is long. QRS duration is normal. QTc is also long at 530 seconds milliseconds. Discharge Plan Dx/Rx/DC Orders Clinical Impression: COPD with acute exacerbation, Respiratory failure with hypoxia Disposition Disposition: Acute Care Hospital [facility]
[2021-04-16] MEDS: levoFLOXacin IV 750 MG/150 ML BAG 100 MG IV (15:29)
--- NOTE | 2021-04-16 15:55 | NURSING ---
MED SURG OBS MICHAELA COPD EXAC, HYPOXIA
[2021-04-16 16:09] LABS: Lactic Acid 1.4 mmol/L (0.4-1.9)
--- NOTE | 2021-04-16 16:11 | PCM.HP.STD ---
HPI - General General Date of Admission: 04/16/21 Date of Service: 04/16/21 Chief Complaint: shortness of breath HPI Narrative VINEET REYNOLDS, is a 70 M who presents presents with shortness of breath. Has been short of breath over the past few days. Having some subjective chills but this is not new. Patient is on oxygen but presented to the emergency room. Patient was noted to be 88% on room air at rest. Concern was for the patient having pneumonia and patient did receive the levofloxacin despite not having a fever nor leukocytosis. He received aerosols as well as 105 mg of methylprednisolone. The hospital service contacted for admission for COPD exacerbation. [facility] Medical History (Updated 04/16/21 @ 16:[address] Efe Prado, ) Anxiety Anxiety Atherosclerotic heart disease of [place] coronary artery without angina pectoris Atrial fibrillation Chest pain Essential hypertension History of myocardial infarction (~2000) Hyperlipemia Hyperlipidemia Obstructive sleep apnea MANNY (obstructive sleep apnea) Paroxysmal atrial fibrillation Presence of cardiac pacemaker Seizures Sick sinus syndrome Status post pacemaker TIA (transient ischemic attack) Type 2 diabetes mellitus Home Medications nitroglycerin 0.4 mg SUBLINGUAL Q5M PRN 05/11/14 [History Last Taken Unknown] pravastatin 40 mg PO QHS 05/11/14 [History Last Taken 04/15/21] warfarin 4 mg PO SUTUTH 05/11/14 [History Last Taken 04/14/21] tamsulosin 0.4 mg PO QHS 05/05/17 [History Last Taken 04/15/21] metoprolol tartrate 25 mg tablet 25 mg PO BID tab 12/07/17 [History Last Taken 04/16/21] escitalopram oxalate 20 mg tablet 20 mg PO DAILY tab 05/31/18 [History Last Taken 04/16/21] albuterol sulfate 90 mcg/actuation aerosol inhaler 2 puff INHALATION Q4H PRN #18 g 03/07/19 [Rx Last Taken 04/16/21] tiotropium 2.5 mcg-olodaterol 2.5 mcg/actuation mist for inhalation 2 puff INHALATION Q24H #4 g 03/07/19 [Rx Last Taken 04/16/21] cholecalciferol (vitamin D3) 50 mcg (2,000 unit) capsule 50 mcg PO DAILY 08/02/19 [History Last Taken 04/16/21] fenofibrate nanocrystallized 145 mg tablet 145 mg PO DAILY 08/02/19 [History Last Taken 04/15/21] furosemide 20 mg tablet 20 mg PO DAILY 08/02/19 [History Last Taken 04/16/21] dulaglutide 0.75 mg/0.5 mL subcutaneous pen injector 0.75 mg SC MO 11/29/19 [History Last Taken 04/15/21] empagliflozin 25 mg PO DAILY 03/05/20 [History Last Taken 04/16/21] omeprazole 20 mg PO DAILY 03/05/20 [History Last Taken 04/16/21] warfarin 6 mg PO MOWEFRSA 03/05/20 [History Last Taken 04/15/21] flecainide 50 mg PO DAILY 04/16/21 [History Last Taken 04/16/21] insulin aspart U-100 5 unit SUBCUT TID 04/16/21 [History Last Taken 04/16/21] insulin glargine 14 unit SUBCUT DAILY 04/16/21 [History Last Taken 04/15/21] pregabalin 300 mg PO BID 04/16/21 [History Last Taken 04/16/21] Allergy/AdvReac Type Severity Reaction Status Date / Time black pepper Allergy hives Verified 01/07/21 11:50 house dust mite Allergy hives Verified 01/07/21 11:50 Penicillins Allergy Swelling Verified 01/07/21 11:50 and hives sertraline Allergy diarrhea Verified 01/07/21 11:50 metformin AdvReac Severe diarrhea Verified 01/07/21 11:50 Androgenic Anabolic Steroid AdvReac Rash Verified 01/07/21 11:50 fluoxetine [From Prozac] AdvReac mental Verified 01/07/21 11:50 status change Family History Mother Cancer Diabetes Brother Cancer Diabetes Sister Heart disease Brother Heart disease Surgical History History of cardiac catheterization (~04/08/11) History of hand surgery History of inguinal hernia repair History of lateral meniscus repair of right knee Social History Smoking Status: Former smoker second hand exposure: Yes alcohol intake: never substance use type: does not use ROS ROS Narrative Has a chronic chest pain but no changes. All review of systems were negative except as mentioned above in the history of present illness and the other review of systems. Vital Signs Vital Signs Vital Signs: 04/16/21 13:15 04/16/21 13:42 04/16/21 13:50 Temperature 36.3 C L 36.3 C L Temperature Source Temporal Temporal Pulse Rate 97 97 Respiratory Rate 17 17 Respiratory Effort Short of Breath Respiratory Depth Normal Respiratory Pattern Blood Pressure 127/77 H 127/77 H Blood Pressure Mean 93 93 Pulse Ox 90 90 Oxygen Delivery Method Room Air Room Air Oxygen Flow Rate (L/min) 04/16/21 14:09 04/16/21 14:17 04/16/21 14:30 Temperature Temperature Source Pulse Rate 82 Respiratory Rate 21 H Respiratory Effort Respiratory Depth Respiratory Pattern Tachypnea Blood Pressure Blood Pressure Mean Pulse Ox 93 88 Oxygen Delivery Method Room Air Room Air Oxygen Flow Rate (L/min) 04/16/21 14:33 04/16/21 15:01 04/16/21 15:07 Temperature 36.3 C L 36.3 C L Temperature Source Temporal Temporal Pulse Rate 97 83 82 Respiratory Rate 17 15 15 Respiratory Effort Respiratory Depth Respiratory Pattern Normal Blood Pressure 127/77 H 118/75 Blood Pressure Mean 93 89 Pulse Ox 92 92 Oxygen Delivery Method Nasal Cannula Nasal Cannula Oxygen Flow Rate (L/min) 2 2 04/16/21 15:41 04/16/21 15:49 Temperature 37.1 C Temperature Source Temporal Pulse Rate 80 Respiratory Rate 18 Respiratory Effort Respiratory Depth Respiratory Pattern Blood Pressure 118/75 Blood Pressure Mean 89 Pulse Ox 91 92 Oxygen Delivery Method Nasal Cannula Nasal Cannula Oxygen Flow Rate (L/min) 2 2 Weight Weight: 109.769 kg Body Mass Index (BMI) 34.7 Physical Exam Const alert General Appearance: cooperative HEENT normocephalic, head/scalp atraumatic, hearing grossly normal bilaterally and moist oral mucous membranes Eyes PERRL Neck no lymphadenopathy Neck Narrative: No thyromegaly Resp Resp Narrative: Diminished but clear bilaterally Cardio regular rate, regular rhythm, S1 normal heart sound and S2 normal heart sound GI normal to inspection, nondistended, normoactive bowel sounds, soft to palpation, non-tender and non-distended Extremity normal to inspection Skin no rashes or lesions noted and no wounds Neuro Sensorium / Orientation: awake and alert Psych affect normal Results Lab / Micro Data Attestation: I reviewed the patient's lab results. Result Diagrams: 04/16/21 14:01 04/16/21 14:01 Labs: Laboratory Results - last 24 hr 04/16/21 14:01: WBC 7.1, RBC 5.86, Hgb 16.7 H, Hct 50.2, MCV 85.7, MCH 28.5, MCHC 33.3, RDW Std Deviation 43.9, RDW Coeff of Iris 14.2, Plt Count , MPV 10.2, Immature Gran % (Auto) 0.300, Neut % (Auto) 61.3, Lymph % (Auto) 26.8, Lewis % (Auto) 9.7, Eos % (Auto) 1.3, Baso % (Auto) 0.6, Absolute Neuts (auto) 4.4, Absolute Lymphs (auto) 1.91, Nucleated RBC % 0, Platelet Estimate ADEQUATE 04/16/21 14:01: Sodium 137, Potassium 4.0, Chloride 109 H, Carbon Dioxide 21.0, Anion Gap 7, BUN 17, Creatinine 1.18, Estim Creat Clear Calc 61.01, Est GFR (MDRD) Af Amer 79, Est GFR (MDRD) Non-Af 65, BUN/Creatinine Ratio 14.4, Glucose 241 H, Calcium 9.3, Troponin I High Sens 3 04/16/21 14:01: PT 18.2 H, INR 1.6 04/16/21 15:20: Lactic Acid 1.4 Micro: Microbiology 04/16/21 14:01 Nasal Secretion SARS-CoV-2 Antigen (Rapid) - Final Radiology Impression Chest X-Ray 04/16/21 13:39 IMPRESSION: Mild degree of increased linear markings at the lung bases suggestive of linear atelectasis and/or early infiltrate. Electronically Signed: Raffaele Quiros MD at 14:48 EST , Assessment & Plan Assessment/Plan (1) COPD with acute exacerbation: (2) Respiratory failure with hypoxia: QUALIFIERS: Chronicity: acute Qualified Code(s): J96.01 - Acute respiratory failure with hypoxia PLAN: 1. Acute COPD exacerbation Unclear what with the inciting event for this was. Reviewed the patient's chest x-ray and feels more consistent clinically with atelectasis as patient does not demonstrate any fever nor having any leukocytosis. He did receive IV levofloxacin in emergency room but I would not continue that on the floor. Rapid COVID-19 was negative Continue with bronchodilators as well as methylprednisolone 2. Acute hypoxic respiratory failure Secondary to above Wean oxygen as able Consider amatory pulse ox prior to discharge. 3. Diabetes mellitus type 2 Anticipate hyperglycemia with steroids Sliding-scale insulin Continue home meds 4. Chronic chest pain No change in patient recently underwent a stress test in February that was negative. 5. Paroxysmal atrial fibrillation Continue metoprolol tartrate Continue warfarin 6. VTE prophylaxis INR subtherapeutic so we will add enoxaparin prophylactic dosing. Continue on until INR is greater than 2 or discharge. 7. COVID-19 vaccination status: Patient has been vaccinated. Patient most recently vaccinated in either October or November. Depending on timing of which, patient may be due for his booster. 8. CODE STATUS: Addressed with the patient. Patient is full CODE STATUS. Charges/Coding Visit Charges Inpatient E&M: 64813 Init Hosp L2
--- NOTE | 2021-04-16 17:00 | CASEMGMT ---
IGOR WORTHY Assessment: RN CM to room to meet with patient for initial transition planning/care coordination assessment. IGOR WORTHY introduced self and role at [facility]. Patient voices understanding and consents to assessment at this time. No visitors present at bedside. Patient is alert and oriented and answers all questions appropriately, sitting up on ER cart with oxygen per NC in no apparent distress. Care providers, pharmacy, and demographics verified/updated at this time. Admitting Dx: COPD exacerbation PCP: [facility] Specialists: [facility]- cardiology ([facility]), [facility]- pulmonology Preferred Pharmacy: [facility] Insurance: [facility] Dual Prescription Benefit: yes Living Will/HPOA: Patient denies having a living will or HPOA. LNOK: Awilda Delaney and daughter Polly Dee Living Arrangements: Patient lives with in two story house with one step to enter the home. Patient states independent with ADLs prior to hospitalization. Patient typically ambulates with the use of a cane. Smoking/ETOH: Former smoker (quit 9 years ago), denies ETOH use Transportation: Patient drives self and denies transportation concerns. DME/HHC/SNF: Patient has a cane, shower chair, hand held shower and BiPAP (without oxygen) supplied through [employer]. Patient does not have home oxygen. Patient denies previous HHC or SNF stays. Patient has no concerns with going home at time of discharge and denies need for HHC at this time. CM to follow for any discharge planning/needs. Patient voices no concerns/needs at this time. Advised patient to ask for CM if any questions/concerns/needs arise. Voices understanding. Plan: home
[2021-04-16] MEDS: Tamsulosin HCl 0.4 MG Capsule PO (20:57)
[2021-04-16] MEDS: Metoprolol Tartrate 25 MG Tablet PO (20:57)
[2021-04-16] MEDS: Pravastatin 40 MG Tablet PO (20:57)
[2021-04-16] MEDS: Pregabalin 75 MG Capsule 300 MG PO (20:57)
[2021-04-16 21:16] LABS: Bedside Glucose 257 mg/dL (70-110)
[2021-04-16] MEDS: Insulin Lispro 100 UNIT/ML INSULN.PEN SC (21:21)
[2021-04-17] VITALS (11 sets, daily range): BP systolic 114–131; BP diastolic 57–81; PULSE 82–98; RESP 16–20; TEMP 36.3–36.6; O2SAT 92–96
[2021-04-17] MEDS: Ipratropium/Albuterol Sulfate 3 ML AMPUL.NEB INHALATION ×4 (06:56→19:02)
[2021-04-17] MEDS: Cholecalciferol (VIT D3) 25 MCG TABLET (1,000 UNITS) 50 MCG PO (07:44)
[2021-04-17] MEDS: Escitalopram Oxalate 20 MG Tablet PO (07:44)
[2021-04-17] MEDS: Furosemide 20 MG Tablet PO (07:44)
[2021-04-17] MEDS: Pantoprazole Sodium 20 MG Tablet PO (07:45)
[2021-04-17] MEDS: Fenofibrate 145 MG Tablet PO (07:45)
[2021-04-17] MEDS: Empagliflozin 25 MG Tablet PO (07:45)
[2021-04-17] MEDS: Flecainide 100 MG Tablet 50 MG PO (07:45)
[2021-04-17] MEDS: Enoxaparin 40 MG/0.4 ML Syringe SC (07:45)
[2021-04-17] MEDS: Metoprolol Tartrate 25 MG Tablet PO ×2 (07:45→21:51)
[2021-04-17] MEDS: Insulin Lispro 100 UNIT/ML INSULN.PEN SC ×6 (07:46→17:16)
[2021-04-17] MEDS: Pregabalin 75 MG Capsule 300 MG PO ×2 (07:52→21:50)
[2021-04-17 07:55] LABS: Bedside Glucose 208 mg/dL (70-110)
[2021-04-17 11:26] LABS: Bedside Glucose 255 mg/dL (74-106)
--- NOTE | 2021-04-17 14:54 | CASEMGMT ---
Pt screened with [facility] Palliative Care Screening Tool, no order received for consult at this time.
[2021-04-17] MEDS: 0.9% Saline Lock 10 ML Syringe IV ×2 (14:56→21:51)
[2021-04-17] MEDS: guaiFENesin Dm 10 ML UDC PO (17:16)
[2021-04-17] MEDS: Azithromycin 250 MG Tablet 500 MG PO (17:16)
--- NOTE | 2021-04-17 17:19 | PCM.PN.HOSP ---
Subjective Subjective Patient was seen and examined today, he complains of persistent coughing, he does not complain of any fevers or chills, he is currently on nasal cannula oxygen at a low flow rate. Patient does not complain of shortness of breath at rest. Objective Data Objective Data Vital Signs: Vital Signs Temp Pulse Resp BP Pulse Ox 97.4 F L 88 18 114/81 H 96 04/17/21 13:30 04/17/21 15:08 04/17/21 15:08 04/17/21 13:30 04/17/21 13:30 Oxygen Flow Rate (L/min) 2 Oxygen Delivery Method Nasal Cannula Weight: 97.432 kg Body Mass Index (BMI) 30.8 Intake & Output: Intake and Output for Last 24 Hours 04/15/21 04/16/21 04/17/21 23:59 23:59 23:59 Intake Total 150 / 550 400 / 400 Balance 150 / 550 400 / 400 Lab / Micro Data Result Diagrams: 04/16/21 14:01 04/16/21 14:01 Labs: Laboratory Results - last 24 hr 04/16/21 20:52: POC Glucose 257 H 04/17/21 07:37: POC Glucose 208 H 04/17/21 11:18: POC Glucose 255 H Micro: Microbiology 04/16/21 14:01 Nasal Secretion SARS-CoV-2 Antigen (Rapid) - Final Physical Exam Const alert, oriented x3, no apparent distress and healthy appearing General Appearance: cooperative, well kempt and well developed Orientation / Consciousness: awake, oriented to person, oriented to place and oriented to time HEENT normocephalic and moist oral mucous membranes Eyes PERRL, EOMs intact bilaterally and conjunctivae normal Neck nuchal rigidity, supple, no JVD, thyroid normal and no carotid bruits General: trachea midline Resp normal respiratory effort Auscultation: wheezes lower bilaterally; Negative for rales or rhonchi Cardio regular rate, regular rhythm, S1 normal heart sound, S2 normal heart sound, no murmurs, no rub and no gallops GI normal to inspection, nondistended, normoactive bowel sounds, soft to palpation, non-tender and non-distended Extremity no clubbing, cyanosis or edema Skin no rashes or lesions noted, no wounds and skin turgor normal General Skin Exam: no breakdown Neuro oriented x3, CN's II-XII intact bilaterally, no focal motor deficits and no sensory deficits noted Sensorium / Orientation: awake and alert Speech: speech normal Psych affect normal Assessment & Plan Assessment/Plan (1) Stage 1 mild COPD by GOLD classification: PLAN: 1. Acute exacerbation of COPD-patient will remain on his present medications, I have elected to place him on Zithromax 500 mg daily to supplement his other medications for his COPD flareup. I talked to his who was in the room at the time my examination also, his respiratory medications will need to be adjusted at the time of discharge, he does follow-up with the [facility] pulmonary physician in town here. #2 acute hypoxic respiratory failure secondary to #1-patient's pulse ox will be monitored, oxygen will be weaned if possible #3 type 2 diabetes-patient's blood sugars will be monitored, sliding scale insulin will be used as needed, patient will remain on his current home medications for his diabetes. #4 atherosclerotic heart disease-patient will remain on his present medications #5 paroxysmal atrial fibrillation-patient is currently on Coumadin for prevention of stroke and rate limiting medications #6 hyperlipidemia-patient remains on his statin #7 benign prostatic hypertrophy-patient is on Flomax Charges/Coding Visit Charges Inpatient E&M: 99397 Subs Hosp L2
[2021-04-17 17:26] LABS: Bedside Glucose 236 mg/dL (74-106)
[2021-04-17] MEDS: Tamsulosin HCl 0.4 MG Capsule PO (21:51)
[2021-04-17] MEDS: Pravastatin 40 MG Tablet PO (21:51)
[2021-04-17 21:56] LABS: Bedside Glucose 330 mg/dL (74-106)
[2021-04-18] VITALS (8 sets, daily range): BP systolic 124–131; BP diastolic 65–78; PULSE 82–96; RESP 16–20; TEMP 36.5–36.6; O2SAT 92–95
[2021-04-18] MEDS: Ipratropium/Albuterol Sulfate 3 ML AMPUL.NEB INHALATION ×3 (00:58→13:22)
[2021-04-18] MEDS: 0.9% Saline Lock 10 ML Syringe IV ×2 (05:11→13:37)
[2021-04-18] MEDS: Insulin Lispro 100 UNIT/ML INSULN.PEN 10 UNIT SC ×2 (08:19→12:09)
[2021-04-18] MEDS: Insulin Lispro 100 UNIT/ML INSULN.PEN SC ×2 (08:20→12:09)
[2021-04-18 08:31] LABS: Bedside Glucose 240 mg/dL (74-106)
[2021-04-18] MEDS: Cholecalciferol (VIT D3) 25 MCG TABLET (1,000 UNITS) 50 MCG PO (09:21)
[2021-04-18] MEDS: Fenofibrate 145 MG Tablet PO (09:22)
[2021-04-18] MEDS: Pantoprazole Sodium 20 MG Tablet PO (09:22)
[2021-04-18] MEDS: Metoprolol Tartrate 25 MG Tablet PO (09:22)
[2021-04-18] MEDS: Furosemide 20 MG Tablet PO (09:22)
[2021-04-18] MEDS: Escitalopram Oxalate 20 MG Tablet PO (09:22)
[2021-04-18] MEDS: Flecainide 100 MG Tablet 50 MG PO (09:22)
[2021-04-18] MEDS: Empagliflozin 25 MG Tablet PO (09:23)
[2021-04-18] MEDS: Enoxaparin 40 MG/0.4 ML Syringe SC (09:23)
[2021-04-18] MEDS: Pregabalin 75 MG Capsule 300 MG PO (09:26)
[2021-04-18] MEDS: Azithromycin 250 MG Tablet 500 MG PO (09:28)
[2021-04-18 12:05] LABS: Bedside Glucose 292 mg/dL (74-106)
[2021-04-18] MEDS: guaiFENesin Dm 10 ML UDC PO (13:42)
--- NOTE | 2021-04-18 14:27 | PCM.DC ---
Discharge Instructions Diet Discharge Diet: 1800 Calorie Control Diet Activity Discharge Activity: Return to Normal Activity Weight Bearing Status: Full weight bearing Follow Up Care Test Results: Test results from this visit will be discussed in further detail at your follow-up appointment, if applicable. Discharge Plan Admission Admit Date/Time: 04/16/21 16:06 Primary Reason for Your Visit: exacerbation of COPD Attending Provider: Momo Zaidi Primary Care Provider: Momo High Discharge Orders/Prescriptions Prescriptions: New azithromycin 250 mg Tablet 500 mg PO Q24 Qty: 2 RF: 0 dextromethorphan-guaifenesin 10-100 mg/5 mL Syrup 10 ml PO Q4H PRN PRN (Reason: COUGH) Qty: 0 RF: 0 fluticasone propion-salmeterol [Advair Diskus] 250-50 mcg/dose blister with device 1 inh inhalation BID Qty: 60 RF: 0 Continued escitalopram oxalate 20 mg tablet 20 mg PO DAILY RF: 0 Ventolin HFA 90 mcg/actuation HFA aerosol inhaler 2 puff INHALATION Q4H PRN (Reason: shortness of breath or wheezing) Qty: 18 RF: 6 Stiolto Respimat 2.5-2.5 mcg/actuation mist 2 puff Inhalation Q24H Qty: 4 RF: 11 cholecalciferol (vitamin D3) 50 mcg (2,000 unit) capsule 50 mcg PO DAILY RF: 0 fenofibrate nanocrystallized [Tricor] 145 mg tablet 145 mg PO DAILY RF: 0 furosemide 20 mg tablet 20 mg PO DAILY RF: 0 Trulicity 0.75 mg/0.5 mL pen injector 0.75 mg SC MO RF: 0 pravastatin 40 MG tablet 40 mg PO QHS RF: 0 warfarin 4 MG tablet 4 mg PO SUTUTH RF: 0 nitroglycerin 0.4 MG tablet 0.4 mg Sublingual Q5M PRN (Reason: Chest Pain) RF: 0 metoprolol tartrate 25 mg tablet 25 mg PO BID RF: 0 tamsulosin 0.4 MG capsule 0.4 mg PO QHS RF: 0 omeprazole 20 MG capsule 20 mg PO DAILY RF: 0 empagliflozin 25 MG tablet 25 mg PO DAILY RF: 0 warfarin 6 MG tablet 6 mg PO MOWE RF: 0 insulin aspart U-100 100 unit/mL (3 mL) Insulin Pen 5 unit SUBCUT TID RF: 0 insulin glargine 100 unit/mL (3 mL) Insulin Pen 14 unit SUBCUT DAILY RF: 0 flecainide 50 mg tablet 50 mg PO DAILY RF: 0 pregabalin 300 mg capsule 300 mg PO BID RF: 0 Referrals / Follow Up: Momo High MD [Primary Care Provider] - Within 2 Weeks Disposition Disposition (needs filled in before D/C Order can be placed): Home, Self Care
--- NOTE | 2021-04-18 16:28 | DS.PCM_ITS ---
Providers Date of Admission: 04/16/21 Date of Discharge: 04/18/21 Primary Care Physician: Dr. Momo High MD Reason For Visit: COPD EXACERBATION Diagnosis Discharge Diagnosis (1) Stage 1 mild COPD by GOLD classification: Status: Chronic Code(s): J44.9 - Chronic obstructive pulmonary disease, unspecified Plan: 1. Acute exacerbation of COPD #2 acute hypoxic respiratory failure #3 type 2 diabetes #4 atherosclerotic heart disease #5 paroxysmal atrial fibrillation #6 hyperlipidemia #7 benign prostatic hypertrophy Medications at Discharge Home Medications nitroglycerin 0.4 mg SUBLINGUAL Q5M PRN 05/11/14 pravastatin 40 mg PO QHS 05/11/14 warfarin 4 mg PO SUTUTH 05/11/14 tamsulosin 0.4 mg PO QHS 05/05/17 metoprolol tartrate 25 mg tablet 25 mg PO BID tab 12/07/17 escitalopram oxalate 20 mg tablet 20 mg PO DAILY tab 05/31/18 albuterol sulfate 90 mcg/actuation aerosol inhaler 2 puff INHALATION Q4H PRN #18 g 03/07/19 tiotropium 2.5 mcg-olodaterol 2.5 mcg/actuation mist for inhalation 2 puff INHALATION Q24H #4 g 03/07/19 cholecalciferol (vitamin D3) 50 mcg (2,000 unit) capsule 50 mcg PO DAILY 07/17 08/05 fenofibrate nanocrystallized 145 mg tablet 145 mg PO DAILY 08/02/19 furosemide 20 mg tablet 20 mg PO DAILY 08/02/19 dulaglutide 0.75 mg/0.5 mL subcutaneous pen injector 0.75 mg SC MO 11/29/19 empagliflozin 25 mg PO DAILY 03/05/20 omeprazole 20 mg PO DAILY 03/05/20 warfarin 6 mg PO MOWEFRSA 03/05/20 flecainide 50 mg PO DAILY 04/16/21 insulin aspart U-100 5 unit SUBCUT TID 04/16/21 insulin glargine 14 unit SUBCUT DAILY 04/16/21 pregabalin 300 mg PO BID 04/16/21 azithromycin 500 mg PO Q24 #2 tab 04/18/21 dextromethorphan-guaifenesin 10 ml PO Q4H PRN PRN #0 ml 04/18/21 fluticasone propion-salmeterol [Advair Diskus] 1 inh INHALATION BID #60 ea 04/18/21 Hospital Course Operations None Procedures None Summary of Care Provided Minutes Spent on Discharge: 32 Hospital Course: 70-year-old white male presented to the emergency room at [facility] with a chief complaint of shortness of breath, work- up in the emergency room revealed patient's pulse ox to be 88% on room air at rest, he received IV corticosteroids in the emergency room, he was felt to have an exacerbation of COPD, chest x-ray did not reveal any evidence of pneumonia. Patient was admitted to [place] [id number], IV corticosteroids were administered as well as breathing treatments, patient required low-flow nasal cannula oxygen, and he was placed on Zithromax 500 mg daily. Patient improved during his hospital stay and ultimately he was weaned off oxygen. On 04/18/2021, patient was seen and examined: On examination he appeared in good health and spirits. Vital signs as documented. Skin warm and dry and without overt rashes. Neck without JVD, neck was supple, trachea midline, thyroid was normal. Lungs clear bilaterally, normal air movement was noted. Heart exam notable for regular rhythm, normal sounds and absence of murmurs, rubs or gallops. Abdomen unremarkable and without evidence of organomegaly, masses, or abdominal aortic enlargement. Bowel sounds are present, abdomen is not distended. Extremities nonedematous, no cyanosis was noted, no clubbing was noted. Neuro: Cranial nerves II through XII are grossly intact, no focal motor deficits were noted, sensation to light touch and pinprick intact, motor exam 5/5 throughout. Psych: Patient is alert and oriented x3, he does not appear anxious or depressed, he does not appear agitated. Patient appears stable for discharge to home on 04/18/2021. Weight / BMI Weight Weight: 97.432 kg Body Mass Index (BMI) 30.8 ABG / Lab / Microbiology Data Result Diagrams: 04/16/21 14:01 04/16/21 14:01 Laboratory: Laboratory Results - last 24 hr 04/17/21 17:14: POC Glucose 236 H 04/17/21 21:45: POC Glucose 330 H 04/18/21 08:18: POC Glucose 240 H 04/18/21 11:54: POC Glucose 292 H Microbiology: Microbiology 04/16/21 15:23 Blood Culture (Wb) - Anticubital Left Blood Culture - Preliminary No growth in 48 hours. 04/16/21 15:20 Blood Culture (Wb) - Anticubital Right Blood Culture - Preliminary No growth in 48 hours. 04/16/21 14:01 Nasal Secretion SARS-CoV-2 Antigen (Rapid) - Final D/C Instructions Discharge Diet: 1800 Calorie Control Diet Weight Bearing Status: Full weight bearing Meaningful Use Info Meaningful Use Diagnoses (Choose all that apply): None applicable Discharge Plan Admission Admit Date/Time: 04/16/21 16:06 Primary Reason for Your Visit: exacerbation of COPD Attending Provider: Momo Zaidi Primary Care Provider: Momo High Discharge Orders/Prescriptions Prescriptions: New azithromycin 250 mg Tablet 500 mg PO Q24 Qty: 2 RF: 0 dextromethorphan-guaifenesin 10-100 mg/5 mL Syrup 10 ml PO Q4H PRN PRN (Reason: COUGH) Qty: 0 RF: 0 fluticasone propion-salmeterol [Advair Diskus] 250-50 mcg/dose blister with device 1 inh inhalation BID Qty: 60 RF: 0 Continued escitalopram oxalate 20 mg tablet 20 mg PO DAILY RF: 0 Ventolin HFA 90 mcg/actuation HFA aerosol inhaler 2 puff INHALATION Q4H PRN (Reason: shortness of breath or wheezing) Qty: 18 RF: 6 Stiolto Respimat 2.5-2.5 mcg/actuation mist 2 puff Inhalation Q24H Qty: 4 RF: 11 cholecalciferol (vitamin D3) 50 mcg (2,000 unit) capsule 50 mcg PO DAILY RF: 0 fenofibrate nanocrystallized [Tricor] 145 mg tablet 145 mg PO DAILY RF: 0 furosemide 20 mg tablet 20 mg PO DAILY RF: 0 Trulicity 0.75 mg/0.5 mL pen injector 0.75 mg SC MO RF: 0 pravastatin 40 MG tablet 40 mg PO QHS RF: 0 warfarin 4 MG tablet 4 mg PO SUTUTH RF: 0 nitroglycerin 0.4 MG tablet 0.4 mg Sublingual Q5M PRN (Reason: Chest Pain) RF: 0 metoprolol tartrate 25 mg tablet 25 mg PO BID RF: 0 tamsulosin 0.4 MG capsule 0.4 mg PO QHS RF: 0 omeprazole 20 MG capsule 20 mg PO DAILY RF: 0 empagliflozin 25 MG tablet 25 mg PO DAILY RF: 0 warfarin 6 MG tablet 6 mg PO RF: 0 insulin aspart U-100 100 unit/mL (3 mL) Insulin Pen 5 unit SUBCUT TID RF: 0 insulin glargine 100 unit/mL (3 mL) Insulin Pen 14 unit SUBCUT DAILY RF: 0 flecainide 50 mg tablet 50 mg PO DAILY RF: 0 pregabalin 300 mg capsule 300 mg PO BID RF: 0 Referrals / Follow Up: Momo High MD [Primary Care Provider] - Within 2 Weeks Disposition Disposition (needs filled in before D/C Order can be placed): Home, Self Care Charges/Coding Visit Charges Inpatient E&M: 72748 Disch Hosp
== END 2021-04-18 14:43 | disposition home or self-care (01) | DRG 192 ==
LOC: ED 15:08 → MS3 16:39
PROVIDERS: Emergency Provider Emergency Medicine; PCP Family Medicine; Visit Provider Internal Medicine
DX: J44.1 Chronic obstructive pulmonary disease with (acute) exacerbation (principal); E11.65 Type 2 diabetes mellitus with hyperglycemia; Z79.4 Long term (current) use of insulin; I48.0 Paroxysmal atrial fibrillation; E78.5 Hyperlipidemia, unspecified; I25.10 Atherosclerotic heart disease of native coronary artery without angina pectoris; I10 Essential (primary) hypertension; G47.33 Obstructive sleep apnea (adult) (pediatric); N40.0 Benign prostatic hyperplasia without lower urinary tract symptoms; Z79.01 Long term (current) use of anticoagulants; Z79.84 Long term (current) use of oral hypoglycemic drugs; Z79.899 Other long term (current) drug therapy; Z86.73 Personal history of transient ischemic attack (TIA), and cerebral infarction without residual deficits; Z87.891 Personal history of nicotine dependence
CPT/HCPCS: 71046; 80048; 82962; 83605; 84484; 85025; 85610; 87040; 87426; 93005; 94640; 99251; 99284; J7050; A4216; G0463

== ENCOUNTER 2021-04-25 07:38 | Outpatient (CLI) | payer MEDICARE, SELFPAY ==
--- NOTE | 2021-04-25 07:55 | RAD_ITS ---
STUDY: BARIUM ENEMA. REASON FOR EXAM: Male, 70 years old. INCOMPLETE COLONOSCOPY FLUOROSCOPY TIME (if supplied): ( 60 seconds. ) minutes/seconds. 20 images were obtained. TECHNIQUE: A heading machine operator film was obtained. Following this, contrast was introduced retrograde through the rectum. The entire colon was opacified. COMPARISON: None. FINDINGS: The gas pattern is unremarkable. Phleboliths are seen within the pelvis. The entire colon was opacified. There is no evidence of retrograde or antegrade obstruction to the flow of contrast. There is evidence of a cecal bascule. There is a 6.2 cm x 2.1 cm rectangular filling defect in the midportion of the transverse colon. This may represent a foreign body. Correlation with the colonoscopy is recommended. RAD/Barium Enema No Air Cont IMPRESSION: There is a 6.2 cm x 2.1 cm rectangular filling defect in the midportion of the transverse colon suggestive of a possible foreign body. This was not seen on the postevacuation films. Following the evacuation, the patient mentioned a foreign body was present in the evacuation Electronically Signed: Raffaele Quiros MD at 15:20 EST ,
== END 2021-04-25 23:59 | disposition home or self-care (01) ==
LOC: RAD 07:39
PROVIDERS: PCP Family Medicine; Referring Provider Surgery; Visit Provider Surgery
DX: R69 Illness, unspecified (principal); Z53.9 Procedure and treatment not carried out, unspecified reason
CPT/HCPCS: 74270

== ENCOUNTER → 2021-07-08 | Outpatient (CLI) | payer MEDICARE, SELFPAY ==
[2021-07-08 11:44] LABS: International Normalized Ratio 2.3; Prothrombin Time (Protime)PT. 24.9 SECONDS (11.7-14.9)
== END | disposition home or self-care (01) ==
LOC: LABSPEC 11:27
PROVIDERS: PCP Family Medicine; Visit Provider Family Medicine
DX: I48.20 Chronic atrial fibrillation, unspecified (principal)
CPT/HCPCS: 85610

== ENCOUNTER 2024-06-08 11:16 | Observation (INO) | payer MEDICARE, SELFPAY ==
[2024-06-08] VITALS (7 sets, daily range): BP systolic 115–139; BP diastolic 66–73; PULSE 64–101; RESP 15–24; TEMP 35.7–36.8; O2SAT 91–95; BMI 32.0; BMI 29.0
--- NOTE | 2024-06-08 11:39 | ED.VIS.DYS ---
HPI History of Present Illness Chief Complaint: Shortness of Breath Detail of Chief Complaint: Shortness of breath Informant: patient Narrative Narrative: Patient presents with shortness of breath for about a week. Complains of some mild exertional dyspnea. He complains of a cough with some green sputum. His son was ill about a week ago with upper respiratory symptoms. Patient has history of paroxysmal A-fib and is currently on warfarin. He denies recent travel or surgery. He denies any chest pain. He has history of a pacemaker. He has had no fever. [facility] Medical History (Updated 06/08/24 @ 13:[address] Jessica Fine, DO) GERD (gastroesophageal reflux disease) Respiratory failure with hypoxia Atherosclerotic heart disease of [place] coronary artery without angina pectoris Seizures Type 2 diabetes mellitus TIA (transient ischemic attack) History of myocardial infarction (~2000) Sick sinus syndrome Essential hypertension Paroxysmal atrial fibrillation Anxiety Hyperlipemia MANNY (obstructive sleep apnea) Presence of cardiac pacemaker Chest pain Status post pacemaker Obstructive sleep apnea Hyperlipidemia Atrial fibrillation Anxiety Home Medications ?Medication ?Instructions ?Recorded ?Last Taken ?Type tamsulosin 0.4 mg capsule 0.8 mg PO QHS PROSTATE 05/05/17 06/07/24 History escitalopram oxalate 20 mg tablet 20 mg PO DAILY 05/31/18 06/08/24 History albuterol sulfate 90 mcg/actuation 2 puff inhalation Q4H PRN 03/07/19 04/16/21 Rx aerosol inhaler (Ventolin HFA) shortness of breath or wheezing #18 grams cholecalciferol (vitamin D3) 50 50 mcg PO DAILY 08/02/19 06/08/24 History mcg (2,000 unit) capsule flecainide 50 mg tablet 50 mg PO DAILY HEART 04/16/21 04/16/21 History Held on 06/08/24. Instructions: Ordered insulin aspart U-100 100 unit/mL 5 unit subcut TID 04/16/21 06/08/24 History (3 mL) subcutaneous pen insulin glargine 100 unit/mL (3 14 unit subcut DAILY 04/16/21 06/08/24 History mL) subcutaneous pen pregabalin 300 mg capsule 150 mg PO BID NERVE PAIN 04/16/21 06/08/24 History acetaminophen 300 mg-codeine 30 mg 1 tab PO TID PRN cough 06/08/24 06/07/24 History tablet amlodipine 5 mg tablet 5 mg PO DAILY 06/08/24 06/08/24 History apixaban 5 mg tablet (Eliquis) 5 mg PO BID 06/08/24 06/08/24 History benzonatate 100 mg capsule 100 mg PO TID 06/08/24 06/08/24 History buspirone 10 mg tablet 20 mg PO BID 06/08/24 06/08/24 History finasteride 5 mg tablet 5 mg PO DAILY 06/08/24 06/08/24 History fluticasone 250 mcg-salmeterol 50 1 inh inhalation BID PRN shortness 06/08/24 Unknown History mcg/dose blistr powdr for of breath inhalation (Advair Diskus) fluticasone propionate 50 1 spray intranasal DAILY 06/08/24 06/07/24 History mcg/actuation nasal spray,suspension icosapent ethyl 1 gram capsule 2 g PO BIDCM 06/08/24 06/08/24 History isosorbide mononitrate 30 mg 30 mg PO DAILY 06/08/24 06/08/24 History tablet,extended release 24 hr [id number] 2 cap PO TIDCM 06/08/24 06/08/24 History 24,000-76,000-120,000 unit capsule,delayed rel (Creon) pantoprazole 40 mg tablet,delayed 40 mg PO BID 06/08/24 06/08/24 History release propranolol 10 mg tablet 10 mg PO TID 06/08/24 06/08/24 History rosuvastatin 10 mg tablet 10 mg PO DAILY 06/08/24 06/08/24 History trazodone 100 mg tablet 100 mg PO QHS 06/08/24 06/07/24 History Allergy/AdvReac Type Severity Reaction Status Date / Time house dust mite Allergy hives Verified 06/08/24 11:18 Penicillins Allergy Swelling Verified 06/08/24 11:18 and hives sertraline Allergy diarrhea Verified 06/08/24 11:18 metformin AdvReac Severe diarrhea Verified 06/08/24 11:18 Androgenic Anabolic Steroid AdvReac Rash Verified 06/08/24 11:18 fluoxetine (From Prozac) AdvReac mental Verified 06/08/24 11:18 status change Family History Mother Cancer Diabetes Brother Cancer Diabetes Sister Heart disease Brother Heart disease Surgical History History of cardiac catheterization (~04/08/11) History of hand surgery History of inguinal hernia repair History of lateral meniscus repair of right knee Social History Smoking Status: Former smoker second hand exposure: Yes alcohol intake: never substance use type: does not use ROS ROS ED Review of Systems ROS Unobtainable: other Constitutional Constitutional ED: Reports lethargy; Denies chills, fever(s), sweats or weight loss Eyes Eyes: Denies blurry vision, change in vision or diplopia ENT ENT ED: Denies rhinorrhea or sore throat Cardiovascular Cardiovascular: Denies chest pain, orthopnea or racing heartbeat Respiratory/Chest Respiratory/Chest: Reports cough, dyspnea, dyspnea on exertion and sputum; Denies orthopnea Gastrointestinal Gastrointestinal: Denies abdominal pain, diarrhea, nausea or vomiting Genitourinary Genitourinary ED: Denies dysuria, hematuria or urinary frequency Musculoskeletal Musculoskeletal: Denies arthralgias, back pain, myalgias or neck pain Integumentary Denies abscess, Abrasions or rash Neurologic Neurologic: Denies headache(s) or weakness Psychiatric Psychiatric: Denies anxiety, depression or suicidal thoughts Endocrine Endocrinology: Denies polydipsia, polyphagia or polyuria Hematologic/Lymphatic Hematologic/Lymphatic: Denies easy bleeding, easy bruising or lymphadenopathy Allergic/Immunologic Allergic/Immunologic ED: Denies mouth swelling, tongue swelling or urticaria EXAM Physical Exam Const Vital Signs: 06/08/24 11:16 06/08/24 11:16 06/08/24 11:38 Temperature 97.6 F L Temperature Source Oral Pulse Rate 101 H Respiratory Rate 24 H Respiratory Effort Normal Non-Labored Respiratory Depth Normal Respiratory Pattern Normal Blood Pressure 132/67 H Blood Pressure Mean 88 Pulse Ox 94 Oxygen Delivery Method Room Air Room Air Room Air 06/08/24 11:55 06/08/24 13:16 Temperature Temperature Source Pulse Rate 75 70 Respiratory Rate 15 Respiratory Effort Respiratory Depth Respiratory Pattern Normal Blood Pressure Blood Pressure Mean Pulse Ox 91 Oxygen Delivery Method Room Air Positive well nourished and well developed General Appearance ED: well developed and NAD HEENT Reports TM's clear and moist mucous membranes normocephalic and atraumatic; Negative for trauma or tenderness Tympanic Membrane ED: Yes TM's clear Eyes PERRL and EOMs intact bilaterally General Eye ED: Negative for pale conjunctiva or scleral icterus Neck no lymphadenopathy, supple and no JVD General: Negative for tenderness Chest Wall inspection of chest normal and palpation of chest normal Chest: Negative for tenderness Resp normal respiratory effort and clear to auscultation bilaterally Resp Narrative: Few faint expiratory wheezes bilaterally. No accessory muscle use or retractions. Effort and Inspection: Negative for respiratory distress or pain with movement Auscultation: Negative for rhonchi, wheezes or diminished lung sounds Cardio regular rate, regular rhythm, S1 normal heart sound, S2 normal heart sound and no murmurs Peripheral Pulses: pulses 2+ throughout GI normal to inspection, nondistended, normoactive bowel sounds, soft to palpation, non-tender, non-distended and no masses Back/Spine no CVA tenderness and no thoracic nor lumbar tenderness Extremity normal to inspection General Extremety ED: Negative for edema General Extremity: Negative for edema Neuro oriented x3, CN's II-XII intact bilaterally, no sensory deficits noted and gait normal Sensorium / Orientation: awake, alert, oriented to person, oriented to place and oriented to time Motor Exam: strength 5/5 throughout and strength abnormal Psych mental status grossly normal Skin no rashes or lesions noted and no wounds MDM MDM MDM Narrative Medical decision making narrative: Patient presents with 2-week history of shortness of breath. Seen recently at urgent care and started on steroids. He does have a history of COPD. Cough productive with green to thick white phlegm. Patient with some mild conversational dyspnea on exam. Mildly tachycardic. Some expiratory wheezes. He was given a DuoNeb aerosol. CBC with differential obtained showed an elevated white count of 15.7 with hemoglobin 14 platelet count of 288. Chemistries unremarkable. D-dimer was normal. Troponin normal at 10 and BT [employer]LECT[employer]PER[employer] was 119. Patient does have thick cream-colored phlegm that he is frequently bringing up. 1 view chest x-ray obtained showed no evidence for pneumonia or acute process. He was given a DuoNeb aerosol but continues to feel quite dyspneic specially with ambulation however his O2 sat maintains around 92%. When he falls asleep at times his pulse ox drops to 84%. He does have history of sleep apnea. Lab Data Attestation: I reviewed the patient's lab results. Labs: Laboratory Results - last 24 hr 06/08/24 11:44 WBC 15.7 H RBC 5.08 Hgb 14.3 Hct 42.2 MCV 83.1 MCH 28.1 MCHC 33.9 RDW Std Deviation 43.5 RDW Coeff of Iris 14.4 Plt Count 288 MPV 9.2 Immature Gran % (Auto) 0.500 Neut % (Auto) 83.3 H Lymph % (Auto) 9.7 L [place] % (Auto) 6.3 Eos % (Auto) 0.1 Baso % (Auto) 0.1 Absolute Neuts (auto) 13.1 H Absolute Lymphs (auto) 1.52 Nucleated RBC % 0 PT 16.6 H INR 1.3 D-Dimer Quant (PE/DVT) 0.31 Sodium 135 Potassium 3.7 Chloride 100 Carbon Dioxide 22.0 Anion Gap 13 BUN 19 Creatinine 1.12 Estim Creat Clear Calc 71.10 Est GFR (MDRD) Non-Af 70 BUN/Creatinine Ratio 17.1 Glucose 332 H Calcium 8.3 Troponin T High Sens 10 NT pro BNP II 119 Radiography Diagnostic Testing: Clinical Impression(s) from Imaging Studies Chest X-Ray 06/08/24 12:12 IMPRESSION: Negative Chest. Reading Location: [facility] 1 view chest x-ray obtained interpreted by myself as no evidence of infiltrate or pneumothorax or acute disease process. Radiology in agreement. EKG Initial EKG: Attestation: I personally reviewed and interpreted this EKG as follows: Comments: Sinus rhythm with rate of 72 bpm with first-degree AV block and old inferior infarct Discharge Plan Dx/Rx/DC Orders Clinical Impression: Acute exacerbation of COPD with asthma, Obstructive sleep apnea, Dyspnea Disposition Disposition: Acute Care Hospital [facility]
[2024-06-08] MEDS: Ipratropium/Albuterol Sulfate 3 ML AMPUL.NEB INHALATION ×2 (11:55→19:30)
[2024-06-08 11:58] LABS: Absolute Lymphocyte Count 1.52 X10^3/uL (0.83-4.51); Absolute Neutrophil Count 13.1 X10^3/uL (2.0-7.7); Basophil# 0.02 X10^3/uL; Basophil% 0.1 % (0-1); Eosinophil# 0.01 X10^3/uL; Eosinophils% 0.1 % (0-5); Hematocrit 42.2 % (40-54); Hemoglobin 14.3 g/dL (13.0-16.5); Lymphocyte # 1.52 X10^3/ul (0.83-4.51); Lymphocyte % 9.7 % (19-41); Mean Corp Hgb Conc 33.9 g/dL (32-36); Mean Corpuscular Hgb 28.1 pg (27.0-32.0); Mean Corpuscular Volume 83.1 fL (80-94); Mean Platelet Vol. 9.2 fl (6.2-12.0); Monocyte# 0.98 X10^3/uL; Monocyte% 6.3 % (0-10); NRBC Flagged by Analyzer 0 % (0-5); Neutrophil # 13.07 X10^3/uL (2.7-7.7); Neutrophil % 83.3 % (47-70); Platelet Count 288 K/mm3 (150-450); RBC Distribution Width CV 14.4 % (11.6-14.6); RBC Distribution Width SD 43.5 fl (35.1-43.9); Red Blood Count 5.08 M/mm3 (4.6-6.2); White Blood Count 15.7 K/mm3 (4.4-11.0)
[2024-06-08 12:02] LABS: International Normalized Ratio 1.3; Prothrombin Time (Protime)PT. 16.6 SECONDS (11.7-14.9)
--- NOTE | 2024-06-08 12:12 | RAD_ITS ---
PROCEDURE: CHEST 1 VIEW (PORTABLE) 06/08/2024 REASON FOR EXAM: DYSPNEA TECHNIQUE: Frontal view of the chest. COMPARISON: None. FINDINGS: Hardware: Left chest wall pacemaker device. Heart: The heart size is normal. Lungs: No focal consolidation, pleural effusion or pneumothorax. Bones: Degenerative changes are identified within the thoracic spine. RAD/Chest 1 View (Portable) IMPRESSION: Negative Chest. Reading Location: [id number]
[2024-06-08 12:16] LABS: Anion Gap 13 (5-15); BUN 19 mg/dL (4-19); BUN/Creat Ratio 17.1 RATIO (10-20); Calcium,Total 8.3 mg/dL (7.6-11.0); Chloride 100 mmol/L (98-108); Creatinine, Serum 1.12 mg/dL (0.70-1.20); EST Glomerular Filtration Rate 70 (>60); Glucose 332 mg/dL (70-99); Potassium 3.7 mmol/L (3.3-5.1); Pro- Brain NATRIURETIC PEPTIDE 119 pg/mL (<=900); Sodium Level 135 mmol/L (133-145)
[2024-06-08 12:33] LABS: Troponin T High Sensitivity 10 ng/L (<=22)
[2024-06-08 13:32] LABS: D-Dimer Quantitative (DVT/PE) 0.31 FEU/ug/m (0.27-0.49)
[2024-06-08] MEDS: levoFLOXacin IV 750 MG/150 ML BAG 100 MG IV (14:23)
--- NOTE | 2024-06-08 14:23 | PCM.HP.STD ---
HPI - General General Date of Admission: 06/08/24 Date of Service: 06/08/24 Chief Complaint: SOB and cough HPI Narrative VINEET REYNOLDS, is a 73-year-old male history of BPH, GERD, diabetes, atrial fibrillation, MANNY, permanent pacemaker due to sick sinus syndrome, TIA, COPD who presented to [facility] ED 06/08/2024 for increased shortness of breath for 2 weeks and productive cough. In the ED temperature 97.6, heart rate 101 with blood pressure 132/67, respiratory rate 24 patient initially 94% on room air. In the ED white blood cell count 15.7, glucose 332, troponin and D-dimer within normal limits. Chest x-ray reported as no acute process. It was felt patient had COPD exacerbation was given a DuoNeb and Levaquin and hospitalist contacted for admission. Patient evaluated at bedside with daughter present. Patient has been sick for 2 weeks and went to urgent care 2 weeks ago and was given steroids that were not significantly helpful, seen in [place] ER on Thursday and given prednisone, Tessalon Perles, Tylenol with codeine but is continued to have the shortness of breath and productive cough prompting them to come here. Denies any fevers or chills, has had some left-sided abdominal pain that was presumed to be due to coughing. [facility] Medical History (Updated 06/08/24 @ 14:[address] Casandra Poon MD) Anxiety Anxiety Atherosclerotic heart disease of [place] coronary artery without angina pectoris Atrial fibrillation Chest pain Essential hypertension GERD (gastroesophageal reflux disease) History of myocardial infarction (~2000) Hyperlipemia Hyperlipidemia Obstructive sleep apnea MANNY (obstructive sleep apnea) Paroxysmal atrial fibrillation Presence of cardiac pacemaker Respiratory failure with hypoxia Seizures Sick sinus syndrome Status post pacemaker TIA (transient ischemic attack) Type 2 diabetes mellitus Home Medications ?Medication ?Instructions ?Recorded ?Last Taken ?Type tamsulosin 0.4 mg capsule 0.8 mg PO QHS PROSTATE 05/05/17 06/07/24 History escitalopram oxalate 20 mg tablet 20 mg PO DAILY 05/31/18 06/08/24 History albuterol sulfate 90 mcg/actuation 2 puff inhalation Q4H PRN 03/07/19 04/16/21 Rx aerosol inhaler (Ventolin HFA) shortness of breath or wheezing #18 grams cholecalciferol (vitamin D3) 50 50 mcg PO DAILY 08/02/19 06/08/24 History mcg (2,000 unit) capsule flecainide 50 mg tablet 50 mg PO DAILY HEART 04/16/21 04/16/21 History Held on 06/08/24. Instructions: Ordered insulin aspart U-100 100 unit/mL 5 unit subcut TID 04/16/21 06/08/24 History (3 mL) subcutaneous pen insulin glargine 100 unit/mL (3 14 unit subcut DAILY 04/16/21 06/08/24 History mL) subcutaneous pen pregabalin 300 mg capsule 150 mg PO BID NERVE PAIN 04/16/21 06/08/24 History acetaminophen 300 mg-codeine 30 mg 1 tab PO TID PRN cough 06/08/24 06/07/24 History tablet amlodipine 5 mg tablet 5 mg PO DAILY 06/08/24 06/08/24 History apixaban 5 mg tablet (Eliquis) 5 mg PO BID 06/08/24 06/08/24 History benzonatate 100 mg capsule 100 mg PO TID 06/08/24 06/08/24 History buspirone 10 mg tablet 20 mg PO BID 06/08/24 06/08/24 History finasteride 5 mg tablet 5 mg PO DAILY 06/08/24 06/08/24 History fluticasone 250 mcg-salmeterol 50 1 inh inhalation BID PRN shortness 06/08/24 Unknown History mcg/dose blistr powdr for of breath inhalation (Advair Diskus) fluticasone propionate 50 1 spray intranasal DAILY 06/08/24 06/07/24 History mcg/actuation nasal spray,suspension icosapent ethyl 1 gram capsule 2 g PO BIDCM 06/08/24 06/08/24 History isosorbide mononitrate 30 mg 30 mg PO DAILY 06/08/24 06/08/24 History tablet,extended release 24 hr [id number] 2 cap PO TIDCM 06/08/24 06/08/24 History 24,000-76,000-120,000 unit capsule,delayed rel (Creon) pantoprazole 40 mg tablet,delayed 40 mg PO BID 06/08/24 06/08/24 History release propranolol 10 mg tablet 10 mg PO TID 06/08/24 06/08/24 History rosuvastatin 10 mg tablet 10 mg PO DAILY 06/08/24 06/08/24 History trazodone 100 mg tablet 100 mg PO QHS 06/08/24 06/07/24 History Allergy/AdvReac Type Severity Reaction Status Date / Time house dust mite Allergy hives Verified 06/08/24 11:18 Penicillins Allergy Swelling Verified 06/08/24 11:18 and hives sertraline Allergy diarrhea Verified 06/08/24 11:18 metformin AdvReac Severe diarrhea Verified 06/08/24 11:18 Androgenic Anabolic Steroid AdvReac Rash Verified 06/08/24 11:18 fluoxetine (From Prozac) AdvReac mental Verified 06/08/24 11:18 status change Family History Mother Cancer Diabetes Brother Cancer Diabetes Sister Heart disease Brother Heart disease Surgical History History of cardiac catheterization (~04/08/11) History of hand surgery History of inguinal hernia repair History of lateral meniscus repair of right knee Social History Smoking Status: Former smoker second hand exposure: Yes alcohol intake: never substance use type: does not use ROS ROS Narrative General: Denies fever/chills HENT: Denies headache, has had some nasal congestion sore throat EYES: Occasionally will have some changes in vision Resp: Productive cough and increased shortness of breath Cardiac: Has some chronic left upper chest wall pain around his pacemaker that is unchanged GI: Some left-sided abdominal wall pain after coughing, denies changes in bowel, denies nausea/vomiting : Denies changes in urination, Extremity: Denies swelling MSK: Denies weakness Neuro: Denies any numbness/tingling Heme: Denies any bleeding or bruising Skin: Denies rashes Psychiatric: No complaints voiced Vital Signs Vital Signs Vital Signs: 06/08/24 11:16 06/08/24 11:16 06/08/24 11:38 Temperature 97.6 F L Temperature Source Oral Pulse Rate 101 H Respiratory Rate 24 H Respiratory Effort Normal Non-Labored Respiratory Depth Normal Respiratory Pattern Normal Blood Pressure 132/67 H Blood Pressure Mean 88 Pulse Ox 94 Oxygen Delivery Method Room Air Room Air Room Air 06/08/24 11:55 06/08/24 13:16 Temperature Temperature Source Pulse Rate 75 70 Respiratory Rate 15 Respiratory Effort Respiratory Depth Respiratory Pattern Normal Blood Pressure Blood Pressure Mean Pulse Ox 91 Oxygen Delivery Method Room Air Weight Weight: 101.293 kg Body Mass Index (BMI) 32.0 Physical Exam Narrative General: Alert, oriented, no apparent distress HEENT: Atraumatic, normocephalic Eyes: Anicteric, normal conjunctiva, extraocular movements grossly intact Neck: Supple Respiratory: Slight increased respiratory effort, frequent cough, transmitted upper airway sounds with some scattered expiratory wheezes Cardiovascular: Regular rate and rhythm GI: Soft, a little tender over left abdomen, a little bit full seeming Extremities: No edema Musculoskeletal: Moving all extremities Neuro: No overt focal neurological deficits Skin: No rashes appreciated Psych: Cooperative Results Lab / Micro Data 06/08/24 11:44 06/08/24 11:44 Labs: Laboratory Results - last 24 hr 06/08/24 11:44: WBC 15.7 H, RBC 5.08, Hgb 14.3, Hct 42.2, MCV 83.1, MCH 28.1, MCHC 33.9, RDW Std Deviation 43.5, RDW Coeff of Iris 14.4, Plt Count 288, MPV 9.2, Immature Gran % (Auto) 0.500, Neut % (Auto) 83.3 H, Lymph % (Auto) 9.7 L, Andrew % (Auto) 6.3, Eos % (Auto) 0.1, Baso % (Auto) 0.1, Absolute Neuts (auto) 13.1 H, Absolute Lymphs (auto) 1.52, Nucleated RBC % 0, PT 16.6 H, INR 1.3, D-Dimer Quant (PE/DVT) 0.31, Sodium 135, Potassium 3.7, Chloride 100, Carbon Dioxide 22.0, Anion Gap 13, BUN 19, Creatinine 1.12, Estim Creat Clear Calc 71.10, Est GFR (MDRD) Non-Af 70, BUN/Creatinine Ratio 17.1, Glucose 332 H, Calcium 8.3, Troponin T High Sens 10, NT pro BNP II 119 Micro: Microbiology 06/08/24 11:44 Mucosa - Nose SARS-CoV-2, Influenza & RSV (PCR) - Final Imaging Radiology Impression Chest X-Ray 06/08/24 12:12 IMPRESSION: Negative Chest. Reading Location: [facility] Assessment & Plan Assessment/Plan (1) COPD exacerbation: PLAN: Plan #Acute exacerbation of COPD -Admit to floor, continuous O2 monitoring -Chest x-ray: No acute process -COVID negative, obtain respiratory panel, sputum culture if able -O2 in place, wean as tolerated -IV methylprednisone -Scheduled DuoNebs -Albuterol prn -Antibiotics: Will continue Levaquin -Incentive spirometer -Mucinex #Type 2 diabetes mellitus -Glucose checks and sliding scale insulin - Patient's daughter to verify home insulin dose as this can be resumed #GERD -Continue PPI #Chronic BPH with obstruction -Continue home medications - Of note patient occasionally has to self cath but has not had to recently #MANNY - Patient has known sleep apnea but has not tolerated CPAP and does not presently wear 1 #Paroxysmal Atrial Fibrillation -EKG: Patient in normal sinus rhythm with first-degree block -Rate control: On propranolol, flecainide on hold per med list -Anticoagulation: Eliquis # History of sick sinus syndrome with pacemaker - Noted #Hypertension - Continue home medications #Depression/anxiety -Continue home medications #DVT ppx: On full dose Jenniferquis Casandra Poon MD Charges/Coding Visit Charges Inpatient E&M: 76095 Init Hosp L2
[2024-06-08 17:25] LABS: Bedside Glucose 303 mg/dL (74-106)
[2024-06-08] MEDS: Creon 24,000 unit DR Capsule 2 CAP PO (17:29)
[2024-06-08] MEDS: icosapent ethyL 1 GM Capsule 2 GM PO (17:30)
[2024-06-08] MEDS: Insulin Lispro 100 UNIT/ML INSULN.PEN SC ×3 (17:31→21:47)
--- NOTE | 2024-06-08 18:22 | CASEMGMT ---
Care Management Face to Face with patient for initial transition planning/care coordination assessment in the ED.? This sports book writer introduced self and role at [facility]. Patient alert and oriented. Patient willing to participate in assessment and is able to answer all questions appropriately.? Care providers, pharmacy, and demographics verified. Admitting Diagnosis: COPD exacerbation Other diagnosis history: ?GERD, respiratory failure with hypoxia, seizure, type 2 diabetes, hyperteniosn, a-fib PCP: ?Dr. Thayer [place] doctor, Specialists: [facility] for [facility], pulmonary, and neurology Preferred Pharmacy: [facility] pharmacy Insurance: [facility] and [facility] Prescription Benefit: yes Living Will/HPOA: both HPOA and LW completed LNOK: ?Daughter Living Arrangements: ?Patient lives in one story home with finished basement, son and grandson live with him, they live in basement.? Patient independent with ADLs and IADLs. Transportation: ?Patient drives DME: cane, walker, rollator, walk in shower, grab bars, and pulse ox HHC: ?none SNF/Rehab: none Community Resources: ?none Behavioral Health History: ?Depression and anxiety, is prescribed Lexapro, trazadone, buspirone Patient goals: Patient wishes to discharge home. Disposition Plan: admission to acute; RN CM/SW to follow for discharge planning needs that may arise. Sera Rankin, DIETETICS DIRECTOR, FLYER [employer]ER
[2024-06-08] MEDS: Pregabalin 75 MG Capsule 150 MG PO (21:42)
[2024-06-08] MEDS: busPIRone 5 MG Tablet 20 MG PO (21:43)
[2024-06-08] MEDS: Propranolol 10 MG Tablet PO (21:43)
[2024-06-08] MEDS: traZODone 100 MG Tablet PO (21:44)
[2024-06-08] MEDS: APIXABAN 5 MG TABLET PO (21:45)
[2024-06-08] MEDS: Tamsulosin HCl 0.4 MG Capsule 0.8 MG PO (21:45)
[2024-06-08] MEDS: Atorvastatin Calcium 20 MG Tablet PO (21:45)
[2024-06-08] MEDS: guaiFENesin 1,200 MG Tablet 1200 MG PO (21:46)
[2024-06-08] MEDS: Methylprednisolone Sod Succ 40 MG/ML VIAL IV (21:46)
[2024-06-08] MEDS: Pantoprazole Sodium 40 MG Tablet PO (21:46)
[2024-06-08] MEDS: 0.9% Saline Lock 10 ML Syringe IV (21:52)
[2024-06-09 04:21] VITALS: BP 134/78; PULSE 74; RESP 18; TEMP 35.9; O2SAT 93
--- NOTE | 2024-06-09 04:58 | NURSING ---
Blood sugar checks using patients michael 3
[2024-06-09] MEDS: levoFLOXacin 750 MG Tablet PO (06:14)
[2024-06-09] MEDS: Propranolol 10 MG Tablet PO (06:14)
[2024-06-09] MEDS: Methylprednisolone Sod Succ 40 MG/ML VIAL IV (06:14)
[2024-06-09 06:50] VITALS: PULSE 63; RESP 16; O2SAT 95
[2024-06-09 07:45] LABS: Absolute Lymphocyte Count 1.61 X10^3/uL (0.83-4.51); Absolute Neutrophil Count 11.2 X10^3/uL (2.0-7.7); Basophil# 0.02 X10^3/uL; Basophil% 0.2 % (0-1); Hematocrit 42.8 % (40-54); Hemoglobin 14.1 g/dL (13.0-16.5); Lymphocyte # 1.61 X10^3/ul (0.83-4.51); Lymphocyte % 12.2 % (19-41); Mean Corp Hgb Conc 32.9 g/dL (32-36); Mean Corpuscular Hgb 27.4 pg (27.0-32.0); Mean Corpuscular Volume 83.3 fL (80-94); Mean Platelet Vol. 9.4 fl (6.2-12.0); Monocyte# 0.32 X10^3/uL; Monocyte% 2.4 % (0-10); NRBC Flagged by Analyzer 0 % (0-5); Neutrophil % 84.6 % (47-70); Platelet Count 310 K/mm3 (150-450); RBC Distribution Width CV 14.4 % (11.6-14.6); RBC Distribution Width SD 43.7 fl (35.1-43.9); Red Blood Count 5.14 M/mm3 (4.6-6.2); White Blood Count 13.2 K/mm3 (4.4-11.0)
[2024-06-09 08:05] LABS: ALB/GLOB Ratio 1.2 RATIO (0.9-2.4); AST(SGOT) 14 U/L (<=37); Alanine Aminotransfer ALT/SGPT 17 U/L (<=46); Albumin, Serum 3.8 g/dL (3.4-4.8); Alkaline Phosphatase 95 U/L (40-129); Anion Gap 13 (5-15); BUN 17 mg/dL (4-19); BUN/Creat Ratio 21.1 RATIO (10-20); Calcium,Total 8.8 mg/dL (7.6-11.0); Carbon Dioxide 20.3 mmol/L (21.0-32.0); Chloride 103 mmol/L (98-108); Creatinine, Serum 0.82 mg/dL (0.70-1.20); EST Glomerular Filtration Rate 93 (>60); Estimated Creatinine Clearance 101.24 ml/min (50-250); Globulin 3.1 g/dL (2.2-4.2); Glucose 274 mg/dL (70-99); Potassium 4.2 mmol/L (3.3-5.1); Protein, Total 6.9 g/dL (5.9-8.4); Sodium Level 137 mmol/L (133-145); Total Bilirubin 0.52 mg/dL (0.00-1.30)
[2024-06-09 09:15] VITALS: O2SAT 90; O2SAT 92
[2024-06-09 09:20] VITALS: BP 144/79; PULSE 81; RESP 18; TEMP 36.7; O2SAT 92
[2024-06-09] MEDS: APIXABAN 5 MG TABLET PO (09:22)
[2024-06-09] MEDS: Isosorbide Mononitrate 30 MG Tablet PO (09:22)
[2024-06-09] MEDS: Creon 24,000 unit DR Capsule 2 CAP PO ×2 (09:22→11:47)
[2024-06-09] MEDS: busPIRone 5 MG Tablet 20 MG PO (09:22)
[2024-06-09] MEDS: Pantoprazole Sodium 40 MG Tablet PO (09:23)
[2024-06-09] MEDS: guaiFENesin 1,200 MG Tablet 1200 MG PO (09:23)
[2024-06-09] MEDS: Escitalopram Oxalate 20 MG Tablet PO (09:23)
[2024-06-09] MEDS: icosapent ethyL 1 GM Capsule 2 GM PO (09:23)
[2024-06-09] MEDS: Finasteride 5 MG Tablet PO (09:23)
[2024-06-09] MEDS: amLODIPine 5 MG Tablet PO (09:24)
[2024-06-09] MEDS: Insulin Lispro 100 UNIT/ML INSULN.PEN SC ×4 (09:26→11:48)
[2024-06-09] MEDS: Insulin Glargine-YFGN 100 UNIT/ML Pen 14 UNIT SC (09:28)
[2024-06-09] MEDS: Pregabalin 75 MG Capsule 150 MG PO (09:39)
[2024-06-09 10:17] VITALS: PULSE 62; RESP 14
[2024-06-09] MEDS: Ipratropium/Albuterol Sulfate 3 ML AMPUL.NEB INHALATION (10:21)
--- NOTE | 2024-06-09 12:12 | PCM.DC ---
Discharge Instructions Diet Discharge Diet: No restrictions DC O2, CPAP, BIPAP needs Home O2 Discharge instructions: No Dressing / Incision Discharge Activity: Return to Normal Activity Weight Bearing Status: Full weight bearing Follow Up Care Test Results: Test results from this visit will be discussed in further detail at your follow-up appointment, if applicable. Discharge Plan Admission Admit Date/Time: 06/08/24 14:24 Primary Reason for Your Visit: EXACERBATION OF COPD Attending Provider: Momo Zaidi Primary Care Provider: [facility],[place] Consulting Providers: Casandra Poon Discharge Orders/Prescriptions Prescriptions: New ipratropium-albuterol 0.5 mg-3 mg(2.5 mg base)/3 mL Solution For Nebulization 3 ml inhalation 4XD Qty: 0 0RF albuterol sulfate 90 mcg/actuation HFA aerosol inhaler 2 puff inhalation Q2H PRN (Reason: shortness of breath or wheezing) Qty: 6.7 0RF doxycycline monohydrate 100 mg tablet 100 mg PO BID Qty: 14 0RF prednisone 20 mg tablet 40 mg PO DAILY Qty: 10 0RF Continued escitalopram oxalate 20 mg tablet 20 mg PO DAILY cholecalciferol (vitamin D3) 50 mcg (2,000 unit) capsule 50 mcg PO DAILY tamsulosin 0.4 MG capsule 0.8 mg PO QHS insulin aspart U-100 100 unit/mL (3 mL) Insulin Pen See Rx Instructions SUBCUT .with breakfast Patient Comments: hold for bs 70 or less or if don't eat meal Rx Instructions: 44 subcutaneously WITH BREAKFAST; 32 subcutaneously with lunch; 34 subcutaneously with dinner insulin glargine 100 unit/mL (3 mL) Insulin Pen 60 unit SUBCUT BID flecainide 50 mg tablet 50 mg PO DAILY pregabalin 300 mg capsule 150 mg PO BID Patient Comments: take 1 capsule by mouth twice a day isosorbide mononitrate 30 mg tablet extended release 24 hr 30 mg PO DAILY amlodipine 5 mg tablet 5 mg PO DAILY benzonatate 100 mg capsule 100 mg PO TID finasteride 5 mg tablet 5 mg PO DAILY buspirone 10 mg tablet 20 mg PO BID trazodone 100 mg tablet 100 mg PO QHS pantoprazole 40 mg tablet,delayed release (DR/EC) 40 mg PO BID fluticasone propionate 50 mcg/actuation spray,suspension 1 spray INTRANASAL DAILY rosuvastatin 10 mg tablet 10 mg PO DAILY Eliquis 5 mg tablet 5 mg PO BID acetaminophen-codeine 300-30 mg tablet 1 tab PO TID PRN (Reason: cough) Creon 24,000-76,000 -120,000 unit capsule,delayed release(DR/EC) 2 cap PO TIDCM Rx Instructions: administer with meals and/or snacks icosapent ethyl 1 gram capsule 2 g PO BIDCM propranolol 10 mg tablet 10 mg PO TID fluticasone propion-salmeterol [Advair Diskus] 250-50 mcg/dose blister with device 1 inh inhalation BID PRN (Reason: shortness of breath) Rx Instructions: rinse out mouth after use ferrous sulfate 325 mg (65 mg iron) tablet 325 mg PO DAILY Discontinued Ventolin HFA 90 mcg/actuation HFA aerosol inhaler 2 puff INHALATION Q4H PRN (Reason: shortness of breath or wheezing) Qty: 18 6RF Referrals / Follow Up: Momo High MD [Non-Staff] - [facility] [[facility] - Disposition Disposition (needs filled in before D/C Order can be placed): Home, Self Care
--- NOTE | 2024-06-09 12:31 | DS.PCM_ITS ---
Providers Date of Admission: 06/08/24 Date of Discharge: 06/09/24 [facility] Care Physician: [facility] Reason For Visit: COPD EXACERBATION Diagnosis Discharge Diagnosis (1) COPD exacerbation: Status: Chronic Code(s): J44.1 - Chronic obstructive pulmonary disease with (acute) exacerbation Plan: 1. Acute exacerbation of COPD #2 type 2 diabetes #3 GERD #4 obstructive sleep apnea-noncompliant with CPAP #5 paroxysmal atrial FaBB Medications at Discharge Home Medications tamsulosin 0.4 mg capsule 0.8 mg PO QHS PROSTATE 05/05/17 escitalopram oxalate 20 mg tablet 20 mg PO DAILY 05/31/18 cholecalciferol (vitamin D3) 50 mcg (2,000 unit) capsule 50 mcg PO DAILY 08/02/19 flecainide 50 mg tablet 50 mg PO DAILY HEART 04/16/21 insulin aspart U-100 100 unit/mL (3 mL) subcutaneous pen See Rx Instructions subcut .with breakfast 04/16/21 insulin glargine 100 unit/mL (3 mL) subcutaneous pen 60 unit subcut BID 04/16/21 pregabalin 300 mg capsule 150 mg PO BID NERVE PAIN 04/16/21 acetaminophen 300 mg-codeine 30 mg tablet 1 tab PO TID PRN cough 06/08/24 amlodipine 5 mg tablet 5 mg PO DAILY 06/08/24 apixaban 5 mg tablet (Eliquis) 5 mg PO BID 06/08/24 benzonatate 100 mg capsule 100 mg PO TID 06/08/24 buspirone 10 mg tablet 20 mg PO BID 06/08/24 ferrous sulfate 325 mg (65 mg iron) tablet 325 mg PO DAILY 06/08/24 finasteride 5 mg tablet 5 mg PO DAILY 06/08/24 fluticasone 250 mcg-salmeterol 50 mcg/dose blistr powdr for inhalation (Advair Diskus) 1 inh inhalation BID PRN shortness of breath 06/08/24 fluticasone propionate 50 mcg/actuation nasal spray,suspension 1 spray intranasal DAILY 06/08/24 icosapent ethyl 1 gram capsule 2 g PO BIDCM 06/08/24 isosorbide mononitrate 30 mg tablet,extended release 24 hr 30 mg PO DAILY 06/08/24 [id number]-[id number] 24,000-76,000-120,000 unit capsule,delayed rel (Creon) 2 cap PO TIDCM 06/08/24 pantoprazole 40 mg tablet,delayed release 40 mg PO BID 06/08/24 propranolol 10 mg tablet 10 mg PO TID 06/08/24 rosuvastatin 10 mg tablet 10 mg PO DAILY 06/08/24 trazodone 100 mg tablet 100 mg PO QHS 06/08/24 albuterol sulfate 90 mcg/actuation aerosol inhaler 2 puff inhalation Q2H PRN shortness of breath or wheezing #6.7 grams 06/09/24 doxycycline monohydrate 100 mg tablet 100 mg PO BID #14 tabs 06/09/24 ipratropium 0.5 mg-albuterol 3 mg (2.5 mg base)/3 mL nebulization soln 3 ml inhalation 4XD #0 mL 06/09/24 prednisone 20 mg tablet 40 mg (2 x 20 mg) PO DAILY #10 tabs 06/09/24 Hospital Course Operations None Procedures None Summary of Care Provided Minutes Spent on Discharge: 30 Hospital Course: This 73-year-old white male was seen in the emergency room at [facility] [place] with a chief complaint of shortness of breath. Patient has a known history of COPD. Labs revealed an elevated white blood cell count 15.7, chemistry panel revealed an elevated glucose at 332, chest x-ray was unremarkable. It was noted by the emergency room physician that when the patient fell asleep in the ER on room air his pulse ox dropped to 84%, at rest the pulse ox was 92%. Patient was placed in observation status on PCU, aerosol treatments were continued and the patient was given IV corticosteroids, patient improved during his hospitalization, on 06/09/2024, patient was seen and examined: On examination he appeared in good health and spirits. Vital signs as documented. Skin warm and dry and without overt rashes. Neck without JVD, neck was supple, trachea midline, thyroid was normal. Lungs clear bilaterally, normal air movement was noted. Heart exam notable for regular rhythm, normal sounds and absence of murmurs, rubs or gallops. Abdomen unremarkable and without evidence of organomegaly, masses, or abdominal aortic enlargement. Bowel sounds are present, abdomen is not distended. Extremities nonedematous, no cyanosis was noted, no clubbing was noted. Neuro: Cranial nerves II through XII are grossly intact, no focal motor deficits were noted, sensation to light touch and pinprick intact, motor exam 5/5 throughout. Psych: Patient is alert and oriented x3, he does not appear anxious or depressed, he does not appear agitated. Patient was discharged in stable condition on 06/09/2024 Weight / BMI Weight Weight: 99.9 kg Body Mass Index (BMI) 29.0 ABG / Lab / Microbiology Data 06/09/24 07:11 06/09/24 07:11 Laboratory: Laboratory Results - last 24 hr 06/08/24 11:44: D-Dimer Quant (PE/DVT) 0.31, Troponin T High Sens 10 06/08/24 16:50: POC Glucose 303 H 06/09/24 07:11: WBC 13.2 H, RBC 5.14, Hgb 14.1, Hct 42.8, MCV 83.3, MCH 27.4, MCHC 32.9, RDW Std Deviation 43.7, RDW Coeff of Iris 14.4, Plt Count 310, MPV 9.4, Immature Gran % (Auto) 0.600, Neut % (Auto) 84.6 H, Lymph % (Auto) 12.2 L, [place] % (Auto) 2.4, Eos % (Auto) 0.0, Baso % (Auto) 0.2, Absolute Neuts (auto) 11.2 H, Absolute Lymphs (auto) 1.61, Nucleated RBC % 0, Sodium 137, Potassium 4.2, Chloride 103, Carbon Dioxide 20.3 L, Anion Gap 13, BUN 17, Creatinine 0.82, Estim Creat Clear Calc 101.24, Est GFR (MDRD) Non-Af 93, BUN/Creatinine Ratio 21.1 H, Glucose 274 H, Calcium 8.8, Total Bilirubin 0.52, AST 14, ALT 17, Alkaline Phosphatase 95, Total Protein 6.9, Albumin 3.8, Globulin 3.1, Albumin/Globulin Ratio 1.2 Microbiology: Microbiology 06/08/24 16:20 Sputum, Expectorated/Coughed Gram Stain - Final 06/08/24 16:20 Sputum, Expectorated/Coughed Respiratory Culture - Final 06/08/24 16:45 Mucosa - Nasopharyngeal Respiratory Panel (PCR) - Final 06/08/24 11:44 Mucosa - Nose SARS-CoV-2, Influenza & RSV (PCR) - Final Radiography Diagnostic Testing: Radiology Impression Chest X-Ray 06/08/24 12:12 IMPRESSION: Negative Chest. Reading Location: [id number] Instructions Discharge Diet: No restrictions Weight Bearing Status: Full weight bearing DC O2, CPAP, BIPAP Needs Home O2 Discharge instructions: No Meaningful Use Info Meaningful Use Meaningful Use Diagnoses (Choose all that apply): None applicable Ischemic Stroke Statin Dosing Therapy Reference: STATIN DOSE THERAPY REFERENCE: * Patients > 75 years receive moderate or high dose statin therapy. * Patients 75 years or YOUNGER should receive HIGH intensity statin dose unless contraindicated. You will be required to document reason for non-treatment if statin daily dose does not meet guidelines. HIGH DOSE STATIN THERAPY DAILY Atorvastatin > than or = to 40 mg Rosuvastatin > than or = to 20 mg Amlodipine + Atorvastatin > than or = to 2.5/40 mg Ezetimibe + Simvastatin 10/80 mg Simvastatin 80mg Discharge Plan Admission Admit Date/Time: 06/08/24 14:24 Primary Reason for Your Visit: EXACERBATION OF COPD Attending Provider: Momo Zaidi Primary Care Provider: [facility] Consulting Providers: Casandra Poon Discharge Orders/Prescriptions Prescriptions: New ipratropium-albuterol 0.5 mg-3 mg(2.5 mg base)/3 mL Solution For Nebulization 3 ml inhalation 4XD Qty: 0 0RF albuterol sulfate 90 mcg/actuation HFA aerosol inhaler 2 puff inhalation Q2H PRN (Reason: shortness of breath or wheezing) Qty: 6.7 0RF doxycycline monohydrate 100 mg tablet 100 mg PO BID Qty: 14 0RF prednisone 20 mg tablet 40 mg PO DAILY Qty: 10 0RF Continued escitalopram oxalate 20 mg tablet 20 mg PO DAILY cholecalciferol (vitamin D3) 50 mcg (2,000 unit) capsule 50 mcg PO DAILY tamsulosin 0.4 MG capsule 0.8 mg PO QHS insulin aspart U-100 100 unit/mL (3 mL) Insulin Pen See Rx Instructions SUBCUT .with breakfast Patient Comments: hold for bs 70 or less or if don't eat meal Rx Instructions: 44 subcutaneously WITH BREAKFAST; 32 subcutaneously with lunch; 34 subcutaneously with dinner insulin glargine 100 unit/mL (3 mL) Insulin Pen 60 unit SUBCUT BID flecainide 50 mg tablet 50 mg PO DAILY pregabalin 300 mg capsule 150 mg PO BID Patient Comments: take 1 capsule by mouth twice a day isosorbide mononitrate 30 mg tablet extended release 24 hr 30 mg PO DAILY amlodipine 5 mg tablet 5 mg PO DAILY benzonatate 100 mg capsule 100 mg PO TID finasteride 5 mg tablet 5 mg PO DAILY buspirone 10 mg tablet 20 mg PO BID trazodone 100 mg tablet 100 mg PO QHS pantoprazole 40 mg tablet,delayed release (DR/EC) 40 mg PO BID fluticasone propionate 50 mcg/actuation spray,suspension 1 spray INTRANASAL DAILY rosuvastatin 10 mg tablet 10 mg PO DAILY Eliquis 5 mg tablet 5 mg PO BID acetaminophen-codeine 300-30 mg tablet 1 tab PO TID PRN (Reason: cough) Creon 24,000-76,000 -120,000 unit capsule,delayed release(DR/EC) 2 cap PO TIDCM Rx Instructions: administer with meals and/or snacks icosapent ethyl 1 gram capsule 2 g PO BIDCM propranolol 10 mg tablet 10 mg PO TID fluticasone propion-salmeterol [Advair Diskus] 250-50 mcg/dose blister with device 1 inh inhalation BID PRN (Reason: shortness of breath) Rx Instructions: rinse out mouth after use ferrous sulfate 325 mg (65 mg iron) tablet 325 mg PO DAILY Discontinued Ventolin HFA 90 mcg/actuation HFA aerosol inhaler 2 puff INHALATION Q4H PRN (Reason: shortness of breath or wheezing) Qty: 18 6RF Referrals / Follow Up: Momo High MD [Non-Staff] - [facility] - Disposition Disposition (needs filled in before D/C Order can be placed): Home, Self Care Charges/Coding Visit Charges Inpatient E&M: 46091 Disch Hosp
[2024-06-09 12:48] VITALS: BP 144/79; PULSE 81; RESP 18; TEMP 36.7; O2SAT 92
--- NOTE | 2024-06-09 13:00 | CASEMGMT ---
IGOR WORTHY NOTE: DC order is in. Rx's have been sent to [facility] retail pharmacy, including solution for nebulizer. IGOR WORTHY to room. Pt resting in bed. Introduced self and role. Pt states his daughter is on her way in to take him home. He is aware Rx's have been sent to [facility] retail pharmacy, declines wanting [id number], stating they will pick them up @ the pharmacy on the way out and is also aware there is a drive-through. Pt verifies he has a nebulizer @ home. He states he also has a functioning CGM w/sufficient supplies, a functioning glucometer w/sufficient supplies, sufficient supply of insulin and of needles. He denies need for other DME. Questions answered. He denies having any home-going needs or concerns. Octaviano LOVELL RN CM
== END 2024-06-09 13:41 | disposition home or self-care (01) ==
LOC: ED 13:56 → PCU 14:47
PROVIDERS: Admitting Provider Internal Medicine; Emergency Provider Emergency Medicine; Visit Provider Internal Medicine
DX: J44.1 Chronic obstructive pulmonary disease with (acute) exacerbation (principal); I48.0 Paroxysmal atrial fibrillation; I49.5 Sick sinus syndrome; E11.9 Type 2 diabetes mellitus without complications; Z79.4 Long term (current) use of insulin; I25.10 Atherosclerotic heart disease of native coronary artery without angina pectoris; I10 Essential (primary) hypertension; E78.5 Hyperlipidemia, unspecified; N40.1 Benign prostatic hyperplasia with lower urinary tract symptoms; N13.8 Other obstructive and reflux uropathy; G47.33 Obstructive sleep apnea (adult) (pediatric); F32.A Depression, unspecified; F41.9 Anxiety disorder, unspecified; Z79.01 Long term (current) use of anticoagulants; Z79.899 Other long term (current) drug therapy; I25.2 Old myocardial infarction; Z86.73 Personal history of transient ischemic attack (TIA), and cerebral infarction without residual deficits; Z87.891 Personal history of nicotine dependence; Z91.199 Patient's noncompliance with other medical treatment and regimen due to unspecified reason
CPT/HCPCS: 36415; 71045; 80048; 80053; 82962; 83880; 84484; 85025; 85379; 85610; 87070; 87205; 87631; 87633; 93005; 94640; 94668; 96365; 96366; 96375; 96376; 99221; 99285; A4216; G0378